=== PATIENT | female | born 1970 | race Caucasian/White ===

== ENCOUNTER 2017-08-15 14:34 | Emergency (ER) | payer MEDICAID, SELFPAY ==
[2017-08-15 14:35] VITALS: BP 138/101; PULSE 114; RESP 20; TEMP 36.9; O2SAT 95; BMI 45.8
--- NOTE | 2017-08-15 15:27 | ED.VISSUMM ---
- ER Visit Summary Date of Service: 08/15/17 Chief Complaint: Paresthesias of bilateral arms History of Present Illness: The patient is a 46 F currently on chemotherapy for breast cancer who presents for 2 hours of paresthesias in the bilateral fifth fingers in the ulnar side of the forearm up to the elbow. Patient states she has developed a rash on her arms and in her left eye that were determined to be due to her chemotherapy. She is currently on Bactrim and Cipro eyedrops for the same. Her eyes improved but the rash has become darker. Now she is having shooting paresthesias in the pinky is up to the elbow. She denies any neck pain, headache, back pain, weakness, or lower extremity symptoms. She also noted swelling in her bilateral hands and had to take off her wedding ring. She has shortness of breath secondary to pulmonary effusions that have already been worked up at the [facility]. She was checked for PE and CT scan was negative. Physical Examination: Vital signs: afebrile, hemodynamically stable, no hypoxia on room air General: well nourished, well developed, in no distress Skin: warm, dry, no pallor, erythematous patches on the bilateral arms below the elbows, no specific dermatomal distribution, blanching, left eye is mildly erythematous with exudate. No swelling. Mild rash along the base of the neck. HEENT: normocephalic and atraumatic; PERRL, EOMI, moist mucous membranes. Neck is supple, no midline tenderness deformities or step-offs, full range of motion Cardiovascular: Tachycardic rate and rhythm without murmurs, edema to bilateral hands, 2+ pulses all distal extremities Respiratory: No increased work of breathing, lungs are clear to auscultation bilaterally, no rales, rhonchi or wheezing Abdominal: Abdomen is soft, nontender with normoactive bowel sounds, no guarding or rebound, no masses MSK: Moves all extremities, no deformities, normal strength Neuro: Awake and alert, oriented ?4. No facial droop, sensation and motor function intact and symmetric Test Results: no tests performed or indicated Emergency Department Course and Treatment: Discussed patient with Dr. Oh, who stated this is very likely a side effect of the Taxotere and is nothing to worry about. Patient was reassured. She was given norco for pain in the ED and also a rx for pain especially at night and to help her sleep with the shooting paresthesias. She is to follow-up with Dr. Velez if she has any further complaints. She was discharged home. Treatment Plan: [] Disposition: [] Impression: Side effect of chemotherapy, bilateral fifth finger and forearm paresthesias This note was generated with [employer] dictation software. It may contain incorrect words, spelling, and punctuation that were not noted in review of the chart prior to signing ED Disposition - Plan for ED Patient: Chief Complaint: Numb/Ting Prescriptions: Hydrocodone Bitart/Apap 5-325 [[place] 5/325] 1 tab PO Q6H PRN PRN 5 Days #20 tab PRN Reason: Pain Referrals: Rogelio Velez DO [STAFF PHYSICIAN] - Lavonne Hensley PA [Primary Care Provider] - Additional Instructions: Please follow-up with Dr. Velez if you continue to have worsening of your numbness and tingling in your hands as well as your rash. If you have any further concerns, please come back to the emergency department immediately for another evaluation. You may use the [place] for pain and to help you sleep.
--- NOTE | 2017-08-15 15:33 | ED.DCSUM_ITS ---
- ER Visit Summary Date of Service: 08/15/17 Chief Complaint: Paresthesias of bilateral arms History of Present Illness: The patient is a 46 F currently on chemotherapy for breast cancer who presents for 2 hours of paresthesias in the bilateral fifth fingers in the ulnar side of the forearm up to the elbow. Patient states she has developed a rash on her arms and in her left eye that were determined to be due to her chemotherapy. She is currently on Bactrim and Cipro eyedrops for the same. Her eyes improved but the rash has become darker. Now she is having shooting paresthesias in the pinky is up to the elbow. She denies any neck pain , headache, back pain, weakness, or lower extremity symptoms. She also noted swelling in her bilateral hands and had to take off her wedding ring. She has shortness of breath secondary to pulmonary effusions that have already been worked up at the [facility]. She was checked for PE and CT scan was negative. Physical Examination: Vital signs: afebrile, hemodynamically stable, no hypoxia on room air General: well nourished, well developed, in no distress Skin: warm, dry, no pallor, erythematous patches on the bilateral arms below the elbows, no specific dermatomal distribution, blanching, left eye is mildly erythematous with exudate. No swelling. Mild rash along the base of the neck. HEENT: normocephalic and atraumatic; PERRL, EOMI, moist mucous membranes. Neck is supple, no midline tenderness deformities or step-offs, full range of motion Cardiovascular: Tachycardic rate and rhythm without murmurs, edema to bilateral hands, 2+ pulses all distal extremities Respiratory: No increased work of breathing, lungs are clear to auscultation bilaterally, no rales, rhonchi or wheezing Abdominal: Abdomen is soft, nontender with normoactive bowel sounds, no guarding or rebound, no masses MSK: Moves all extremities, no deformities, normal strength Neuro: Awake and alert, oriented ?4. No facial droop, sensation and motor function intact and symmetric Test Results: no tests performed or indicated Emergency Department Course and Treatment: Discussed patient with Dr. Oh, who stated this is very likely a side effect of the Taxotere and is nothing to worry about. Patient was reassured. She was given norco for pain in the ED and also a rx for pain especially at night and to help her sleep with the shooting paresthesias. She is to follow-up with Dr. Velez if she has any further complaints. She was discharged home. Treatment Plan: [] Disposition: [] Impression: Side effect of chemotherapy, bilateral fifth finger and forearm paresthesias This note was generated with [employer] dictation software. It may contain incorrect words, spelling, and punctuation that were not noted in review of the chart prior to signing ED Disposition - Plan for ED Patient: Chief Complaint: Numb/Ting Prescriptions: Hydrocodone Bitart/Apap 5-325 [[place] 5/325] 1 tab PO Q6H PRN PRN 5 Days #20 tab PRN Reason: Pain Referrals: Rogelio Velez DO [STAFF PHYSICIAN] - Lavonne Hensley PA [Primary Care Provider] - Additional Instructions: Please follow-up with Dr. Velez if you continue to have worsening of your numbness and tingling in your hands as well as your rash. If you have any further concerns, please come back to the emergency department immediately for another evaluation. You may use the [place] for pain and to help you sleep.
--- NOTE | 2017-08-15 15:53 | ED.DEP ---
ED Disposition - Plan for ED Patient: Chief Complaint: Numb/Ting Instructions: ED Neuropathy Peripheral Prescriptions: Hydrocodone Bitart/Apap 5-325 [[place] 5/325] 1 tab PO Q6H PRN PRN 5 Days #20 tab PRN Reason: Pain Referrals: Lavonne Hensley PA [Primary Care Provider] - Rogelio Velez DO [STAFF PHYSICIAN] - Additional Instructions: Please follow-up with Dr. Velez if you continue to have worsening of your numbness and tingling in your hands as well as your rash. If you have any further concerns, please come back to the emergency department immediately for another evaluation. You may use the [place] for pain and to help you sleep.
[2017-08-15] MEDS: HYDROcodone Bitartrate/Apap 5/325 Tablet PO (16:09)
[2017-08-15 16:11] VITALS: BP 155/105; PULSE 104; RESP 16
== END 2017-08-15 16:11 | disposition home or self-care (01) ==
LOC: ED 15:31
PROVIDERS: Emergency Provider Emergency Medicine; Family Provider Physician Assistant; PCP Physician Assistant
DX: R20.2 Paresthesia of skin (principal); C50.919 Malignant neoplasm of unspecified site of unspecified female breast; T45.1X5A Adverse effect of antineoplastic and immunosuppressive drugs, initial encounter; Y92.9 Unspecified place or not applicable; I10 Essential (primary) hypertension; E78.00 Pure hypercholesterolemia, unspecified
CPT/HCPCS: 99283

== ENCOUNTER → 2018-01-04 13:03 | Outpatient (CLI) | payer MEDICAID, SELFPAY ==
--- NOTE | 2018-01-04 13:19 | BI_ITS ---
MAMMOGRAPHY - UNILATERAL DIAGNOSTIC: LEFT BREAST REASON FOR EXAM: Female, 47 years old. Status post right mastectomy. Surgical planning for left mastectomy. PERTINENT HISTORY: Personal history of breast cancer. Grandmother with breast cancer. TECHNIQUE: Digital unilateral breast miguel ángel (3D mammographic acquisition) in the CC and MLO projections. 2-D mediolateral oblique (MLO) and craniocaudad (CC) views of both breasts were obtained. CAD: Full Field Digital Mammography with Computer Added Detection was performed. COMPARISON: Comparison is made with prior mammogram dated March 25, 2017. FINDINGS: Breast Composition: There are scattered areas of fibroglandular density. There are no dominant masses or suspicious calcifications. Stable small left axillary lymph nodes. A tissue clip marker is seen in the anterior superior region of the breasts. No other significant abnormalities are identified. BI/DIAG MAMM W/CAD, UNILAT IMPRESSION: Stable unilateral diagnostic mammogram. One year follow-up mammogram recommended. (A) ASSESSMENT CATEGORY: BIRADS Category 2: Benign. A letter regarding these results will be sent to the patient by the facility within 30 days. Approximately 10% of breast cancers are not detected by mammography. A normal mammogram should not delay biopsy of a clinically suspicious abnormality. Electronically Signed: Andrew Taylor MD at 11:01 EDT Tel [phone], Service support ,
== END ==
PROVIDERS: Family Provider Physician Assistant; PCP Physician Assistant; Visit Provider Surgery
DX: D24.2 Benign neoplasm of left breast (principal); C50.911 Malignant neoplasm of unspecified site of right female breast; N65.1 Disproportion of reconstructed breast; Z80.3 Family history of malignant neoplasm of breast
CPT/HCPCS: 77061; 77065; G0279

== ENCOUNTER 2018-01-14 06:54 | Day surgery (SDC) | payer MEDICAID, SELFPAY ==
[2018-01-14] VITALS (8 sets, daily range): BP systolic 108–120; BP diastolic 66–76; PULSE 84–100; RESP 16–18; TEMP 35.9–36.7; O2SAT 91–96; BMI 45.6
--- NOTE | 2018-01-14 06:59 | EKG12_ITS ---
Test Reason : PRE OP Blood Pressure : / mmHG Vent. Rate : 091 BPM Atrial Rate : 091 BPM P-R Int : 140 ms QRS Dur : 086 ms QT Int : 378 ms P-R-T Axes : 036 034 024 degrees QTc Int : 464 ms Normal sinus rhythm Low voltage QRS Borderline ECG When compared with ECG of 28-OCT-2016 21:42, No significant change was found Confirmed by NOE GUTIERREZ, MIRIAN ([id number]), deputy editor in chief MARY PERLA ([id number] on 01/15/2018 10:08:20 AM Referred By: Flory Huang Confirmed By:MIRIAN LIU MD
[2018-01-14 07:17] LABS: Internal QC Validated? YES +Cl - CLEAR BKGD; Pregnancy, Urine Negative Negative
[2018-01-14 07:35] LABS: Hematocrit 38.5 % (37-47); Hemoglobin 12.3 g/dl (12.0-15.0); Mean Corp Hgb Conc 31.9 g/gl (32-36); Mean Corpuscular Hgb 25.1 pg (27.0-32.0); Mean Corpuscular Volume 78.4 fL (81-99); Mean Platelet Vol. 9.4 fl (6.2-12.0); Platelet Count 259 K/mm3 (150-450); RBC Distribution Width CV 18.8 % (11.6-14.6); RBC Distribution Width SD 52.3 fl (35.1-43.9); Red Blood Count 4.91 M/mm3 (4.2-5.4); White Blood Count 5.5 K/mm3 (4.4-11.0)
[2018-01-14 07:45] LABS: Scan Indicated on CBC? Y/N NO
[2018-01-14 07:50] LABS: Anion Gap 8 (5-15); BUN 14 mg/dL (7-18); BUN/Creat Ratio 16.6 RATIO (10-20); Calcium,Total 8.7 mg/dL (8.5-10.1); Chloride 103 mmol/L (98-107); Creatinine, Serum 0.84 mg/dL (0.55-1.02); EST Glomerular Filtration Rate 77 mL/min (>60); Est Glom Filt Rate - Afr Amer 93 mL/min (>60); Estimated Creatinine Clearance 69.23 ml/min; Glucose 105 mg/dL (74-106); Potassium 3.9 mmol/L (3.5-5.1); Sodium Level 140 mmol/L (136-145); Thyroid Stim Hormone (TSH) 1.53 uIU/mL (0.358-3.74)
[2018-01-14] MEDS: Bupivacaine Mpf 0.5% 30 ML VIAL (08:52)
--- NOTE | 2018-01-14 09:23 | PCM.OP.BLANK ---
Operative Report Date of Procedure: 01/14/18 Surgeon: Dr. Flory Huang Vault Clerk: CUCA Allred Preoperative diagnosis: Prophylactic BSO, Estrogen receptor + breast cancer, BRCA negative Procedure performed: laparoscopic BSO Postoperative diagnosis: same complications: None Estimated blood loss: 5cc Drains: none Specimens collected: Bilateral tubes and ovaries Findings: Normal tubes and ovaries bilaterally uterus sounded to approximately 8cm. Anesthesia: general Implantable devices: None Operative note: After informed consent was obtained patient was taken to the operating room she was placed in supine position she was given anesthesia. She was then placed in the [facility] stirrups and she was prepped and draped in normal sterile fashion. Bladder was drained prior to the start of procedure approximately 50cc of clear yellow urine was expelled. At this time attention was turned to the vaginal portion where weighted speculum placed at posterior fornix vagina single-tooth tenaculum was used to gently grasp the internal the cervix. uterus was gently sounded to approximately 8cm. Uterine manipulator was placed without difficulty. Legs then placed in parallel with the abdomen the tenaculum and the weighted speculum were removed. 2 towel clamps were placed superior to umbilicus. After Marcaine was injected superior to umbilicus a small incision was made and a 5 mm trocar was placed under direct visualization. CO2 gas was used to insufflate the intra-abdominal cavity. Upon inspection no gross abnormalities uterus tubes and ovaries appeared to be normal. Filshie clips were noted on both tubes. At this time then the LLQ port was placed again Marcaine was injected small incision was made a knife and the 5 mm trocar was placed. this was repeated on right side. At this time then tubes were traced back to the fimbriated ends. Ligasure was used to coagulate and ligate along IP ligament, uterovarian and the mesosalpynx bilaterally until ovaries and tubes removed completely. Good hemostasis was appreciated. The umbilical incision was extended to 10mm port and endocatch bag placed- specimens collected and removed. The jose f wilder was then used to closed fascia of umbilical incision using 0-vicryl sutre. At this time procedure was deemed complete successful. The gas was desufflated on from the intra-abdominal cavity. The trochars were removed. Skin was closed using 4-0 Monocryl in a subcutaneous fashion. Dermabond glue was placed. Instrument lap and needle counts were correct ?2. The uterine manipulator was removed. Vaginal sweep was performed it was negative. There were no complications anticipated normal postoperative course for this patient.
--- NOTE | 2018-01-14 09:28 | OP.PCM_ITS ---
Operative Report Date of Procedure: 01/14/18 Surgeon: Dr. Flory Huang Negative Spotter: CUCA Allred Preoperative diagnosis: Prophylactic BSO, Estrogen receptor + breast cancer, BRCA negative Procedure performed: laparoscopic BSO Postoperative diagnosis: same complications: None Estimated blood loss: 5cc Drains: none Specimens collected: Bilateral tubes and ovaries Findings: Normal tubes and ovaries bilaterally uterus sounded to approximately 8cm. Anesthesia: general Implantable devices: None Operative note: After informed consent was obtained patient was taken to the operating room she was placed in supine position she was given anesthesia. She was then placed in the [facility] [employer] [facility] [employer] stirrups and she was prepped and draped in normal sterile fashion. Bladder was drained prior to the start of procedure approximately 50cc of clear yellow urine was expelled. At this time attention was turned to the vaginal portion where weighted speculum placed at posterior fornix vagina single-tooth tenaculum was used to gently grasp the internal the cervix. uterus was gently sounded to approximately 8cm. Uterine manipulator was placed without difficulty. Legs then placed in parallel with the abdomen the tenaculum and the weighted speculum were removed. 2 towel clamps were placed superior to umbilicus. After Marcaine was injected superior to umbilicus a small incision was made and a 5 mm trocar was placed under direct visualization. CO2 gas was used to insufflate the intra-abdominal cavity. Upon inspection no gross abnormalities uterus tubes and ovaries appeared to be normal. Filshie clips were noted on both tubes. At this time then the LLQ port was placed again Marcaine was injected small incision was made a knife and the 5 mm trocar was placed. this was repeated on right side. At this time then tubes were traced back to the fimbriated ends. Ligasure was used to coagulate and ligate along IP ligament, uterovarian and the mesosalpynx bilaterally until ovaries and tubes removed completely. Good hemostasis was appreciated. The umbilical incision was extended to 10mm port and endocatch bag placed- specimens collected and removed. The jose f wilder was then used to closed fascia of umbilical incision using 0-vicryl sutre. At this time procedure was deemed complete successful. The gas was desufflated on from the intra- abdominal cavity. The trochars were removed. Skin was closed using 4-0 Monocryl in a subcutaneous fashion. Dermabond glue was placed. Instrument lap and needle counts were correct ?2. The uterine manipulator was removed. Vaginal sweep was performed it was negative. There were no complications anticipated normal postoperative course for this patient.
--- NOTE | 2018-01-14 09:28 | PCM.DC.TUB ---
Discharge Diet: No Restrictions, - - Increase fluid intake for 48 hours. Discharge Activity: Return to Normal Activity, May Drive - when you are no longer taking narcotic pain medications., May Shower, May Take a Tub Bath - in 7 days., - - Ambulate often the next week after surgery. May resume sexual activity in: 2 weeks Lifting Restrictions: 20 Additional Activity Instructions:: Nothing in the vagina for the next 5 days. Call your doctor if your incision/area has: Continuous Slow Oozing, Sudden Increased Bleeding, Increased Pain/ Swelling, Increased Redness, Foul Smelling Discharge, Swelling at the incision site Call your doctor if you observe: Fever of 101 or Higher, Using more than one pad per hour Cleanse incision/area with: Soap & Water, - - do not pick of skin glue Allergies/Adverse Reactions: Allergies levofloxacin [From Levaquin] Allergy (Severe, Verified 01/08/18 14:16) hives, throat swelling amitriptyline Adverse Reaction (Verified 01/08/18 14:16) HYPER AND REALLY ANGRY anastrozole Adverse Reaction (Verified 01/08/18 14:18) Other headaches, mood changes Medications to take at Discharge Cholecalciferol (Vitamin D3) [Vitamin D3] 2,000 unit PO DAILY 11/10/13 Hydrochlorothiazide 25 mg PO DAILY 11/10/13 Acetaminophen [Tylenol] 500 - 1,000 mg PO Q6H PRN PRN 04/22/17 Bupropion HCl [Wellbutrin Xl] 150 mg PO DAILY 04/22/17 Potassium Citrate/Citric Acid [Pot Citrate-Citric Acid Packet] 1 ea PO DAILY 04/22/17 Zolpidem Tartrate [Ambien] 5 mg PO QHS PRN 04/22/17 lamotrigine 150 mg tablet 200 mg PO DAILY tab 06/20/17 levothyroxine 100 mcg tablet 200 mcg PO DAILY tab 06/20/17 lisinopril 10 mg tablet 10 mg PO DAILY tab 06/20/17 Hydrocodone Bitart/Apap 5-325 [[place] 5/325] 1 tab PO Q6H PRN PRN 5 Days #20 tab 08/15/17 Citracal +D 1 tab PO DAILY 01/08/18 Loratadine [Claritin] 10 mg PO DAILY 01/08/18 Tamoxifen [Nolvadex] 20 mg PO DAILY 01/08/18 Primary Care Physician: Lavonne Hensley PA [Primary Care Provider] - Please Follow Up With: Flory Huang MD When: 2 weeks for post op
--- NOTE | 2018-01-15 | FALS_PTH ---
PATIENT: ROMEO STAFFORD [place] [facility] [place][id number] AGE/SX: 47/F ROOM: RE01/14/[address]: Dr. Flory Huang, MDDOB: 1970 BED: DIS: 01/14/2018 SPEC #: [id number] RECD: 01/15/18 13:21 STATUS: TRISTEN CHRISS #: [id number] YAHAIRA: 01/15/18 00:[address]: Flory Huang DEPT: SURGICAL PATHOLOGY RECD BY: Joce Watt ENTERED: 01/15/18 13:21 SP TYPE: FALL TUBES OTHR DR: CARLOS Gudino Tissues: Ovary, NOS Procedures: Surgery Specimen Level IV HEADER OPERATION: Laparoscopic, salpingo-oophorectomy PRE-OP DIAGNOSIS: Estrogen receptor, positive, breast cancer TISSUE SUBMITTED: Bilateral fallopian tubes and ovaries MICROSCOPIC DIAGNOSIS Bilateral fallopian tubes and ovaries, bilateral salpingo-oophorectomy: Bilateral fallopian tubes and ovaries, no pathologic diagnosis. KASHIF:conor 01/18/18 MICROSCOPIC DESCRIPTION Slides are reviewed. GROSS DESCRIPTION Received in fixative is one container labeled with the patient's name and designated bilateral fallopian tubes and ovaries. The specimen consists of bilateral fallopian tubes and adjacent ovary. Fallopian tubes and ovaries are not identified at the right or left. One of the fallopian tubes measures 5.5 cm in length and up to 0.8 cm in diameter. Fimbrial end is identified. No tubo-ovarian adhesions are noted. A Filshie clip is noted at the proximal end of the fallopian tube and is intact. The adjacent ovary measures 2.4 x 2 x 1.5 cm. Sections reveal unremarkable cut surfaces. The second fallopian tube is similar appearance to first one and measures 7 cm in length and 0.6 cm in diameter. A Filshie clip is also noted at the proximal end of this fallopian tube which appears intact. Section of both fallopian tubes reveal unremarkable cut surfaces. Adjacent second ovary measures 2.5 x 2 x 1.5 cm. Sections reveal unremarkable cut surfaces. [employer] Consultant sections are submitted in 6 cassettes as follows: 1-3 one fallopian tube adjacent ovary (2? fallopian tube, 3 & 4 ovary, ), 4-6 second fallopian tube and adjacent ovary( 4 ?fallopian tube, 5&6 ovary). Angelika 01/15/18 TC:4 CPT: 67049 x2
== END 2018-01-14 11:10 | disposition home or self-care (01) ==
LOC: SDC 06:55 → AC 06:56
PROVIDERS: Family Provider Physician Assistant; PCP Physician Assistant; Visit Provider Obstetrics & Gynecology
PROC: (CPT 58661; principal; 2018-01-14 08:15)
DX: G89.18 Other acute postprocedural pain (principal); C50.919 Malignant neoplasm of unspecified site of unspecified female breast; Z17.0 Estrogen receptor positive status [ER+]; I10 Essential (primary) hypertension; Z87.891 Personal history of nicotine dependence; F41.9 Anxiety disorder, unspecified; F31.9 Bipolar disorder, unspecified
CPT/HCPCS: 58661; 36415; 80048; 81025; 84443; 85027; 88302; 88305; 93005; J7120; J2405

== ENCOUNTER 2018-03-03 16:13 | Observation (INO) | payer MEDICAID, SELFPAY ==
[2018-03-02] VITALS (13 sets, daily range): BP systolic 115–161; BP diastolic 69–102; PULSE 95–118; RESP 16–18; TEMP 36–38.1; O2SAT 92–98; BMI 47.0
[2018-03-02] MEDS: Cefazolin 2 GM in 0.9% Normal Saline 100 ML IV (08:00)
--- NOTE | 2018-03-02 08:00 | BREAST_PTH ---
PATIENT: ROMEO STAFFORD LOC: [facility] U#:[id number] AGE/SX: 47/F ROOM: [facility] RE03/03/[address]: Dr. Gautma Carrasco MD : 1970 BED: 1 DIS: 03/04/2018 SPEC #: [id number] RECD: 03/02/18 12:03 STATUS: TRISTEN REBriana #: [id number] YAHAIRA: 03/02/18 08:[address]: Gautam Carrasco DEPT: SURGICAL PATHOLOGY RECD BY: Chintan Waters ENTERED: 03/02/18 12:18 SP TYPE: BREAST OTHR DR: CARLOS Gudino Tissues: A - Left breast, NOS B - Right breast, NOS Procedures: Surgery Specimen Level V HEADER OPERATION: Prophylactic mastectomy left breast; revision reconstructed PRE-OP DIAGNOSIS: Right breast cancer; acquired absence of right breast and nipple; disproportion between andreafski breast and reconstructed breast; excess tissue in reconstructed breast; hypertrophy of breast; cancer phobia; acquired absence left breast and nipple; fibroadenoma of left breast; ER positive status; family history breast cancer TISSUE SUBMITTED: A ? Left mastectomy breast tissue, B ? Right breast contour deformity excess skin tissue MICROSCOPIC DIAGNOSIS A. Left breast, mastectomy: Skin of nipple and areola with minimal chronic inflammation. Fibrocystic change and involutional change. Focal vessel wall microcalcifications. No evidence of malignancy. B. Right breast, partial excision: Fibrosis, focal fibrinoid degeneration and mature granulation tissue. No evidence of malignancy. AM:shanae 03/05/18 MICROSCOPIC DESCRIPTION Slides are reviewed. GROSS DESCRIPTION A - Received in fixative is one container labeled with the patient's name and designated left breast mastectomy breast tissue. The specimen consists of a mastectomy specimen consisting of breast tissue with overlying skin ellipse. The breast tissue measures 27 x 24 x 9 cm and the overlying skin ellipse measures 20 x 7 cm. The nipple measures 1.1 cm in greatest dimension. No skin lesion is identified. Sections of the breast tissue reveal yellow adipose cut surfaces mixed with scant, velazquez-white fibrous area. Also received in the container are four variable sized pieces of skin with underlying tissue measuring in aggregate 30 x 9 x 1 cm and up to 3 cm in thickness. Sections of these pieces do not reveal any mass lesion. Sections will be submitted after overnight fixation. / SJ:shanae 03/02/18 Embedded Systems Software Engineer sections are submitted in 12 cassettes as follows: 1 ? nipple, entirely submitted, 210 ? breast tissue (2-4 ? outer portion breast tissue, 5-7 ? middle portion breast tissue, 8-10 ? inner portion breast tissue, 11 & 12 ? detached pieces of tissue. Sections will be submitted after additional fixation. / SJ:shanae 03/03/18 B - Received in fixative is one container labeled with the patient's name and designated right breast contour deformity excess skin tissue. The specimen consists of a piece of skin with underlying tissue measuring 15 x 10 x 10 cm and up to 5 cm in thickness. The skin surface shows focal area of healed scar. Also present in the container are multiple detached pieces of soft tissue measuring in aggregate 10 x 7 x 2 cm. Sections do not reveal any mass lesion. Sections will be submitted after overnight fixation. / SJ:shanae 03/02/18 Embedded Systems Software Engineer sections are submitted in four cassettes as follows: 1-4 ? largest piece of tissue, 5 & 6 ? smaller detached pieces of tissue. Cassette 1 also contains the piece of skin, the largest piece. Sections will be submitted after additional fixation. / KASHIF:shanae 03/03/18 TC:5 CPT: 71608 x2
--- NOTE | 2018-03-02 11:21 | PCM.IMDPSTOP ---
Immediate Post-Op Note Date of Procedure: 03/02/18 Primary Surgeon/Physician: Gautam Carrasco gang punch operator: Dodie Matos. Pre-Operative Diagnosis: 1. Right breast cancer. 2. Acquired absence right breast. 3. Disproportion reconstructed right breast. 4. Deformity reconstructed right breast with painful excess mastectomy skin scar contour deformity. 5. Left breast macromastia. 6. Cancer phobia left breast. 7. Planned acquired absence left breast. 8. Fibroadenoma left breast. 9. Estrogen receptor positive status. 10. Family history of breast cancer. 11. Former smoker. Post-Operative Diagnosis: 1. Right breast cancer. 2. Acquired absence right breast. 3. Disproportion reconstructed right breast. 4. Deformity reconstructed right breast with painful excess mastectomy skin scar contour deformity. 5. Left breast macromastia. 6. Cancer phobia left breast. 7. Planned acquired absence left breast. 8. Fibroadenoma left breast. 9. Estrogen receptor positive status. 10. Family history of breast cancer. 11. Former smoker. 12. Seroma right breast reconstruction. Surgery/Procedure Performed:: 1. Prophylactic mastectomy left breast. 2. Revision reconstructed right breast with excision painful excess mastectomy skin scar contour deformity laterally and incision and drainage seroma medially with capsulectomy. Description of Surgical Findings:: Patient comes in today to further discuss her breast reconstruction. She initially developed right breast cancer that necessitated a mastectomy in 05/05. 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 [place] lymph nodes were negative. Preop MRI also showed a nodule in the left breast that was biopsied and it showed a fibroadenoma. Estrogen receptors were positive. Progesterone receptors were weakly positive. HER2/diana was negative. She was placed on IV chemotherapy and has finished them. She also tried Anastrozole and had severe side effects and it was discontinued. She was also placed on Lupron in preparation for an oophorectomy that was done on 01/14/18. She has since healed from that surgery and wishes to proceed with her breast surgery at this time. Her bra size prior to the mastectomy was a 46 DDD and already had neck pain and back pain from the large size of her breasts. After the mastectomy, the asymmetry made the symptoms worse. She presents at this time to discuss her breast reconstruction options as well as surgery on the opposite breast to help with her symptomatology. With her recent diagnosis of right breast cancer, she developed concerns of the possibility of developing breast cancer in the opposite left breast with cancer phobia. And at this time she has decided to proceed with a prophylactic mastectomy on the left. After her mastectomy on the right, she has developed mastectomy excess skin scar contour deformity mostly laterally. She states the excess tissue deformity leads to increased pain when she is wearing her external breast prosthesis. She had a mammogram done on 01/04/18. It showed scattered areas of fibroglandular density. There are no dominant masses or suspicious calcifications. Stable small left axillary lymph nodes. A tissue clip marker is seen in the anterior superior region of the breasts. No other significant abnormalities are identified. She wanted to let me know that after her right breast mastectomy, she had trouble with seromas postoperatively that lasted around 3 months. Today the patient underwent prophylactic mastectomy left breast and revision reconstructed right breast with excision painful excess mastectomy skin scar contour deformity laterally and incision and drainage seroma medially with capsulectomy. IV Fluids - 2000 ml. Urine Output - 285 ml. I used Arlette absorbable hemostat, (I used 5 vials, 3 in the left breast and 2 in the right breast). Reference Number - [id number]. Lot Number - [id number]. Expiration - December 14, 2022, (I used 4 vials, 3 in the left breast and one in the right breast). Reference Number - [id number]. Lot Number - [id number]. Expiration - November, (I used one vial in the right breast). Estimated Blood Loss: 150 ml. Specimen's removed: 1. Left breast tissue to Pathology. 2. Right breast tissue and seroma capsule to Pathology and Microbiology. Drains: Nish x 4 (2 drains in each breast). Type of Anesthesia:: General - Admit VTE Documentation VTE Present on Admission: No VTE Mechan Device Prophylaxis: SCD's VTE Pharm Prophylaxis ordered?: Yes
[2018-03-02] MEDS: Lactated Ringers 1,000 ML 60 ML IV ×2 (12:30→21:03)
[2018-03-02] MEDS: HYDROmorphone 1 MG/ML Syringe IV (15:02)
[2018-03-02] MEDS: Cefazolin 1 GM/50 ML BAG IV ×2 (15:23→21:04)
[2018-03-02] MEDS: diazePAM 5 MG Tablet PO (19:19)
[2018-03-02] MEDS: oxyCODONE 5 MG Tablet 10 MG PO (19:19)
[2018-03-02] MEDS: Docusate Sodium 100 MG Capsule PO (21:01)
--- NOTE | 2018-03-02 23:24 | PCM.OPRPT ---
Report of Operation Date of Procedure: 03/02/18 Pre-Operative Diagnosis: 1. Right breast cancer. 2. Acquired absence right breast. 3. Disproportion reconstructed right breast. 4. Deformity reconstructed right breast with painful excess mastectomy skin scar contour deformity. 5. Left breast macromastia. 6. Cancer phobia left breast. 7. Planned acquired absence left breast. 8. Fibroadenoma left breast. 9. Estrogen receptor positive status. 10. Family history of breast cancer. 11. Former smoker. Post-Operative Diagnosis: 1. Right breast cancer. 2. Acquired absence right breast. 3. Disproportion reconstructed right breast. 4. Deformity reconstructed right breast with painful excess mastectomy skin scar contour deformity. 5. Left breast macromastia. 6. Cancer phobia left breast. 7. Planned acquired absence left breast. 8. Fibroadenoma left breast. 9. Estrogen receptor positive status. 10. Family history of breast cancer. 11. Former smoker. 12. Seroma right breast reconstruction. Surgery/Procedure Performed:: 1. Prophylactic mastectomy left breast. 2. Revision reconstructed right breast with excision painful excess mastectomy skin scar contour deformity laterally and incision and drainage seroma medially with capsulectomy. Description of Surgical Findings:: Patient comes in today to further discuss her breast reconstruction. She initially developed right breast cancer that necessitated a mastectomy in 05/05. 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 [place] lymph nodes were negative. Preop MRI also showed a nodule in the left breast that was biopsied and it showed a fibroadenoma. Estrogen receptors were positive. Progesterone receptors were weakly positive. HER2/diana was negative. She was placed on IV chemotherapy and has finished them. She also tried Anastrozole and had severe side effects and it was discontinued. She was also placed on Lupron in preparation for an oophorectomy that was done on 01/14/18. She has since healed from that surgery and wishes to proceed with her breast surgery at this time. Her bra size prior to the mastectomy was a 46 DDD and already had neck pain and back pain from the large size of her breasts. After the mastectomy, the asymmetry made the symptoms worse. She presents at this time to discuss her breast reconstruction options as well as surgery on the opposite breast to help with her symptomatology. With her recent diagnosis of right breast cancer, she developed concerns of the possibility of developing breast cancer in the opposite left breast with cancer phobia. And at this time she has decided to proceed with a prophylactic mastectomy on the left. After her mastectomy on the right, she has developed mastectomy excess skin scar contour deformity mostly laterally. She states the excess tissue deformity leads to increased pain when she is wearing her external breast prosthesis. She had a mammogram done on 01/04/18. It showed scattered areas of fibroglandular density. There are no dominant masses or suspicious calcifications. Stable small left axillary lymph nodes. A tissue clip marker is seen in the anterior superior region of the breasts. No other significant abnormalities are identified. She wanted to let me know that after her right breast mastectomy, she had trouble with seromas postoperatively that lasted around 3 months. Patient was informed of the risks and complications of the procedure including alternatives to surgery. These were discussed with the patient personally. Patient voices understanding and wishes to proceed. Some of the risks and complications were included in a form from the [employer]. IV Fluids - 2000 ml. Urine Output - 285 ml. I used Arlette absorbable hemostat, (I used 5 vials, 3 in the left breast and 2 in the right breast). Reference Number - [id number]. Lot Number - [id number]. Expiration - December 14, 2022, (I used 4 vials, 3 in the left breast and one in the right breast). Reference Number - [id number]. Lot Number - [id number]. Expiration - November, (I used one vial in the right breast). grappler: Dodie Matos. Type of Anesthesia:: General Specimen's removed: 1. Left breast tissue to Pathology. 2. Right breast tissue and seroma capsule to Pathology and Microbiology. Drains: Nish x 4 (2 drains in each breast). Estimated Blood Loss (mL): 150 ml. Fluids Replaced: 2285 ml (IV Fluids 200 ml, Urine Output 285 ml). Description of Procedure: Patient was taken to OR in supine position and in the sitting position preop markings were made. The sternal midline was marked down to the umbilicus. The inframammary folds were marked bilaterally. The midclavicular lines were marked down to the nipple and from the nipple to the inframammary fold. On the left breast, horizontal markings were made around the nipple extending from the anterior axillary line to the sternal midline. On the right breast, horizontal markings were made on the lateral aspect of the mastectomy incision to encompass the excess mastectomy skin scar contour deformity. The patient raised her right arm to check to make sure that I wasn't going to remove too much tissue laterally. The patient was placed supine and placed under general anesthesia. Both breasts were prepped and draped in the usual fashion. I worked on the left side first since it is the noncancer side. I can then use the same instruments to do the right side. I started on the left side with first injecting the markings with Xylocaine with epinephrine. After waiting 5 minutes for the anesthetic to take effect, I made a horizontal elliptical incision around the nipple extending from the anterior axillary line to the sternal midline. Dissection was carried down into the subcutaneous tissue. With the breast skin flaps on stretch, I dissected the breast tissue from the subcutaneous tissue of the skin flaps at the level of Carloz's fascia down to the muscular fascia. I dissected medially to the sternum, superiorly to the clavicle, laterally to the anterior axillary line, and inferiorly to the inframammary fold. The breast tissue was then dissected off the pectoralis muscle and sent to Pathology for analysis to rule out carcinoma. Hemostasis was obtained with electrocautery. The wound was irrigated with saline. I placed 2 size 15 Nish drains through separate stab incisions inferolaterally and secured to the skin with 3-0 Nylon suture. I sprayed Arlette absorbable hemostat into the left breast. I used 3 vials to help minimize seroma formation. The horizontal incision was then closed using 3-0 Vicryl interrupted sutures for the deep subcutaneous tissue. I then used 3-0 Monocryl interrupted sutures for the deep dermis and subcutaneous tissue. The skin was approximated with 3-0 V-lock unidirectional barbed running subcuticular suture. Histoacryl skin tissue adhesive was then applied. Kerlix gauze was then applied to the breast incision. I then went to the right side to revise the reconstructed breast with excision excess mastectomy skin scar contour deformity. The lateral markings were infiltrated with xylocaine with epinephrine. After waiting 5 minutes for the anesthetic to take effect, I made a horizontal elliptical incision down through the subcutaneous tissue until the chest wall muscles were seen. At the medial aspect of the wound was some darkened tissue which was clinically consistent with a history of seroma. So I extended the incision medially through the previous mastectomy incision down into the subcutaneous tissue. A capsule was seen and a capsulotomy was performed. Several ml's of serous fluid was express from a previous seroma. A capsulectomy was then performed off the chest wall muscles. Some of this capsular tissue was sent to Microbiology for culture. A positive culture will necessitate antibiotic therapy. The rest of the capsular tissue was sent with the other right breast tissue to Pathology for analysis to rule out carcinoma. The wound was irrigated with saline. Hemostasis was obtained with electrocautery. I placed 2 size 15 Nish drains through separate stab incisions inferolaterally and secured to the skin with 3-0 Nylon suture. I sprayed Arlette absorbable hemostat into the right breast. I used 2 vials to help minimize seroma formation. The horizontal incision was then closed in multiple layers with 3-0 Vicryl interrupted sutures for the deep subcutaneous tissue. I then used 3-0 Monocryl interrupted sutures for the deep dermis and subcutaneous tissue. The skin was approximated with 3-0 V-lock unidirectional barbed running subcuticular suture. Histoacryl skin tissue adhesive was then applied. Kerlix gauze was then applied to the breast incision. A binder was then placed for compression during the initial postop period. Before leaving the OR, a leos catheter was placed. Patient tolerated the procedure well and was sent to PACU in satisfactory condition. She will be sent upstairs for postop care. She will be discharged when she is tolerating po analgesia and when she is steady while ambulating. Grafts/Implants Used: None. - Complications None. - Admit VTE Documentation VTE Present on Admission: No VTE Mechan Device Prophylaxis: SCD's VTE Pharm Prophylaxis ordered?: Yes Code Visit Surgery Charges CPT - 10133 ICD-10 - C50.911, F40.298, N65.1, Z90.12, Z80.3, Z17.0, N62, D24.2, Z87.891 05716 C50.911, Z90.11, N65.0, N65.1, Z80.3, Z17.0, Z87.891
[2018-03-03 02:45] VITALS: BP 126/62; PULSE 107; RESP 16; TEMP 36.9; O2SAT 98
[2018-03-03] MEDS: oxyCODONE 5 MG Tablet 10 MG PO ×4 (03:15→21:08)
[2018-03-03] MEDS: diazePAM 5 MG Tablet PO ×2 (03:16→19:50)
[2018-03-03] MEDS: HYDROmorphone 1 MG/ML Syringe IV (05:43)
[2018-03-03] MEDS: Cefazolin 1 GM/50 ML BAG IV ×3 (05:44→21:08)
[2018-03-03 05:46] LABS: Hematocrit 34.6 % (37-47); Hemoglobin 10.8 g/dl (12.0-15.0); Mean Corp Hgb Conc 31.2 g/gl (32-36); Mean Corpuscular Hgb 26.3 pg (27.0-32.0); Mean Corpuscular Volume 84.2 fL (81-99); Mean Platelet Vol. 9.3 fl (6.2-12.0); Platelet Count 211 K/mm3 (150-450); RBC Distribution Width CV 18.3 % (11.6-14.6); RBC Distribution Width SD 55.9 fl (35.1-43.9); Red Blood Count 4.11 M/mm3 (4.2-5.4); White Blood Count 8.2 K/mm3 (4.4-11.0)
[2018-03-03] MEDS: Levothyroxine 100 MCG Tablet 200 MCG PO (05:46)
[2018-03-03] MEDS: Enoxaparin 40 MG/0.4 ML Syringe SC (05:46)
[2018-03-03 05:47] LABS: Scan Indicated on CBC? Y/N NO
[2018-03-03 07:06] LABS: Anion Gap 4 (5-15); BUN 11 mg/dL (7-18); BUN/Creat Ratio 14.6 RATIO (10-20); Calcium,Total 7.9 mg/dL (8.5-10.1); Chloride 104 mmol/L (98-107); Creatinine, Serum 0.75 mg/dL (0.55-1.02); EST Glomerular Filtration Rate 88 mL/min (>60); Est Glom Filt Rate - Afr Amer 106 mL/min (>60); Estimated Creatinine Clearance 77.53 ml/min; Glucose 132 mg/dL (74-106); Prealbumin 14.9 mg/dL (20.0-40.0); Sodium Level 139 mmol/L (136-145)
[2018-03-03 08:16] VITALS: BP 125/71; PULSE 103; RESP 18; TEMP 37.1; O2SAT 97
[2018-03-03] MEDS: Calcium Carb/Vitamin D 1 TABLET Tablet PO (08:21)
[2018-03-03] MEDS: hydroCHLOROthiazide 25 MG Tablet PO (08:22)
[2018-03-03] MEDS: Docusate Sodium 100 MG Capsule PO ×2 (08:22→21:08)
[2018-03-03] MEDS: lamoTRIgine 100 MG Tablet 200 MG PO (08:23)
[2018-03-03] MEDS: Lisinopril 10 MG Tablet PO (08:23)
[2018-03-03 12:29] VITALS: BP 119/64; PULSE 118; RESP 18; TEMP 37.6; O2SAT 92
[2018-03-03 16:25] VITALS: BP 131/66; PULSE 118; RESP 18; TEMP 37.4; O2SAT 97
--- NOTE | 2018-03-03 18:09 | PCM.PN.SRG ---
Subjective: Postop #1 Patient complains of incisional pain more so on the right. - Physical Exam General: Alert, Oriented x3, No apparent distress HEENT: PERRLA, EOMI Oral: Moist Mucosa Neck: Supple Abdomen: Soft, Non-Distended Skin: Incision - bilateral breast incisions are dry and intact. No clincial evidence of hematoma. No vascular compromise seen on the breast skin flaps. Neurological: Cranial nerves II-XII grossly intact Psych/Mental Status: Normal Affect Vital Signs Temp Pulse Resp BP Pulse Ox 99.4 F H 118 H 18 131/66 H 97 03/03/18 16:25 03/03/18 16:25 03/03/18 16:25 03/03/18 16:25 03/03/18 16:25 Oxygen Flow Rate (L/min) 1 Oxygen Delivery Method Room Air Weight: 265 lb 14.04 oz Body Mass Index (BMI) 47.0 Intake and Output for Last 24 Hours 03/01/18 03/02/18 03/03/18 23:59 23:59 23:59 Intake Total 5430 / 5430 2751 / 2751 Output Total 877 / 877 1835 / 1835 Balance 4553 / 4553 916 / 916 Drainage 92 ml yesterday, 310 ml today. Microbiology Past 72 Hours 03/02/18 Unknown Gram Stain - Final Biopsy - Tissue Wound Culture - Preliminary No growth-Final to follow Laboratory Tests Past 24 Hrs 03/03/18 03/03/18 05:20 05:20 WBC 8.2 RBC 4.11 L Hgb 10.8 L Hct 34.6 L MCV 84.2 MCH 26.3 L MCHC 31.2 L RDW 18.3 H RDW Differential 55.9 H Plt Count 211 MPV 9.3 Sodium 139 Potassium 4.0 Chloride 104 Carbon Dioxide 31.0 Anion Gap 4 L BUN 11 Creatinine 0.75 Estim Creat Clear Calc 77.53 Est GFR (MDRD) Af Amer 106 Est GFR (MDRD) Non-Af 88 BUN/Creatinine Ratio 14.6 Glucose 132 H Calcium 7.9 L Prealbumin 14.9 L Medical Necessity - Tobacco Use Smoking Status: Former smoker Assessment/Plan All Active Problems (Last Reviewed 02/17/18 @ 08:58 by Natasha Pizarro) Acquired absence of left breast and nipple (Acute) 1. Right breast cancer. 2. Acquired absence right breast. 3. Disproportion reconstructed right breast. 4. Deformity reconstructed right breast with painful excess mastectomy skin scar contour deformity. 5. Left breast macromastia. 6. Cancer phobia left breast. 7. Planned acquired absence left breast. 8. Fibroadenoma left breast. 9. Estrogen receptor positive status. 10. Family history of breast cancer. 11. Former smoker. 12. Late effect of post-mastectomy seroma right breast reconstruction. 13. s/p prophylactic mastectomy left breast and revision reconstructed right breast with excision painful excess mastectomy skin scar contour deformity laterally and incision and drainage seroma medially with capsulectomy. Incisions are dry and intact. No clinical evidence of hematoma. Prealbumin is 14.9. Encourage nutritional supplementation with protein to help the healing process. Keep head elevated. Continue chest wall compression LUIS wrap. Patient is a little unsteady on her feet. Encourage ambulation with assist to improve her steadiness before discharge. Weaning to po analgesia for discharge. Anticipate discharge tomorrow. Will remove the drains in the office.
[2018-03-03 19:54] VITALS: BP 117/75; PULSE 117; RESP 16; TEMP 37.7; O2SAT 97
[2018-03-04] MEDS: oxyCODONE 5 MG Tablet 10 MG PO ×3 (01:21→09:21)
[2018-03-04 01:42] VITALS: BP 112/70; PULSE 117; RESP 16; TEMP 37.1; O2SAT 94
[2018-03-04] MEDS: Enoxaparin 40 MG/0.4 ML Syringe SC (05:18)
[2018-03-04] MEDS: 0.9% NaCl Peripheral Flush Adult/Peds IV (05:19)
[2018-03-04] MEDS: Cefazolin 1 GM/50 ML BAG IV (05:19)
[2018-03-04] MEDS: Levothyroxine 100 MCG Tablet 200 MCG PO (05:52)
[2018-03-04 09:10] VITALS: BP 116/71; PULSE 109; RESP 18; TEMP 37; O2SAT 94
[2018-03-04] MEDS: Calcium Carb/Vitamin D 1 TABLET Tablet PO (09:15)
[2018-03-04] MEDS: lamoTRIgine 100 MG Tablet 200 MG PO (09:15)
[2018-03-04] MEDS: hydroCHLOROthiazide 25 MG Tablet PO (09:15)
[2018-03-04] MEDS: Docusate Sodium 100 MG Capsule PO (09:15)
[2018-03-04] MEDS: Lisinopril 10 MG Tablet PO (09:16)
--- NOTE | 2018-03-04 09:57 | PCM.PN.SRG ---
Subjective: Postop #2 Patient is resting comfortably. She is steady with ambulation. - Physical Exam General: Alert, Oriented x3 HEENT: PERRLA, EOMI Oral: Moist Mucosa Neck: Supple Abdomen: Soft, Non-Distended Skin: Incision - bilateral breast incisions are dry and intact. No evidence of hematoma. Neurological: Cranial nerves II-XII grossly intact Psych/Mental Status: Normal Affect, Appropriate Vital Signs Temp Pulse Resp BP Pulse Ox 98.6 F 109 H 18 116/71 94 03/04/18 09:10 03/04/18 09:10 03/04/18 09:10 03/04/18 09:10 03/04/18 09:10 Oxygen Flow Rate (L/min) 1 Oxygen Delivery Method Room Air Weight: 265 lb 14.04 oz Body Mass Index (BMI) 47.0 Intake and Output for Last 24 Hours 03/02/18 03/03/18 03/04/18 23:59 23:59 23:59 Intake Total 5430 / 5430 4259 / 4259 400 / 400 Output Total 877 / 877 6020 / 6020 435 / 435 Balance 4553 / 4553 -1761 / -1761 -35 / -35 Drainage 395 ml yesterday, 35 ml today Microbiology Past 72 Hours 03/02/18 Unknown Gram Stain - Final Biopsy - Tissue Wound Culture - Preliminary No growth-Final to follow Anaerobic Culture - Preliminary No growth in 48 hours. Medical Necessity - Tobacco Use Smoking Status: Former smoker Assessment/Plan All Active Problems (Last Reviewed 02/17/18 @ 08:58 by Natasha Pizarro) Acquired absence of left breast and nipple (Acute) 1. Right breast cancer. 2. Acquired absence right breast. 3. Disproportion reconstructed right breast. 4. Deformity reconstructed right breast with painful excess mastectomy skin scar contour deformity. 5. Left breast macromastia. 6. Cancer phobia left breast. 7. Planned acquired absence left breast. 8. Fibroadenoma left breast. 9. Estrogen receptor positive status. 10. Family history of breast cancer. 11. Former smoker. 12. Late effect of post-mastectomy seroma right breast reconstruction. 13. s/p prophylactic mastectomy left breast and revision reconstructed right breast with excision painful excess mastectomy skin scar contour deformity laterally and incision and drainage seroma medially with capsulectomy. Incisions are dry and intact. No clinical evidence of hematoma. Prealbumin is 14.9. Encourage nutritional supplementation with protein to help the healing process. Keep head elevated. Continue chest wall compression LUIS wrap. Patient is more steady on her feet with ambulation. She is tolerating po analgesia and is anxious to go home. Discharge home today. Will remove the drains in the office. Wrote script for Cefadroxil until the drains are removed (30 tabs). Wrote scripts for Percocet for pain (50 tabs) and for Valium for spasm (30 tabs). Wrote script for Phenergan for nausea (30 tabs) with a refill. Followup in the office in one week. Will remove two drains at that time, one from each breast.
--- NOTE | 2018-03-04 10:11 | CASEMGMT ---
SW met w/pt briefly to check in and see how pt is feeling, given her diagnosis and mental health history. Pt states she is doing okay, states she is in counseling and has a psychiatrist at [facility]. Pt reports being satisfied with the services from [facility], finds them supportive. Pt states she can talk w/her counselor about everything that is going on w/her medically. Pt denies being suicidal at this time. Pt denies any other needs. SW is available should any needs arise. FARRUKH Padilla, EX ASSISTANT/PROGRAM DIRECTOR
--- NOTE | 2018-03-04 10:20 | PCM.DC ---
You will use the following diet at home:: No restrictions Discharge Activity: May Not Drive, May Not Shower - until drains are removed., - - keep head elevated. no heavy lifting. May shower in (days): 14 - after drains are removed. May resume sexual activity in: 10-14 days Weight Bearing Status: Weight bearing as tolerated Lifting Restrictions: 20 lbs. Keep extremity elevated above heart level: - - elevate head. Call your doctor if your incision/area has: Continuous Slow Oozing, Sudden Increased Bleeding, Increased Pain/ Swelling, Increased Redness, Foul Smelling Discharge, Swelling at the incision site Call your doctor if you observe: Fever of 101 or Higher, Coldness, Increased Pain, Shortness of breath, Chest pain, Calf discomfort, Uncontrolled pain Suture Line Care: - - dry dressings daily or every other day. Change Dressing in (Days):: 1 - dry dressings daily or every other day. Cleanse incision/area with: - - may get incisions wet in the shower after the drains are removed. Drain: Suction - zoie drains x 4 to bulb suction. empty and record drainage output daily. Allergies/Adverse Reactions: Allergies levofloxacin [From Levaquin] Allergy (Severe, Verified 03/01/18 12:30) hives, throat swelling amitriptyline Adverse Reaction (Verified 03/01/18 12:30) HYPER AND REALLY ANGRY anastrozole Adverse Reaction (Verified 03/01/18 12:30) Other headaches, mood changes Medications to take at Discharge Cholecalciferol (Vitamin D3) [Vitamin D3] 2,000 unit PO DAILY 11/10/13 Hydrochlorothiazide 25 mg PO DAILY 11/10/13 Acetaminophen [Tylenol] 500 - 1,000 mg PO Q6H PRN PRN 04/22/17 Potassium Citrate/Citric Acid [Pot Citrate-Citric Acid Packet] 1 ea PO DAILY 04/22/17 Zolpidem Tartrate [Ambien] 5 mg PO QHS PRN 04/22/17 lamotrigine 150 mg tablet 200 mg PO DAILY tab 06/20/17 levothyroxine 100 mcg tablet 200 mcg PO DAILY tab 06/20/17 lisinopril 10 mg tablet 10 mg PO DAILY tab 06/20/17 Citracal +D 1 tab PO DAILY 01/08/18 Loratadine [Claritin] 10 mg PO PRN PRN 01/08/18 Venlafaxine HCl [Effexor] 37.5 mg PO DAILY 03/01/18 Cefadroxil [Duricef] 500 mg PO BID #30 cap 03/04/18 Diazepam [Valium] 5 mg PO 4X/DAY PRN PRN #30 tab 03/04/18 Oxycodone HCl/Acetaminophen [Percocet 5/325] 1 - 2 tab PO 4X/DAY PRN PRN 7 Days #50 tab 03/04/18 proMETHazine tablet [Phenergan tablet] 25 mg PO 4X/DAY PRN PRN #30 tab 03/04/18 The following prescriptions were given: Diazepam [Valium] 5 mg PO 4X/DAY PRN PRN #30 tab PRN Reason: Spasms Oxycodone HCl/Acetaminophen [Percocet 5/325] 1 - 2 tab PO 4X/DAY PRN PRN 7 Days #50 tab PRN Reason: Pain proMETHazine tablet [Phenergan tablet] 25 mg PO 4X/DAY PRN PRN #30 tab PRN Reason: NAUSEA/VOMITING Cefadroxil [Duricef] 500 mg PO BID #30 cap Primary Care Physician: Lavonne Hensley PA [Primary Care Provider] - Test Results: Test results from this visit will be discussed in further detail at your follow-up appointment, if applicable. Please Follow Up With: Gautam Carrasco MD When: one week. call [phone] for appt. Proposed Discharge Date: 03/04/18
== END 2018-03-04 10:55 | disposition home or self-care (01) ==
LOC: SDC 16:24
PROVIDERS: Admitting Provider Surgery; Family Provider Physician Assistant; PCP Physician Assistant; Visit Provider Surgery
PROC: (CPT 19303; principal; 2018-03-02 07:45)
DX: C50.911 Malignant neoplasm of unspecified site of right female breast (principal); N65.1 Disproportion of reconstructed breast; F45.29 Other hypochondriacal disorders; L90.5 Scar conditions and fibrosis of skin; N62 Hypertrophy of breast; D24.2 Benign neoplasm of left breast; F41.9 Anxiety disorder, unspecified; I10 Essential (primary) hypertension; G47.30 Sleep apnea, unspecified; E78.00 Pure hypercholesterolemia, unspecified; F32.9 Major depressive disorder, single episode, unspecified; Z79.899 Other long term (current) drug therapy; Z87.891 Personal history of nicotine dependence; Z17.0 Estrogen receptor positive status [ER+]; Z80.3 Family history of malignant neoplasm of breast; N65.0 Deformity of reconstructed breast; M54.2 Cervicalgia
CPT/HCPCS: 19303; 19380; 36415; 80048; 84134; 85027; 87070; 87075; 87102; 87205; 87206; 88307; 96365; 96366; 96372; 96375; 96376; 99218; J7120; A4216; G0378; G0379; J2405

== ENCOUNTER → 2018-04-12 12:30 | Outpatient (CLI) | payer MEDICAID, SELFPAY ==
--- NOTE | 2018-04-12 12:36 | US_ITS ---
STUDY: DRAINAGE OF THE BREAST SEROMA LEFT REASON FOR EXAM: Female, 47 years old. The patient is status post left mastectomy with seroma formation. TECHNIQUE: The overlying skin was prepped and draped in usual sterile fashion. Following local anesthetic application and under direct sonographic guidance, a 5 [place] catheter was placed into the deep 5.8 cm x 10 cm x 1.1 cm fluid collection seen in the deep tissues. 50 cc of blood-tinged fluid was removed. US/Cyst Puncture IMPRESSION: Successful drainage of the small seroma with removal of 50 cc of blood-tinged fluid. Electronically Signed: Andrew Taylor MD at 14:39 EDT Tel [phone], Service support ,
== END ==
PROVIDERS: Family Provider Physician Assistant; PCP Physician Assistant; Visit Provider Surgery
DX: C50.911 Malignant neoplasm of unspecified site of right female breast (principal); F40.298 Other specified phobia; Z90.13 Acquired absence of bilateral breasts and nipples; N65.1 Disproportion of reconstructed breast; N65.0 Deformity of reconstructed breast; T88.8XXS Other specified complications of surgical and medical care, not elsewhere classified, sequela
CPT/HCPCS: 19000; 76942; 87070; 87075; 87205

== ENCOUNTER → 2018-05-06 18:44 | Outpatient (CLI) | payer MEDICAID, SELFPAY | PROVIDERS: Family Provider Physician Assistant; PCP Physician Assistant; Referring Provider Surgery; Visit Provider Surgery | DX: L98.492 Non-pressure chronic ulcer of skin of other sites with fat layer exposed (principal); C50.911 Malignant neoplasm of unspecified site of right female breast; Z90.11 Acquired absence of right breast and nipple; N65.1 Disproportion of reconstructed breast; N65.0 Deformity of reconstructed breast | CPT/HCPCS: 87070; 87077; 87186; 87205 ==

== ENCOUNTER → 2018-05-13 10:09 | Outpatient (CLI) | payer MEDICAID, SELFPAY ==
--- NOTE | 2018-05-13 10:12 | US_ITS ---
STUDY: ULTRASOUND GUIDED DRAINAGE OF THE SEROMA LEFT REASON FOR EXAM: Female, 47 years old. Status post mastectomy. Recurrent seroma. TECHNIQUE: Ultrasound guided drainage of the seroma. COMPARISON: None. FINDINGS: A linear fluid collection is seen deep to the breast. The overlying skull was prepped and draped in usual sterile fashion. Following local anesthetic application and under direct sonographic guidance, a 5 U[place]bek catheter was placed into the collection. 18 cc of holly-colored fluid was aspirated. US/Cyst Puncture IMPRESSION: Successful drainage of the seroma underlying the left breast as described. Electronically Signed: Andrew Taylor MD at 14:27 EDT Tel [phone], Service support ,
== END ==
PROVIDERS: Family Provider Physician Assistant; PCP Physician Assistant; Referring Provider Surgery; Visit Provider Surgery
DX: C50.911 Malignant neoplasm of unspecified site of right female breast (principal); Z90.12 Acquired absence of left breast and nipple; N65.0 Deformity of reconstructed breast; N65.1 Disproportion of reconstructed breast; N64.89 Other specified disorders of breast; T88.8XXS Other specified complications of surgical and medical care, not elsewhere classified, sequela
CPT/HCPCS: 10160; 76942; 87070; 87075; 87205

== ENCOUNTER → 2018-07-07 13:44 | Outpatient (CLI) | payer MEDICAID, SELFPAY ==
--- NOTE | 2018-07-07 13:46 | US_ITS ---
STUDY: ULTRASOUND BREAST - LEFT REASON FOR EXAM: Female, 47 years old. Left breast seroma. TECHNIQUE: Axial and longitudinal images of the LEFT breast were performed with a high resolution ultrasound transducer. COMPARISON: Comparison is made with prior study dated April 12, 2018. FINDINGS: LEFT Breast: The palpable abnormality corresponds to fibroglandular tissue. There is a small amount of the free fluid lateral and deep to the palpable abnormality. This is too small for drainage. US/Breast Limited Unilateral IMPRESSION: The palpable abnormality corresponds to normal breast tissue. Small amount of fluid is seen deep and lateral to the palpable abnormality. ASSESSMENT CATEGORY: BIRADS Category 2: Benign. A letter regarding these results will be sent to the patient by the facility within 30 days. Electronically Signed: Andrew Taylor MD at 14:59 EST Tel [phone], Service support ,
--- OUTSIDE RECORDS SUMMARY | 2018-10-08 20:31 | XMS RPT_ITS ---
:1970 Author Organization OHIP Support Name Relationship Address Phone CHAD STAFFORDBREY Unavailable [address] [place] [address] UE Unavailable Unavailable Unavailable CHADDERTON, TARI Unavailable [address] + [place] [address] UE Unavailable Unavailable Unavailable CHADDERTON, TARI Unavailable [address] + [place] [address] UE Unavailable Unavailable Unavailable CHADDERTON, TARI Unavailable [address] + [place] [address] UE Unavailable Unavailable Unavailable CHADDERTON, TARI Unavailable [address] + [place] [address] UE Unavailable Unavailable Unavailable CHADDERTON, TARI Unavailable [address] + [place] [address] UE Unavailable Unavailable Unavailable CHADDERTON, TARI Unavailable [address] + [place] [address] UE Unavailable Unavailable Unavailable CHADDERTON, TARI Unavailable [address] + [place] [address] [place] Unavailable [address] + [place] [address] CHADDERTON, TARI Unavailable [address] + [place] [address] [place] Unavailable [address] + [place] [address] CHADDERTON, TARI Unavailable [address] + [place] [address] [place] Unavailable [address] + [place] [address] CHADDERTON, TARI Unavailable [address] + [place] [address] [place] Unavailable [address] + [place] [address] CHADDERTON, TARI Unavailable [address] + [place] [address] [place] Unavailable [address] + [place] [address] CHADDERTON, TARI Unavailable [address] + [place] [address] [place] Unavailable [address] + [place] [address] CHADDERTON, TARI Unavailable [address] + [place] [address] [place] Unavailable [address] + [place] [address] CHADDERTON, TARI Unavailable [address] + [place] [address] [place] Unavailable [address] + [place] [address] CHADDERTON, TARI Unavailable [address] + [place] [address] [place] Unavailable [address] + [place] [address] CHADDERTON, TARI Unavailable [address] + [place] [address] [place] Unavailable [address] + [place] [address] CHADDERTON, TARI Unavailable [address] + [place] [address] [place] Unavailable [address] + [place] [address] CHADDERTON, TARI Unavailable [address] + [place] [address] [place] Unavailable [address] + [place] [address] CHADDERTON, TARI Unavailable [address] + [place] [address] [place] Unavailable [address] + [place] [address] CHADDERTON, TARI Unavailable [address] + [place] [address] [place] Unavailable [address] + [place] [address] CHADDERTON, TARI Unavailable [address] + [place] [address] [place] Unavailable [address] + [place] [address] CHADDERTON, TARI Unavailable [address] + [place] [address] [place] Unavailable [address] + [place] [address] CHADDERTON, TARI Unavailable [address] + [place] [address] [place] Unavailable [address] + [place] [address] Care Team Providers Name Role Phone Lavonne HENSLEY (PA-C) Referring Unavailable DASH-IBAN, F Admitting Unavailable DASH-IBAN, F Attending Unavailable DASH-IBAN, F Attending Unavailable TOMER ALFONSO (PT) Attending Unavailable TESTRAMARLIN, BETITO Referring Unavailable ROGELIO VELEZ Referring Unavailable DASH-IBAN, F Attending Unavailable DASH-IBAN, F Attending Unavailable TESTRAKE, BETITO Attending Unavailable TESTRAKE, BETITO Referring Unavailable DASH-IBAN, F Attending Unavailable ROGELIO VELEZ Attending Unavailable ROGELIO VELEZ Referring Unavailable TESTRAKE, BETITO Attending Unavailable TESTRAKE, BETITO Referring Unavailable DASH-IBAN, F Attending Unavailable GOLIAS, TOMER (PT) Attending Unavailable TESTRAKE, BETITO Referring Unavailable DASH-IBAN, F Attending Unavailable GOLIAS, TOMER (PT) Attending Unavailable TESTRAKE, BETITO Referring Unavailable GOLIAS, TOMER (PT) Attending Unavailable TESTRAKE, BETITO Referring Unavailable MASCI, ROGELIO A Referring Unavailable GOLIAS, TOMER (PT) Attending Unavailable TESTRAKE, BETITO Referring Unavailable TESTRAKE, BETITO Referring Unavailable HENSLEY, Lavonne ALBA (LAURIEC) Attending Unavailable GOLIAS, TOMER (PT) Attending Unavailable TESTRAKE, BETITO Referring Unavailable MASCI, ROGELIO A Referring Unavailable MASCI, ROGELIO A Attending Unavailable MASCI, ROGELIO A Referring Unavailable GOLIAS, TOMER (PT) Attending Unavailable TESTRAKE, BETITO Referring Unavailable TESTRAKE, BETITO Attending Unavailable TESTRAKE, BETITO Referring Unavailable RICARDO, MELISSA (FILLING MIXER) Attending Unavailable RICARDO, MELISSA (FILLING MIXER) Referring Unavailable MASCI, ROGELIO A Referring Unavailable HENSLEYLavonne (LAURIEC) Attending Unavailable MASCI, ROGELIO A Attending Unavailable MASCI, ROGELIO A Referring Unavailable MASCI, ROGELIO A Referring Unavailable RAMIREZDOREEN (FILLING MIXER) Referring Unavailable RAMIREZDOREEN (FILLING MIXER) Attending Unavailable MASCI, ROGELIO A Referring Unavailable KENNY HILL Referring Unavailable HENSLEY, Lavonne ALBA (LAURIEC) Attending Unavailable DASH-IBAN, ANITA Bustillos Attending Unavailable DOREEN RAMIREZ (FILLING MIXER) Attending Unavailable MASCI, ROGELIO A Referring Unavailable NEYHART FLORY CRUZ Attending Unavailable TESTRAKE, BETITO Attending Unavailable TESTRAKE, BETITO Referring Unavailable DASH-IBAN, F Attending Unavailable HENSLEY, Lavonne ALBA (LAURIEC) Attending Unavailable DOREEN RAMIREZ (FILLING MIXER) Attending Unavailable MASCI, ROGELIO A Referring Unavailable NEYHART JORGE LUIS CRUZRE Attending Unavailable MASCI, ROGELIO A Referring Unavailable NEYHART NANCY, FLORY Attending Unavailable Gautam Carrasco Attending Unavailable Gautam Carrasco Referring Unavailable HensleyLavonne Primary Care Unavailable AngeliquePriscilla Attending Unavailable Lavonne Hensley Referring Unavailable Lavonne Hensley Primary Care Unavailable Marilyn Miramontes Attending Unavailable Dhara Dash Attending Unavailable Angelique, Priscilla E Attending Unavailable Hensley, M Gary Referring Unavailable Angelique, Priscilla E Attending Unavailable Hensley, Lavonne Alba Referring Unavailable Slaby, Gautam Attending Unavailable Hensley, M Gary Primary Care Unavailable Masci, Rogelio Referring Unavailable Neyhart-Cruz, Flory Attending Unavailable Neyhart-Curz, Flory Referring Unavailable Hensley, M Gary Primary Care Unavailable Slaby, Gautam Attending Unavailable Hensley, M Gary Primary Care Unavailable BijalGermanAnthony Attending Unavailable DeHortJoselito maciel Referring Unavailable Slaby, Gautam Attending Unavailable Hensley, Lavonne WooGary Referring Unavailable Hensley, M Gary Primary Care Unavailable Slaby, Gautam Attending Unavailable Slaby, Gautam Referring Unavailable Hensley, M Gary Primary Care Unavailable Slaby, Gautma Admitting Unavailable Slaby, Gautam Attending Unavailable Cebul, Maximilian Referring Unavailable Slaby, Gautam Attending Unavailable Hensley, Lavonne WooGary Referring Unavailable Hensley, M Gary Primary Care Unavailable Slaby, Gautam Attending Unavailable Hensley, Lavonne Alba Referring Unavailable Hensley, M Gary Primary Care Unavailable Slaby, Gautam Attending Unavailable Hensley, Lavonne Alba Referring Unavailable Hensley, M Gary Primary Care Unavailable Slaby, Gautam Attending Unavailable Slaby, Gautam Referring Unavailable Hensley, M Gary Primary Care Unavailable Slaby, Gautam Attending Unavailable Hensley, Lavonne Alba Referring Unavailable Slaby, Gautam Attending Unavailable Hensley, Lavonne Alba Referring Unavailable Slaby, Gautam Attending Unavailable Hensley, M Gary Primary Care Unavailable Slaby, Gautam Referring Unavailable Slaby, Gautam Attending Unavailable Slaby, Gautam Referring Unavailable Hensley, M Gary Primary Care Unavailable Angelique, Priscilla E Attending Unavailable Hensley, Lavonne Alba Referring Unavailable Slaby, Gautam Attending Unavailable Hensley, Lavonne Alba Referring Unavailable Slaby, Gautam Attending Unavailable Hensley, Lavonne Alba Referring Unavailable PROBLEMS PROBLEMS DATE TYPE CONDITION / CODE ATTENDING STATUS SOURCE 07/01/2018 Unknown C50.911 - Malignant Angelique, Active [facility] neoplasm of [facility] unspecified site of Hospital right female breast Repository / C50.911(ICD-10) 07/01/2018 Unknown Z90.12 - Acquired Angelique, Active [facility] absence of left [facility] breast and nipple / Hospital Z90.12(ICD-10) Repository 07/01/2018 Unknown N65.0 - Deformity of Angelique, Active [facility] reconstructed breast [facility] Community / N65.0(ICD-10) Hospital Repository 07/01/2018 Unknown N65.1 - Angelique, Active [facility] Disproportion of [facility] reconstructed breast Hospital / N65.1(ICD-10) Repository 07/01/2018 Unknown N64.89 - Other Angelique, Active [facility] specified disorders [facility] of breast / Hospital N64.89(ICD-10) Repository 07/01/2018 Unknown T88.8XXS - Other Angelique, Active [facility] specified [facility] complications of Hospital surgical and medical Repository care, not elsewhere classified, sequela / T88.8XXS(ICD-10) 05/07/2018 Unknown Z90.11 - Acquired SlabGautam craft Active [facility] absence of right Community breast and nipple / Hospital Z90.11(ICD-10) Repository 05/07/2018 Unknown L98.492 - Gautam Carrasco Active [facility] Non-pressure chronic Community ulcer of skin of Hospital other sites with fat Repository layer exposed / L98.492(ICD-10) 05/04/2018 Active Postprocedural NA Active [facility] hypothyroidism / Clinic Main E89.0(ICD-10) [place] Repository 05/04/2018 Active Hypokalemia / NA Active [facility] E87.6(ICD-10) Clinic Main [place] Repository 04/02/2018 Active Unknown / DASH-IBAN, Active [facility] UNK(Unknown) F [facility] Main [place] Repository 03/17/2018 Unknown F40.298 - Other Gautam Carrasco Active [facility] specified phobia / Community F40.298(ICD-10) Hospital Repository 03/04/2018 Unknown G89.18 - Other acute Gautam Carrasco Active [facility] postprocedural pain Community / G89.18(ICD-10) Hospital Repository 03/10/2018 Unknown D24.2 - Benign Gautam Carrasco Active [facility] neoplasm of left Community breast / Hospital D24.2(ICD-10) Repository 03/10/2018 Unknown N62 - Hypertrophy of Gautam Carrasco Active [facility] breast / N62(ICD-10) [facility] Hospital Repository 03/10/2018 Unknown Z80.3 - Family Gautam Carrasco Active [facility] history of malignant Community neoplasm of breast / Hospital Z80.3(ICD-10) Repository 03/10/2018 Unknown Z17.0 - Estrogen Gautam Carrasco Active [facility] receptor positive Community status [ER+] / Hospital Z17.0(ICD-10) Repository 01/28/2018 Unknown I10 - Essential Bijal, Anthony Active [facility] (primary) Community hypertension / Hospital I10(ICD-10) Repository 10/29/2017 Active Posterior DASH-IBAN, Active [facility] subcapsular polar F Clinic Other age-related [place] cataract, Repository unspecified eye / H25.049(ICD-10) 04/20/2017 Active Malignant neoplasm NA Active [facility] Main quadrant of right [place] female breast / Repository C50.311(ICD-10) 04/20/2017 Active Estrogen receptor NA Active [facility] positive status Clinic Main (ER+) / [place] Z17.0(ICD-10) Repository 09/25/2017 Active Obstructive sleep NA Active [facility] apnea (adult) Clinic Other (pediatric) / [place] G47.33(ICD-10) Repository 09/25/2017 Active Abnormal blood-gas NA Active [facility] level / Clinic Other R79.81(ICD-10) [place] Repository 09/21/2017 Active Pain in left ankle NA Active [facility] and joints of left Clinic Main foot / [place] M25.572(ICD-10) Repository 08/15/2017 Unknown C50.919 - Malignant Marilyn Miramontes Active [facility] neoplasm of Community unspecified site of Hospital unspecified female Repository breast / C50.919(ICD-10) PROCEDURES PROCEDURES No Procedure Records FoundRESULTS RESULTS OBSOLETE Observed: 08/12/2018 Status: COMPLETED Source: [place] 12:00 AM [facility] REPOSITORY Refill (FAMPWS) MAHI STAFFORD ([id number]) 1970 F Date Time Provider Department 08/12/18 Lavonne HENSLEY) FAMPWS During your visit today, we recorded the following information about you: Neelam Kincaid [place] 08/12/2018 8:23 AM Signed Patient has been identified by name and date of : Yes Pending Prescriptions Disp Refills LEVOTHYROXINE 200 MCG TABLET 60 tablet 3 LYNDA: No RX INSTRUCTIONS: Pharmacy initiated this request. No need to notify patient. Patient last office visit: 04/20/18 Patient next office visit: none scheduled Last Fill Date: 10/13/17; # 60, 3 refills Neelam Kincaid Ma Allergies As of Date: 08/12/2018 Noted Allergy Reaction AMITRIPTYLINE 11/18/2016 14 - Other: See Comments Comments: Intensely angry ANASTROZOLE 11/04/2017 5 - Intolerance Comments: Nausea, irritability, inability to sleep CATS 01/05/2006 DOGS 01/05/2006 GRASS POLLEN 01/05/2006 LEVAQUIN (LEVOFLOXACIN) 07/15/2017 4 - Hives 7 - Swelling MOLD 01/05/2006 Date Reviewed: 04/20/2018 Reviewed by: Kaci Riley Fan Mail Editor - Fully Assessed Reason for Visit: Refill Request [94] Visit Diagnosis: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] Order(s):levothyroxine (SYNTHROID) 200 mcg tabletTake 1 tablet by mouth five times a week.Disp: 60 tabletRfl: 3 Prescriptions as of 08/12/2018 Sig: LEVOTHYROXINE 200 MCG TABLET Take 1 tablet by mouth five t* HYDROCHLOROTHIAZIDE 25 MG TAB* TAKE 1 TABLET EVERY DAY LISINOPRIL 10 MG TABLET Take 1 tablet by mouth once d* FLUOXETINE 40 MG CAPSULE Take 40 mg by mouth once arielle* OXYCODONE-ACETAMINOPHEN 5 MG-* Take 1 tablet by mouth every * LETROZOLE 2.5 MG TABLET Take 1 tablet by mouth once d* Patient not taking: Reported on 04/02/2018 IBUPROFEN 600 MG TABLET Take 1 tablet by mouth every * CITRACAL + D ORAL Take 1 tablet by mouth twice * COMPOUNDED PRESCRIPTION #1 Auto titrating PAP device * LAMOTRIGINE 150 MG TABLET Take 200 mg by mouth once subha* ZOLPIDEM 5 MG TABLET Take 5 mg by mouth at bedtime* BUPROPION XL 300 MG 24 HR TAB Take 150 mg by mouth once subha* CHOLECALCIFEROL (VITAMIN D3) * Take 1 capsule by mouth once * CLARITIN ORAL Take 1 tablet by mouth once d* Problem List As Of Date 08/12/2018 Noted Resolved ADJUSTMENT DISORDER WITH DEPRESSED MOOD [F43.21]INVALID FOR* ANXIETY STATE NOS [F41.1] INVALID FOR* BENIGN HYPERTENSION [I10] INVALID FOR* Obesity, Class III, BMI 40-49.9 (morbid obesity*INVALID FOR* Nonspecific abnormal results of liver function *INVALID FOR* More... ALLERGIC RHINITIS NOS [J30.9] INVALID FOR* CHRONIC LIVER DIS NEC [K76.89] INVALID FOR* Hyperlipidemia [E78.5] INVALID FOR* Tobacco abuse [Z72.0] INVALID FOR* Low HDL (under 40) [E78.6] INVALID FOR* Hypertriglyceridemia [E78.1] INVALID FOR* Postsurgical hypothyroidism [E89.0] INVALID FOR* Incisional infection [T81.49XA] INVALID FOR* Vitamin D deficiency [E55.9] INVALID FOR* Elevated LFTs [R94.5] INVALID FOR* Muscle spasm [M62.838] INVALID FOR* Neck pain [M54.2] INVALID FOR* Thoracic back pain [M54.6] INVALID FOR* Malignant neoplasm of lower-inner quadrant of r*INVALID FOR* Left breast mass [N63.20] INVALID FOR* More... Numbness of arm [R20.0] INVALID FOR* More... 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 Prescriptions ordered this encounter Disp Refills Start End LEVOTHYROXINE 200 MCG TABLET 60 t* 3 08/12/2018 Sig: Take 1 tablet by mouth five times a week. Medications Discontinued During This Encounter levothyroxine (SYNTHROID) 200 mcg ta* 60 t* 3 10/13/2017 08/12/2018 Cmt: Med-sync patient. If too soon, we will put new RX on hold for next cycle. Sig: Take 1 tablet by mouth five times a week. Disc: Reason for discontinue is not on file. Encounter Status:Closed by Lavonne HENSLEY PA-C on 08/12/18 PLASTIC SURGERY Observed: 07/23/2018 Status: F Source: [place] VISIT REPORT 11:36 AM [facility] [place] [facility] [address] [place] [address] OFFICE VISIT Date of Service: 07/21/18 MR#: [id number] Acct: [id number] Name: MAHI STAFFORD Rep #: [id number] : 1970 Provider: AYLIN Merino Age/Sex: 47/F [place] [facility] [place]: Signed Intake Vital Signs07/21/18 Blood Pressure 140/86 H Intake Visit Reasons: postop surgery 03/02/18 Allergies levofloxacin [From Levaquin] Allergy (Severe, Verified 07/08/18 10:04) hives, throat swelling amitriptyline Adverse Reaction (Verified 07/08/18 10:04) HYPER AND REALLY ANGRY anastrozole Adverse Reaction (Verified 07/08/18 10:04) Other Medications Cholecalciferol (Vitamin D3) [Vitamin D3] 2,000 unit PO DAILY 11/10/13 [History Confirmed 03/02/18] Hydrochlorothiazide 25 mg PO DAILY 11/10/13 [History Confirmed 03/02/18] Acetaminophen [Tylenol] 500 - 1,000 mg PO Q6H PRN PRN 04/22/17 [History Confirmed 03/02/18] Potassium Citrate/Citric Acid [Pot Citrate-Citric Acid Packet] 1 ea PO DAILY 04/22/17 [History Confirmed 03/02/18] Zolpidem Tartrate [Ambien] 5 mg PO QHS PRN 04/22/17 [History Confirmed 03/02/18] levothyroxine 100 mcg tablet 200 mcg PO DAILY tab 06/20/17 [History Confirmed 03/02/18] lisinopril 10 mg tablet 10 mg PO DAILY tab 06/20/17 [History Confirmed 03/02/18] Citracal +D 1 tab PO DAILY 01/08/18 [History Confirmed 03/02/18] Loratadine [Claritin] 10 mg PO PRN PRN 01/08/18 [History Confirmed 03/02/18] Cefadroxil [Duricef] 500 mg PO BID #30 cap 03/04/18 [Rx] Diazepam [Valium] 5 mg PO 4X/DAY PRN PRN #30 tab 03/04/18 [Rx] Oxycodone HCl/Acetaminophen [Percocet 5/325] 1 - 2 tab PO 4X/DAY PRN PRN 7 Days #50 tab 03/04/18 [Rx] proMETHazine tablet [Phenergan tablet] 25 mg PO 4X/DAY PRN PRN #30 tab 03/04/18 [Rx] diazepam 5 mg tablet 5 mg PO 4X/DAY PRN #30 tab 03/17/18 [Rx Confirmed 03/17/18] bupropion HCl XL 150 mg 24 hr tablet, extended release 150 mg PO QAM 04/15/18 [History Confirmed 04/15/18] fluoxetine 40 mg capsule 40 mg PO DAILY 04/15/18 [History Confirmed 04/15/18] lamotrigine 150 mg tablet 300 mg PO DAILY tab 05/06/18 [History Confirmed 05/06/18] PFSH Medical History Anemia (Acute) Anxiety (Acute) Back pain (Acute) Back problem (Acute) Breast cancer (Acute) Breast lump in female (Acute) Cataracts, bilateral (Acute) Depression (Acute) Frequent headaches (Acute) Gallstones (Acute) High cholesterol (Acute) Liver disease (Acute) Neuropathy (Acute) Pneumonia (Acute) Seasonal allergies (Acute) Thyroid disease (Acute) Vision problems (Acute) Vitamin deficiency (Acute) Hypertension (Chronic) Surgical History S/P breast biopsy, right (Acute) S/P cholecystectomy (Acute) S/P mastectomy (Acute) S/P tonsillectomy and adenoidectomy (Acute) S/P total thyroidectomy (Acute) Status post surgical manipulation of ankle joint (Acute) Family History Father Asthma Heart disease Hypertension High cholesterol ulcers Diabetes Grandmother Breast cancer Grandfather CVA (cerebral vascular accident) Social History Smoking Status: Former smoker second hand exposure: No alcohol intake: never substance use type: does not use what type of physical activity do you participate in: none seatbelt use: always additional social history: DOES NOT USE ASPIRIN USES IBUPROFEN HPI postop surgery 03/02/18: Details: Postop visit from her surgery on 03/02/18 where she underwent prophylactic mastectomy left breast and revision reconstructed right breast with excision painful excess mastectomy skin scar contour deformity laterally and incision and drainage seroma medially with capsulectomy. She was discharged from the hospital on 03/04/18. She initially developed right breast cancer that necessitated a mastectomy in 05/05. 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 Kirby lymph nodes were negative. Preop MRI also showed a nodule in the left breast that was biopsied and it showed a fibroadenoma. Estrogen receptors were positive. Progesterone receptors were weakly positive. HER2/diana was negative. She was placed on IV chemotherapy and has finished them. She also tried Anastrozole and had severe side effects and it was discontinued. She was also placed on Lupron in preparation for an oophorectomy that was done on 01/14/18. At the time of her surgery in 03/06, the wound culture from surgery was negative. Pathology from the left breast tissue showed fibrocystic change and focal vessel wall microcalcifications and no evidence of malignancy. Right breast showed fibrosis and mature granulation tissue, and no evidence of malignancy. On 04/12/18 she had ultrasound guided drainage of her seroma on the left mastectomy incision. No fluid was noted in her right mastectomy incision. 50 ml of blood-tinged fluid was aspirated. The fluid was sent for culture, and it was negative. She developed more fluid buildup and on 05/13/18, had a repeat ultrasound guided drainage of her seroma on the left mastectomy incision. 18 ml of fluid was aspirated. The culture was negative. On 07/07/18 she had a repeat ultrasound on the left because of persistent pressure and discomfort. It showed the palpable abnormality corresponded to normal breast tissue and a small amount of fluid was seen deep and lateral to the palpable abnormality. This was too small for drainage at this time. Today she comes in for further evaluation of her discomfort and pressure feeling left breast. On exam, there is no palpable fluid noted. Her left mastectomy incision is healed with persistent discomfort. There is some scar thickening on the medial aspect of the incision where a small fluid collection may be located which is too small to drain according to Ultrasound. The thickened scar tissue probably represents capsular scar tissue. There is slight tenderness to palpation. No clinical evidence of seroma noted in the right mastectomy incision. The right mastectomy incision is nontender and healed. dry and intact. She states the discomfort is tolerable as she takes Tylenol for it. However she will occasionally take a Percocet at bedtime to help with the discomfort. If the patient has persistent symptomatology with no drainable fluid on ultrasound, then she may benefit from revision left breast reconstruction with excision painful excess mastectomy skin scar contour deformity. Tissue that is removed would be sent to Pathology for analysis to rule out carcinoma and to Microbiology for culture. A positive culture would necessitate antibiotic therapy. She is aware of that possibility for revision reconstructed breast and wants to wait a while longer to see if her symptomatology improves as she is hesitant to have more surgery at this time. She continues to wear her compression bra when active. Followup on an as needed basis. Assessment AND Plan Problems 1. Breast cancer, right C50.911 2. Disproportion between [place] breast and reconstructed breast N65.1 3. Excess tissue in reconstructed breast N65.0 4. Acquired absence of bilateral breasts and nipples Z90.13 5. Cancer phobia F40.298 6. Seroma of breast N64.89 7. Family history of breast cancer Z80.3 8. Other specified complications of surgical and medical care, not elsewhere classified, sequela T88.8XXS 9. Estrogen receptor positive status [ER+] Z17.0 10. Former smoker Z87.891 Coding Level of Care Code Global Post Op Diagnoses Breast cancer, right C50.911 Disproportion between [place] breast and reconstructed breast N65.1 Excess tissue in reconstructed breast N65.0 Acquired absence of bilateral breasts and nipples Z90.13 Cancer phobia F40.298 Seroma of breast N64.89 Family history of breast cancer Z80.3 Other specified complications of surgical and medical care, not elsewhere classified, sequela T88.8XXS Estrogen receptor positive status [ER+] Z17.0 Former smoker Z87.891 07/23/18 1136 <Electronically signed by Priscilla Merino SIENE MAKER-C> Date Priscilla Merino SIENE MAKER-C 07/21/18 0672<Electronically signed by Gautam Carrasco MD> [facility] Signature: Date (if applicable) Gautam Carrasco MD CC: PLASTIC SURGERY Observed: 07/13/2018 Status: F Source: [place] VISIT REPORT 7:56 PM [facility] [place] [facility] [address] [facility] [address] [place] [address] OFFICE VISIT Date of Service: 07/08/18 MR#: [id number] Acct: [id number] Name: MAHI STAFFORD Rep #: [id number] : 1970 Provider: AYLIN Merino Age/Sex: 47/F [place] [facility] [place] Status: Signed Intake Vital Signs07/08/18 Blood Pressure 148/89 H H 07/08/18 Blood Pressure Location Lt radial 07/08/18 Blood Pressure Position Sitting 07/08/18 Respiratory Rate 18 Intake Visit Reasons: post op surgery 03/02/18 Tong Hooker Required: No Accompanied by: Is patient in pain?: Yes (RIGHT BREAST PAIN PRESSURE ) Pain scale (1-10): 4 Allergies levofloxacin [From Levaquin] Allergy (Severe, Verified 07/08/18 10:04) hives, throat swelling amitriptyline Adverse Reaction (Verified 07/08/18 10:04) HYPER AND REALLY ANGRY anastrozole Adverse Reaction (Verified 07/08/18 10:04) Other Medications Cholecalciferol (Vitamin D3) [Vitamin D3] 2,000 unit PO DAILY 11/10/13 [History Confirmed 03/02/18] Hydrochlorothiazide 25 mg PO DAILY 11/10/13 [History Confirmed 03/02/18] Acetaminophen [Tylenol] 500 - 1,000 mg PO Q6H PRN PRN 04/22/17 [History Confirmed 03/02/18] Potassium Citrate/Citric Acid [Pot Citrate-Citric Acid Packet] 1 ea PO DAILY 04/22/17 [History Confirmed 03/02/18] Zolpidem Tartrate [Ambien] 5 mg PO QHS PRN 04/22/17 [History Confirmed 03/02/18] levothyroxine 100 mcg tablet 200 mcg PO DAILY tab 06/20/17 [History Confirmed 03/02/18] lisinopril 10 mg tablet 10 mg PO DAILY tab 06/20/17 [History Confirmed 03/02/18] Citracal +D 1 tab PO DAILY 01/08/18 [History Confirmed 03/02/18] Loratadine [Claritin] 10 mg PO PRN PRN 01/08/18 [History Confirmed 03/02/18] Cefadroxil [Duricef] 500 mg PO BID #30 cap 03/04/18 [Rx] Diazepam [Valium] 5 mg PO 4X/DAY PRN PRN #30 tab 03/04/18 [Rx] Oxycodone HCl/Acetaminophen [Percocet 5/325] 1 - 2 tab PO 4X/DAY PRN PRN 7 Days #50 tab 03/04/18 [Rx] proMETHazine tablet [Phenergan tablet] 25 mg PO 4X/DAY PRN PRN #30 tab 03/04/18 [Rx] diazepam 5 mg tablet 5 mg PO 4X/DAY PRN #30 tab 03/17/18 [Rx Confirmed 03/17/18] bupropion HCl XL 150 mg 24 hr tablet, extended release 150 mg PO QAM 04/15/18 [History Confirmed 04/15/18] fluoxetine 40 mg capsule 40 mg PO DAILY 04/15/18 [History Confirmed 04/15/18] lamotrigine 150 mg tablet 300 mg PO DAILY tab 05/06/18 [History Confirmed 05/06/18] Patient : No Nurse's Note: COMPLAINS OF RIGHT BREAST PRESSURE AND SWELLING. SHE SAID ITS BEEN INCREASING OVER THE PAST 3 WEEKS AND SHE IS CONCERNED PFS Medical History Anemia (Acute) Anxiety (Acute) Back pain (Acute) Back problem (Acute) Breast cancer (Acute) Breast lump in female (Acute) Cataracts, bilateral (Acute) Depression (Acute) Frequent headaches (Acute) Gallstones (Acute) High cholesterol (Acute) Liver disease (Acute) Neuropathy (Acute) Pneumonia (Acute) Seasonal allergies (Acute) Thyroid disease (Acute) Vision problems (Acute) Vitamin deficiency (Acute) Hypertension (Chronic) Surgical History S/P breast biopsy, right (Acute) S/P cholecystectomy (Acute) S/P mastectomy (Acute) S/P tonsillectomy and adenoidectomy (Acute) S/P total thyroidectomy (Acute) Status post surgical manipulation of ankle joint (Acute) Family History Father Asthma Heart disease Hypertension High cholesterol ulcers Diabetes Grandmother Breast cancer Grandfather CVA (cerebral vascular accident) Social History Smoking Status: Former smoker second hand exposure: No alcohol intake: never substance use type: does not use what type of physical activity do you participate in: none seatbelt use: always additional social history: DOES NOT USE ASPIRIN USES IBUPROFEN HPI post op surgery 03/02/18: Details: Postop visit from her surgery on 03/02/18 where she underwent prophylactic mastectomy left breast and revision reconstructed right breast with excision painful excess mastectomy skin scar contour deformity laterally and incision and drainage seroma medially with capsulectomy. She was discharged from the hospital on 03/04/18. She initially developed right breast cancer that necessitated a mastectomy in 05/05. 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 Kirby lymph nodes were negative. Preop MRI also showed a nodule in the left breast that was biopsied and it showed a fibroadenoma. Estrogen receptors were positive. Progesterone receptors were weakly positive. HER2/diana was negative. She was placed on IV chemotherapy and has finished them. She also tried Anastrozole and had severe side effects and it was discontinued. She was also placed on Lupron in preparation for an oophorectomy that was done on 01/14/18. At the time of her surgery in 03/06, the wound culture from surgery was negative. Pathology from the left breast tissue showed fibrocystic change and focal vessel wall microcalcifications and no evidence of malignancy. Right breast showed fibrosis and mature granulation tissue, and no evidence of malignancy. On 04/12/18 she had ultrasound guided drainage of her seroma on the left mastectomy incision. No fluid was noted in her right mastectomy incision. 50 ml of blood-tinged fluid was aspirated. The fluid was sent for culture, and it was negative. She developed more fluid buildup and on 05/13/18, had a repeat ultrasound guided drainage of her seroma on the left mastectomy incision. 18 ml of fluid was aspirated. The culture was negative. On 07/07/18 she had a repeat ultrasound on the left because of persistent pressure and discomfort. It showed the palpable abnormality corresponded to normal breast tissue and a small amount of fluid was seen deep and lateral to the palpable abnormality. This was too small for drainage at this time. Today she comes in for further evaluation of her discomfort and pressure feeling left breast. On exam, there is no palpable fluid noted. Her left mastectomy incision is healed with persistent discomfort. No clinical evidence of seroma noted in the right mastectomy incision. The right mastectomy incision is nontender and healed. dry and intact. She states the discomfort is tolerable as she takes Tylenol for it. However she will occasionally take a Percocet at bedtime to help with the discomfort. If the patient has persistent symptomatology with no drainable fluid on ultrasound, then she may benefit from revision left breast reconstruction with excision painful excess mastectomy skin scar contour deformity. Tissue that is removed would be sent to Pathology for analysis to rule out carcinoma and to Microbiology for culture. A positive culture would necessitate antibiotic therapy. She is aware of that possibility and wants to wait a while longer to see if her symptomatology improves as she is hesitant to have more surgery at this time. She continues to wear her compression bra when active. Followup in the next couple of months if she has persistent symptoms. Otherwise she will followup on an as needed basis. Assessment AND Plan Problems 1. Breast cancer, right C50.911 2. Disproportion between [place] breast and reconstructed breast N65.1 3. Excess tissue in reconstructed breast N65.0 4. Acquired absence of bilateral breasts and nipples Z90.13 5. Cancer phobia F40.298 6. Seroma of breast N64.89 7. Family history of breast cancer Z80.3 8. Other specified complications of surgical and medical care, not elsewhere classified, sequela T88.8XXS 9. Estrogen receptor positive status [ER+] Z17.0 10. Former smoker Z87.891 Coding Level of Care Code Global Post Op Diagnoses Breast cancer, right C50.911 Disproportion between [place] breast and reconstructed breast N65.1 Excess tissue in reconstructed breast N65.0 Acquired absence of bilateral breasts and nipples Z90.13 Cancer phobia F40.298 Seroma of breast N64.89 Family history of breast cancer Z80.3 Other specified complications of surgical and medical care, not elsewhere classified, sequela T88.8XXS Estrogen receptor positive status [ER+] Z17.0 Former smoker Z87.891 07/13/181955 <Electronically signed by Priscilla CASTELLONC> Date Priscilla Merino NP-C 07/13/18 1249<Electronically signed by Gautam Carrasco MD> Cosigner Signature: Date (if applicable) Gautam Carrasco MD CC: BREAST LIMITED Observed: 07/07/2018 Status: F Source: [place] 1:[place] [facility] [place] [facility] [address] [place] [address] Breast Limited Unilateral MR#: [id number] Acct: [id number] Name: MAHI STAFFORD Rep #: [id number] : 1970 F 47 From: Andrew Taylor MD PCP: Lavonne Hensley Status: REG CLI Study: Breast Limited Unilateral Date of Exam: 07/07/18 Exam# [id number] Ordering Dr: Priscilla Merino SIENE MAKER-C STUDY: ULTRASOUND BREAST - LEFT REASON FOR EXAM: Female, 47 years old. Left breast seroma. TECHNIQUE: Axial and longitudinal images of the LEFT breast were performed with a high resolution ultrasound transducer. COMPARISON: Comparison is made with prior study dated April 12, 2018. FINDINGS: LEFT Breast: The palpable abnormality corresponds to fibroglandular tissue. There is a small amount of the free fluid lateral and deep to the palpable abnormality. This is too small for drainage. US/Breast Limited Unilateral IMPRESSION: The palpable abnormality corresponds to normal breast tissue. Small amount of fluid is seen deep and lateral to the palpable abnormality. ASSESSMENT CATEGORY: BIRADS Category 2: Benign. A letter regarding these results will be sent to the patient by the facility within 30 days. Electronically Signed: Andrew Taylor MD at 14:59 EST Tel [phone], Service support , CC: Lavonne Hensley; AYLIN Merino Cvicu Nurse: Signed PLASTIC SURGERY Observed: 06/12/2018 Status: F Source: [place] VISIT REPORT 11:14 AM [facility] [place] [facility] [address] [facility] [address] [place] [address] OFFICE VISIT Date of Service: 06/03/18 MR#: [id number] Acct: [id number] Name: MAHI STAFFORD Rep #: [id number] : 1970 Provider: Gautam Carrasco MD Age/Sex: 47/F [place] [facility] [place] Status: Signed Intake Vital Signs06/03/18 Blood Pressure 124/70 H 06/03/18 Blood Pressure Location Lt brachial 06/03/18 Blood Pressure Position Sitting 06/03/18 Respiratory Rate 18 06/03/18 Pulse Rate 111 H Intake Visit Reasons: postop surgery 03/02/18 Tong Hooker Required: No Accompanied by: None Is patient in pain?: Yes (RIGHT BREAST PAIN ITCHING AND STINGING ) Pain scale (1-10): 5 Allergies levofloxacin [From Levaquin] Allergy (Severe, Verified 06/03/18 17:20) hives, throat swelling amitriptyline Adverse Reaction (Verified 06/03/18 17:20) HYPER AND REALLY ANGRY anastrozole Adverse Reaction (Verified 06/03/18 17:20) Other Medications Cholecalciferol (Vitamin D3) [Vitamin D3] 2,000 unit PO DAILY 11/10/13 [History Confirmed 03/02/18] Hydrochlorothiazide 25 mg PO DAILY 11/10/13 [History Confirmed 03/02/18] Acetaminophen [Tylenol] 500 - 1,000 mg PO Q6H PRN PRN 04/22/17 [History Confirmed 03/02/18] Potassium Citrate/Citric Acid [Pot Citrate-Citric Acid Packet] 1 ea PO DAILY 04/22/17 [History Confirmed 03/02/18] Zolpidem Tartrate [Ambien] 5 mg PO QHS PRN 04/22/17 [History Confirmed 03/02/18] levothyroxine 100 mcg tablet 200 mcg PO DAILY tab 06/20/17 [History Confirmed 03/02/18] lisinopril 10 mg tablet 10 mg PO DAILY tab 06/20/17 [History Confirmed 03/02/18] Citracal +D 1 tab PO DAILY 01/08/18 [History Confirmed 03/02/18] Loratadine [Claritin] 10 mg PO PRN PRN 01/08/18 [History Confirmed 03/02/18] Cefadroxil [Duricef] 500 mg PO BID #30 cap 03/04/18 [Rx] Diazepam [Valium] 5 mg PO 4X/DAY PRN PRN #30 tab 03/04/18 [Rx] Oxycodone HCl/Acetaminophen [Percocet 5/325] 1 - 2 tab PO 4X/DAY PRN PRN 7 Days #50 tab 03/04/18 [Rx] proMETHazine tablet [Phenergan tablet] 25 mg PO 4X/DAY PRN PRN #30 tab 03/04/18 [Rx] diazepam 5 mg tablet 5 mg PO 4X/DAY PRN #30 tab 03/17/18 [Rx Confirmed 03/17/18] bupropion HCl XL 150 mg 24 hr tablet, extended release 150 mg PO QAM 04/15/18 [History Confirmed 04/15/18] fluoxetine 40 mg capsule 40 mg PO DAILY 04/15/18 [History Confirmed 04/15/18] lamotrigine 150 mg tablet 300 mg PO DAILY tab 05/06/18 [History Confirmed 05/06/18] doxycycline monohydrate 100 mg capsule 100 mg PO BID 14 Days #28 cap 05/10/18 [Rx Confirmed 05/10/18] PFSH Medical History Anemia (Acute) Anxiety (Acute) Back pain (Acute) Back problem (Acute) Breast cancer (Acute) Breast lump in female (Acute) Cataracts, bilateral (Acute) Depression (Acute) Frequent headaches (Acute) Gallstones (Acute) High cholesterol (Acute) Liver disease (Acute) Neuropathy (Acute) Pneumonia (Acute) Seasonal allergies (Acute) Thyroid disease (Acute) Vision problems (Acute) Vitamin deficiency (Acute) Hypertension (Chronic) Surgical History S/P breast biopsy, right (Acute) S/P cholecystectomy (Acute) S/P mastectomy (Acute) S/P tonsillectomy and adenoidectomy (Acute) S/P total thyroidectomy (Acute) Status post surgical manipulation of ankle joint (Acute) Family History Father Asthma Heart disease Hypertension High cholesterol ulcers Diabetes Grandmother Breast cancer Grandfather CVA (cerebral vascular accident) Social History Smoking Status: Former smoker second hand exposure: No alcohol intake: never substance use type: does not use what type of physical activity do you participate in: none seatbelt use: always additional social history: DOES NOT USE ASPIRIN USES IBUPROFEN HPI postop surgery 03/02/18: Details: Postop visit from her surgery on 03/02/18 where she underwent prophylactic mastectomy left breast and revision reconstructed right breast with excision painful excess mastectomy skin scar contour deformity laterally and incision and drainage seroma medially with capsulectomy. She was discharged from the hospital on 03/04/18. She initially developed right breast cancer that necessitated a mastectomy in 05/05. 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 Kirby lymph nodes were negative. Preop MRI also showed a nodule in the left breast that was biopsied and it showed a fibroadenoma. Estrogen receptors were positive. Progesterone receptors were weakly positive. HER2/daina was negative. She was placed on IV chemotherapy and has finished them. She also tried Anastrozole and had severe side effects and it was discontinued. She was also placed on Lupron in preparation for an oophorectomy that was done on 01/14/18. At the time of her surgery in 03/06, the wound culture from surgery was negative. Pathology from the left breast tissue showed fibrocystic change and focal vessel wall microcalcifications and no evidence of malignancy. Right breast showed fibrosis and mature granulation tissue, and no evidence of malignancy. On 04/12/18 she had ultrasound guided drainage of her seroma on the left mastectomy incision. No fluid was noted in her right mastectomy incision. 50 ml of blood-tinged fluid was aspirated. The fluid was sent for culture, and it was negative. She developed more fluid buildup and on 05/13/18, had a repeat ultrasound guided drainage of her seroma on the left mastectomy incision. 18 ml of fluid was aspirated. The culture was negative. Today she comes in for further evaluation on her fluid seroma on her left after recent drainage procedure. No palpable fluid noted. Her left mastectomy incision is nontender. No clinical evidence of seroma noted in the right mastectomy incision. On the lateral aspect of the right mastectomy incision was an ulceration that has healed. Wound culture from 05/06/18 showed Staphylococcus aureus. She was started on Doxycycline. She states she has been having mood swings lately. I told her to stop her Doxycycline. Sometimes medications if taken to close to taking Doxycycline can affect absorption. Since the ulcer has healed, she can stop Doxycycline at this time. If the ulceration recurs, can restart the Silver dressing and restart the Doxycycline. Just take the Doxycycline 2 hours before or after other medication. If the mood swings continue, she will followup with her PCP for further evaluation. Continue her binder for chest wall compression. Follow up 4 weeks. Assessment AND Plan Problems 1. Breast cancer, right C50.911 2. Disproportion between [place] breast and reconstructed breast N65.1 3. Excess tissue in reconstructed breast N65.0 4. Acquired absence of bilateral breasts and nipples Z90.13 5. Cancer phobia F40.298 6. 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 Seroma of breast N64.89 8. Family history of breast cancer Z80.3 9. Other specified complications of surgical and medical care, not elsewhere classified, sequela T88.8XXS 10. Estrogen receptor positive status [ER+] Z17.0 11. 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 Seroma of breast N64.89 Family history of breast cancer Z80.3 Other specified complications of surgical and medical care, not elsewhere classified, sequela T88.8XXS Estrogen receptor positive status [ER+] Z17.0 Former smoker Z87.891 06/12/18 1114 <Electronically signed by Gautam Carrasco MD> Date Gautam Carrasco MD Cosigner Signature: Date (if applicable) CC: PLASTIC SURGERY Observed: 05/19/2018 Status: F Source: [place] VISIT REPORT 8:52 PM [facility] [place] [facility] [address] [facility] [address] [place] [address] OFFICE VISIT Date of Service: 05/18/18 MR#: [id number] Acct: [id number] Name: MAHI STAFFORD Rep #: [id number] : 1970 Provider: Gautam Carrasco MD Age/Sex: 47/F [place] [facility] [place] Status: Signed Intake Vital Signs05/18/18 Blood Pressure 146/88 H 05/18/18 Blood Pressure Location Lt radial 05/18/18 Blood Pressure Position Sitting 05/18/18 Respiratory Rate 18 Intake Visit Reasons: postop surgery 03/02/18 Tong Hooker Required: No Accompanied by: None Is patient in pain?: No Allergies levofloxacin [From Levaquin] Allergy (Severe, Verified 05/18/18 15:26) hives, throat swelling amitriptyline Adverse Reaction (Verified 05/18/18 15:26) HYPER AND REALLY ANGRY anastrozole Adverse Reaction (Verified 05/18/18 15:26) Other Medications Cholecalciferol (Vitamin D3) [Vitamin D3] 2,000 unit PO DAILY 11/10/13 [History Confirmed 03/02/18] Hydrochlorothiazide 25 mg PO DAILY 11/10/13 [History Confirmed 03/02/18] Acetaminophen [Tylenol] 500 - 1,000 mg PO Q6H PRN PRN 04/22/17 [History Confirmed 03/02/18] Potassium Citrate/Citric Acid [Pot Citrate-Citric Acid Packet] 1 ea PO DAILY 04/22/17 [History Confirmed 03/02/18] Zolpidem Tartrate [Ambien] 5 mg PO QHS PRN 04/22/17 [History Confirmed 03/02/18] levothyroxine 100 mcg tablet 200 mcg PO DAILY tab 06/20/17 [History Confirmed 03/02/18] lisinopril 10 mg tablet 10 mg PO DAILY tab 06/20/17 [History Confirmed 03/02/18] Citracal +D 1 tab PO DAILY 01/08/18 [History Confirmed 03/02/18] Loratadine [Claritin] 10 mg PO PRN PRN 01/08/18 [History Confirmed 03/02/18] Cefadroxil [Duricef] 500 mg PO BID #30 cap 03/04/18 [Rx] Diazepam [Valium] 5 mg PO 4X/DAY PRN PRN #30 tab 03/04/18 [Rx] Oxycodone HCl/Acetaminophen [Percocet 5/325] 1 - 2 tab PO 4X/DAY PRN PRN 7 Days #50 tab 03/04/18 [Rx] proMETHazine tablet [Phenergan tablet] 25 mg PO 4X/DAY PRN PRN #30 tab 03/04/18 [Rx] diazepam 5 mg tablet 5 mg PO 4X/DAY PRN #30 tab 03/17/18 [Rx Confirmed 03/17/18] bupropion HCl XL 150 mg 24 hr tablet, extended release 150 mg PO QAM 04/15/18 [History Confirmed 04/15/18] fluoxetine 40 mg capsule 40 mg PO DAILY 04/15/18 [History Confirmed 04/15/18] lamotrigine 150 mg tablet 300 mg PO DAILY tab 05/06/18 [History Confirmed 05/06/18] doxycycline monohydrate 100 mg capsule 100 mg PO BID 14 Days #28 cap 05/10/18 [Rx Confirmed 05/10/18] PFSH Medical History Anemia (Acute) Anxiety (Acute) Back pain (Acute) Back problem (Acute) Breast cancer (Acute) Breast lump in female (Acute) Cataracts, bilateral (Acute) Depression (Acute) Frequent headaches (Acute) Gallstones (Acute) High cholesterol (Acute) Liver disease (Acute) Neuropathy (Acute) Pneumonia (Acute) Seasonal allergies (Acute) Thyroid disease (Acute) Vision problems (Acute) Vitamin deficiency (Acute) Hypertension (Chronic) Surgical History S/P breast biopsy, right (Acute) S/P cholecystectomy (Acute) S/P mastectomy (Acute) S/P tonsillectomy and adenoidectomy (Acute) S/P total thyroidectomy (Acute) Status post surgical manipulation of ankle joint (Acute) Family History Father Asthma Heart disease Hypertension High cholesterol ulcers Diabetes Grandmother Breast cancer Grandfather CVA (cerebral vascular accident) Social History Smoking Status: Former smoker second hand exposure: No alcohol intake: never substance use type: does not use what type of physical activity do you participate in: none seatbelt use: always additional social history: DOES NOT USE ASPIRIN USES IBUPROFEN HPI postop surgery 03/02/18: Details: Postop visit from her surgery on 03/02/18 where she underwent prophylactic mastectomy left breast and revision reconstructed right breast with excision painful excess mastectomy skin scar contour deformity laterally and incision and drainage seroma medially with capsulectomy. She was discharged from the hospital on 03/04/18. She initially developed right breast cancer that necessitated a mastectomy in 05/05. 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 Kirby lymph nodes were negative. Preop MRI also showed a nodule in the left breast that was biopsied and it showed a fibroadenoma. Estrogen receptors were positive. Progesterone receptors were weakly positive. HER2/diana was negative. She was placed on IV chemotherapy and has finished them. She also tried Anastrozole and had severe side effects and it was discontinued. She was also placed on Lupron in preparation for an oophorectomy that was done on 01/14/18. At the time of her surgery in 03/06, The wound culture from surgery was negative. Pathology from the left breast tissue showed fibrocystic change and focal vessel wall microcalcifications and no evidence of malignancy. Right breast showed fibrosis and mature granulation tissue, and no evidence of malignancy. On 04/12/18 she had ultrasound guided drainage of her seroma on the left mastectomy incision. No fluid was noted in her right mastectomy incision. 50 ml of blood-tinged fluid was aspirated. The fluid was sent for culture, and it was negative. She developed more fluid buildup and on 05/13/18, had a repeat ultrasound guided drainage of her seroma on the left mastectomy incision. 18 ml of fluid was aspirated. The culture was negative. Today she comes in for further evaluation on her fluid seroma on her left after recent drainage procedure. No palpable fluid noted. Her left mastectomy incision is nontender. No clinical evidence of seroma noted in the right mastectomy incision. On the lateral aspect of the right mastectomy incision is an ulceration that measures smaller at 0.8 x 0.5 cm. After using cetacaine spray for anesthesia, I used a #3 curette and sharply debrided the ulcer down into the subcutaneous tissue as an excisional debridement. Good bleeding seen. Tolerated well. Hemostasis obtained with gentle pressure and dressed with Silver dressing. Wound culture from 05/06/18 showed Staphylococcus aureus. She was started on Doxycycline and is tolerating them. Patient will continue Silver dressing changes daily to this area. Continue her binder for chest wall compression. Follow up 2 weeks. Assessment AND Plan Problems 1. Breast cancer, right C50.911 2. Disproportion between [place] breast and reconstructed breast N65.1 3. Excess tissue in reconstructed breast N65.0 4. Acquired absence of bilateral breasts and nipples Z90.13 5. Cancer phobia F40.298 6. 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 Seroma of breast N64.89 8. Family history of breast cancer Z80.3 9. Other specified complications of surgical and medical care, not elsewhere classified, sequela T88.8XXS 10. Estrogen receptor positive status [ER+] Z17.0 11. 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 Seroma of breast N64.89 Family history of breast cancer Z80.3 Other specified complications of surgical and medical care, not elsewhere classified, sequela T88.8XXS Estrogen receptor positive status [ER+] Z17.0 Former smoker Z87.891 05/19/182051 <Electronically signed by Gautam Carrasco MD> Date Gautam Carrsaco MD Cosigner Signature: Date (if applicable) CC: PLASTIC SURGERY Observed: 05/18/2018 Status: F Source: [place] VISIT REPORT 3:21 PM [facility] [address] [place] [address] OFFICE VISIT Date of Service: 05/12/18 MR#: [id number] Acct: [id number] Name: MAHI STAFFORD Rep #: [id number] : 1970 Provider: AYLIN Merino Age/Sex: 47/F [place] [facility] [place] Status: Signed Intake Vital Signs05/12/18 Blood Pressure 147/89 H H 05/12/18 Blood Pressure Location Lt radial 05/12/18 Blood Pressure Position Sitting 05/12/18 Respiratory Rate 18 05/12/18 Pulse Rate 119 H Intake Visit Reasons: post op surgery 03/02/18 Tong Hooker Required: No Accompanied by: None Is patient in pain?: Yes (LEFT BREAST PAIN PRESSURE AND RIGHT BREAST PAIN RAW) Pain scale (1-10): 6 Allergies levofloxacin [From Levaquin] Allergy (Severe, Verified 05/12/18 14:59) hives, throat swelling amitriptyline Adverse Reaction (Verified 05/12/18 14:59) HYPER AND REALLY ANGRY anastrozole Adverse Reaction (Verified 05/12/18 14:59) Other Medications Cholecalciferol (Vitamin D3) [Vitamin D3] 2,000 unit PO DAILY 11/10/13 [History Confirmed 03/02/18] Hydrochlorothiazide 25 mg PO DAILY 11/10/13 [History Confirmed 03/02/18] Acetaminophen [Tylenol] 500 - 1,000 mg PO Q6H PRN PRN 04/22/17 [History Confirmed 03/02/18] Potassium Citrate/Citric Acid [Pot Citrate-Citric Acid Packet] 1 ea PO DAILY 04/22/17 [History Confirmed 03/02/18] Zolpidem Tartrate [Ambien] 5 mg PO QHS PRN 04/22/17 [History Confirmed 03/02/18] levothyroxine 100 mcg tablet 200 mcg PO DAILY tab 06/20/17 [History Confirmed 03/02/18] lisinopril 10 mg tablet 10 mg PO DAILY tab 06/20/17 [History Confirmed 03/02/18] Citracal +D 1 tab PO DAILY 01/08/18 [History Confirmed 03/02/18] Loratadine [Claritin] 10 mg PO PRN PRN 01/08/18 [History Confirmed 03/02/18] Cefadroxil [Duricef] 500 mg PO BID #30 cap 03/04/18 [Rx] Diazepam [Valium] 5 mg PO 4X/DAY PRN PRN #30 tab 03/04/18 [Rx] Oxycodone HCl/Acetaminophen [Percocet 5/325] 1 - 2 tab PO 4X/DAY PRN PRN 7 Days #50 tab 03/04/18 [Rx] proMETHazine tablet [Phenergan tablet] 25 mg PO 4X/DAY PRN PRN #30 tab 03/04/18 [Rx] diazepam 5 mg tablet 5 mg PO 4X/DAY PRN #30 tab 03/17/18 [Rx Confirmed 03/17/18] bupropion HCl XL 150 mg 24 hr tablet, extended release 150 mg PO QAM 04/15/18 [History Confirmed 04/15/18] fluoxetine 40 mg capsule 40 mg PO DAILY 04/15/18 [History Confirmed 04/15/18] lamotrigine 150 mg tablet 300 mg PO DAILY tab 05/06/18 [History Confirmed 05/06/18] doxycycline monohydrate 100 mg capsule 100 mg PO BID 14 Days #28 cap 05/10/18 [Rx Confirmed 05/10/18] PFSH Medical History Anemia (Acute) Anxiety (Acute) Back pain (Acute) Back problem (Acute) Breast cancer (Acute) Breast lump in female (Acute) Cataracts, bilateral (Acute) Depression (Acute) Frequent headaches (Acute) Gallstones (Acute) High cholesterol (Acute) Liver disease (Acute) Neuropathy (Acute) Pneumonia (Acute) Seasonal allergies (Acute) Thyroid disease (Acute) Vision problems (Acute) Vitamin deficiency (Acute) Hypertension (Chronic) Surgical History S/P breast biopsy, right (Acute) S/P cholecystectomy (Acute) S/P mastectomy (Acute) S/P tonsillectomy and adenoidectomy (Acute) S/P total thyroidectomy (Acute) Status post surgical manipulation of ankle joint (Acute) Family History Father Asthma Heart disease Hypertension High cholesterol ulcers Diabetes Grandmother Breast cancer Grandfather CVA (cerebral vascular accident) Social History Smoking Status: Former smoker second hand exposure: No alcohol intake: never substance use type: does not use what type of physical activity do you participate in: none seatbelt use: always additional social history: DOES NOT USE ASPIRIN USES IBUPROFEN HPI post op surgery 03/02/18: Details: Postop visit from her surgery on 03/02/18 where she underwent prophylactic mastectomy left breast and revision reconstructed right breast with excision painful excess mastectomy skin scar contour deformity laterally and incision and drainage seroma medially with capsulectomy. She was discharged from the hospital on 03/04/18. She initially developed right breast cancer that necessitated a mastectomy in 05/05. 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 Kirby lymph nodes were negative. Preop MRI also showed a nodule in the left breast that was biopsied and it showed a fibroadenoma. Estrogen receptors were positive. Progesterone receptors were weakly positive. HER2/diana was negative. She was placed on IV chemotherapy and has finished them. She also tried Anastrozole and had severe side effects and it was discontinued. She was also placed on Lupron in preparation for an oophorectomy that was done on 01/14/18. At the time of her surgery in 03/06, The wound culture from surgery was negative. Pathology from the left breast tissue showed fibrocystic change and focal vessel wall microcalcifications and no evidence of malignancy. Right breast showed fibrosis and mature granulation tissue, and no evidence of malignancy. On 04/12/18 she had ultrasound guided drainage of her seroma on the left mastectomy incision. No fluid was noted in her right mastectomy incision. 50 ml of blood-tinged fluid was aspirated. The fluid was sent for culture, and it was negative. Today she comes in for further evaluation on her fluid seroma on her left. There is a little more palpable fluid as compared to her last visit and mild tenderness. Ultrasound guided drainage is scheduled for tomorrow. No clinical evidence of seroma in the right mastectomy incision. On the right lateral breast incision is an ulceration that measures 0.9 x 1.4 cm. Wound culture from 05/06/18 showed Staphylococcus aureus. She was started on Doxycycline. Patient will continue Silver dressing changes daily to this area. Continue her binder for chest wall compression. She has enough Percocet for pain. She has been using Tylenol when she is in class or if she needs to drive, but states it is not always enough to relieve her pain. She is able to take ibuprofen. Suggested trying to take ibuprofen with food and alternating it with Tylenol when not taking pain medications. Follow up one week. Assessment AND Plan Problems 1. Breast cancer, right C50.911 2. Disproportion between [place] breast and reconstructed breast N65.1 3. Excess tissue in reconstructed breast N65.0 4. Cancer phobia F40.298 5. Acquired absence of bilateral breasts and nipples Z90.13 6. 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 Seroma of breast N64.89 8. Family history of breast cancer Z80.3 9. Other specified complications of surgical and medical care, not elsewhere classified, sequela T88.8XXS 10. Estrogen receptor positive status [ER+] Z17.0 11. 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 Seroma of breast N64.89 Family history of breast cancer Z80.3 Other specified complications of surgical and medical care, not elsewhere classified, sequela T88.8XXS Estrogen receptor positive status [ER+] Z17.0 Former smoker Z87.891 05/18/18 1521 <Electronically signed by Priscilla CASTELLONC> Date Priscilla Merino NP-C 05/16/18 1722<Electronically signed by Gautam Carrasco MD> Cosigner Signature: Date (if applicable) Gautam Carrasco MD CC: CYST PUNCTURE Observed: 05/13/2018 Status: F Source: [place] 10:12 AM [facility] [place] [facility] Imaging Services [facility] [place] [address] Cyst Puncture MR#: [id number] Acct: [id number] Name: MAHI STAFFORD Rep #: [id number] : 1970 F 47 From: Andrew Taylor MD PCP: Lavonne Hensley Status: REG CLI Study: Cyst Puncture Date of Exam: 05/13/18 Exam# [id number] Ordering Dr: Gautam Carrasco MD STUDY: ULTRASOUND GUIDED DRAINAGE OF THE SEROMA LEFT REASON FOR EXAM: Female, 47 years old. Status post mastectomy. Recurrent seroma. TECHNIQUE: Ultrasound guided drainage of the seroma. COMPARISON: None. FINDINGS: A linear fluid collection is seen deep to the breast. The overlying skull was prepped and draped in usual sterile fashion. Following local anesthetic application and under direct sonographic guidance, a 5 [place] catheter was placed into the collection. 18 cc of holly-colored fluid was aspirated. US/Cyst Puncture IMPRESSION: Successful drainage of the seroma underlying the left breast as described. Electronically Signed: Andrew Taylor MD at 14:27 EDT Tel [phone], Service support , CC: Lavonne Hensley; Gautam Carrasco MD Cvicu Nurse: Signed Observed: 05/13/2018 Status: F Source: [place] CULTURE, DEEP WOUND 12:00 AM [facility] [place] Comments: LEFT CHEST WALL SEROMA FLUID Gram Stain Gram Stain 3+ Red Blood Cells 1+ White Blood Cells No organisms seen Wound Culture No growth aerobically. Cult, Anaerobic No growth in 5 days. Performed By: #### M100.1500 #### [facility], [address] PLASTIC SURGERY Observed: 05/11/2018 Status: F Source: [place] VISIT REPORT 9:32 AM [facility] [place] [address] [address] [facility] [place] [address] OFFICE VISIT Date of Service: 05/06/18 MR#: [id number] Acct: [id number] Name: MAHI STAFFORD Rep #: [id number] : 1970 Provider: Gautam Carrasco MD Age/Sex: 47/F [place] [facility] [place] Status: Signed Intake Vital Signs05/06/18 Blood Pressure 151/105 H 05/06/18 Blood Pressure Location Lt radial 05/06/18 Blood Pressure Position Sitting 05/06/18 Respiratory Rate 18 05/06/18 Pulse Rate 102 H Intake Visit Reasons: post op surgery 03/02/18 Tong Hooker Required: No Accompanied by: None Is patient in pain?: Yes (RIGHT BREAST RAW PAIN AND LEFT BREAST PRESSURE) Pain scale (1-10): 4 Allergies levofloxacin [From Levaquin] Allergy (Severe, Verified 05/06/18 16:47) hives, throat swelling amitriptyline Adverse Reaction (Verified 05/06/18 16:47) HYPER AND REALLY ANGRY anastrozole Adverse Reaction (Verified 05/06/18 16:47) Other Medications Cholecalciferol (Vitamin D3) [Vitamin D3] 2,000 unit PO DAILY 11/10/13 [History Confirmed 03/02/18] Hydrochlorothiazide 25 mg PO DAILY 11/10/13 [History Confirmed 03/02/18] Acetaminophen [Tylenol] 500 - 1,000 mg PO Q6H PRN PRN 04/22/17 [History Confirmed 03/02/18] Potassium Citrate/Citric Acid [Pot Citrate-Citric Acid Packet] 1 ea PO DAILY 04/22/17 [History Confirmed 03/02/18] Zolpidem Tartrate [Ambien] 5 mg PO QHS PRN 04/22/17 [History Confirmed 03/02/18] levothyroxine 100 mcg tablet 200 mcg PO DAILY tab 06/20/17 [History Confirmed 03/02/18] lisinopril 10 mg tablet 10 mg PO DAILY tab 06/20/17 [History Confirmed 03/02/18] Citracal +D 1 tab PO DAILY 01/08/18 [History Confirmed 03/02/18] Loratadine [Claritin] 10 mg PO PRN PRN 01/08/18 [History Confirmed 03/02/18] Cefadroxil [Duricef] 500 mg PO BID #30 cap 03/04/18 [Rx] Diazepam [Valium] 5 mg PO 4X/DAY PRN PRN #30 tab 03/04/18 [Rx] Oxycodone HCl/Acetaminophen [Percocet 5/325] 1 - 2 tab PO 4X/DAY PRN PRN 7 Days #50 tab 03/04/18 [Rx] proMETHazine tablet [Phenergan tablet] 25 mg PO 4X/DAY PRN PRN #30 tab 03/04/18 [Rx] diazepam 5 mg tablet 5 mg PO 4X/DAY PRN #30 tab 03/17/18 [Rx Confirmed 03/17/18] bupropion HCl XL 150 mg 24 hr tablet, extended release 150 mg PO QAM 04/15/18 [History Confirmed 04/15/18] fluoxetine 40 mg capsule 40 mg PO DAILY 04/15/18 [History Confirmed 04/15/18] lamotrigine 150 mg tablet 300 mg PO DAILY tab 05/06/18 [History Confirmed 05/06/18] oxycodone-acetaminophen 5 mg-325 mg tablet 1 tab PO 4X/DAY PRN #30 tab 05/06/18 [Rx Confirmed 05/06/18] doxycycline monohydrate 100 mg capsule 100 mg PO BID 14 Days #28 cap 05/10/18 [Rx Confirmed 05/10/18] PFSH Medical History Anemia (Acute) Anxiety (Acute) Back pain (Acute) Back problem (Acute) Breast cancer (Acute) Breast lump in female (Acute) Cataracts, bilateral (Acute) Depression (Acute) Frequent headaches (Acute) Gallstones (Acute) High cholesterol (Acute) Liver disease (Acute) Neuropathy (Acute) Pneumonia (Acute) Seasonal allergies (Acute) Thyroid disease (Acute) Vision problems (Acute) Vitamin deficiency (Acute) Hypertension (Chronic) Surgical History S/P breast biopsy, right (Acute) S/P cholecystectomy (Acute) S/P mastectomy (Acute) S/P tonsillectomy and adenoidectomy (Acute) S/P total thyroidectomy (Acute) Status post surgical manipulation of ankle joint (Acute) Family History Father Asthma Heart disease Hypertension High cholesterol ulcers Diabetes Grandmother Breast cancer Grandfather CVA (cerebral vascular accident) Social History Smoking Status: Former smoker second hand exposure: No alcohol intake: never substance use type: does not use what type of physical activity do you participate in: none seatbelt use: always additional social history: DOES NOT USE ASPIRIN USES IBUPROFEN HPI post op surgery 03/02/18: Details: Postop visit from her surgery on 03/02/18 where she underwent prophylactic mastectomy left breast and revision reconstructed right breast with excision painful excess mastectomy skin scar contour deformity laterally and incision and drainage seroma medially with capsulectomy. She was discharged from the hospital on 03/04/18. She initially developed right breast cancer that necessitated a mastectomy in 05/05. 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 Kirby lymph nodes were negative. Preop MRI also showed a nodule in the left breast that was biopsied and it showed a fibroadenoma. Estrogen receptors were positive. Progesterone receptors were weakly positive. HER2/diana was negative. She was placed on IV chemotherapy and has finished them. She also tried Anastrozole and had severe side effects and it was discontinued. She was also placed on Lupron in preparation for an oophorectomy that was done on 01/14/18. At the time of her surgery in 03/06, The wound culture from surgery was negative. Pathology from the left breast tissue showed fibrocystic change and focal vessel wall microcalcifications and no evidence of malignancy. Right breast showed fibrosis and mature granulation tissue, and no evidence of malignancy. On 04/12/18 she had ultrasound guided drainage of her seroma on the left mastectomy incision. No fluid was noted in her right mastectomy incision. 50 ml of blood-tinged fluid was aspirated. The fluid was sent for culture, and it was negative. Today she comes in for further evaluation on her fluid seroma on her left. There is a little more palpable fluid as compared to her last visit and mild tenderness. Will schedule her for Ultrasound guided drainage. No clinical evidence of seroma in the right mastectomy incision. On the right lateral breast incision is a 1 cm ulcer. A wound culture was obtained today. Patient thinks her dressing was rubbing on her incision. The ulcer was dressed with a Silver dressing. A positive culture will necessitate antibiotic therapy. Patient will continue Silver dressing changes daily to this area. Continue her binder for chest wall compression. Renewed her Percocet (30 tabs) for pain. Follow up one week. Assessment AND Plan Problems 1. Breast cancer, right C50.911 2. Disproportion between [place] breast and reconstructed breast N65.1 3. Excess tissue in reconstructed breast N65.0 4. Cancer phobia F40.298 5. Estrogen receptor positive status [ER+] Z17.0 6. 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 Seroma of breast N64.89 8. Family history of breast cancer Z80.3 9. Former smoker Z87.891 10. Acquired absence of bilateral breasts and nipples Z90.13 11. Other specified complications of surgical and medical care, not elsewhere classified, sequela T88.8XXS Orders Orders: Breast Complete Unilateral 05/06/18 C50.911, N64.89, N65.0, N65.1, T88.8XXJajudson Carrasco MD S, Z90.12 Medications New: oxycodone-acetaminophen 1 tab PO 4X/DAY PRN 30 C50.911, F40.298, N64.89Gautam Carrasco MD 5-325 mg (Percocet) tabs 0RF pain , N65.0, N65.1, Z90.13 Coding Level of Care Code Global Post Op Diagnoses Breast cancer, right C50.911 Disproportion between [place] breast and reconstructed breast N65.1 Excess tissue in reconstructed breast N65.0 Cancer phobia F40.298 Estrogen receptor positive status [ER+] Z17.0 Non-pressure chronic ulcer of skin of other sites with fat layer exposed 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 Seroma of breast N64.89 Family history of breast cancer Z80.3 Former smoker Z87.891 Acquired absence of bilateral breasts and nipples Z90.13 Other specified complications of surgical and medical care, not elsewhere classified, sequela T88.8XXS 05/09/18 2233 <Electronically signed by Gautam Carrasco MD> Date Gautam Carrasco MD 05/11/18 0932<Electronically signed by Priscilla VIERA> Cosigner Signature: Date (if applicable) Priscilla Merino CC: Observed: 05/06/2018 Status: F Source: [place] CULTURE, WOUND 6:45 PM [facility] [place] Gram Stain Gram Stain 4+ White Blood Cells 3+ Gram positive cocci Wound Culture ORGANISM 1: Staphylococcus aureus Amount Growth 2+ Staphylococcus aureus: REACTION Benzylpenicillin NF >=0.5 R Cefoxitin *NF - Clindamycin $$ <=0.25 S Inducable Clindamycin Resistan - Erythromycin $ 0.5 S Gentamicin $ <=0.5 S Levofloxacin $ <=0.12 S Linezolid $$$$ 4 S Moxifloxicin *NF <=0.25 S Oxacillin NF <=0.25 S Tigecycline $$$$ <=0.12 S Rifampin $$ <=0.5 S Tetracycline NF <=1 S Trimethoprim/Sulfametho $ <=10 S Vancomycin $ <=0.5 S (NF) indicates non-formulary drug at [facility]. Approval by Infectious Disease Specialist required before non-formulary drugs may be ordered and/or dispensed. * CLSI guidelines does not recommend testing of cephalosporins. This interpretation is deduced from Beta-lactam/penicillin results. Performed By: #### M100.1400 #### [facility] [address] [place], [address] POTASSIUM Collected: 05/04/2018 Status: F Source: [place] 9:07 AM [facility] REPOSITORY TYPE CODE TESTS RESULT OUT OF REFERENCE UNITS RANGE LAB K 3.7-5.1 mmol/L Potassium 4.0 Performed By: #### K1, TSH, FT4 #### [facility] [address] [place], [place] [address] TSH Collected: 05/04/2018 Status: F Source: [place] 9:07 AM [facility] REPOSITORY TYPE CODE TESTS RESULT OUT OF RANGE REFERENCE UNITS LAB TSH 0.400-5.500 uU/mL TSH 2.300 Result Comment: If the patient is , TSH reference range varies by gestational period: First Trimester 0.100-2.500 uU/mL Second Trimester 0.200-3.000 uU/mL Third Trimester 0.300-3.000 uU/mL References: 1. Velasco L, Thomas M, Stevo EK, et al. Management of Thyroid Dysfunction during and : An Endocrine Society Clinical Practice Guideline. J Clin Endocrinol Metab, 2012:97:8899-2085. 2. David DS. Overview of thyroid disease in . UpToDate. 2016. Accessed on January 04, 2016. Performed By: #### K1, TSH, FT4 #### [facility] [address] [place], [place] [address] FREE T4 Collected: 05/04/2018 Status: F Source: [place] 9:07 AM [facility] REPOSITORY TYPE CODE TESTS RESULT OUT OF RANGE REFERENCE UNITS LAB FT4 0.9-1.7 ng/dL Free T4 1.5 Performed By: #### K1, TSH, FT4 #### [facility] [address] [place], [place] [address] PLASTIC SURGERY Observed: 04/21/2018 Status: F Source: [place] VISIT REPORT 9:11 AM [facility] [place] [place] [facility] [address] [place] [address] OFFICE VISIT Date of Service: 04/15/18 MR#: [id number] Acct: [id number] Name: MAHI STAFFORD Rep #: [id number] : 1970 Provider: Gautam Carrasco MD Age/Sex: 47/F Location: [facility] Status: Signed Intake Vital Signs04/15/18 Blood Pressure 135/92 H 04/15/18 Blood Pressure Location Lt brachial 04/15/18 Blood Pressure Position Sitting 04/15/18 Respiratory Rate 18 Intake Visit Reasons: post op surgery 03/02/18 Tong Hooker Required: No Accompanied by: None Is patient in pain?: No Allergies levofloxacin [From Levaquin] Allergy (Severe, Verified 04/15/18 16:31) hives, throat swelling amitriptyline Adverse Reaction (Verified 04/15/18 16:31) HYPER AND REALLY ANGRY anastrozole Adverse Reaction (Verified 04/15/18 16:31) Other Medications Cholecalciferol (Vitamin D3) [Vitamin D3] 2,000 unit PO DAILY 11/10/13 [History Confirmed 03/02/18] Hydrochlorothiazide 25 mg PO DAILY 11/10/13 [History Confirmed 03/02/18] Acetaminophen [Tylenol] 500 - 1,000 mg PO Q6H PRN PRN 04/22/17 [History Confirmed 03/02/18] Potassium Citrate/Citric Acid [Pot Citrate-Citric Acid Packet] 1 ea PO DAILY 04/22/17 [History Confirmed 03/02/18] Zolpidem Tartrate [Ambien] 5 mg PO QHS PRN 04/22/17 [History Confirmed 03/02/18] lamotrigine 150 mg tablet 200 mg PO DAILY tab 06/20/17 [History Confirmed 03/02/18] levothyroxine 100 mcg tablet 200 mcg PO DAILY tab 06/20/17 [History Confirmed 03/02/18] lisinopril 10 mg tablet 10 mg PO DAILY tab 06/20/17 [History Confirmed 03/02/18] Citracal +D 1 tab PO DAILY 01/08/18 [History Confirmed 03/02/18] Loratadine [Claritin] 10 mg PO PRN PRN 01/08/18 [History Confirmed 03/02/18] Cefadroxil [Duricef] 500 mg PO BID #30 cap 03/04/18 [Rx] Diazepam [Valium] 5 mg PO 4X/DAY PRN PRN #30 tab 03/04/18 [Rx] Oxycodone HCl/Acetaminophen [Percocet 5/325] 1 - 2 tab PO 4X/DAY PRN PRN 7 Days #50 tab 03/04/18 [Rx] proMETHazine tablet [Phenergan tablet] 25 mg PO 4X/DAY PRN PRN #30 tab 03/04/18 [Rx] diazepam 5 mg tablet 5 mg PO 4X/DAY PRN #30 tab 03/17/18 [Rx Confirmed 03/17/18] bupropion HCl XL 150 mg 24 hr tablet, extended release 150 mg PO QAM 04/15/18 [History Confirmed 04/15/18] fluoxetine 40 mg capsule 40 mg PO DAILY 04/15/18 [History Confirmed 04/15/18] PFSH Medical History Anemia (Acute) Anxiety (Acute) Back pain (Acute) Back problem (Acute) Breast cancer (Acute) Breast lump in female (Acute) Cataracts, bilateral (Acute) Depression (Acute) Frequent headaches (Acute) Gallstones (Acute) High cholesterol (Acute) Liver disease (Acute) Neuropathy (Acute) Pneumonia (Acute) Seasonal allergies (Acute) Thyroid disease (Acute) Vision problems (Acute) Vitamin deficiency (Acute) Hypertension (Chronic) Surgical History S/P breast biopsy, right (Acute) S/P cholecystectomy (Acute) S/P mastectomy (Acute) S/P tonsillectomy and adenoidectomy (Acute) S/P total thyroidectomy (Acute) Status post surgical manipulation of ankle joint (Acute) Family History Father Asthma Heart disease Hypertension High cholesterol ulcers Diabetes Grandmother Breast cancer Grandfather CVA (cerebral vascular accident) Social History Smoking Status: Former smoker second hand exposure: No alcohol intake: never substance use type: does not use what type of physical activity do you participate in: none seatbelt use: always additional social history: DOES NOT USE ASPIRIN USES IBUPROFEN HPI post op surgery 03/02/18: Details: Postop visit from her surgery on 03/02/18 where she underwent prophylactic mastectomy left breast and revision reconstructed right breast with excision painful excess mastectomy skin scar contour deformity laterally and incision and drainage seroma medially with capsulectomy. She was discharged from the hospital on 03/04/18. She initially developed right breast cancer that necessitated a mastectomy in 05/05. 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 Kirby lymph nodes were negative. Preop MRI also showed a nodule in the left breast that was biopsied and it showed a fibroadenoma. Estrogen receptors were positive. Progesterone receptors were weakly positive. HER2/diana was negative. She was placed on IV chemotherapy and has finished them. She also tried Anastrozole and had severe side effects and it was discontinued. She was also placed on Lupron in preparation for an oophorectomy that was done on 01/14/18. She comes in today for followup on her fluid seromas in her mastectomy incisions bilaterally. On 04/12/18 she had ultrasound guided drainage of her seroma on the left mastectomy incision. No fluid was noted in her right mastectomy incision. 50 ml of blood-tinged fluid was aspirated. The fluid was sent for culture, and it was negative. Incisions are healing. No redness seen. Minimal drainage palpable in left mastectomy incision. No clinical evidence of seroma in the right mastectomy incision. Continue her binder for chest wall compression. The wound culture from surgery was negative. Pathology from the left breast tissue showed fibrocystic change and focal vessel wall microcalcifications and no evidence of malignancy. Right breast showed fibrosis and mature granulation tissue, and no evidence of malignancy. Follow up three weeks. Assessment AND Plan Problems 1. Breast cancer, right C50.911 2. Disproportion between [place] breast and reconstructed breast N65.1 3. Excess tissue in reconstructed breast N65.0 4. Cancer phobia F40.298 5. Estrogen receptor positive status [ER+] Z17.0 6. Seroma of breast N64.89 7. Family history of breast cancer Z80.3 8. Former smoker Z87.891 9. Acquired absence of bilateral breasts and nipples Z90.13 10. Other specified complications of surgical and medical care, not elsewhere classified, sequela T88.8XXS Coding Level of Care Code Global Post Op Diagnoses Breast cancer, right C50.911 Disproportion between [place] breast and reconstructed breast N65.1 Excess tissue in reconstructed breast N65.0 Cancer phobia F40.298 Estrogen receptor positive status [ER+] Z17.0 Seroma of breast N64.89 Family history of breast cancer Z80.3 Former smoker Z87.891 Acquired absence of bilateral breasts and nipples Z90.13 Other specified complications of surgical and medical care, not elsewhere classified, sequela T88.8XXS 04/17/18 1327 <Electronically signed by Gautam Carrasco MD> Date Gautam Carrasco MD 04/21/18 0911<Electronically signed by Priscilla VIERA> Cosigner Signature: Date (if applicable) Priscilla Merino CC: PROGRESS Observed: 04/20/2018 Status: COMPLETED Source: [place] 8:55 AM [facility] REPOSITORY HNO ID: [id number] Author: Lavonne Alba (LaurieC) Ayden Service: (none) Author Type: Physician Hand Laminator Type: Progress Notes Filed: 04/20/2018 9:18 AM Note Text: 47 year old female with c/o here for review of BP, has been high in last two surgeon office checks. 165/95. Also stressed, son's friend in sleep at age 16. Needs refill on potassium. Feeling angry currently. Mood has been improving with resumption lamictal and bupropion. Current doses updated. Wearing corsette to prevent seroma from recurring from last surgery. Causing a lot of back pain from prior injury, HISTORIES FAMILY HISTORY Problem Relation Age of Onset - Heart Father - Hypertension Father - Thyroid Father - Diabetes Father - Psychiatry Father - Allergies Father - Arthritis Mother - Thyroid Mother pneumonia 73 - Allergies Mother - Breast Cancer Maternal Grandmother dx early 50's - Diabetes Maternal Grandmother - Coronary Artery Disease Maternal Grandmother - Stroke Maternal Grandmother - Allergies Maternal Grandmother - Cancer Maternal Grandmother Kidney cancer dx 70's - Diabetes Maternal Grandfather - Heart Maternal Grandfather 67 - Hypertension Maternal Grandfather - Coronary Artery Disease Maternal Grandfather - Allergies Maternal Grandfather - Diabetes Paternal Grandfather - Thyroid Paternal Grandfather - Allergies Paternal Grandfather - Diabetes Paternal Grandmother - Heart Paternal Grandmother - Allergies Paternal Grandmother - Stroke Paternal Grandmother - Ovarian cancer Other Mother of maternal grandmother - Cancer Maternal Aunt 71 Bladder or kidney cancer PAST MEDICAL HISTORY Diagnosis Date - Anxiety - Bipolar disorder (HCC) - Breast cancer, stage 1, right (HCC) estrogen receptor positive HER2 negative - Depression - Hyperlipemia Hypertriglyceridemia, Low HDL - Hypertension - Hyperthyroidism 11/17/13 - Hypothyroid - Migraine - Multinodular goiter 11/17/13 - Vitamin D deficiency 09/2013 PAST SURGICAL HISTORY Procedure Laterality Date - BREAST BIOPSY Right 03/14/2017 - BREAST BIOPSY Right 04/09/2017 - BREAST BIOPSY Left 04/09/2017 - BREAST RECONSTRUCT TRAM MICRO ANASTOM Right 814/18 revision reconstructed right breast with removal painful skin scar, drainage seroma, Dr. Gautam Carrasco, [facility] - CATARACT EXTRACTION W/ INTRAOCULAR LENS IMPLANT HX Left 2013 - HYSTERECTOMY HX - LAPAROSCOPIC CHOLEYCYSTECTOMY 07/21 Cholecystectomy, lap - LIGATE FALLOPIAN TUBE ESSURE - MASTECTOMY, RADICAL Right 04/30/2017 Dr Jevon Bundy right total mastectomy with axillary blue dye sentinel lymph node biopsy - MASTECTOMY,SIMPLE Left 03/02/2018 prophylactic right breast mastectomy Dr. Gautam Carrasco [facility] - PAST SURGICAL HISTORY OF 05/1998 PLATE IN LEFT ANKLE - REMOVAL OF OVARY/TUBE(S) Bilateral 01/14/2018 Prophylactic Laparoscopic BSO for Estrogen Receptor + Breast Cancer, BRCA negative-Dr. Cruz - REMOVAL OF TONSILS,<12 Y/O 1982 Tonsillectomy - THYROIDECTOMY 11/17/13 Dr. 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[employer]* Social History Main Topics Smoking status: Former Smoker Packs/day: 0.30 Years: 3.00 Types: Cigarettes Quit date: 10/07/2014 Smokeless tobacco: Never Used Comment: One pack would last 2 weeks when she smoked Alcohol use: No Drug use: No ACTIVE PROBLEM LIST Adjustment Disorder With Depressed Mood Anxiety State, Unspecified Essential Hypertension, Benign Obesity, Class Iii, Bmi 40-49.9 (Morbid Obesity) (Hcc) Nonspecific abnormal results of liver function study Allergic Rhinitis, Cause Unspecified Other Chronic Nonalcoholic Liver Disease Hyperlipidemia Tobacco Abuse Low Hdl (Under 40) Hypertriglyceridemia Postsurgical Hypothyroidism Incisional Infection Vitamin D Deficiency Elevated Lfts Muscle Spasm Neck Pain Thoracic Back Pain Malignant Neoplasm of Lower-Inner Quadrant of Right Breast of Female, Estrogen Receptor Positive (Hcc) Left Breast Mass Numbness of Arm Plantar Fascial Fibromatosis Posterior Tibial Tendinitis of Left Leg Posterior Subcapsular Polar Senile Cataract Current Outpatient Prescriptions: FLUoxetine HCl (PROZAC) 40 mg capsule Take 40 mg by mouth once daily. Disp: Rfl: oxyCODONE-acetaminophen (PERCOCET) 5-325 mg tablet Take 1 tablet by mouth every 4 hours as needed. Disp: Rfl: ibuprofen (MOTRIN) 600 mg tablet Take 1 tablet by mouth every 6 hours as needed. FOR PAIN. Disp: 30 tablet Rfl: 0 hydroCHLOROthiazide (HYDRODIURIL, ESIDRIX) 25 mg tablet Take 1 tablet by mouth once daily. Disp: 90 tablet Rfl: 1 lisinopril (ZESTRIL, PRINIVIL) 10 mg tablet Take 1 tablet by mouth once daily. Disp: 90 tablet Rfl: 1 calcium citrate/vitamin D3 (CITRACAL + D ORAL) Take 1 tablet by mouth twice daily. Disp: Rfl: levothyroxine (SYNTHROID) 200 mcg tablet Take 1 tablet by mouth five times a week. Disp: 60 tablet Rfl: 3 COMPOUNDED PRESCRIPTION #1 Auto titrating PAP device 6-20 cmH2O with humidification. #1 Formal mask fitting and education with tubing and supplies as necessary. Disp: 1 Each Rfl: 0 potassium chloride (K-MIGUELITO, KLOR-CON) 20 mEq packet TAKE ONE PACKET BY MOUTH EVERY DAY Disp: 90 Packet Rfl: 1 lamoTRIgine (LAMICTAL) 150 mg tablet Take 200 mg by mouth once daily. Disp: Rfl: zolpidem (AMBIEN) 5 mg tablet Take 5 mg by mouth at bedtime as needed. Disp: Rfl: buPROPion XL (WELLBUTRIN XL) 300 mg 24 hr tablet Take 150 mg by mouth once daily. Disp: Rfl: Cholecalciferol, Vitamin D3, (VITAMIN D-3) 2,000 unit cap Take 1 capsule by mouth once daily. Disp: Rfl: LORATADINE (CLARITIN ORAL) Take 1 tablet by mouth once daily as needed. Disp: Rfl: letrozole (FEMARA) 2.5 mg tablet Take 1 tablet by mouth once daily. (Patient not taking: Reported on 04/02/2018 ) Disp: 90 tablet Rfl: 3 No current facility-administered medications for this visit. BP CONTROLLED (<130/80) due on 12/05/1989 DTAP,TDAP,TD(2 - Tdap) due on 07/20/2011 MAMMOGRAM due on 07/16/2017 INFLUENZA(1) due on 03/20/2018 EXAM: BP 108/74 Pulse 80 Temp 37 ?C (98.6 ?F) (Tympanic) Resp 16 Wt 118.8 kg (262 lb) LMP 05/27/2017 BMI 46.13 kg/m? Pleasant obese adult woman in no acute distress. Alert and oriented all spheres. Normal affect and cognition. Speech normal. No deficits to learning or comprehension. Skin warm, dry, pink to lips and nailbeds. Normal turgor. Respirations regular and unlabored. HEENT WNL. TM's clear. Nose and oropharynx free from injection or lesion. No cervical lymph nodes. Thyroid non-tender, no masses Chest CTA. HRRR without murmur or gallop. Posterior chest wall with TTPS, rib subluxations. Tender in superficial quadraticus trigger points. Right flank. Extrem: no clubbing, cyanosis, edema. Extremities are warm and pink with prompt capillary refill. OMT: myofascial release to trigger points with HVLA to mid and lower rib segment with marked improvement in pain. ASSESSMENT/PLAN: 1. Hypokalemia - ICD9: 276.8, ICD10: E87.6 (primary diagnosis) Normal potassium last 5 years. Stop potassium, recheck in 2 weeks. - POTASSIUM BLD 2. Adjustment disorder with depressed mood - ICD9: 309.0, ICD10: F43.21 Stable, improving with resumption meds. 3. Essential hypertension, benign - ICD9: 401.1, ICD10: I10 - good control - Continue current medication(s) - Recommended regular aerobic exercise. - Recommend home blood pressure monitoring, to bring results in on next visit - Goal of BP <130/80 4. Somatic dysfunction of rib - ICD9: 739.8, ICD10: M99.08 F/u prn if recurs F/u 3-4 months. Lavonne Hensley PA-C CNOV Observed: 04/20/2018 Status: COMPLETED Source: [place] 8:20 AM [facility] REPOSITORY Office Visit (FAMPWS) MAHI STAFFORD ([id number]) 1970 F Date Time Provider Department 04/20/18 8:20 AM Lavonne HENSLEY) FAMPWS During your visit today, we recorded the following information about you: Temperature Pulse Respiration Blood pressure 98.6 degrees 80/minute 16/minute 108/74 Weight 118.8 kg Lavonne Hensley PA-C 04/20/2018 9:18 AM Signed 47 year old female with c/o here for review of BP, has been high in last two surgeon office checks. 165/95. Also stressed, son's friend in sleep at age 16. Needs refill on potassium. Feeling angry currently. Mood has been improving with resumption lamictal and bupropion. Current doses updated. Wearing corsette to prevent seroma from recurring from last surgery. Causing a lot of back pain from prior injury, HISTORIES FAMILY HISTORY Problem Relation Age of Onset - Heart Father - Hypertension Father - Thyroid Father - Diabetes Father - Psychiatry Father - Allergies Father - Arthritis Mother - Thyroid Mother pneumonia 73 - Allergies Mother - Breast Cancer Maternal Grandmother dx early 50's - Diabetes Maternal Grandmother - Coronary Artery Disease Maternal Grandmother - Stroke Maternal Grandmother - Allergies Maternal Grandmother - Cancer Maternal Grandmother Kidney cancer dx 70's - Diabetes Maternal Grandfather - Heart Maternal Grandfather 67 - Hypertension Maternal Grandfather - Coronary Artery Disease Maternal Grandfather - Allergies Maternal Grandfather - Diabetes Paternal Grandfather - Thyroid Paternal Grandfather - Allergies Paternal Grandfather - Diabetes Paternal Grandmother - Heart Paternal Grandmother - Allergies Paternal Grandmother - Stroke Paternal Grandmother - Ovarian cancer Other Mother of maternal grandmother - Cancer Maternal Aunt 71 Bladder or kidney cancer PAST MEDICAL HISTORY Diagnosis Date - Anxiety - Bipolar disorder (HCC) - Breast cancer, stage 1, right (HCC) estrogen receptor positive HER2 negative - Depression - Hyperlipemia Hypertriglyceridemia, Low HDL - Hypertension - Hyperthyroidism 11/17/13 - Hypothyroid - Migraine - Multinodular goiter 11/17/13 - Vitamin D deficiency 09/2013 PAST SURGICAL HISTORY Procedure Laterality Date - BREAST BIOPSY Right 03/14/2017 - BREAST BIOPSY Right 04/09/2017 - BREAST BIOPSY Left 04/09/2017 - BREAST RECONSTRUCT TRAM MICRO ANASTOM Right 814/18 revision reconstructed right breast with removal painful skin scar, drainage seroma, Dr. Gautam Carrasco, [facility] - CATARACT EXTRACTION W/ INTRAOCULAR LENS IMPLANT HX Left 2013 - HYSTERECTOMY HX - LAPAROSCOPIC CHOLEYCYSTECTOMY 07/21 Cholecystectomy, lap - LIGATE FALLOPIAN TUBE ESSURE - MASTECTOMY, RADICAL Right 04/30/2017 Dr Jevon Bundy right total mastectomy with axillary blue dye sentinel lymph node biopsy - MASTECTOMY,SIMPLE Left 03/02/2018 prophylactic right breast mastectomy Dr. Gautam Carrasco [facility] - PAST SURGICAL HISTORY OF 05/1998 PLATE IN LEFT ANKLE - REMOVAL OF OVARY/TUBE(S) Bilateral 01/14/2018 Prophylactic Laparoscopic BSO for Estrogen Receptor + Breast Cancer, BRCA negative-Dr. Cruz - REMOVAL OF TONSILS,<13 Y/O 1983 Tonsillectomy - THYROIDECTOMY 11/17/13 Dr. 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[employer]* Social History Main Topics Smoking status: Former Smoker Packs/day: 0.30 Years: 3.00 Types: Cigarettes Quit date: 10/07/2014 Smokeless tobacco: Never Used Comment: One pack would last 2 weeks when she smoked Alcohol use: No Drug use: No ACTIVE PROBLEM LIST Adjustment Disorder With Depressed Mood Anxiety State, Unspecified Essential Hypertension, Benign Obesity, Class Iii, Bmi 40-49.9 (Morbid Obesity) (Hcc) Nonspecific abnormal results of liver function study Allergic Rhinitis, Cause Unspecified Other Chronic Nonalcoholic Liver Disease Hyperlipidemia Tobacco Abuse Low Hdl (Under 40) Hypertriglyceridemia Postsurgical Hypothyroidism Incisional Infection Vitamin D Deficiency Elevated Lfts Muscle Spasm Neck Pain Thoracic Back Pain Malignant Neoplasm of Lower-Inner Quadrant of Right Breast of Female, Estrogen Receptor Positive (Hcc) Left Breast Mass Numbness of Arm Plantar Fascial Fibromatosis Posterior Tibial Tendinitis of Left Leg Posterior Subcapsular Polar Senile Cataract Current Outpatient Prescriptions: FLUoxetine HCl (PROZAC) 40 mg capsule Take 40 mg by mouth once daily. Disp: Rfl: oxyCODONE-acetaminophen (PERCOCET) 5-325 mg tablet Take 1 tablet by mouth every 4 hours as needed. Disp: Rfl: ibuprofen (MOTRIN) 600 mg tablet Take 1 tablet by mouth every 6 hours as needed. FOR PAIN. Disp: 30 tablet Rfl: 0 hydroCHLOROthiazide (HYDRODIURIL, ESIDRIX) 25 mg tablet Take 1 tablet by mouth once daily. Disp: 90 tablet Rfl: 1 lisinopril (ZESTRIL, PRINIVIL) 10 mg tablet Take 1 tablet by mouth once daily. Disp: 90 tablet Rfl: 1 calcium citrate/vitamin D3 (CITRACAL + D ORAL) Take 1 tablet by mouth twice daily. Disp: Rfl: levothyroxine (SYNTHROID) 200 mcg tablet Take 1 tablet by mouth five times a week. Disp: 60 tablet Rfl: 3 COMPOUNDED PRESCRIPTION #1 Auto titrating PAP device 6-20 cmH2O with humidification. #1 Formal mask fitting and education with tubing and supplies as necessary. Disp: 1 Each Rfl: 0 potassium chloride (K-MIGUELITO, KLOR-CON) 20 mEq packet TAKE ONE PACKET BY MOUTH EVERY DAY Disp: 90 Packet Rfl: 1 lamoTRIgine (LAMICTAL) 150 mg tablet Take 200 mg by mouth once daily. Disp: Rfl: zolpidem (AMBIEN) 5 mg tablet Take 5 mg by mouth at bedtime as needed. Disp: Rfl: buPROPion XL (WELLBUTRIN XL) 300 mg 24 hr tablet Take 150 mg by mouth once daily. Disp: Rfl: Cholecalciferol, Vitamin D3, (VITAMIN D-3) 2,000 unit cap Take 1 capsule by mouth once daily. Disp: Rfl: LORATADINE (CLARITIN ORAL) Take 1 tablet by mouth once daily as needed. Disp: Rfl: letrozole (FEMARA) 2.5 mg tablet Take 1 tablet by mouth once daily. (Patient not taking: Reported on 04/02/2018 ) Disp: 90 tablet Rfl: 3 No current facility-administered medications for this visit. BP CONTROLLED (<130/80) due on 12/05/1989 DTAP,TDAP,TD(2 - Tdap) due on 07/20/2011 MAMMOGRAM due on 07/16/2017 INFLUENZA(1) due on 03/20/2018 EXAM: BP 108/74 Pulse 80 Temp 37 ?C (98.6 ?F) (Tympanic) Resp 16 Wt 118.8 kg (262 lb) LMP 05/27/2017 BMI 46.13 kg/m? Pleasant obese adult woman in no acute distress. Alert and oriented all spheres. Normal affect and cognition. Speech normal. No deficits to learning or comprehension. Skin warm, dry, pink to lips and nailbeds. Normal turgor. Respirations regular and unlabored. HEENT WNL. TM's clear. Nose and oropharynx free from injection or lesion. No cervical lymph nodes. Thyroid non-tender, no masses Chest CTA. HRRR without murmur or gallop. Posterior chest wall with TTPS, rib subluxations. Tender in superficial quadraticus trigger points. Right flank. Extrem: no clubbing, cyanosis, edema. Extremities are warm and pink with prompt capillary refill. OMT: myofascial release to trigger points with HVLA to mid and lower rib segment with marked improvement in pain. ASSESSMENT/PLAN: 1. Hypokalemia - ICD9: 276.8, ICD10: E87.6 (primary diagnosis) Normal potassium last 5 years. Stop potassium, recheck in 2 weeks. - POTASSIUM BLD 2. Adjustment disorder with depressed mood - ICD9: 309.0, ICD10: F43.21 Stable, improving with resumption meds. 3. Essential hypertension, benign - ICD9: 401.1, ICD10: I10 - good control - Continue current medication(s) - Recommended regular aerobic exercise. - Recommend home blood pressure monitoring, to bring results in on next visit - Goal of BP <130/80 4. Somatic dysfunction of rib - ICD9: 739.8, ICD10: M99.08 F/u prn if recurs F/u 3-4 months. Lavonne Hensley PA-C Referring Provider: SELF [[id number]] Allergies As of Date: 04/20/2018 Noted Allergy Reaction AMITRIPTYLINE 11/18/2016 14 - Other: See Comments Comments: Intensely angry ANASTROZOLE 11/04/2017 5 - Intolerance Comments: Nausea, irritability, inability to sleep CATS 01/05/2006 DOGS 01/05/2006 GRASS POLLEN 01/05/2006 LEVAQUIN (LEVOFLOXACIN) 07/15/2017 4 - Hives 7 - Swelling MOLD 01/05/2006 Date Reviewed: 04/20/2018 Reviewed by: Kaci Riley Fan Mail Editor - Fully Assessed Reason for Visit: Blood Pressure [15] Cmt: B/P has been running higher than 170/98 x 6 weeks Primary Visit Diagnosis:Hypokalemia [E87.6] Other Visit Diagnoses:Adjustment disorder with depressed mood [F43.21] Essential hypertension, benign [I10] Somatic dysfunction of rib [M99.08] Order(s):POTASSIUM BLD [SQK1] Order #: [id number] FUTURE Prescriptions as of 04/20/2018 Sig: FLUOXETINE 40 MG CAPSULE Take 40 mg by mouth once arielle* OXYCODONE-ACETAMINOPHEN 5 MG-* Take 1 tablet by mouth every * IBUPROFEN 600 MG TABLET Take 1 tablet by mouth every * HYDROCHLOROTHIAZIDE 25 MG TAB* Take 1 tablet by mouth once d* LISINOPRIL 10 MG TABLET Take 1 tablet by mouth once d* CITRACAL + D ORAL Take 1 tablet by mouth twice * LEVOTHYROXINE 200 MCG TABLET Take 1 tablet by mouth five t* COMPOUNDED PRESCRIPTION #1 Auto titrating PAP device * LAMOTRIGINE 150 MG TABLET Take 200 mg by mouth once subha* ZOLPIDEM 5 MG TABLET Take 5 mg by mouth at bedtime* BUPROPION XL 300 MG 24 HR TAB Take 150 mg by mouth once subha* CHOLECALCIFEROL (VITAMIN D3) * Take 1 capsule by mouth once * CLARITIN ORAL Take 1 tablet by mouth once d* LETROZOLE 2.5 MG TABLET Take 1 tablet by mouth once d* Patient not taking: Reported on 04/02/2018 Problem List As Of Date 04/20/2018 Noted Resolved ADJUSTMENT DISORDER WITH DEPRESSED MOOD [F43.21]INVALID FOR* ANXIETY STATE NOS [F41.1] INVALID FOR* BENIGN HYPERTENSION [I10] INVALID FOR* Obesity, Class III, BMI 40-49.9 (morbid obesity*INVALID FOR* Nonspecific abnormal results of liver function *INVALID FOR* More... ALLERGIC RHINITIS NOS [J30.9] INVALID FOR* CHRONIC LIVER DIS NEC [K76.89] INVALID FOR* Hyperlipidemia [E78.5] INVALID FOR* Tobacco abuse [Z72.0] INVALID FOR* Low HDL (under 40) [E78.6] INVALID FOR* Hypertriglyceridemia [E78.1] INVALID FOR* Postsurgical hypothyroidism [E89.0] INVALID FOR* Incisional infection [T81.49XA] INVALID FOR* Vitamin D deficiency [E55.9] INVALID FOR* Elevated LFTs [R94.5] INVALID FOR* Muscle spasm [M62.838] INVALID FOR* Neck pain [M54.2] INVALID FOR* Thoracic back pain [M54.6] INVALID FOR* Malignant neoplasm of lower-inner quadrant of r*INVALID FOR* Left breast mass [N63.20] INVALID FOR* More... Numbness of arm [R20.0] INVALID FOR* More... 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 Medications Discontinued During This Encounter potassium chloride (K-MIGUELITO, KLOR-CON)* 90 P* 1 06/01/2017 04/20/2018 Cmt: Med-sync patient. If too soon, we will put new RX on hold for next cycle. Sig: TAKE ONE PACKET BY MOUTH EVERY DAY Disc: Reason for discontinue is not on file. Encounter Status:Closed by Lavonne HENSLEY PA-C on 04/20/18 Observed: 04/12/2018 Status: F Source: [place] CULTURE, BODY FLUID 4:36 PM [facility] [place] Antibiotics Last 48 Hours? UNK List Antibiotics to be Started? UNK Comments: fluid from mastectomy seroma Gram Stain Centrifuged Specimen? Culture performed on centrifuged specimen Gram Stain 2+ Red Cell Stroma 1+ Red Blood Cells 2+ White Blood Cells No organisms seen Body Fluid Cult No growth aerobically. Cult, Anaerobic No growth in 5 days. Performed By: #### M100.1300 #### [facility] [address] [place], [address] CYST PUNCTURE Observed: 04/12/2018 Status: F Source: [place] 12:37 PM [facility] Imaging Services [address] [place] [address] Cyst Puncture MR#: [id number] Acct: [id number] Name: MAHI STAFFORD Rep #: [id number] : 1970 F 47 From: Andrew Taylor MD PCP: Lavonne Hensley Status: REG CLI Study: Cyst Puncture Date of Exam: 04/12/18 Exam# [id number] Ordering Dr: Gautam Carrasco MD STUDY: DRAINAGE OF THE BREAST SEROMA LEFT REASON FOR EXAM: Female, 47 years old. The patient is status post left mastectomy with seroma formation. TECHNIQUE: The overlying skin was prepped and draped in usual sterile fashion. Following local anesthetic application and under direct sonographic guidance, a 5 [place] catheter was placed into the deep 5.8 cm x 10 cm x 1.1 cm fluid collection seen in the deep tissues. 50 cc of blood-tinged fluid was removed. US/Cyst Puncture IMPRESSION: Successful drainage of the small seroma with removal of 50 cc of blood-tinged fluid. Electronically Signed: Andrew Taylor MD at 14:39 EDT Tel [phone], Service support , CC: Lavonne Hensley; Gautam Carrasco MD Cvicu Nurse: Signed PLASTIC SURGERY Observed: 04/09/2018 Status: F Source: [place] VISIT REPORT 2:53 PM [facility] [address] [place] [address] OFFICE VISIT Date of Service: 04/01/18 MR#: [id number] Acct: [id number] Name: MAHI STAFFORD Rep #: [id number] : 1970 Provider: Gautam Carrasco MD Age/Sex: 47/F Location: [facility] Status: Signed Intake Vital Signs04/01/18 Blood Pressure 143/92 04/01/18 Blood Pressure Position Sitting 04/01/18 Respiratory Rate 20 04/01/18 Pulse Rate 102 Intake Visit Reasons: post op surgery 03/02/18 Allergies levofloxacin [From Levaquin] Allergy (Severe, Verified 03/17/18 14:13) hives, throat swelling amitriptyline Adverse Reaction (Verified 03/17/18 14:13) HYPER AND REALLY ANGRY anastrozole Adverse Reaction (Verified 03/17/18 14:13) Other Medications Cholecalciferol (Vitamin D3) [Vitamin D3] 2,000 unit PO DAILY 11/10/13 [History Confirmed 03/02/18] Hydrochlorothiazide 25 mg PO DAILY 11/10/13 [History Confirmed 03/02/18] Acetaminophen [Tylenol] 500 - 1,000 mg PO Q6H PRN PRN 04/22/17 [History Confirmed 03/02/18] Potassium Citrate/Citric Acid [Pot Citrate-Citric Acid Packet] 1 ea PO DAILY 04/22/17 [History Confirmed 03/02/18] Zolpidem Tartrate [Ambien] 5 mg PO QHS PRN 04/22/17 [History Confirmed 03/02/18] lamotrigine 150 mg tablet 200 mg PO DAILY tab 06/20/17 [History Confirmed 03/02/18] levothyroxine 100 mcg tablet 200 mcg PO DAILY tab 06/20/17 [History Confirmed 03/02/18] lisinopril 10 mg tablet 10 mg PO DAILY tab 06/20/17 [History Confirmed 03/02/18] Citracal +D 1 tab PO DAILY 01/08/18 [History Confirmed 03/02/18] Loratadine [Claritin] 10 mg PO PRN PRN 01/08/18 [History Confirmed 03/02/18] Venlafaxine HCl [Effexor] 37.5 mg PO DAILY 03/01/18 [History Confirmed 03/02/18] Cefadroxil [Duricef] 500 mg PO BID #30 cap 03/04/18 [Rx] Diazepam [Valium] 5 mg PO 4X/DAY PRN PRN #30 tab 03/04/18 [Rx] Oxycodone HCl/Acetaminophen [Percocet 5/325] 1 - 2 tab PO 4X/DAY PRN PRN 7 Days #50 tab 03/04/18 [Rx] proMETHazine tablet [Phenergan tablet] 25 mg PO 4X/DAY PRN PRN #30 tab 03/04/18 [Rx] diazepam 5 mg tablet 5 mg PO 4X/DAY PRN #30 tab 03/17/18 [Rx Confirmed 03/17/18] PFSH Medical History Anemia (Acute) Anxiety (Acute) Back pain (Acute) Back problem (Acute) Breast cancer (Acute) Breast lump in female (Acute) Cataracts, bilateral (Acute) Depression (Acute) Frequent headaches (Acute) Gallstones (Acute) High cholesterol (Acute) Liver disease (Acute) Neuropathy (Acute) Pneumonia (Acute) Seasonal allergies (Acute) Thyroid disease (Acute) Vision problems (Acute) Vitamin deficiency (Acute) Hypertension (Chronic) Surgical History S/P breast biopsy, right (Acute) S/P cholecystectomy (Acute) S/P mastectomy (Acute) S/P tonsillectomy and adenoidectomy (Acute) S/P total thyroidectomy (Acute) Status post surgical manipulation of ankle joint (Acute) Family History Father Asthma Heart disease Hypertension High cholesterol ulcers Diabetes Grandmother Breast cancer Grandfather CVA (cerebral vascular accident) Social History Smoking Status: Former smoker second hand exposure: No alcohol intake: never substance use type: does not use what type of physical activity do you participate in: none seatbelt use: always additional social history: DOES NOT USE ASPIRIN USES IBUPROFEN HPI post op surgery 03/02/18: Details: Postop visit from her surgery on 03/02/18 where she underwent prophylactic mastectomy left breast and revision reconstructed right breast with excision painful excess mastectomy skin scar contour deformity laterally and incision and drainage seroma medially with capsulectomy. She was discharged from the hospital on 03/04/18. She initially developed right breast cancer that necessitated a mastectomy in 05/05. 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 Kirby lymph nodes were negative. Preop MRI also showed a nodule in the left breast that was biopsied and it showed a fibroadenoma. Estrogen receptors were positive. Progesterone receptors were weakly positive. HER2/diana was negative. She was placed on IV chemotherapy and has finished them. She also tried Anastrozole and had severe side effects and it was discontinued. She was also placed on Lupron in preparation for an oophorectomy that was done on 01/14/18. She comes in today with concerns about having fluid seromas in her mastectomy incisions bilaterally. Incisions are intact. No redness seen. There is some palpable fluid bilaterally. Clinically I suspect 30-40 ml. She has continued to wear her compression LUIS wrap daily. The wound culture from surgery was negative. Pathology from the left breast tissue showed fibrocystic change and focal vessel wall microcalcifications and no evidence of malignancy. Right breast showed fibrosis and mature granulation tissue, and no evidence of malignancy. I will order an ultrasound guided drainage of any seroma present. Follow up two weeks. Assessment AND Plan Problems 1. Breast cancer, right C50.911 2. Disproportion between [place] breast and reconstructed breast N65.1 3. Excess tissue in reconstructed breast N65.0 4. Hypertrophy of breast N62 5. Cancer phobia F40.298 6. 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 Estrogen receptor positive status [ER+] Z17.0 8. Family history of breast cancer Z80.3 9. Former smoker Z87.891 10. Acquired absence of bilateral breasts and nipples Z90.13 11. Other specified complications of surgical and medical care, not elsewhere classified, sequela T88.8XXS 12. 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 Estrogen receptor positive status [ER+] Z17.0 Family history of breast cancer Z80.3 Former smoker Z87.891 Acquired absence of bilateral breasts and nipples Z90.13 Other specified complications of surgical and medical care, not elsewhere classified, sequela T88.8XXS Seroma of breast N64.89 04/09/18 0032 <Electronically signed by Gautam Carrasco MD> Date Gautam Carrasco MD 04/09/18 1453<Electronically signed by Priscilla VIERA> Cosigner Signature: Date (if applicable) Priscilla Merino CC: PROGRESS Observed: 04/02/2018 Status: COMPLETED Source: [place] 1:01 PM [facility] REPOSITORY HNO ID: [id number] Author: Anita Lujan Service: (none) Author Type: Physician Type: Progress Notes Filed: 04/05/2018 2:01 PM Note Text: (H20.9) Iritis of right eye (primary encounter diagnosis) (Z96.1) Pseudophakia (H52.7) Refractive error Iritis quiet F/u 1 year c I have confirmed and edited as necessary the relevant ophthalmic history, ROS, and the neuro exam findings as obtained by others. I have seen and examined Mahi Stafford. I have discussed the case and the management of this patient's care with the Resident/Fellow, if applicable. I also have reviewed and agree with the assessment and plan as stated above and agree with all of its relevant components. 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 Yes Patient with current Suicidal Ideation: No MENTAL HEALTH HISTORY: Yes Diagnosis: Bipolar Disorder Treatment: medication and counseling Substance Use and Treatment History: denied History of Abuse: denied History of combat/trauma: Na INTERVENTION/PLAN: Monitor patient response to treatment Communicate pertinent medical/psychosocial information to Cancer Center team Provide emotional support to patient/family Referral to community resource Relaxation Techniques Provided education on distress and screening process Continue follow up as needed Resources and Referrals: ? Internal: NA ? External: Other [facility], [facility], [facility] Follow up appointment with RYAN in: PRN Patient returned RYAN's phone call and discussed numerous stressors in her life at this time, mainly from financial reasons. RYAN provided supportive, active listening and offered some resources to help patient with stressors. Patient reports her food stamps have been cut from $400/month to $200/month and she is already utilizing food pantries and free breakfast/lunch program at school for her two children. Patient is currently not working since she has been diagnosed with cancer, but is linked with [facility] to look for suitable employment. Patient reports she is currently taking a class through them and will likely not be placed in employment until September 2018. Patient is agreeable to looking into resources suggested by RYAN and will call if she needs further assistance. Patient is seeing a counselor as well. 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 Yes Patient with current Suicidal Ideation: No MENTAL HEALTH HISTORY: Yes Diagnosis: Bipolar Disorder Treatment: medication and counseling Substance Use and Treatment History: denied History of Abuse: denied History of combat/trauma: Na INTERVENTION/PLAN: Monitor patient response to treatment Communicate pertinent medical/psychosocial information to Cancer Center team Provide emotional support to patient/family Referral to community resource Relaxation Techniques Provided education on distress and screening process Continue follow up as needed Resources and Referrals: ? Internal: NA ? External: Other [facility] [employer], [facility], [facility] Follow up appointment with RYAN in: PRN Patient returned RYAN's phone call and discussed numerous stressors in her life at this time, mainly from financial reasons. RYAN provided supportive, active listening and offered some resources to help patient with stressors. Patient reports her food stamps have been cut from $400/month to $200/month and she is already utilizing food pantries and free breakfast/lunch program at school for her two children. Patient is currently not working since she has been diagnosed with cancer, but is linked with [facility] to look for suitable employment. Patient reports she is currently taking a class through them and will likely not be placed in employment until September 2018. Patient is agreeable to looking into resources suggested by RYAN and will call if she needs further assistance. Patient is seeing a counselor as well. KENDY Neri Allergies As of Date: 04/01/2018 Noted Allergy Reaction AMITRIPTYLINE 11/18/2016 14 - Other: See Comments Comments: Intensely angry ANASTROZOLE 11/04/2017 5 - Intolerance Comments: Nausea, irritability, inability to sleep CATS 01/05/2006 DOGS 01/05/2006 GRASS POLLEN 01/05/2006 LEVAQUIN (LEVOFLOXACIN) 07/15/2017 4 - Hives 7 - Swelling MOLD 01/05/2006 Date Reviewed: 03/26/2018 Reviewed by: Doreen ([facility]) James - Fully Assessed Reason for Visit: Social Work Services [507] Prescriptions as of 04/01/2018 Sig: FLUOXETINE 40 MG CAPSULE Take 40 mg by mouth once arielle* OXYCODONE-ACETAMINOPHEN 5 MG-* Take 1 tablet by mouth every * LETROZOLE 2.5 MG TABLET Take 1 tablet by mouth once d* IBUPROFEN 600 MG TABLET Take 1 tablet by mouth every * HYDROCHLOROTHIAZIDE 25 MG TAB* Take 1 tablet by mouth once d* LISINOPRIL 10 MG TABLET Take 1 tablet by mouth once d* CITRACAL + D ORAL Take 1 tablet by mouth twice * LEVOTHYROXINE 200 MCG TABLET Take 1 tablet by mouth five t* COMPOUNDED PRESCRIPTION #1 Auto titrating PAP device * POTASSIUM CHLORIDE 20 MEQ ORA* TAKE ONE PACKET BY MOUTH EVER* LAMOTRIGINE 150 MG TABLET Take 200 mg by mouth once subha* ZOLPIDEM 5 MG TABLET Take 5 mg by mouth at bedtime* BUPROPION XL 300 MG 24 HR TAB Take 150 mg by mouth once subha* CHOLECALCIFEROL (VITAMIN D3) * Take 1 capsule by mouth once * CLARITIN ORAL Take 1 tablet by mouth once d* Problem List As Of Date 04/01/2018 Noted Resolved ADJUSTMENT DISORDER WITH DEPRESSED MOOD [F43.21]INVALID FOR* ANXIETY STATE NOS [F41.1] INVALID FOR* BENIGN HYPERTENSION [I10] INVALID FOR* Obesity, Class III, BMI 40-49.9 (morbid obesity*INVALID FOR* Nonspecific abnormal results of liver function *INVALID FOR* More... ALLERGIC RHINITIS NOS [J30.9] INVALID FOR* CHRONIC LIVER DIS NEC [K76.89] INVALID FOR* Hyperlipidemia [E78.5] INVALID FOR* Tobacco abuse [Z72.0] INVALID FOR* Low HDL (under 40) [E78.6] INVALID FOR* Hypertriglyceridemia [E78.1] INVALID FOR* Postsurgical hypothyroidism [E89.0] INVALID FOR* Incisional infection [T81.4XXA] INVALID FOR* Vitamin D deficiency [E55.9] INVALID FOR* Elevated LFTs [R94.5] INVALID FOR* Muscle spasm [M62.838] INVALID FOR* Neck pain [M54.2] INVALID FOR* Thoracic back pain [M54.6] INVALID FOR* Malignant neoplasm of lower-inner quadrant of r*INVALID FOR* Left breast mass [N63.20] INVALID FOR* More... Numbness of arm [R20.0] INVALID FOR* More... 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 Encounter Status:Closed by YAMILEX WANG on 04/01/18 PROGRESS Observed: 03/26/2018 Status: COMPLETED Source: [place] 8:34 AM [facility] REPOSITORY O ID: [id number] Author: Doreen Ramirez Service: (none) Author Type: Nurse Practitioner Type: Progress Notes Filed: 03/26/2018 1:26 PM Note Text: Chief Complaint Patient presents with: Established Patient HPI: Mahi Stafford is a 47 year old female who presents here today for follow up breast cancer. Per Dr. Velez's previous note: H/o hyperlipidemia?and hypertension?who underwent bilateral mammogram in June 2016. She had a diagnostic mammogram of the right breast with there was a questionable 5 mm area of irregular asymmetry with indistinct margin in the depth inferior region of the right breast only seen on mediolateral oblique views. An ultrasound confirmed this area. Follow-up study was recommended in 6 months. That study was done on along with an ultrasound that demonstrated an irregular lesion in the right breast 3:00 position anterior depth with mixed echogenicity. An ultrasound-guided biopsy was recommended. ? This biopsy was performed 03/14/2017. The core sample demonstrated invasive ductal carcinoma, nuclear grade 2. Estrogen receptors were greater than 95%, strong and progesterone receptors were 12%, weak. HER- 2 was quantified at 0. ? The patient subsequent underwent an MRI. There was an additional area of concern identified in the right inner breast close to the original biopsied area. An MRI guided biopsy was performed that showed DCIS with intermediate and high nuclear grade with solid and cribriform types associated with microcalcifications. A clip was placed. Biopsy was also performed of a left breast abnormality and this tissue demonstrated fibroadenoma. ? The patient still had regular menses. Her maternal grandmother evidently had breast cancer diagnosed in her 30s and underwent surgery. She later in her 60s from metastatic renal cell carcinoma. There is no other family history of breast cancer, ovarian cancer or uterine cancer. Her grandmother also had thyroid cancer. ? Underwent right-sided mastectomy and sentinel lymph node biopsy procedure on 04/30/2017. ? FROZEN SECTION DIAGNOSIS A. ?Kirby lymph node, biopsy: ?Fragments of fibrofatty tissue. ?No lymph node tissue is identified. ? SJ:rg ?04/30/17 ? B. ?Additional right axillary sentinel lymph nodes, biopsy: ?Two out of two lymph nodes negative for carcinoma. ? AM:rg ?04/30/17 ? MICROSCOPIC DIAGNOSIS A. ?Kirby lymph node, biopsy: ?Fragments of fibrofatty tissue. ?No lymph node tissue is identified. B. ?Additional right axillary sentinel lymph nodes, biopsy: ?Two out of two lymph nodes, negative for metastatic carcinoma. ?See comment. C. ?Right breast, modified radical mastectomy: ?Invasive ductal carcinoma. 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 ?Five out of five lymph nodes, negative for metastatic carcinoma. ?See cancer summary below. ? INVASIVE BREAST CANCER SUMMARY:?(Including specimen B AND?C) ??Specimen ? total breast (including nipple and skin). ??Procedure ? total mastectomy (including nipple and skin). ??Lymph node sampling ? sentinel lymph node and axillary dissection. ??Specimen integrity ? single intact specimen. ??Specimen laterality - right ??Tumor site ? lower central portion of the breast tissue. ??Tumor size ? 1.2 x 0.7 x 0.5 cm?(see comment) ??Tumor focality ? single focus of invasive carcinoma. ??Macroscopic and Microscopic extent of tumor: ?Skin ? invasive carcinoma does not invade into the dermis or epidermis. ?Nipple ? ductal carcinoma in situ does not involve the nipple epidermis. ?Skeletal muscle ? no skeletal muscle present ??Ductal carcinoma in situ (DCIS) ? ductal carcinoma in situ is present. ???Extensive intraductal component (EIC) ? positive ???Ductal carcinoma in situ show extensive cancerization of lobules. ?Estimated size (extent) of DCIS ? ductal carcinoma in situ comprise about 40% of the total tumor volume and it is present adjacent and away from the invasive tumor.. ?Number of blocks with DCIS - 5 ?Number of blocks examined ? 10 (consisting of breast tissue) ??Architectural patterns ? solid and cribriform ?Nuclear grade ? grade 2-3 (intermediate to high) ?Necrosis ? present, focal (small foci of single cell necrosis) ??Lobular carcinoma in situ (LCIS) ? not present ??Histologic type of invasive carcinoma ? invasive ductal carcinoma (no special type) ??Histologic Grade: Vita grade: ?Glandular/tubular differentiation - score 3 ?Nuclear pleomorphism - score 3 ?Mitotic count ? score 1 ?Overall grade - 2?(score of 7) ??Margins: ?Margins uninvolved by invasive carcinoma. ?The tumor is 4 cm away from the closest posterior margin. ??Treatment effect: ?Response to presurgical (neoadjuvant) therapy - no known presurgical therapy. ??Lymph-Vascular invasion ? not identified ??Dermal lymph-vascular invasion ? not identified ??Lymph nodes: ?Number of sentinel lymph nodes examined - 2 ?Total number of lymph nodes examined (sentinel and nonsentinel) - 7 ?Number of lymph nodes with macrometastases, micrometastases and isolated tumor cells - 0 ?Method of evaluation of sentinel lymph nodes - H AND?E, multiple levels and IHC. ?Distance metastasis ? not applicable ??Additional pathologic findings ? fibrocystic changes and intraductal hyperplasia without atypia. ?- Angiolipoma. ??Ancillary studies - previously performed on section of tumor ([id number] / [id number]). ?ER ? positive (>95%, strong) ?ME ? positive (12%, weak) ?Her2 diana ? negative (0) ?Her2 by dual THERESA ? not performed ??Microcalcifications ? present in DCIS. ??Clinical history - Please make reference to previous specimen ([id number]) right breast, core biopsy with diagnosis of invasive ductal carcinoma. ? Previous therapy: 1) TC x3 cycles. Stopped due to significant side effects. 2) Anastrozole. Discontinued secondary to exacerbation of bipolar symptoms. 3) Lupron. Began 09/21/2017. 4) Tamoxifen November 17, 2017-February 15, 2018. ? Ovaries removed on January 14, 2018. L mastectomy in February-Also had R flap repair-Dr. Carrasco. ? I've a lot of stress with these surgeries and then my sons best friend so we've had a lot of teenagers at our house. My counselor has me seeing her more often because of all of this going on. Appetite:good Energy level:it's not great after all of these surgeries. Denies fevers. Resp:+ cough my allergies are bad, denies sob +seasonal allergies Cardiac:denies chest pain/palpitations my chest is sore from the surgery. GI:denies abd pain, n/v, moving bowels regularly :denies dysuria/hematuria Extrem:surgical pain as above, denies pain elsewhere Endo:+hot flashes a few-in the early evening-much better than before. Neuro:denies symptoms of neuropathy Skin:denies rashes/lesions. Heme:denies bleeding The ROS is otherwise negative. Past medical history, appointments, medications, allergies reviewed. No changes. EXAM: BP 147/94 Pulse 102 Temp 36.2 ?C (97.2 ?F) (Oral) Wt 120.4 kg (265 lb 8 oz) LMP 05/27/2017 BMI 46.75 kg/m? APPEARANCE Well appearing, alert, in no acute distress, well-hydrated, well nourished. HEART RRR with normal S1 and S2, no murmurs LUNG clear to auscultation BREAST FEMALE b/l mastectomy scars, L well healed, R scant serous drainage, DSD in place LYMPH NODES No cervical lymphadenopathy, No supraclavicular lymphadenopathy and No axillary lymphadenopathy. ABDOMEN bowel sounds normoactive, no bruits, soft, non-tender, non-distended, without organomegaly or palpable masses EXTREMITIES No edema NEURO Awake, alert and oriented x 3, Normal gait and No involuntary motions. SKIN Skin color, texture, turgor normal, no suspicious rashes or lesions ASSESSMENT/PLAN: 1. Malignant neoplasm of lower-inner quadrant of right breast of female, estrogen receptor positive (HCC) - ICD9: 174.3, V86.0, ICD10: C50.311, Z17.0 pT1c (1.2 cm; grade 2; no ALI) pN0 MX ER/ME positive, HER2 negative invasive ductal carcinoma the right breast. Genetic testing negative. Oncotype recurrent score was 26 suggesting 17% average recurrence risk over the next 10 years with the use of tamoxifen alone. Significant side effects with each cycle of TC. She has opted to stop chemotherapy. Intolerant to anastrozole. - No concerning findings on exam. - She did not tolerate arimidex/tamoxifen. - Discussed trying another AI- pt. agreeable. Rx femara. - Pt. has a counseling appt. at 10 today-she does not have time today to talk with Yamilex. She is open to a phone call. - Follow up in 6 months. - Pt. aware to call office with any questions/concerns. The patient indicates understanding of these issues and agrees with the plan. Doreen Ramirez APRN.FILLING MIXER CNOVSP Observed: 03/26/2018 Status: COMPLETED Source: [place] 8:30 AM [facility] REPOSITORY Visit (SP) Office (RUBIO) MAHI STAFFORD ([id number]) 1970 F Date Time Provider Department 03/26/18 8:30 AM DOREEN RAMIREZ ([facility] During your visit today, we recorded the following information about you: Temperature Pulse Blood pressure Weight 97.2 degrees 102/minute 147/94 120.4 kg Doreen Ramirez APRN.CNP 03/26/2018 1:26 PM Signed Chief Complaint Patient presents with: Established Patient HPI: Mahi Stafford is a 47 year old female who presents here today for follow up breast cancer. Per Dr. Velez's previous note: H/o hyperlipidemia?and hypertension?who underwent bilateral mammogram in June 2016. She had a diagnostic mammogram of the right breast with there was a questionable 5 mm area of irregular asymmetry with indistinct margin in the depth inferior region of the right breast only seen on mediolateral oblique views. An ultrasound confirmed this area. Follow-up study was recommended in 6 months. That study was done on along with an ultrasound that demonstrated an irregular lesion in the right breast 3:00 position anterior depth with mixed echogenicity. An ultrasound-guided biopsy was recommended. ? This biopsy was performed 03/14/2017. The core sample demonstrated invasive ductal carcinoma, nuclear grade 2. Estrogen receptors were greater than 95%, strong and progesterone receptors were 12%, weak. HER-2 was quantified at 0. ? The patient subsequent underwent an MRI. There was an additional area of concern identified in the right inner breast close to the original biopsied area. An MRI guided biopsy was performed that showed DCIS with intermediate and high nuclear grade with solid and cribriform types associated with microcalcifications. A clip was placed. Biopsy was also performed of a left breast abnormality and this tissue demonstrated fibroadenoma. ? The patient still had regular menses. Her maternal grandmother evidently had breast cancer diagnosed in her 30s and underwent surgery. She later in her 60s from metastatic renal cell carcinoma. There is no other family history of breast cancer, ovarian cancer or uterine cancer. Her grandmother also had thyroid cancer. ? Underwent right-sided mastectomy and sentinel lymph node biopsy procedure on 04/30/2017. ? FROZEN SECTION DIAGNOSIS A. ?[place]irby lymph node, biopsy: ?Fragments of fibrofatty tissue. ?No lymph node tissue is identified. ? SJ:rg ?04/30/17 ? B. ?Additional right axillary sentinel lymph nodes, biopsy: ?Two out of two lymph nodes negative for carcinoma. ? AM:rg ?04/30/17 ? MICROSCOPIC DIAGNOSIS A. ?[place]by lymph node, biopsy: ?Fragments of fibrofatty tissue. ?No lymph node tissue is identified. B. ?Additional right axillary sentinel lymph nodes, biopsy: ?Two out of two lymph nodes, negative for metastatic carcinoma. ?See comment. C. ?Right breast, modified radical mastectomy: ?Invasive ductal carcinoma. 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 ?Five out of five lymph nodes, negative for metastatic carcinoma. ?See cancer summary below. ? INVASIVE BREAST CANCER SUMMARY:?(Including specimen B AND?C) ??Specimen ? total breast (including nipple and skin). ??Procedure ? total mastectomy (including nipple and skin). ??Lymph node sampling ? sentinel lymph node and axillary dissection. ??Specimen integrity ? single intact specimen. ??Specimen laterality - right ??Tumor site ? lower central portion of the breast tissue. ??Tumor size ? 1.2 x 0.7 x 0.5 cm?(see comment) ??Tumor focality ? single focus of invasive carcinoma. ??Macroscopic and Microscopic extent of tumor: ?Skin ? invasive carcinoma does not invade into the dermis or epidermis. ?Nipple ? ductal carcinoma in situ does not involve the nipple epidermis. ?Skeletal muscle ? no skeletal muscle present ??Ductal carcinoma in situ (DCIS) ? ductal carcinoma in situ is present. ???Extensive intraductal component (EIC) ? positive ???Ductal carcinoma in situ show extensive cancerization of lobules. ?Estimated size (extent) of DCIS ? ductal carcinoma in situ comprise about 40% of the total tumor volume and it is present adjacent and away from the invasive tumor.. ?Number of blocks with DCIS - 5 ?Number of blocks examined ? 10 (consisting of breast tissue) ??Architectural patterns ? solid and cribriform ?Nuclear grade ? grade 2-3 (intermediate to high) ?Necrosis ? present, focal (small foci of single cell necrosis) ??Lobular carcinoma in situ (LCIS) ? not present ??Histologic type of invasive carcinoma ? invasive ductal carcinoma (no special type) ??Histologic Grade: [place] grade: ?Glandular/tubular differentiation - score 3 ?Nuclear pleomorphism - score 3 ?Mitotic count ? score 1 ?Overall grade - 2?(score of 7) ??Margins: ?Margins uninvolved by invasive carcinoma. ?The tumor is 4 cm away from the closest posterior margin. ??Treatment effect: ?Response to presurgical (neoadjuvant) therapy - no known presurgical therapy. ??Lymph-Vascular invasion ? not identified ??Dermal lymph-vascular invasion ? not identified ??Lymph nodes: ?Number of sentinel lymph nodes examined - 2 ?Total number of lymph nodes examined (sentinel and nonsentinel) - 7 ?Number of lymph nodes with macrometastases, micrometastases and isolated tumor cells - 0 ?Method of evaluation of sentinel lymph nodes - H AND?E, multiple levels and IHC. ?Distance metastasis ? not applicable ??Additional pathologic findings ? fibrocystic changes and intraductal hyperplasia without atypia. ?- Angiolipoma. ??Ancillary studies - previously performed on section of tumor ([id number] / [id number]). ?ER ? positive (>95%, strong) ?ME ? positive (12%, weak) ?Her2 diana ? negative (0) ?Her2 by dual THERESA ? not performed ??Microcalcifications ? present in DCIS. ??Clinical history - Please make reference to previous specimen ([id number]) right breast, core biopsy with diagnosis of invasive ductal carcinoma. ? Previous therapy: 1) TC x3 cycles. Stopped due to significant side effects. 2) Anastrozole. Discontinued secondary to exacerbation of bipolar symptoms. 3) Lupron. Began 09/21/2017. 4) Tamoxifen November 17, 2017-February 15, 2018. ? Ovaries removed on January 14, 2018. L mastectomy in February-Also had R flap repair-Dr. Carrasco. ? I've a lot of stress with these surgeries and then my sons best friend so we've had a lot of teenagers at our house. My counselor has me seeing her more often because of all of this going on. Appetite:good Energy level:it's not great after all of these surgeries. Denies fevers. Resp:+ cough my allergies are bad, denies sob +seasonal allergies Cardiac:denies chest pain/palpitations my chest is sore from the surgery. GI:denies abd pain, n/v, moving bowels regularly :denies dysuria/hematuria Extrem:surgical pain as above, denies pain elsewhere Endo:+hot flashes a few-in the early evening-much better than before. Neuro:denies symptoms of neuropathy Skin:denies rashes/lesions. Heme:denies bleeding The ROS is otherwise negative. Past medical history, appointments, medications, allergies reviewed. No changes. EXAM: BP 147/94 Pulse 102 Temp 36.2 ?C (97.2 ?F) (Oral) Wt 120.4 kg (265 lb 8 oz) LMP 05/27/2017 BMI 46.75 kg/m? APPEARANCE Well appearing, alert, in no acute distress, well- hydrated, well nourished. HEART RRR with normal S1 and S2, no murmurs LUNG clear to auscultation BREAST FEMALE b/l mastectomy scars, L well healed, R scant serous drainage, DSD in place LYMPH NODES No cervical lymphadenopathy, No supraclavicular lymphadenopathy and No axillary lymphadenopathy. ABDOMEN bowel sounds normoactive, no bruits, soft, non-tender, non-distended, without organomegaly or palpable masses EXTREMITIES No edema NEURO Awake, alert and oriented x 3, Normal gait and No involuntary motions. SKIN Skin color, texture, turgor normal, no suspicious rashes or lesions ASSESSMENT/PLAN: 1. Malignant neoplasm of lower-inner quadrant of right breast of female, estrogen receptor positive (HCC) - ICD9: 174.3, V86.0, ICD10: C50.311, Z17.0 pT1c (1.2 cm; grade 2; no ALI) pN0 MX ER/ME positive, HER2 negative invasive ductal carcinoma the right breast. Genetic testing negative. Oncotype recurrent score was 26 suggesting 17% average recurrence risk over the next 10 years with the use of tamoxifen alone. Significant side effects with each cycle of TC. She has opted to stop chemotherapy. Intolerant to anastrozole. - No concerning findings on exam. - She did not tolerate arimidex/tamoxifen. - Discussed trying another AI- pt. agreeable. Rx femara. - Pt. has a counseling appt. at 10 today-she does not have time today to talk with Yamilex. She is open to a phone call. - Follow up in 6 months. - Pt. aware to call office with any questions/concerns. The patient indicates understanding of these issues and agrees with the plan. Doreen Ramirez, ALICIA.[facility] Referring Provider: ROGELIO VELEZ [[id number]] Allergies As of Date: 03/26/2018 Noted Allergy Reaction AMITRIPTYLINE 11/18/2016 14 - Other: See Comments Comments: Intensely angry ANASTROZOLE 11/04/2017 5 - Intolerance Comments: Nausea, irritability, inability to sleep CATS 01/05/2006 DOGS 01/05/2006 GRASS POLLEN 01/05/2006 LEVAQUIN (LEVOFLOXACIN) 07/15/2017 4 - Hives 7 - Swelling MOLD 01/05/2006 Date Reviewed: 03/26/2018 Reviewed by: Doreen (Digital Watch Assembler) James - Fully Assessed Reason for Visit: Established Patient [175] Primary Visit Diagnosis:Malignant neoplasm of lower-inner quadrant of right breast of female, estrogen receptor positive (HCC) [C50.311, Z17.0] Order(s):letrozole (FEMARA) 2.5 mg tabletTake 1 tablet by mouth once daily.Disp: 90 tabletRfl: 3 Follow-up and Disposition History Recorded Prescriptions as of 03/26/2018 Sig: FLUOXETINE 40 MG CAPSULE Take 40 mg by mouth once arielle* OXYCODONE-ACETAMINOPHEN 5 MG-* Take 1 tablet by mouth every * IBUPROFEN 600 MG TABLET Take 1 tablet by mouth every * HYDROCHLOROTHIAZIDE 25 MG TAB* Take 1 tablet by mouth once d* LISINOPRIL 10 MG TABLET Take 1 tablet by mouth once d* CITRACAL + D ORAL Take 1 tablet by mouth twice * LEVOTHYROXINE 200 MCG TABLET Take 1 tablet by mouth five t* COMPOUNDED PRESCRIPTION #1 Auto titrating PAP device * POTASSIUM CHLORIDE 20 MEQ ORA* TAKE ONE PACKET BY MOUTH EVER* LAMOTRIGINE 150 MG TABLET Take 200 mg by mouth once subha* BUPROPION XL 300 MG 24 HR TAB Take 150 mg by mouth once subha* CHOLECALCIFEROL (VITAMIN D3) * Take 1 capsule by mouth once * CLARITIN ORAL Take 1 tablet by mouth once d* LETROZOLE 2.5 MG TABLET Take 1 tablet by mouth once d* ZOLPIDEM 5 MG TABLET Take 5 mg by mouth at bedtime* Medication notes this encounter LAMOTRIGINE 150 MG TABLET >> Andra Mcgowan RN, RN 03/26/2018 8:39 AM >> ANDRA MCGOWAN ThuMar 26, 2018 8:39 AM Taking 250 mg BUPROPION XL 300 MG 24 HR TAB >> Andra Mcgowan RN, RN 03/26/2018 8:38 AM >> ANDRA MCGOWAN ThuMar 26, 2018 8:38 AM Taking 150mg daily Problem List As Of Date 03/26/2018 Noted Resolved ADJUSTMENT DISORDER WITH DEPRESSED MOOD [F43.21]INVALID FOR* ANXIETY STATE NOS [F41.1] INVALID FOR* BENIGN HYPERTENSION [I10] INVALID FOR* Obesity, Class III, BMI 40-49.9 (morbid obesity*INVALID FOR* Nonspecific abnormal results of liver function *INVALID FOR* More... ALLERGIC RHINITIS NOS [J30.9] INVALID FOR* CHRONIC LIVER DIS NEC [K76.89] INVALID FOR* Hyperlipidemia [E78.5] INVALID FOR* Tobacco abuse [Z72.0] INVALID FOR* Low HDL (under 40) [E78.6] INVALID FOR* Hypertriglyceridemia [E78.1] INVALID FOR* Postsurgical hypothyroidism [E89.0] INVALID FOR* Incisional infection [T81.4XXA] INVALID FOR* Vitamin D deficiency [E55.9] INVALID FOR* Elevated LFTs [R94.5] INVALID FOR* Muscle spasm [M62.838] INVALID FOR* Neck pain [M54.2] INVALID FOR* Thoracic back pain [M54.6] INVALID FOR* Malignant neoplasm of lower-inner quadrant of r*INVALID FOR* Left breast mass [N63.20] INVALID FOR* More... Numbness of arm [R20.0] INVALID FOR* More... 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 Encounter Status:Closed by DOREEN RAMIREZ CNP on 03/26/18 PLASTIC SURGERY Observed: 03/23/2018 Status: F Source: [place] VISIT REPORT 10:04 AM [facility] [place] [place] [address] [place] [address] OFFICE VISIT Date of Service: 03/17/18 MR#: [id number] Acct: [id number] Name: MAHI STAFFORD Rep #: [id number] : 1970 Provider: Gautam Carrasco MD Age/Sex: 47/F Location: [facility] Status: Signed Intake Vital Signs03/17/18 Blood Pressure 136/88 03/17/18 Blood Pressure Location Lt radial 03/17/18 Blood Pressure Position Sitting 03/17/18 Respiratory Rate 16 Intake Visit Reasons: post op surgery 03/02/2018 Tong Hooker Required: No Accompanied by: Is patient in pain?: Yes (BILATERAL BREAST DULL AND THROBBING PAIN ) Pain scale (1-10): 5 Allergies levofloxacin [From Levaquin] Allergy (Severe, Verified 03/17/18 14:13) hives, throat swelling amitriptyline Adverse Reaction (Verified 03/17/18 14:13) HYPER AND REALLY ANGRY anastrozole Adverse Reaction (Verified 03/17/18 14:13) Other Medications Cholecalciferol (Vitamin D3) [Vitamin D3] 2,000 unit PO DAILY 11/10/13 [History Confirmed 03/02/18] Hydrochlorothiazide 25 mg PO DAILY 11/10/13 [History Confirmed 03/02/18] Acetaminophen [Tylenol] 500 - 1,000 mg PO Q6H PRN PRN 04/22/17 [History Confirmed 03/02/18] Potassium Citrate/Citric Acid [Pot Citrate-Citric Acid Packet] 1 ea PO DAILY 04/22/17 [History Confirmed 03/02/18] Zolpidem Tartrate [Ambien] 5 mg PO QHS PRN 04/22/17 [History Confirmed 03/02/18] lamotrigine 150 mg tablet 200 mg PO DAILY tab 06/20/17 [History Confirmed 03/02/18] levothyroxine 100 mcg tablet 200 mcg PO DAILY tab 06/20/17 [History Confirmed 03/02/18] lisinopril 10 mg tablet 10 mg PO DAILY tab 06/20/17 [History Confirmed 03/02/18] Citracal +D 1 tab PO DAILY 01/08/18 [History Confirmed 03/02/18] Loratadine [Claritin] 10 mg PO PRN PRN 01/08/18 [History Confirmed 03/02/18] Venlafaxine HCl [Effexor] 37.5 mg PO DAILY 03/01/18 [History Confirmed 03/02/18] Cefadroxil [Duricef] 500 mg PO BID #30 cap 03/04/18 [Rx] Diazepam [Valium] 5 mg PO 4X/DAY PRN PRN #30 tab 03/04/18 [Rx] Oxycodone HCl/Acetaminophen [Percocet 5/325] 1 - 2 tab PO 4X/DAY PRN PRN 7 Days #50 tab 03/04/18 [Rx] proMETHazine tablet [Phenergan tablet] 25 mg PO 4X/DAY PRN PRN #30 tab 03/04/18 [Rx] diazepam 5 mg tablet 5 mg PO 4X/DAY PRN #30 tab 03/17/18 [Rx Confirmed 03/17/18] oxycodone-acetaminophen 5 mg-325 mg tablet See Label Instructions PO 4X/DAY PRN #40 tab 03/17/18 [Rx Confirmed 03/17/18] PFSH Medical History Anemia (Acute) Anxiety (Acute) Back pain (Acute) Back problem (Acute) Breast cancer (Acute) Breast lump in female (Acute) Cataracts, bilateral (Acute) Depression (Acute) Frequent headaches (Acute) Gallstones (Acute) High cholesterol (Acute) Liver disease (Acute) Neuropathy (Acute) Pneumonia (Acute) Seasonal allergies (Acute) Thyroid disease (Acute) Vision problems (Acute) Vitamin deficiency (Acute) Hypertension (Chronic) Surgical History S/P breast biopsy, right (Acute) S/P cholecystectomy (Acute) S/P mastectomy (Acute) S/P tonsillectomy and adenoidectomy (Acute) S/P total thyroidectomy (Acute) Status post surgical manipulation of ankle joint (Acute) Family History Father Asthma Heart disease Hypertension High cholesterol ulcers Diabetes Grandmother Breast cancer Grandfather CVA (cerebral vascular accident) Social History Smoking Status: Former smoker second hand exposure: No alcohol intake: never substance use type: does not use what type of physical activity do you participate in: none seatbelt use: always additional social history: DOES NOT USE ASPIRIN USES IBUPROFEN HPI post op surgery 03/02/2018: Details: Postop visit from her recent surgery on 03/02/18 where she underwent prophylactic mastectomy left breast and revision reconstructed right breast with excision painful excess mastectomy skin scar contour deformity laterally and incision and drainage seroma medially with capsulectomy. She was discharged from the hospital on 03/04/18. She initially developed right breast cancer that necessitated a mastectomy in 05/05. 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 [place] lymph nodes were negative. Preop MRI also showed a nodule in the left breast that was biopsied and it showed a fibroadenoma. Estrogen receptors were positive. Progesterone receptors were weakly positive. HER2/diana was negative. She was placed on IV chemotherapy and has finished them. She also tried Anastrozole and had severe side effects and it was discontinued. She was also placed on Lupron in preparation for an oophorectomy that was done on 01/14/18. She comes in today complaining of bilateral pain where the drainage tubes are located. Incisions are intact. No redness seen. No seroma seen clinically. Drainage has been less than 25 ml per side per day. Removed the last 2 drains in the office today without difficulty, one from each side. She will continue to wear her binder. The wound culture from surgery was negative. Pathology from the left breast tissue showed fibrocystic change and focal vessel wall microcalcifications and no evidence of malignancy. Right breast showed fibrosis and mature granulation tissue, and no evidence of malignancy. Renewed her Percocet for pain (40 tabs). Renewed her Valium for spasm (30 tabs). Follow up two weeks. Assessment AND Plan Problems 1. Breast cancer, right C50.911 2. Acquired absence of right breast and nipple Z90.11 3. Disproportion between [place] breast and reconstructed breast N65.1 4. Excess tissue in reconstructed breast N65.0 5. Hypertrophy of breast N62 6. Cancer phobia F40.298 7. Acquired absence of left breast and nipple Z90.12 8. 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 Estrogen receptor positive status [ER+] Z17.0 10. Family history of breast cancer Z80.3 11. Former smoker Z87.891 12. 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 Estrogen receptor positive status [ER+] Z17.0 Family history of breast cancer Z80.3 Former smoker Z87.891 Other specified complications of surgical and medical care, not elsewhere classified, sequela T88.8XXS 03/20/18 2345 <Electronically signed by Gautam Carrasco MD> Date Gautam Carrasco MD 03/23/18 1004<Electronically signed by Priscilla VIERA> Cosigner Signature: Date (if applicable) Priscilla Merino CC: PLASTIC SURGERY Observed: 03/17/2018 Status: F Source: [place] VISIT REPORT 11:23 AM [facility] [place] [place] [address] [place] [address] OFFICE VISIT Date of Service: 03/10/18 MR#: [id number] Acct: [id number] Name: MAHI STAFFORD Rep #: [id number] : 1970 Provider: Gautam Carrasco MD Age/Sex: 47/F Location: [facility] Status: Signed Intake Vital Signs03/10/18 Blood Pressure 142/89 03/10/18 Blood Pressure Location Lt radial 03/10/18 Blood Pressure Position Sitting 03/10/18 Respiratory Rate 16 Intake Visit Reasons: post op surgery 03/02/18 Tong Hooker Required: No Accompanied by: Is patient in pain?: Yes (SIDE OF THE RIGHT BREAST STINGING AND PRESSURE) Pain scale (1-10): 4 Allergies levofloxacin [From Levaquin] Allergy (Severe, Verified 03/10/18 13:17) hives, throat swelling amitriptyline Adverse Reaction (Verified 03/10/18 13:17) HYPER AND REALLY ANGRY anastrozole Adverse Reaction (Verified 03/10/18 13:17) Other Medications Cholecalciferol (Vitamin D3) [Vitamin D3] 2,000 unit PO DAILY 11/10/13 [History Confirmed 03/02/18] Hydrochlorothiazide 25 mg PO DAILY 11/10/13 [History Confirmed 03/02/18] Acetaminophen [Tylenol] 500 - 1,000 mg PO Q6H PRN PRN 04/22/17 [History Confirmed 03/02/18] Potassium Citrate/Citric Acid [Pot Citrate-Citric Acid Packet] 1 ea PO DAILY 04/22/17 [History Confirmed 03/02/18] Zolpidem Tartrate [Ambien] 5 mg PO QHS PRN 04/22/17 [History Confirmed 03/02/18] lamotrigine 150 mg tablet 200 mg PO DAILY tab 06/20/17 [History Confirmed 03/02/18] levothyroxine 100 mcg tablet 200 mcg PO DAILY tab 06/20/17 [History Confirmed 03/02/18] lisinopril 10 mg tablet 10 mg PO DAILY tab 06/20/17 [History Confirmed 03/02/18] Citracal +D 1 tab PO DAILY 01/08/18 [History Confirmed 03/02/18] Loratadine [Claritin] 10 mg PO PRN PRN 01/08/18 [History Confirmed 03/02/18] Venlafaxine HCl [Effexor] 37.5 mg PO DAILY 03/01/18 [History Confirmed 03/02/18] Cefadroxil [Duricef] 500 mg PO BID #30 cap 03/04/18 [Rx] Diazepam [Valium] 5 mg PO 4X/DAY PRN PRN #30 tab 03/04/18 [Rx] Oxycodone HCl/Acetaminophen [Percocet 5/325] 1 - 2 tab PO 4X/DAY PRN PRN 7 Days #50 tab 03/04/18 [Rx] proMETHazine tablet [Phenergan tablet] 25 mg PO 4X/DAY PRN PRN #30 tab 03/04/18 [Rx] PFSH Medical History Anemia (Acute) Anxiety (Acute) Back pain (Acute) Back problem (Acute) Breast cancer (Acute) Breast lump in female (Acute) Cataracts, bilateral (Acute) Depression (Acute) Frequent headaches (Acute) Gallstones (Acute) High cholesterol (Acute) Liver disease (Acute) Neuropathy (Acute) Pneumonia (Acute) Seasonal allergies (Acute) Thyroid disease (Acute) Vision problems (Acute) Vitamin deficiency (Acute) Hypertension (Chronic) Surgical History S/P breast biopsy, right (Acute) S/P cholecystectomy (Acute) S/P mastectomy (Acute) S/P tonsillectomy and adenoidectomy (Acute) S/P total thyroidectomy (Acute) Status post surgical manipulation of ankle joint (Acute) Family History Father Asthma Heart disease Hypertension High cholesterol ulcers Diabetes Grandmother Breast cancer Grandfather CVA (cerebral vascular accident) Social History Smoking Status: Former smoker second hand exposure: No alcohol intake: never substance use type: does not use what type of physical activity do you participate in: none seatbelt use: always additional social history: DOES NOT USE ASPIRIN USES IBUPROFEN HPI post op surgery 03/02/18: Details: Postop visit from her recent surgery on 03/02/18 where she underwent prophylactic mastectomy left breast and revision reconstructed right breast with excision painful excess mastectomy skin scar contour deformity laterally and incision and drainage seroma medially with capsulectomy. She initially developed right breast cancer that necessitated a mastectomy in 05/05. 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 [place] lymph nodes were negative. Preop MRI also showed a nodule in the left breast that was biopsied and it showed a fibroadenoma. Estrogen receptors were positive. Progesterone receptors were weakly positive. HER2/diana was negative. She was placed on IV chemotherapy and has finished them. She also tried Anastrozole and had severe side effects and it was discontinued. She was also placed on Lupron in preparation for an oophorectomy that was done on 01/14/18. Comes in today with no complaints. Patient denies fever. Incisions are intact. No redness seen. No seroma seen clinically. Drainage has been 50 ml per side per day. Removed 2 drains in the office today without difficulty, one from each side. She will continue to wear her binder. The wound culture from surgery was negative. Pathology from the left breast tissue showed fibrocystic change and focal vessel wall microcalcifications and no evidence of malignancy. Right breast showed fibrosis and mature granulation tissue, and no evidence of malignancy. Follow up one week. Will remove the remaining two drains in a couple of weeks. Assessment AND Plan Problems 1. Breast cancer, right C50.911 2. Acquired absence of right breast and nipple Z90.11 3. Disproportion between [place] breast and reconstructed breast N65.1 4. Excess tissue in reconstructed breast N65.0 5. Hypertrophy of breast N62 6. Cancer phobia F40.298 7. Acquired absence of left breast and nipple Z90.12 8. 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 Estrogen receptor positive status [ER+] Z17.0 10. Family history of breast cancer Z80.3 11. Former smoker Z87.891 12. 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 Estrogen receptor positive status [ER+] Z17.0 Family history of breast cancer Z80.3 Former smoker Z87.891 Other specified complications of surgical and medical care, not elsewhere classified, sequela T88.8XXS 03/17/18 1029 <Electronically signed by Gautam Carrasco MD> Date Gautam Carrasco MD 03/17/18 1123<Electronically signed by Priscilla VIERA> Cosigner Signature: Date (if applicable) Priscilla Merino CC: OPERATIVE REPORT Observed: 03/07/2018 Status: F Source: [place] 8:05 PM [facility] [place] [facility] Medical Records Department [address] [place] [id number] Operative Report 03/02/18 2324 MR#: [id number] Acct: [id number] Name: MAHI STAFFORD Rep #: [id number] : 1970 47 From: Gautam Carrasco MD PCP: Lavonne Hensley Status: DIS NIKITA Y Location: [address] Report of Operation Date of Procedure: 03/02/18 Pre-Operative Diagnosis: 1. Right breast cancer. 2. Acquired absence right breast. 3. Disproportion reconstructed right breast. 4. Deformity reconstructed right breast with painful excess mastectomy skin scar contour deformity. 5. Left breast macromastia. 6. Cancer phobia left breast. 7. Planned acquired absence left breast. 8. Fibroadenoma left breast. 9. Estrogen receptor positive status. 10. Family history of breast cancer. 11. Former smoker. Post-Operative Diagnosis: 1. Right breast cancer. 2. Acquired absence right breast. 3. Disproportion reconstructed right breast. 4. Deformity reconstructed right breast with painful excess mastectomy skin scar contour deformity. 5. Left breast macromastia. 6. Cancer phobia left breast. 7. Planned acquired absence left breast. 8. Fibroadenoma left breast. 9. Estrogen receptor positive status. 10. Family history of breast cancer. 11. Former smoker. 12. Seroma right breast reconstruction. Surgery/Procedure Performed:: 1. Prophylactic mastectomy left breast. 2. Revision reconstructed right breast with excision painful excess mastectomy skin scar contour deformity laterally and incision and drainage seroma medially with capsulectomy. Description of Surgical Findings:: Patient comes in today to further discuss her breast reconstruction. She initially developed right breast cancer that necessitated a mastectomy in 05/05. 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 Kirby lymph nodes were negative. Preop MRI also showed a nodule in the left breast that was biopsied and it showed a fibroadenoma. Estrogen receptors were positive. Progesterone receptors were weakly positive. HER2/diana was negative. She was placed on IV chemotherapy and has finished them. She also tried Anastrozole and had severe side effects and it was discontinued. She was also placed on Lupron in preparation for an oophorectomy that was done on 01/14/18. She has since healed from that surgery and wishes to proceed with her breast surgery at this time. Her bra size prior to the mastectomy was a 46 DDD and already had neck pain and back pain from the large size of her breasts. After the mastectomy, the asymmetry made the symptoms worse. She presents at this time to discuss her breast reconstruction options as well as surgery on the opposite breast to help with her symptomatology. With her recent diagnosis of right breast cancer, she developed concerns of the possibility of developing breast cancer in the opposite left breast with cancer phobia. And at this time she has decided to proceed with a prophylactic mastectomy on the left. After her mastectomy on the right, she has developed mastectomy excess skin scar contour deformity mostly laterally. She states the excess tissue deformity leads to increased pain when she is wearing her external breast prosthesis. She had a mammogram done on 01/04/18. It showed scattered areas of fibroglandular density. There are no dominant masses or suspicious calcifications. Stable small left axillary lymph nodes. A tissue clip marker is seen in the anterior superior region of the breasts. No other significant abnormalities are identified. She wanted to let me know that after her right breast mastectomy, she had trouble with seromas postoperatively that lasted around 3 months. Patient was informed of the risks and complications of the procedure including alternatives to surgery. These were discussed with the patient personally. Patient voices understanding and wishes to proceed. Some of the risks and complications were included in a form from the [employer]. IV Fluids - 2000 ml. Urine Output - 285 ml. I used Arlette absorbable hemostat, (I used 5 vials, 3 in the left breast and 2 in the right breast). Reference Number - [id number]. Lot Number - [id number]. Expiration - December 14, 2022, (I used 4 vials, 3 in the left breast and one in the right breast). Reference Number - [id number]. Lot Number - [id number]. Expiration - November, (I used one vial in the right breast). chaser tar: Dodie Matos. Type of Anesthesia:: General Specimen's removed: 1. Left breast tissue to Pathology. 2. Right breast tissue and seroma capsule to Pathology and Microbiology. Drains: Zoie x 4 (2 drains in each breast). Estimated Blood Loss (mL): 150 ml. Fluids Replaced: 2285 ml (IV Fluids 200 ml, Urine Output 285 ml). Description of Procedure: Patient was taken to OR in supine position and in the sitting position preop markings were made. The sternal midline was marked down to the umbilicus. The inframammary folds were marked bilaterally. The midclavicular lines were marked down to the nipple and from the nipple to the inframammary fold. On the left breast, horizontal markings were made around the nipple extending from the anterior axillary line to the sternal midline. On the right breast, horizontal markings were made on the lateral aspect of the mastectomy incision to encompass the excess mastectomy skin scar contour deformity. The patient raised her right arm to check to make sure that I wasn't going to remove too much tissue laterally. The patient was placed supine and placed under general anesthesia. Both breasts were prepped and draped in the usual fashion. I worked on the left side first since it is the noncancer side. I can then use the same instruments to do the right side. I started on the left side with first injecting the markings with Xylocaine with epinephrine. After waiting 5 minutes for the anesthetic to take effect, I made a horizontal elliptical incision around the nipple extending from the anterior axillary line to the sternal midline. Dissection was carried down into the subcutaneous tissue. With the breast skin flaps on stretch, I dissected the breast tissue from the subcutaneous tissue of the skin flaps at the level of Carloz's fascia down to the muscular fascia. I dissected medially to the sternum, superiorly to the clavicle, laterally to the anterior axillary line, and inferiorly to the inframammary fold. The breast tissue was then dissected off the pectoralis muscle and sent to Pathology for analysis to rule out carcinoma. Hemostasis was obtained with electrocautery. The wound was irrigated with saline. I placed 2 size 15 Zoie drains through separate stab incisions inferolaterally and secured to the skin with 3-0 Nylon suture. I sprayed Arlette absorbable hemostat into the left breast. I used 3 vials to help minimize seroma formation. The horizontal incision was then closed using 3-0 Vicryl interrupted sutures for the deep subcutaneous tissue. I then used 3-0 Monocryl interrupted sutures for the deep dermis and subcutaneous tissue. The skin was approximated with 3-0 V- lock unidirectional barbed running subcuticular suture. Histoacryl skin tissue adhesive was then applied. Kerlix gauze was then applied to the breast incision. I then went to the right side to revise the reconstructed breast with excision excess mastectomy skin scar contour deformity. The lateral markings were infiltrated with xylocaine with epinephrine. After waiting 5 minutes for the anesthetic to take effect, I made a horizontal elliptical incision down through the subcutaneous tissue until the chest wall muscles were seen. At the medial aspect of the wound was some darkened tissue which was clinically consistent with a history of seroma. So I extended the incision medially through the previous mastectomy incision down into the subcutaneous tissue. A capsule was seen and a capsulotomy was performed. Several ml's of serous fluid was express from a previous seroma. A capsulectomy was then performed off the chest wall muscles. Some of this capsular tissue was sent to Microbiology for culture. A positive culture will necessitate antibiotic therapy. The rest of the capsular tissue was sent with the other right breast tissue to Pathology for analysis to rule out carcinoma. The wound was irrigated with saline. Hemostasis was obtained with electrocautery. I placed 2 size 15 Zoie drains through separate stab incisions inferolaterally and secured to the skin with 3-0 Nylon suture. I sprayed Arlette absorbable hemostat into the right breast. I used 2 vials to help minimize seroma formation. The horizontal incision was then closed in multiple layers with 3-0 Vicryl interrupted sutures for the deep subcutaneous tissue. I then used 3-0 Monocryl interrupted sutures for the deep dermis and subcutaneous tissue. The skin was approximated with 3-0 V-lock unidirectional barbed running subcuticular suture. Histoacryl skin tissue adhesive was then applied. Kerlix gauze was then applied to the breast incision. A binder was then placed for compression during the initial postop period. Before leaving the OR, a leos catheter was placed. Patient tolerated the procedure well and was sent to PACU in satisfactory condition. She will be sent upstairs for postop care. She will be discharged when she is tolerating po analgesia and when she is steady while ambulating. Grafts/Implants Used: None. - Complications None. - Admit VTE Documentation VTE Present on Admission: No VTE Mechan Device Prophylaxis: SCD's VTE Pharm Prophylaxis ordered?: Yes Code Visit Surgery Charges CPT - 02875 ICD-10 - C50.911, F40.298, N65.1, Z90.12, Z80.3, Z17.0, N62, D24.2, Z87.891 50704 C50.911, Z90.11, N65.0, N65.1, Z80.3, Z17.0, Z87.891 03/07/182004 <Electronically signed by Gautam Carrasco MD> Date Gautam Carrasco MD CC: Lavonne Hensley; Gautam Carrasco MD; Lavonne Hensley; Maximilian Bundy MD Signed DISCHARGE INSTRUCTION Observed: 03/04/2018 Status: F Source: [place] 10[place] [facility] [place] [facility] Medical Records Department [address] [place] [id number] Instructions for Home/Discharge Instructions 03/04/18 1020 MR#: [id number] Acct: [id number] Name: MAHI STAFFORD Rep #: [id number] : 1970 47 From: Gautam Carrasco MD PCP: Lavonne Hensley Status: ADM NIKITA You will use the following diet at home:: No restrictions Discharge Activity: May Not Drive, May Not Shower - until drains are removed., - - keep head elevated. no heavy lifting. May shower in (days): 14 - after drains are removed. May resume sexual activity in: 10-14 days Weight Bearing Status: Weight bearing as tolerated Lifting Restrictions: 20 lbs. Keep extremity elevated above heart level: - - elevate head. Call your doctor if your incision/area has: Continuous Slow Oozing, Sudden Increased Bleeding, Increased Pain/ Swelling, Increased Redness, Foul Smelling Discharge, Swelling at the incision site Call your doctor if you observe: Fever of 101 or Higher, Coldness, Increased Pain, Shortness of breath, Chest pain, Calf discomfort, Uncontrolled pain Suture Line Care: - - dry dressings daily or every other day. Change Dressing in (Days):: 1 - dry dressings daily or every other day. Cleanse incision/area with: - - may get incisions wet in the shower after the drains are removed. Drain: Suction - zoie drains x 4 to bulb suction. empty and record drainage output daily. Allergies/Adverse Reactions: Allergies levofloxacin [From Levaquin] Allergy (Severe, Verified 03/01/18 12:30) hives, throat swelling amitriptyline Adverse Reaction (Verified 03/01/18 12:30) HYPER AND REALLY ANGRY anastrozole Adverse Reaction (Verified 03/01/18 12:30) Other headaches, mood changes Medications to take at Discharge Cholecalciferol (Vitamin D3) [Vitamin D3] 2,000 unit PO DAILY 11/10/13 Hydrochlorothiazide 25 mg PO DAILY 11/10/13 Acetaminophen [Tylenol] 500 - 1,000 mg PO Q6H PRN PRN 04/22/17 Potassium Citrate/Citric Acid [Pot Citrate-Citric Acid Packet] 1 ea PO DAILY 04/22/17 Zolpidem Tartrate [Ambien] 5 mg PO QHS PRN 04/22/17 lamotrigine 150 mg tablet 200 mg PO DAILY tab 06/20/17 levothyroxine 100 mcg tablet 200 mcg PO DAILY tab 06/20/17 lisinopril 10 mg tablet 10 mg PO DAILY tab 06/20/17 Citracal +D 1 tab PO DAILY 01/08/18 Loratadine [Claritin] 10 mg PO PRN PRN 01/08/18 Venlafaxine HCl [Effexor] 37.5 mg PO DAILY 03/01/18 Cefadroxil [Duricef] 500 mg PO BID #30 cap 03/04/18 Diazepam [Valium] 5 mg PO 4X/DAY PRN PRN #30 tab 03/04/18 Oxycodone HCl/Acetaminophen [Percocet 5/325] 1 - 2 tab PO 4X/DAY PRN PRN 7 Days #50 tab 03/04/18 proMETHazine tablet [Phenergan tablet] 25 mg PO 4X/DAY PRN PRN #30 tab 03/04/18 The following prescriptions were given: Diazepam [Valium] 5 mg PO 4X/DAY PRN PRN #30 tab PRN Reason: Spasms Oxycodone HCl/Acetaminophen [Percocet 5/325] 1 - 2 tab PO 4X/DAY PRN PRN 7 Days #50 tab PRN Reason: Pain proMETHazine tablet [Phenergan tablet] 25 mg PO 4X/DAY PRN PRN #30 tab PRN Reason: NAUSEA/VOMITING Cefadroxil [Duricef] 500 mg PO BID #30 cap Primary Care Physician: Lavonne Hensley PA [Primary Care Provider] - Test Results: Test results from this visit will be discussed in further detail at your follow-up appointment, if applicable. Please Follow Up With: Gautam Carrasoc MD When: one week. call [phone] for appt. Proposed Discharge Date: 03/04/18 03/04/18 1027 <Electronically signed by Gautam Carrasco MD> Date Gautam Carrasco MD CC: Lavonne Hensley; Lavonne Hensley; Maximilian Bundy MD CBC-COMPLETE BLOOD CNT Collected: 03/03/2018 Status: F Source: [place] NO DIFF 5:20 AM [facility] [place] TYPE CODE TESTS RESULT OUT OF RANGE REFERENCE UNITS LAB L100.1000 4.4-11.0 K/mm3 Normal WBC 8.2 LAB L100.1200 4.2-5.4 M/mm3 Low RBC 4.11 LAB L100.1300 12.0-15.0 g/dl Low HGB 10.8 LAB L100.1400 37-47 % Low HCT 34.6 LAB L100.1500 81-99 fL Normal MCV 84.2 LAB L100.1600 27.0-32.0 pg Low MCH 26.3 LAB L100.1700 32-36 g/gl Low MCHC 31.2 LAB L100.1810 11.6-14.6 % High RDW CV 18.3 LAB L100.1820 35.1-43.9 fl High RDW SD 55.9 LAB L100.1900 150-450 K/mm3 Normal PLT 211 LAB L100.2000 6.2-12.0 fl Normal MPV 9.3 Performed By: #### L100.0500 #### [facility] [address] [place], [address] BASIC METABOLIC Collected: 03/03/2018 Status: F Source: [place] PROFILE (BMP) 5:20 AM [facility] [place] TYPE CODE TESTS RESULT OUT OF RANGE REFERENCE UNITS LAB L501.0100 74-106 mg/dL High GLU 132 Result Comment: Fasting Glucose result greater than or equal to 126 mg/dL suggests DIABETES MELLITUS per A.D.A. criteria. Please note revised GLUCOSE reference range effective 2017. LAB L501.1000 7-18 mg/dL Normal BUN 11 LAB L501.1100 0.55-1.02 mg/dL Normal CREAT,SERUM 0.75 Result Comment: The validity of the calculated GFR AND GFRAA in patients over 70 years has not been determined. Clinical correlation is essential. LAB L501.1110 >60 mL/min Normal EST GFR 88 Result Comment: Non- GFR Calc LAB L501.1115 >60 mL/min Normal EST GFR - AA 106 Result Comment: GFR Calc LAB L501.1255 ml/min Normal Estimated CRCL 77.53 LAB L501.1300 10-20 RATIO Normal BUN/CRE 14.6 LAB L501.2200 8.5-10 mg/dL Low .1 CA 7.9 LAB L501.5300 136-14 mmol/L Normal 5 NA 139 LAB L501.5600 3.5-5. mmol/L Normal 1 K 4.0 LAB L501.5900 98-107 mmol/L Normal CL 104 LAB L501.6100 21.0-3 mmol/L Normal 2.0 CO2 31.0 LAB L501.6200 5-15 Low GAP 4 Performed By: #### L500.2500, L506.0500 #### [facility] [address] [place], [address] PREALBUMIN Collected: 03/03/2018 Status: F Source: [place] 5:20 AM [facility] [place] TYPE CODE TESTS RESULT OUT OF REFERENCE UNITS RANGE LAB L506.0500 20.0-40.0 mg/dL Low PREALBUMIN 14.9 Performed By: #### L500.2500, L506.0500 #### [facility] [address] [place], [address] PLASTIC SURGERY Observed: 03/02/2018 Status: F Source: [place] VISIT REPORT 9:38 AM [facility] [place] [facility] [address] [facility] [address] [place] [address] OFFICE VISIT Date of Service: 02/17/18 MR#: [id number] Acct: [id number] Name: MAHI STAFFORD Rep #: [id number] : 1970 Provider: Gautam Carrasco MD Age/Sex: 47/F Location: [facility] Status: Signed Intake Vital Signs02/17/18 Height 5 ft 3 in 02/17/18 Weight: 268 lb 02/17/18 Body Mass Index (BMI) 47.5 02/17/18 Blood Pressure 138/91 02/17/18 Blood Pressure Location Lt brachial 02/17/18 Blood Pressure Position Sitting Intake Visit Reasons: evaluation breast reconstruction Tong Hooker Required: No Accompanied by: Self Is patient in pain?: No Allergies levofloxacin [From Levaquin] Allergy (Severe, Verified 03/01/18 12:30) hives, throat swelling amitriptyline Adverse Reaction (Verified 03/01/18 12:30) HYPER AND REALLY ANGRY anastrozole Adverse Reaction (Verified 03/01/18 12:30) Other Medications Cholecalciferol (Vitamin D3) [Vitamin D3] 2,000 unit PO DAILY 11/10/13 [History Confirmed 03/02/18] Hydrochlorothiazide 25 mg PO DAILY 11/10/13 [History Confirmed 03/02/18] Acetaminophen [Tylenol] 500 - 1,000 mg PO Q6H PRN PRN 04/22/17 [History Confirmed 03/02/18] Potassium Citrate/Citric Acid [Pot Citrate-Citric Acid Packet] 1 ea PO DAILY 04/22/17 [History Confirmed 03/02/18] Zolpidem Tartrate [Ambien] 5 mg PO QHS PRN 04/22/17 [History Confirmed 03/02/18] lamotrigine 150 mg tablet 200 mg PO DAILY tab 06/20/17 [History Confirmed 03/02/18] levothyroxine 100 mcg tablet 200 mcg PO DAILY tab 06/20/17 [History Confirmed 03/02/18] lisinopril 10 mg tablet 10 mg PO DAILY tab 06/20/17 [History Confirmed 03/02/18] Citracal +D 1 tab PO DAILY 01/08/18 [History Confirmed 03/02/18] Loratadine [Claritin] 10 mg PO PRN PRN 01/08/18 [History Confirmed 03/02/18] Venlafaxine HCl [Effexor] 37.5 mg PO DAILY 03/01/18 [History Confirmed 03/02/18] [facility] Medical History Anemia (Acute) Anxiety (Acute) Back pain (Acute) Back problem (Acute) Breast cancer (Acute) Breast lump in female (Acute) Cataracts, bilateral (Acute) Depression (Acute) Frequent headaches (Acute) Gallstones (Acute) High cholesterol (Acute) Liver disease (Acute) Neuropathy (Acute) Pneumonia (Acute) Seasonal allergies (Acute) Thyroid disease (Acute) Vision problems (Acute) Vitamin deficiency (Acute) Hypertension (Chronic) Surgical History S/P breast biopsy, right (Acute) S/P cholecystectomy (Acute) S/P mastectomy (Acute) S/P tonsillectomy and adenoidectomy (Acute) S/P total thyroidectomy (Acute) Status post surgical manipulation of ankle joint (Acute) Family History Father Asthma Heart disease Hypertension High cholesterol ulcers Diabetes Grandmother Breast cancer Grandfather CVA (cerebral vascular accident) Social History Smoking Status: Former smoker second hand exposure: No alcohol intake: never substance use type: does not use what type of physical activity do you participate in: none seatbelt use: always additional social history: DOES NOT USE ASPIRIN USES IBUPROFEN HPI evaluation breast reconstruction: Details: HISTORY OF PRESENT ILLNESS Patient comes in today to further discuss her breast reconstruction. She initially developed right breast cancer that necessitated a mastectomy in 05/05. 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 Kirby lymph nodes were negative. Preop MRI also showed a nodule in the left breast that was biopsied and it showed a fibroadenoma. Estrogen receptors were positive. Progesterone receptors were weakly positive. HER2/diana was negative. She was placed on IV chemotherapy and has finished them. She also tried Anastrozole and had severe side effects and it was discontinued. She was also placed on Lupron in preparation for an oophorectomy that was done on 01/14/18. She has since healed from that surgery and wishes to proceed with her breast surgery at this time. Her bra size prior to the mastectomy was a 46 DDD and already had neck pain and back pain from the large size of her breasts. After the mastectomy, the asymmetry made the symptoms worse. She presents at this time to discuss her breast reconstruction options as well as surgery on the opposite breast to help with her symptomatology. With her recent diagnosis of right breast cancer, she developed concerns of the possibility of developing breast cancer in the opposite left breast with cancer phobia. And at this time she has decided to proceed with a prophylactic mastectomy on the left. After her mastectomy on the right, she has developed mastectomy excess skin scar contour deformity mostly laterally. She states the excess tissue deformity leads to increased pain when she is wearing her external breast prosthesis. She had a mammogram done on 01/04/18. it showed scattered areas of fibroglandular density. There are no dominant masses or suspicious calcifications. Stable small left axillary lymph nodes. A tissue clip marker is seen in the anterior superior region of the breasts. No other significant abnormalities are identified. She wanted to let me know that after her right breast mastectomy, she had trouble with seromas postoperatively that lasted around 3 months. REVIEW OF SYSTEMS General - Denies fever and weight loss. Has some fatigue. Eyes - Has cataracts. Denies glaucoma. ENT - Denies nasal congestion and sore throat. Endocrine - Denies excessive thirst and urination. Has right breast cancer. Has cancer phobia left breast. Skin - Denies suspicious lesions and skin cancer. Musculoskeletal - Denies joint pain, joint stiffness, weakness of muscles and joints, and arthritis. Has neck pain and thoracic back pain. Neuro - Denies headaches. Cardiovascular - Denies chest pain, fatigue, and shortness of breath with exertion. Psych - Has anxiety and depression. Respiratory - Denies chronic cough and shortness of breath. Has sleep apnea. Gastrointestinal - Denies nausea, vomiting, diarrhea, and constipation. Hematologic - Denies abnormal bruising and bleeding. Genitourinary - Denies hematuria and urinary frequency. PHYSICAL EXAM General - Alert and Oriented. Bra size is 46 DDD in the left breast. HEENT - PERRL. EOMI. Throat is clear. Neck - Supple and nontender. No cervical adenopathy. Lungs - Clear to auscultation. Heart - Regular rate and rhythm. Breast - Right breast mastectomy incision is healed. No evidence of seroma. In the left breast, there are no breast masses. She has left breast macromastia. There is asymmetry between the left breast and the right mastectomy. Distance from the midclavicular line on the left to the nipple is 36 cm and from the nipple to the inframammary fold is 8 cm. The nipple areolar complex is 7 cm. The breast width is 16 cm bilaterally. No axillary adenopathy noted. On the right breast mastectomy scar is an area of excess skin scar contour deformity mostly laterally. Measures 12 cm. Some tenderness to palpation. No evidence of infection. Abdomen - Soft and nondistended. Extremities - FROM. No axillary adenopathy. Radial pulses are palpable. Neuro - CN II-XII grossly intact. Psych - Normal mood and affect. ASSESSMENT 1. Right breast cancer. 2. Acquired absence right breast. 3. Disproportion reconstructed right breast. 4. Deformity reconstructed right breast with painful excess mastectomy skin scar contour deformity. 5. Left breast macromastia. 6. Cancer phobia left breast. 7. Planned acquired absence left breast. 8. Fibroadenoma left breast. 9. Estrogen receptor positive status. 10. Family history of breast cancer. 11. Former smoker. PLAN The patient has decided not to proceed with a breast reduction on the left and not to proceed with right breast reconstruction with the creation of a breast mound at this time. With her cancer phobia, she has decided to proceed with a prophylactic mastectomy on the left. She also has painful mastectomy excess skin scar contour deformity on the right. The pain is exacerbated when she is wearing her external prosthesis. So at this time she is concentrating on her cancer treatment and wants to hold off on breast reconstruction at this time. In the meantime, she can get external prostheses and mastectomy bra. Tissue that is removed will be sent to Pathology for analysis to rule out carcinoma. Before proceeding with a prophylactic mastectomy left breast, she had a mammogram done on 01/04/18 which showed scattered areas of fibroglandular densities and no dominant masses or suspicious calcifications seen. Since she has healed from her oophorectomy, will proceed with breast reconstruction surgery with prophylactic mastectomy left breast and revision reconstructed right breast with excision painful mastectomy excess skin scar contour deformity mostly laterally. It has been scheduled for 03/02/18. Surgery will be done under general anesthesia with a surgical observation overnight stay in the hospital She will have drains in for 14 days. She will be maintained on antibiotics until the drains are removed. She will also wear a compression LUIS wrap for several weeks to minimize seroma formation. Arlette absorbable hemostat will also be used intra-operatively to help minimize seroma as well. Patient was informed of the risks and complications of the procedure including alternatives to surgery. These were discussed with the patient personally. Patient voices understanding and wishes to proceed. Some of the risks and complications were included in a form from the [employer]. In the future, after healing has occurred, she may want to discuss breast reconstruction at that time with creation of a breast mound and possible nipple reconstruction after that. Assessment AND Plan Problems 1. Breast cancer, right C50.911 2. Acquired absence of right breast and nipple Z90.11 3. Disproportion between [place] breast and reconstructed breast N65.1 4. Excess tissue in reconstructed breast N65.0 5. Hypertrophy of breast N62 6. Cancer phobia F40.298 7. Acquired absence of left breast and nipple Z90.12 8. 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 Estrogen receptor positive status [ER+] Z17.0 10. Family history of breast cancer Z80.3 11. 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 Estrogen receptor positive status [ER+] Z17.0 Family history of breast cancer Z80.3 Former smoker Z87.891 03/02/18 0014 <Electronically signed by Gautam Carrasco MD> Date Gautam Carrasco MD 03/02/18 0938<Electronically signed by Priscilla CASTELLONC> Cosigner Signature: Date (if applicable) Priscilla Merino CC: Lavonne Hensley; Maximilian Bundy MD BREAST MASTECTOMY Observed: 03/02/2018 Status: F Source: [place]SE SIDE 8:00 [place] [facility] [place] Patient: MAHI STAFFORD : 1970 (47/F) Acct Num: [id number] Phys: Gautam Carrasco MD Unit Num: [id number] Loc: MS2 [id number] Specimen: [id number] Received: 03/02/18 - 1203 Spec Type: BREAST TISSUES TISSUES: A. Left breast, NOS - LEFT BREAST MASTECTOMY B. Right breast, NOS - RIGHT BREAST EXCESS SKIN TISSUE GROSS DESCRIPTION A - Received in fixative is one container labeled with the patient's name and designated left breast mastectomy breast tissue. The specimen consists of a mastectomy specimen consisting of breast tissue with overlying skin ellipse. The breast tissue measures 27 x 24 x 9 cm and the overlying skin ellipse measures 20 x 7 cm. The nipple measures 1.1 cm in greatest dimension. No skin lesion is identified. Sections of the breast tissue reveal yellow adipose cut surfaces mixed with scant, velazquez-white fibrous area. Also received in the container are four variable sized pieces of skin with underlying tissue measuring in aggregate 30 x 9 x 1 cm and up to 3 cm in thickness. Sections of these pieces do not reveal any mass lesion. Sections will be submitted after overnight fixation. / SJ: 03/02/18 Investment Associate sections are submitted in 12 cassettes as follows: 1 nipple, entirely submitted, 210 breast tissue (2-4 outer portion breast tissue, 5-7 middle portion breast tissue, 8-10 inner portion breast tissue, 11 AND 12 detached pieces of tissue. Sections will be submitted after additional fixation. / SJ: 03/03/18 B - Received in fixative is one container labeled with the patient's name and designated right breast contour deformity excess skin tissue. The specimen consists of a piece of skin with underlying tissue measuring 15 x 10 x 10 cm and up to 5 cm in thickness. The skin surface shows focal area of healed scar. Also present in the container are multiple detached pieces of soft tissue measuring in aggregate 10 x 7 x 2 cm. Sections do not reveal any mass lesion. Sections will be submitted after overnight fixation. / SJ: 03/02/18 Investment Associate sections are submitted in four cassettes as follows: 1-4 largest piece of tissue, 5 AND 6 smaller detached pieces of tissue. Cassette 1 also contains the piece of skin, the largest piece. Sections will be submitted after additional fixation. / SJ: 03/03/18 TC:5 CPT: 85814 x2 HEADER OPERATION: Prophylactic mastectomy left breast; revision reconstructed PRE-OP DIAGNOSIS: Right breast cancer; acquired absence of right breast and nipple; disproportion between [place] breast and reconstructed breast; excess tissue in reconstructed breast; hypertrophy of breast; cancer phobia; acquired absence left breast and nipple; fibroadenoma of left breast; ER positive status; family history breast cancer TISSUE SUBMITTED: A Left mastectomy breast tissue, B Right breast contour deformity excess skin tissue MICROSCOPIC DESCRIPTION Slides are reviewed. MICROSCOPIC DIAGNOSIS A. Left breast, mastectomy: Skin of nipple and areola with minimal chronic inflammation. Fibrocystic change and involutional change. Focal vessel wall microcalcifications. No evidence of malignancy. B. Right breast, partial excision: Fibrosis, focal fibrinoid degeneration and mature granulation tissue. No evidence of malignancy. AM:shanae 03/05/18 Signed Cam Suarez 03/05/18 <signature on file> Performed By: #### PBREAST #### [facility] [address] [place] [address]. [place], [place], [id number] Observed: 03/02/2018 Status: F Source: [place] CULTURE, DEEP WOUND 12:00 [facility] [place] REPOSITORY Order Date: 02/18/17 Comments: RIGHT BREAST CONTOUR DEFORMITY TISSUE Gram Stain Gram Stain No White Blood Cells No organisms seen Wound Culture No growth aerobically. Cult, Anaerobic No anaerobic bacteria isolated. Performed By: #### M100.1500 #### [facility] [address] [place] [address]. [place], [address] Observed: 03/02/2018 Status: F Source: [place] FITCH, FUNGUS W/ 12:00 [facility] [place] [id number] REPOSITORY Comments: RIGHT BREAST CONTOUR DEFORMITY TISSUE Is this test to exclude patient from TB Isolation? N Cu,[id number] TESTING PERFORMED AT [facility]. ORIGINAL REPORT ON FILE IN LAB CONTAINS ADDITIONAL TEST SITE INFORMATION. CUF No yeast or mold isolated after [address] TESTING PERFORMED AT [facility]. ORIGINAL REPORT ON FILE IN LAB CONTAINS ADDITIONAL TEST SITE INFORMATION. Fungus Stain No yeast or mold observed. Performed By: #### M600.1900 #### [facility] [address] [place], [address] PROGRESS Observed: 02/25/2018 Status: COMPLETED Source: [place] 9:12 AM [facility] [place] REPOSITORY [facility] ID: [id number] Author: Betito Medina Service: (none) Author Type: Physician Type: Progress Notes Filed: 02/25/2018 9:31 AM Note Text: ? Betito Medina DPM Department of Podiatry [address] [facility] [address] Dept: [phone] Dept 02/25/2018 Follow Up Podiatric Office Visit: HPI: Mahi Stafford is a 47 year old female. Patient presents 1 month follow up for Posterior Tibial Tendonitis, L. She reports constant achy pain that is rated a 2/10 with resting and staying off foot/ankle. Pain is increased to an 8/10 with walking >20 min, exercise, stairs. AFO and icing help to alleviate pain. Does feel that AFO is helping, but issue itself is the same as one month ago. Patient states she is looking employment. Wants to monitor for now and see if pain continues to improve. Has hx of ingrowing toenail of left hallux. She treated with slant back. Betito Medina DPM PCP: Lavonne Hensley PA-C PAST MEDICAL HISTORY Diagnosis Date - Anxiety - Bipolar disorder (HCC) - Breast cancer, stage 1, right (HCC) estrogen receptor positive HER2 negative - Depression - Hyperlipemia Hypertriglyceridemia, Low HDL - Hypertension - Hyperthyroidism 11/17/13 - Hypothyroid - Migraine - Multinodular goiter 11/17/13 - Vitamin D deficiency 09/2013 Current Outpatient Prescriptions: venlafaxine ER (EFFEXOR XR) 75 mg 24 hr capsule TAKE 1 CAPSULE ONCE DAILY with a meal tobramycin-dexamethasone (TOBRADEX) ophthalmic suspension Use 1 Drop in the right eye four times daily. simethicone, chewable (MYLICON) 80 mg chewable tablet Take 1 tablet by mouth every 6 hours as needed. (Patient not taking: Reported on 02/01/2018 ) ibuprofen (MOTRIN) 600 mg tablet Take 1 tablet by mouth every 6 hours as needed. FOR PAIN. hydroCHLOROthiazide (HYDRODIURIL, ESIDRIX) 25 mg tablet Take 1 tablet by mouth once daily. lisinopril (ZESTRIL, PRINIVIL) 10 mg tablet Take 1 tablet by mouth once daily. calcium citrate/vitamin D3 (CITRACAL + D ORAL) Take 1 tablet by mouth twice daily. tamoxifen (NOLVADEX) 20 mg tablet Take 1 tablet by mouth once daily. levothyroxine (SYNTHROID) 200 mcg tablet Take 1 tablet by mouth five times a week. COMPOUNDED PRESCRIPTION #1 Auto titrating PAP device 6-20 cmH2O with humidification. #1 Formal mask fitting and education with tubing and supplies as necessary. potassium chloride (K-MIGUELITO, KLOR-CON) 20 mEq packet TAKE ONE PACKET BY MOUTH EVERY DAY lamoTRIgine (LAMICTAL) 150 mg tablet Take 200 mg by mouth once daily. zolpidem (AMBIEN) 5 mg tablet Take 5 mg by mouth at bedtime as needed. buPROPion XL (WELLBUTRIN XL) 300 mg 24 hr tablet Take 150 mg by mouth once daily. Cholecalciferol, Vitamin D3, (VITAMIN D-3) 2,000 unit cap Take 1 capsule by mouth once daily. LORATADINE (CLARITIN ORAL) Take 1 tablet by mouth once daily as needed. No current facility-administered medications for this visit. ALLERGIES Allergen Reactions - Amitriptyline Other: See Comments Intensely angry - Anastrozole Intolerance Nausea, irritability, inability to sleep - Cats - Dogs - Grass Pollen - Levaquin [Levofloxa* Hives, Swelling - Mold PAST SURGICAL HISTORY Procedure Laterality Date - BREAST BIOPSY Right 03/14/2017 - BREAST BIOPSY Right 04/09/2017 - BREAST BIOPSY Left 04/09/2017 - CATARACT EXTRACTION W/ INTRAOCULAR LENS IMPLANT HX Left 2013 - HYSTERECTOMY HX - LAPAROSCOPIC CHOLEYCYSTECTOMY 07/21 Cholecystectomy, lap - LIGATE FALLOPIAN TUBE ESSURE - MASTECTOMY, RADICAL Right 04/30/2017 Dr Jevon Bundy right total mastectomy with axillary blue dye sentinel lymph node biopsy - PAST SURGICAL HISTORY OF 05/1998 PLATE IN LEFT ANKLE - REMOVAL OF OVARY/TUBE(S) Bilateral 01/14/2018 Prophylactic Laparoscopic BSO for Estrogen Receptor + Breast Cancer, BRCA negative-Dr. Cruz - REMOVAL OF TONSILS,<13 Y/O 1982 Tonsillectomy - THYROIDECTOMY 11/17/13 Dr. Hart FAMILY HISTORY Problem Relation Age of Onset - Heart Father - Hypertension Father - Thyroid Father - Diabetes Father - Psychiatry Father - Allergies Father - Arthritis Mother - Thyroid Mother pneumonia 73 - Allergies Mother - Breast Cancer Maternal Grandmother dx early 50's - Diabetes Maternal Grandmother - Coronary Artery Disease Maternal Grandmother - Stroke Maternal Grandmother - Allergies Maternal Grandmother - Cancer Maternal Grandmother Kidney cancer dx 70's - Diabetes Maternal Grandfather - Heart Maternal Grandfather 67 - Hypertension Maternal Grandfather - Coronary Artery Disease Maternal Grandfather - Allergies Maternal Grandfather - Diabetes Paternal Grandfather - Thyroid Paternal Grandfather - Allergies Paternal Grandfather - Diabetes Paternal Grandmother - Heart Paternal Grandmother - Allergies Paternal Grandmother - Stroke Paternal Grandmother - Ovarian cancer Other Mother of maternal grandmother - Cancer Maternal Aunt 71 Bladder or kidney cancer Social History Marital status: Spouse name: Harry Years of education: 18 Number of children: 4 Occupational History Occupation Employer [employer]* Social History Main Topics Smoking status: Former Smoker Packs/day: 0.30 Years: 3.00 Types: Cigarettes Quit date: 10/07/2014 Smokeless tobacco: Never Used Comment: One pack would last 2 weeks when she smoked Alcohol use: No Drug use: No REVIEW OF SYSTEMS: CONSTITUTIONAL: No fevers, chills, nightsweats, unintended weight loss HEENT: Denies frequent or severe heaches, nasal congestion/sinus symptoms, problematic allergy problems. EYES: No diplopia or blurry vision. CARDIOVASCULAR: No chest pain, dyspnea, palpitations, orthopnea, PND, ankle edema. PULM: No dyspnea, unexplained cough. GI: No dysphagia/odynophagia, problematic reflux, constipation, diarrhea, changes in stool habits, hematochezia, melena. : No new urinary complaints, including dysuria, gross hematuria or pyuria. NEURO: No new balance problems, peripheral weakness/paresthesias or numbness of concern. MUSC-SKEL: Left medial ankle pain PSY: No concerns regarding depression, anxiety or panic. INTEGUMENTARY: No new skin changes (rash, new or changing mole, new growth) Physical Exam: Constitutional: Pt is a well developed 47 year old female who is alert, oriented and cooperative Eyes: Following during examination. No redness or drainage. Respiratory: RR normal and nonlabored. Even breathing. No evidence of distress or shortness of breath. Psychology: Patient is engaged during conversation. Normal affect and mood. Does not appear depressed or anxious during encounter. Vascular: Dorsalis pedis and posterior tibial pulses palpable as b/l Capillary Fill time < 5 seconds to digits 1-5 b/l Skin temperature warm to warm proximal to distal b/l Hair growth present to digits Neurological: intact light touch/epicritic sensation Dermatological: Left hallux lateral border has slant back debridement of toenail. No pain or signs of infection. Webspaces clean and dry 1-4 b/l. Skin appears well hydrated and supple. good color, texture, turgor. Callosities absent. .Open lesions absent. Wound: Not present. Musculoskeletal/Orthopaedic: Patient has pain to palpation of left medial ankle along posterior tibial tendon Single heel rise causes pain Foot type is pronated structurally AJ ROM is full with knee extended and flexed 1st MPJ is full when loaded and no pain or crepitus are noted with ROM. MTJ, STJ are full and free of pain and crepitus. +5/5 muscle strength dorsiflexion, plantarflexion, inversion, eversion b/l Radiographs: 3 views of left foot reviewed. There is flat foot deformity of left lower extremity ASSESSMENT: (M76.822) Posterior tibial tendonitis, left (primary encounter diagnosis) (L60.0) Ingrowing toenail of left foot PLAN: Discussed pain of left posterior tibial tendon. Pain continues to remain despite bracing. Recommend mri for further evaluation. She has fibular hardware present which could obstruct viewing of posterior tibial tendon. I will discuss with mri department prior to scheduling. If patient unable to get mri, will either need to remove hardware to further evaluate via mri or tolerate pain. She does have hx of ingrowing toenail. No pain currently as she has performed slant back. If pain returns, consider matrixectomy ANA MARIA Tsai Observed: 02/25/2018 Status: COMPLETED Source: [place] 9:10 AM [facility] REPOSITORY Office Visit (PODIWS) MAIH STAFFORD ([id number]) 1970 F Date Time Provider Department 02/25/18 9:10 AM BETITO MEDINA During your visit today, we recorded the following information about you: Betito Medina DPM 02/25/2018 9:31 AM Signed ? Betito Medina DPM Department of Podiatry [address] [facility] [address] Dept: [phone] Dept 02/25/2018 Follow Up Podiatric Office Visit: HPI: Mahi Banerjee Chaismaeljohnathon is a 47 year old female. Patient presents 1 month follow up for Posterior Tibial Tendonitis, L. She reports constant achy pain that is rated a 2/10 with resting and staying off foot/ankle. Pain is increased to an 8/10 with walking >20 min, exercise, stairs. AFO and icing help to alleviate pain. Does feel that AFO is helping, but issue itself is the same as one month ago. Patient states she is looking employment. Wants to monitor for now and see if pain continues to improve. Has hx of ingrowing toenail of left hallux. She treated with slant back. Betito Medina DPM PCP: Lavonne Hensley PA-C PAST MEDICAL HISTORY Diagnosis Date - Anxiety - Bipolar disorder (HCC) - Breast cancer, stage 1, right (HCC) estrogen receptor positive HER2 negative - Depression - Hyperlipemia Hypertriglyceridemia, Low HDL - Hypertension - Hyperthyroidism 11/17/13 - Hypothyroid - Migraine - Multinodular goiter 11/17/13 - Vitamin D deficiency 09/2013 Current Outpatient Prescriptions: venlafaxine ER (EFFEXOR XR) 75 mg 24 hr capsule TAKE 1 CAPSULE ONCE DAILY with a meal tobramycin-dexamethasone (TOBRADEX) ophthalmic suspension Use 1 Drop in the right eye four times daily. simethicone, chewable (MYLICON) 80 mg chewable tablet Take 1 tablet by mouth every 6 hours as needed. (Patient not taking: Reported on 02/01/2018 ) ibuprofen (MOTRIN) 600 mg tablet Take 1 tablet by mouth every 6 hours as needed. FOR PAIN. hydroCHLOROthiazide (HYDRODIURIL, ESIDRIX) 25 mg tablet Take 1 tablet by mouth once daily. lisinopril (ZESTRIL, PRINIVIL) 10 mg tablet Take 1 tablet by mouth once daily. calcium citrate/vitamin D3 (CITRACAL + D ORAL) Take 1 tablet by mouth twice daily. tamoxifen (NOLVADEX) 20 mg tablet Take 1 tablet by mouth once daily. levothyroxine (SYNTHROID) 200 mcg tablet Take 1 tablet by mouth five times a week. COMPOUNDED PRESCRIPTION #1 Auto titrating PAP device 6-20 cmH2O with humidification. #1 Formal mask fitting and education with tubing and supplies as necessary. potassium chloride (K-MIGUELITO, KLOR-CON) 20 mEq packet TAKE ONE PACKET BY MOUTH EVERY DAY lamoTRIgine (LAMICTAL) 150 mg tablet Take 200 mg by mouth once daily. zolpidem (AMBIEN) 5 mg tablet Take 5 mg by mouth at bedtime as needed. buPROPion XL (WELLBUTRIN XL) 300 mg 24 hr tablet Take 150 mg by mouth once daily. Cholecalciferol, Vitamin D3, (VITAMIN D-3) 2,000 unit cap Take 1 capsule by mouth once daily. LORATADINE (CLARITIN ORAL) Take 1 tablet by mouth once daily as needed. No current facility-administered medications for this visit. ALLERGIES Allergen Reactions - Amitriptyline Other: See Comments Intensely angry - Anastrozole Intolerance Nausea, irritability, inability to sleep - Cats - Dogs - Grass Pollen - Levaquin [Levofloxa* Hives, Swelling - Mold PAST SURGICAL HISTORY Procedure Laterality Date - BREAST BIOPSY Right 03/14/2017 - BREAST BIOPSY Right 04/09/2017 - BREAST BIOPSY Left 04/09/2017 - CATARACT EXTRACTION W/ INTRAOCULAR LENS IMPLANT HX Left 2013 - HYSTERECTOMY HX - LAPAROSCOPIC CHOLEYCYSTECTOMY 07/21 Cholecystectomy, lap - LIGATE FALLOPIAN TUBE ESSURE - MASTECTOMY, RADICAL Right 04/30/2017 Dr R Cebul right total mastectomy with axillary blue dye sentinel lymph node biopsy - PAST SURGICAL HISTORY OF 05/1998 PLATE IN LEFT ANKLE - REMOVAL OF OVARY/TUBE(S) Bilateral 01/14/2018 Prophylactic Laparoscopic BSO for Estrogen Receptor + Breast Cancer, BRCA negative-Dr. Cruz - REMOVAL OF TONSILS,<13 Y/O 1982 Tonsillectomy - THYROIDECTOMY 11/17/13 Dr. Hart FAMILY HISTORY Problem Relation Age of Onset - Heart Father - Hypertension Father - Thyroid Father - Diabetes Father - Psychiatry Father - Allergies Father - Arthritis Mother - Thyroid Mother pneumonia 73 - Allergies Mother - Breast Cancer Maternal Grandmother dx early 50's - Diabetes Maternal Grandmother - Coronary Artery Disease Maternal Grandmother - Stroke Maternal Grandmother - Allergies Maternal Grandmother - Cancer Maternal Grandmother Kidney cancer dx 70's - Diabetes Maternal Grandfather - Heart Maternal Grandfather 67 - Hypertension Maternal Grandfather - Coronary Artery Disease Maternal Grandfather - Allergies Maternal Grandfather - Diabetes Paternal Grandfather - Thyroid Paternal Grandfather - Allergies Paternal Grandfather - Diabetes Paternal Grandmother - Heart Paternal Grandmother - Allergies Paternal Grandmother - Stroke Paternal Grandmother - Ovarian cancer Other Mother of maternal grandmother - Cancer Maternal Aunt 71 Bladder or kidney cancer Social History Marital status: Spouse name: Harry Years of education: 18 Number of children: 4 Occupational History Occupation Employer [employer]* [employer]* Social History Main Topics Smoking status: Former Smoker Packs/day: 0.30 Years: 3.00 Types: Cigarettes Quit date: 10/07/2014 Smokeless tobacco: Never Used Comment: One pack would last 2 weeks when she smoked Alcohol use: No Drug use: No REVIEW OF SYSTEMS: CONSTITUTIONAL: No fevers, chills, nightsweats, unintended weight loss HEENT: Denies frequent or severe heaches, nasal congestion/sinus symptoms, problematic allergy problems. EYES: No diplopia or blurry vision. CARDIOVASCULAR: No chest pain, dyspnea, palpitations, orthopnea, PND, ankle edema. PULM: No dyspnea, unexplained cough. GI: No dysphagia/odynophagia, problematic reflux, constipation, diarrhea, changes in stool habits, hematochezia, melena. : No new urinary complaints, including dysuria, gross hematuria or pyuria. NEURO: No new balance problems, peripheral weakness/paresthesias or numbness of concern. MUSC-SKEL: Left medial ankle pain PSY: No concerns regarding depression, anxiety or panic. INTEGUMENTARY: No new skin changes (rash, new or changing mole, new growth) Physical Exam: Constitutional: Pt is a well developed 47 year old female who is alert, oriented and cooperative Eyes: Following during examination. No redness or drainage. Respiratory: RR normal and nonlabored. Even breathing. No evidence of distress or shortness of breath. Psychology: Patient is engaged during conversation. Normal affect and mood. Does not appear depressed or anxious during encounter. Vascular: Dorsalis pedis and posterior tibial pulses palpable as b/l Capillary Fill time < 5 seconds to digits 1-5 b/l Skin temperature warm to warm proximal to distal b/l Hair growth present to digits Neurological: intact light touch/epicritic sensation Dermatological: Left hallux lateral border has slant back debridement of toenail. No pain or signs of infection. Webspaces clean and dry 1-4 b/l. Skin appears well hydrated and supple. good color, texture, turgor. Callosities absent. .Open lesions absent. Wound: Not present. Musculoskeletal/Orthopaedic: Patient has pain to palpation of left medial ankle along posterior tibial tendon Single heel rise causes pain Foot type is pronated structurally AJ ROM is full with knee extended and flexed 1st MPJ is full when loaded and no pain or crepitus are noted with ROM. MTJ, STJ are full and free of pain and crepitus. +5/5 muscle strength dorsiflexion, plantarflexion, inversion, eversion b/l Radiographs: 3 views of left foot reviewed. There is flat foot deformity of left lower extremity ASSESSMENT: (M76.822) Posterior tibial tendonitis, left (primary encounter diagnosis) (L60.0) Ingrowing toenail of left foot PLAN: Discussed pain of left posterior tibial tendon. Pain continues to remain despite bracing. Recommend mri for further evaluation. She has fibular hardware present which could obstruct viewing of posterior tibial tendon. I will discuss with mri department prior to scheduling. If patient unable to get mri, will either need to remove hardware to further evaluate via mri or tolerate pain. She does have hx of ingrowing toenail. No pain currently as she has performed slant back. If pain returns, consider matrixectomy Betito Medina DPM Referring Provider: BETITO MEDINA [[id number]] Allergies As of Date: 02/25/2018 Noted Allergy Reaction AMITRIPTYLINE 11/18/2016 14 - Other: See Comments Comments: Intensely angry ANASTROZOLE 11/04/2017 5 - Intolerance Comments: Nausea, irritability, inability to sleep CATS 01/05/2006 DOGS 01/05/2006 GRASS POLLEN 01/05/2006 LEVAQUIN (LEVOFLOXACIN) 07/15/2017 4 - Hives 7 - Swelling MOLD 01/05/2006 Date Reviewed: 02/25/2018 Reviewed by: Neelam Kincaid Ma - Fully Assessed Reason for Visit: Follow Up [171] Primary Visit Diagnosis:Posterior tibial tendonitis, left [M76.822] Other Visit Diagnosis:Ingrowing toenail of left foot [L60.0] Prescriptions as of 02/25/2018 Sig: VENLAFAXINE ER 75 MG CAPSULE,* TAKE 1 CAPSULE ONCE DAILY wit* TOBRAMYCIN 0.3 %-DEXAMETHASON* Use 1 Drop in the right eye f* SIMETHICONE 80 MG CHEWABLE TA* Take 1 tablet by mouth every * Patient not taking: Reported on 02/01/2018 IBUPROFEN 600 MG TABLET Take 1 tablet by mouth every * HYDROCHLOROTHIAZIDE 25 MG TAB* Take 1 tablet by mouth once d* LISINOPRIL 10 MG TABLET Take 1 tablet by mouth once d* CITRACAL + D ORAL Take 1 tablet by mouth twice * TAMOXIFEN 20 MG TABLET Take 1 tablet by mouth once d* LEVOTHYROXINE 200 MCG TABLET Take 1 tablet by mouth five t* COMPOUNDED PRESCRIPTION #1 Auto titrating PAP device * POTASSIUM CHLORIDE 20 MEQ ORA* TAKE ONE PACKET BY MOUTH EVER* LAMOTRIGINE 150 MG TABLET Take 200 mg by mouth once subha* ZOLPIDEM 5 MG TABLET Take 5 mg by mouth at bedtime* BUPROPION XL 300 MG 24 HR TAB Take 150 mg by mouth once subha* CHOLECALCIFEROL (VITAMIN D3) * Take 1 capsule by mouth once * CLARITIN ORAL Take 1 tablet by mouth once d* Problem List As Of Date 02/25/2018 Noted Resolved ADJUSTMENT DISORDER WITH DEPRESSED MOOD [F43.21]INVALID FOR* ANXIETY STATE NOS [F41.1] INVALID FOR* BENIGN HYPERTENSION [I10] INVALID FOR* Obesity, Class III, BMI 40-49.9 (morbid obesity*INVALID FOR* Nonspecific abnormal results of liver function *INVALID FOR* More... ALLERGIC RHINITIS NOS [J30.9] INVALID FOR* CHRONIC LIVER DIS NEC [K76.89] INVALID FOR* Hyperlipidemia [E78.5] INVALID FOR* Tobacco abuse [Z72.0] INVALID FOR* Low HDL (under 40) [E78.6] INVALID FOR* Hypertriglyceridemia [E78.1] INVALID FOR* Postsurgical hypothyroidism [E89.0] INVALID FOR* Incisional infection [T81.4XXA] INVALID FOR* Vitamin D deficiency [E55.9] INVALID FOR* Elevated LFTs [R94.5] INVALID FOR* Muscle spasm [M62.838] INVALID FOR* Neck pain [M54.2] INVALID FOR* Thoracic back pain [M54.6] INVALID FOR* Malignant neoplasm of lower-inner quadrant of r*INVALID FOR* Left breast mass [N63.20] INVALID FOR* More... Numbness of arm [R20.0] INVALID FOR* More... 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 Encounter Status:Closed by BETITO MEDINA DPM on 02/25/18 CNPN Observed: 02/15/2018 Status: COMPLETED Source: [place] 12:00 AM [facility] REPOSITORY Telephone (RUBIO) MAHI STAFFORD ([id number]) 1970 F Date Time Provider Department 02/15/18 HOLLY CASTRO (MUNA) RUBIO During your visit today, we recorded the following information about you: Holly Castro RN, RN 02/15/2018 12:06 PM Signed Patient left VM stating I can't do the Tamoxifen anymore. Mood walker, I'm tired all the time, my memory is poor. I can't work doing this. Spoke to FILLING MIXER and she stated patient can stop Tamoxifen. Patient is scheduled to see Doreen on 03/24/2018 and will discuss treatment plan at OV. Called patient, patient informed she can stop Tamoxifen and follow-up at 03/24 OV with Doreen. Patient stated understanding. Rogelio Veelz DO 02/15/2018 12:33 PM Signed Noted. Thank you. Rogelio Velez DO Allergies As of Date: 02/15/2018 Noted Allergy Reaction AMITRIPTYLINE 11/18/2016 14 - Other: See Comments Comments: Intensely angry ANASTROZOLE 11/04/2017 5 - Intolerance Comments: Nausea, irritability, inability to sleep CATS 01/05/2006 DOGS 01/05/2006 GRASS POLLEN 01/05/2006 LEVAQUIN (LEVOFLOXACIN) 07/15/2017 4 - Hives 7 - Swelling MOLD 01/05/2006 Date Reviewed: 02/01/2018 Reviewed by: Anita Lujan - Fully Assessed Reason for Visit: Care Coordination [8481] Cmt: Medication Question Prescriptions as of 02/15/2018 Sig: VENLAFAXINE ER 75 MG CAPSULE,* TAKE 1 CAPSULE ONCE DAILY wit* TOBRAMYCIN 0.3 %-DEXAMETHASON* Use 1 Drop in the right eye f* SIMETHICONE 80 MG CHEWABLE TA* Take 1 tablet by mouth every * Patient not taking: Reported on 02/01/2018 IBUPROFEN 600 MG TABLET Take 1 tablet by mouth every * HYDROCHLOROTHIAZIDE 25 MG TAB* Take 1 tablet by mouth once d* LISINOPRIL 10 MG TABLET Take 1 tablet by mouth once d* CITRACAL + D ORAL Take 1 tablet by mouth twice * TAMOXIFEN 20 MG TABLET Take 1 tablet by mouth once d* LEVOTHYROXINE 200 MCG TABLET Take 1 tablet by mouth five t* COMPOUNDED PRESCRIPTION #1 Auto titrating PAP device * POTASSIUM CHLORIDE 20 MEQ ORA* TAKE ONE PACKET BY MOUTH EVER* LAMOTRIGINE 150 MG TABLET Take 200 mg by mouth once subha* ZOLPIDEM 5 MG TABLET Take 5 mg by mouth at bedtime* BUPROPION XL 300 MG 24 HR TAB Take 150 mg by mouth once subha* CHOLECALCIFEROL (VITAMIN D3) * Take 1 capsule by mouth once * CLARITIN ORAL Take 1 tablet by mouth once d* Problem List As Of Date 02/15/2018 Noted Resolved ADJUSTMENT DISORDER WITH DEPRESSED MOOD [F43.21]INVALID FOR* ANXIETY STATE NOS [F41.1] INVALID FOR* BENIGN HYPERTENSION [I10] INVALID FOR* Obesity, Class III, BMI 40-49.9 (morbid obesity*INVALID FOR* Nonspecific abnormal results of liver function *INVALID FOR* More... ALLERGIC RHINITIS NOS [J30.9] INVALID FOR* CHRONIC LIVER DIS NEC [K76.89] INVALID FOR* Hyperlipidemia [E78.5] INVALID FOR* Tobacco abuse [Z72.0] INVALID FOR* Low HDL (under 40) [E78.6] INVALID FOR* Hypertriglyceridemia [E78.1] INVALID FOR* Postsurgical hypothyroidism [E89.0] INVALID FOR* Incisional infection [T81.4XXA] INVALID FOR* Vitamin D deficiency [E55.9] INVALID FOR* Elevated LFTs [R94.5] INVALID FOR* Muscle spasm [M62.838] INVALID FOR* Neck pain [M54.2] INVALID FOR* Thoracic back pain [M54.6] INVALID FOR* Malignant neoplasm of lower-inner quadrant of r*INVALID FOR* Left breast mass [N63.20] INVALID FOR* More... Numbness of arm [R20.0] INVALID FOR* More... 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 Encounter Status:Closed by HOLLY CASTRO on 02/15/18 PROGRESS Observed: 02/01/2018 Status: COMPLETED Source: [place] 9:09 AM [facility] REPOSITORY O ID: [id number] Author: Anita Lujan Service: (none) Author Type: Physician Type: Progress Notes Filed: 02/01/2018 9:11 AM Note Text: (H20.9) Iritis of right eye (primary encounter diagnosis) (Z96.1) Pseudophakia (H52.7) Refractive error tobradex One drop Right eye qod for 2 weeks and then d/c f/u 2 months lc dilate Both eyes Recurrent po inflammation Right eye quiet I have confirmed and edited as necessary the relevant ophthalmic history, ROS, and the neuro exam findings as obtained by others. I have seen and examined Mahi Lavonne Stafford. I have discussed the case and the management of this patient's care with the Resident/Fellow, if applicable. I also have reviewed and agree with the assessment and plan as stated above and agree with all of its relevant components. Anita Olguin MD CNOV Observed: 01/29/2018 Status: COMPLETED Source: [place] 10:10 AM [facility] REPOSITORY Office Visit (WOOB) MINOOMAHI Olmedo ([id number]) 1970 F Date Time Provider Department 01/29/18 10:10 AM FLORY MUELLER During your visit today, we recorded the following information about you: Blood pressure Weight 128/82 116.1 kg Flory Huang MD 01/29/2018 10:15 AM Signed SUBJECTIVE: 47 year old female presents for 2 week post-op exam. OBJECTIVE: Incision: Dry and intact, without redness Abdomen: Soft, Non-tender and No palpable masses PLAN: RTO for annual exams and PRN Benign pathology reviewed I have reviewed and updated past medical and surgical history, medications and allergies. Flory Huang MD Referring Provider: SELF [[id number]] Allergies As of Date: 01/29/2018 Noted Allergy Reaction AMITRIPTYLINE 11/18/2016 14 - Other: See Comments Comments: Intensely angry ANASTROZOLE 11/04/2017 5 - Intolerance Comments: Nausea, irritability, inability to sleep CATS 01/05/2006 DOGS 01/05/2006 GRASS POLLEN 01/05/2006 LEVAQUIN (LEVOFLOXACIN) 07/15/2017 4 - Hives 7 - Swelling MOLD 01/05/2006 Date Reviewed: 01/29/2018 Reviewed by: Abraham Drummond Ma - Fully Assessed Reason for Visit: Post-Op Visit [1236] Primary Visit Diagnosis:Post-operative state [Z98.890] Prescriptions as of 01/29/2018 Sig: VENLAFAXINE ER 75 MG CAPSULE,* TAKE 1 CAPSULE ONCE DAILY wit* TOBRAMYCIN 0.3 %-DEXAMETHASON* Use 1 Drop in the right eye f* SIMETHICONE 80 MG CHEWABLE TA* Take 1 tablet by mouth every * Patient not taking: Reported on 01/11/2018 IBUPROFEN 600 MG TABLET Take 1 tablet by mouth every * Patient not taking: Reported on 01/11/2018 HYDROCHLOROTHIAZIDE 25 MG TAB* Take 1 tablet by mouth once d* LISINOPRIL 10 MG TABLET Take 1 tablet by mouth once d* CITRACAL + D ORAL Take 1 tablet by mouth twice * TAMOXIFEN 20 MG TABLET Take 1 tablet by mouth once d* LEVOTHYROXINE 200 MCG TABLET Take 1 tablet by mouth five t* COMPOUNDED PRESCRIPTION #1 Auto titrating PAP device * POTASSIUM CHLORIDE 20 MEQ ORA* TAKE ONE PACKET BY MOUTH EVER* LAMOTRIGINE 150 MG TABLET Take 200 mg by mouth once subha* ZOLPIDEM 5 MG TABLET Take 5 mg by mouth at bedtime* BUPROPION XL 300 MG 24 HR TAB Take 150 mg by mouth once subha* CHOLECALCIFEROL (VITAMIN D3) * Take 1 capsule by mouth once * CLARITIN ORAL Take 1 tablet by mouth once d* Medication notes this encounter VENLAFAXINE ER 75 MG CAPSULE,EXTENDED RELEASE 24 HR >> Abraham Drummond Ma 01/29/2018 10:02 AM >> ABRAHAM DRUMMOND MA Fri Jan 29, 2018 10:02 AM Taking 150 mg Problem List As Of Date 01/29/2018 Noted Resolved ADJUSTMENT DISORDER WITH DEPRESSED MOOD [F43.21]INVALID FOR* ANXIETY STATE NOS [F41.1] INVALID FOR* BENIGN HYPERTENSION [I10] INVALID FOR* Obesity, Class III, BMI 40-49.9 (morbid obesity*INVALID FOR* Nonspecific abnormal results of liver function *INVALID FOR* More... ALLERGIC RHINITIS NOS [J30.9] INVALID FOR* CHRONIC LIVER DIS NEC [K76.89] INVALID FOR* Hyperlipidemia [E78.5] INVALID FOR* Tobacco abuse [Z72.0] INVALID FOR* Low HDL (under 40) [E78.6] INVALID FOR* Hypertriglyceridemia [E78.1] INVALID FOR* Postsurgical hypothyroidism [E89.0] INVALID FOR* Incisional infection [T81.4XXA] INVALID FOR* Vitamin D deficiency [E55.9] INVALID FOR* Elevated LFTs [R94.5] INVALID FOR* Muscle spasm [M62.838] INVALID FOR* Neck pain [M54.2] INVALID FOR* Thoracic back pain [M54.6] INVALID FOR* Malignant neoplasm of lower-inner quadrant of r*INVALID FOR* Left breast mass [N63.20] INVALID FOR* More... Numbness of arm [R20.0] INVALID FOR* More... 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 Encounter Status:Closed by FLORY CRUZ MD on 01/29/18 PROGRESS Observed: 01/29/2018 Status: COMPLETED Source: [place] 9:58 AM [facility] REPOSITORY HNO ID: [id number] Author: Flory Cruz Service: (none) Author Type: Physician Type: Progress Notes Filed: 01/29/2018 10:15 AM Note Text: SUBJECTIVE: 47 year old female presents for 2 week post-op exam. OBJECTIVE: Incision: Dry and intact, without redness Abdomen: Soft, Non-tender and No palpable masses PLAN: RTO for annual exams and PRN Benign pathology reviewed I have reviewed and updated past medical and surgical history, medications and allergies. Flory Huang MD PROGRESS Observed: 01/25/2018 Status: COMPLETED Source: [place] 1:37 PM [facility] REPOSIT[facility] HNO ID: [id number] Author: Betito Medina Service: (none) Author Type: Physician Type: Progress Notes Filed: 01/26/2018 12:32 PM Note Text: ? Betito Medina DPM Department of Podiatry [address] [facility] [address] Dept: [phone] Dept 01/25/2018 Follow Up Podiatric Office Visit: HPI: Mahi Stafford is a 47 year old female. Patient presents for follow up for posterior tibial tendonitis, L. Patient complains of pain. Pain is rated at 3-5/10, and described as aching. Interventions include: ice, rest, and elevation. Worse with increased activity. She recently received her AFO and has been wearing it for less than a week. No issues so far but she has not been able to tell how much it is helping since she has only been wearing it for a short period of time. She is also currently looking for a new job that is less physically demanding. PAST MEDICAL HISTORY Diagnosis Date - Anxiety - Bipolar disorder (HCC) - Breast cancer, stage 1, right (HCC) estrogen receptor positive HER2 negative - Depression - Hyperlipemia Hypertriglyceridemia, Low HDL - Hypertension - Hyperthyroidism 11/17/13 - Hypothyroid - Migraine - Multinodular goiter 11/17/13 - Vitamin D deficiency 09/2013 Family History Problem Relation Age of Onset - Heart Father - Hypertension Father - Thyroid Father - Diabetes Father - Psychiatry Father - Allergies Father - Arthritis Mother - Thyroid Mother pneumonia 73 - Allergies Mother - Breast Cancer Maternal Grandmother dx early 50's - Diabetes Maternal Grandmother - Coronary Artery Disease Maternal Grandmother - Stroke Maternal Grandmother - Allergies Maternal Grandmother - Cancer Maternal Grandmother Kidney cancer dx 70's - Diabetes Maternal Grandfather - Heart Maternal Grandfather 67 - Hypertension Maternal Grandfather - Coronary Artery Disease Maternal Grandfather - Allergies Maternal Grandfather - Diabetes Paternal Grandfather - Thyroid Paternal Grandfather - Allergies Paternal Grandfather - Diabetes Paternal Grandmother - Heart Paternal Grandmother - Allergies Paternal Grandmother - Stroke Paternal Grandmother - Ovarian cancer Other Mother of maternal grandmother - Cancer Maternal Aunt 71 Bladder or kidney cancer REVIEW OF SYSTEMS: CONSTITUTIONAL: No fevers, chills, nightsweats, unintended weight loss HEENT: Denies frequent or severe heaches, nasal congestion/sinus symptoms, problematic allergy problems. EYES: No diplopia or blurry vision. CARDIOVASCULAR: No chest pain, dyspnea, palpitations, orthopnea, PND, ankle edema. PULM: No dyspnea, unexplained cough. GI: No dysphagia/odynophagia, problematic reflux, constipation, diarrhea, changes in stool habits, hematochezia, melena. : No new urinary complaints, including dysuria, gross hematuria or pyuria. NEURO: No new balance problems, peripheral weakness/paresthesias or numbness of concern. MUSC-SKEL: Left medial ankle pain PSY: No concerns regarding depression, anxiety or panic. INTEGUMENTARY: No new skin changes (rash, new or changing mole, new growth) Physical Exam: Constitutional: Pt is a well developed 47 year old female who is alert, oriented and cooperative Eyes: Following during examination. No redness or drainage. Respiratory: RR normal and nonlabored. Even breathing. No evidence of distress or shortness of breath. Psychology: Patient is engaged during conversation. Normal affect and mood. Does not appear depressed or anxious during encounter. Vascular: Dorsalis pedis and posterior tibial pulses palpable as b/l Capillary Fill time < 5 seconds to digits 1-5 b/l Skin temperature warm to warm proximal to distal b/l Hair growth present to digits Neurological: intact light touch/epicritic sensation Dermatological: Skin appears well hydrated and supple. good color, texture, turgor. Callosities absent.Open lesions absent. Wound: Not present. Musculoskeletal/Orthopaedic: Patient has pain to palpation of left posterior tibial tendon. Pain to left heel is improved. Foot type is pronated structurally AJ ROM is full with knee extended and flexed 1st MPJ is full when loaded and no pain or crepitus are noted with ROM. MTJ, STJ are full and free of pain and crepitus. +5/5 muscle strength dorsiflexion, plantarflexion, inversion, eversion b/l. There is pain to resisted inversion of left lower extremity ASSESSMENT: (M76.822) Posterior tibial tendonitis, left (primary encounter diagnosis) (M72.2) Plantar fasciitis of left foot PLAN: Patient was examined and informed of current findings Her left heel pain has improved. Continue with stretching as needed Discussed left posterior tibial tendon pain. She just received afo and pain is tolerable. Discussed obtaining mri if pain present but patient states she would like to continue with afo and see what one month does. If pain fails to improve, consider mri. f/u in 1 month ANA MARIA Tsai Observed: 01/25/2018 Status: COMPLETED Source: [place] 1:10 PM [facility] REPOSITORY Office Visit (PODIWS) MAHI STAFFORD ([id number]) 1970 F Date Time Provider Department 01/25/18 1:10 PM BETITO MEDINA During your visit today, we recorded the following information about you: Betito Medina DPM 01/26/2018 12:32 PM Signed ? Betito Medina DPM Department of Podiatry [address] [facility] [address] Dept: [phone] Dept 01/25/2018 Follow Up Podiatric Office Visit: HPI: Mahi Stafford is a 47 year old female. Patient presents for follow up for posterior tibial tendonitis, L. Patient complains of pain. Pain is rated at 3-5/10, and described as aching. Interventions include: ice, rest, and elevation. Worse with increased activity. She recently received her AFO and has been wearing it for less than a week. No issues so far but she has not been able to tell how much it is helping since she has only been wearing it for a short period of time. She is also currently looking for a new job that is less physically demanding. PAST MEDICAL HISTORY Diagnosis Date - Anxiety - Bipolar disorder (HCC) - Breast cancer, stage 1, right (HCC) estrogen receptor positive HER2 negative - Depression - Hyperlipemia Hypertriglyceridemia, Low HDL - Hypertension - Hyperthyroidism 11/17/13 - Hypothyroid - Migraine - Multinodular goiter 11/17/13 - Vitamin D deficiency 09/2013 Family History Problem Relation Age of Onset - Heart Father - Hypertension Father - Thyroid Father - Diabetes Father - Psychiatry Father - Allergies Father - Arthritis Mother - Thyroid Mother pneumonia 73 - Allergies Mother - Breast Cancer Maternal Grandmother dx early 50's - Diabetes Maternal Grandmother - Coronary Artery Disease Maternal Grandmother - Stroke Maternal Grandmother - Allergies Maternal Grandmother - Cancer Maternal Grandmother Kidney cancer dx 70's - Diabetes Maternal Grandfather - Heart Maternal Grandfather 67 - Hypertension Maternal Grandfather - Coronary Artery Disease Maternal Grandfather - Allergies Maternal Grandfather - Diabetes Paternal Grandfather - Thyroid Paternal Grandfather - Allergies Paternal Grandfather - Diabetes Paternal Grandmother - Heart Paternal Grandmother - Allergies Paternal Grandmother - Stroke Paternal Grandmother - Ovarian cancer Other Mother of maternal grandmother - Cancer Maternal Aunt 71 Bladder or kidney cancer REVIEW OF SYSTEMS: CONSTITUTIONAL: No fevers, chills, nightsweats, unintended weight loss HEENT: Denies frequent or severe heaches, nasal congestion/sinus symptoms, problematic allergy problems. EYES: No diplopia or blurry vision. CARDIOVASCULAR: No chest pain, dyspnea, palpitations, orthopnea, PND, ankle edema. PULM: No dyspnea, unexplained cough. GI: No dysphagia/odynophagia, problematic reflux, constipation, diarrhea, changes in stool habits, hematochezia, melena. : No new urinary complaints, including dysuria, gross hematuria or pyuria. NEURO: No new balance problems, peripheral weakness/paresthesias or numbness of concern. MUSC-SKEL: Left medial ankle pain PSY: No concerns regarding depression, anxiety or panic. INTEGUMENTARY: No new skin changes (rash, new or changing mole, new growth) Physical Exam: Constitutional: Pt is a well developed 47 year old female who is alert, oriented and cooperative Eyes: Following during examination. No redness or drainage. Respiratory: RR normal and nonlabored. Even breathing. No evidence of distress or shortness of breath. Psychology: Patient is engaged during conversation. Normal affect and mood. Does not appear depressed or anxious during encounter. Vascular: Dorsalis pedis and posterior tibial pulses palpable as b/l Capillary Fill time < 5 seconds to digits 1-5 b/l Skin temperature warm to warm proximal to distal b/l Hair growth present to digits Neurological: intact light touch/epicritic sensation Dermatological: Skin appears well hydrated and supple. good color, texture, turgor. Callosities absent.Open lesions absent. Wound: Not present. Musculoskeletal/Orthopaedic: Patient has pain to palpation of left posterior tibial tendon. Pain to left heel is improved. Foot type is pronated structurally AJ ROM is full with knee extended and flexed 1st MPJ is full when loaded and no pain or crepitus are noted with ROM. MTJ, STJ are full and free of pain and crepitus. +5/5 muscle strength dorsiflexion, plantarflexion, inversion, eversion b/l. There is pain to resisted inversion of left lower extremity ASSESSMENT: (M76.822) Posterior tibial tendonitis, left (primary encounter diagnosis) (M72.2) Plantar fasciitis of left foot PLAN: Patient was examined and informed of current findings Her left heel pain has improved. Continue with stretching as needed Discussed left posterior tibial tendon pain. She just received afo and pain is tolerable. Discussed obtaining mri if pain present but patient states she would like to continue with afo and see what one month does. If pain fails to improve, consider mri. f/u in 1 month ANA MARIA Tsai RN 01/25/2018 1:48 PM Signed Continue brace, follow up in 1 month Referring Provider: BETITO MEDINA [[id number]] Allergies As of Date: 01/25/2018 Noted Allergy Reaction AMITRIPTYLINE 11/18/2016 14 - Other: See Comments Comments: Intensely angry ANASTROZOLE 11/04/2017 5 - Intolerance Comments: Nausea, irritability, inability to sleep CATS 01/05/2006 DOGS 01/05/2006 GRASS POLLEN 01/05/2006 LEVAQUIN (LEVOFLOXACIN) 07/15/2017 4 - Hives 7 - Swelling MOLD 01/05/2006 Date Reviewed: 01/25/2018 Reviewed by: Berkley Flores RN - Fully Assessed Reason for Visit: Recheck [92] Primary Visit Diagnosis:Posterior tibial tendonitis, left [M76.822] Other Visit Diagnosis:Plantar fasciitis of left foot [M72.2] Prescriptions as of 01/25/2018 Sig: TOBRAMYCIN 0.3 %-DEXAMETHASON* Use 1 Drop in the right eye f* HYDROCHLOROTHIAZIDE 25 MG TAB* Take 1 tablet by mouth once d* LISINOPRIL 10 MG TABLET Take 1 tablet by mouth once d* CITRACAL + D ORAL Take 1 tablet by mouth twice * TAMOXIFEN 20 MG TABLET Take 1 tablet by mouth once d* LEVOTHYROXINE 200 MCG TABLET Take 1 tablet by mouth five t* COMPOUNDED PRESCRIPTION #1 Auto titrating PAP device * POTASSIUM CHLORIDE 20 MEQ ORA* TAKE ONE PACKET BY MOUTH EVER* LAMOTRIGINE 150 MG TABLET Take 200 mg by mouth once subha* ZOLPIDEM 5 MG TABLET Take 5 mg by mouth at bedtime* BUPROPION XL 300 MG 24 HR TAB Take 150 mg by mouth once subha* CHOLECALCIFEROL (VITAMIN D3) * Take 1 capsule by mouth once * CLARITIN ORAL Take 1 tablet by mouth once d* SIMETHICONE 80 MG CHEWABLE TA* Take 1 tablet by mouth every * Patient not taking: Reported on 01/11/2018 IBUPROFEN 600 MG TABLET Take 1 tablet by mouth every * Patient not taking: Reported on 01/11/2018 Problem List As Of Date 01/25/2018 Noted Resolved ADJUSTMENT DISORDER WITH DEPRESSED MOOD [F43.21]INVALID FOR* ANXIETY STATE NOS [F41.1] INVALID FOR* BENIGN HYPERTENSION [I10] INVALID FOR* Obesity, Class III, BMI 40-49.9 (morbid obesity*INVALID FOR* Nonspecific abnormal results of liver function *INVALID FOR* More... ALLERGIC RHINITIS NOS [J30.9] INVALID FOR* CHRONIC LIVER DIS NEC [K76.89] INVALID FOR* Hyperlipidemia [E78.5] INVALID FOR* Tobacco abuse [Z72.0] INVALID FOR* Low HDL (under 40) [E78.6] INVALID FOR* Hypertriglyceridemia [E78.1] INVALID FOR* Postsurgical hypothyroidism [E89.0] INVALID FOR* Incisional infection [T81.4XXA] INVALID FOR* Vitamin D deficiency [E55.9] INVALID FOR* Elevated LFTs [R94.5] INVALID FOR* Muscle spasm [M62.838] INVALID FOR* Neck pain [M54.2] INVALID FOR* Thoracic back pain [M54.6] INVALID FOR* Malignant neoplasm of lower-inner quadrant of r*INVALID FOR* Left breast mass [N63.20] INVALID FOR* More... Numbness of arm [R20.0] INVALID FOR* More... 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 Other instructions from your clinician: Continue brace, follow up in 1 month Disposition: Return in about 1 month (around 02/25/2018) for Kanu MCCARTHY Follow-up and Disposition History Recorded Encounter Status:Closed by BETITO MEDINA DPM on 01/26/18 12 LEAD ELECTROCARDIOGRAM Observed: 01/15/2018 Status: F Source: [place] 10:08 AM [facility] [place] [facility] Cardiovascular Services [address] [place] [address] 12 Lead EKG 01/14/18 0724 MR#: [id number] Acct: [id number] Name: MAHI STAFFORD Rep #: [id number] : 1970 47 From: Anthony Appiah MD Attending Dr: Flory Huang MD Status: DEP [facility] Ordering Dr: Flory Huang MD Date: 01/14/18 Location: [facility] Sex: F C Admitted: Test Reason : PRE OP Blood Pressure : / mmHG Vent. Rate : 091 BPM Atrial Rate : 091 BPM P-R Int : 140 ms QRS Dur : 086 ms QT Int : 378 ms P-R-T Axes : 036 034 024 degrees QTc Int : 464 ms Normal sinus rhythm Low voltage QRS Borderline ECG When compared with ECG of 28-OCT-2016 21:42, No significant change was found Confirmed by ANTHONY APPIAH MD ([id number]), news editor MARY PERLA ([id number]) on 01/15/2018 10:08:20 AM Referred By: Flory Huang Confirmed By:ANTHONY APPIAH MD 01/15/18 1008 Date Anthony Appiah MD CC: Lavonne Hensley; Flory Huang MD Signed FALLOPIAN TUBES/STERILIZATION Observed: 01/15/2018 Status: F Source: [place] 12:00 AM [facility] [place] Patient: MAHI STAFFORD : 1970 (47/F) Acct Num: [id number] Phys: Flory Huang MD Unit Num: [id number] Loc: [facility] Specimen: [id number] Received: 01/15/18 - 1321 Spec Type: FALL TUBES TISSUES TISSUES: Ovary, NOS GROSS DESCRIPTION Received in fixative is one container labeled with the patient's name and designated bilateral fallopian tubes and ovaries. The specimen consists of bilateral fallopian tubes and adjacent ovary. Fallopian tubes and ovaries are not identified at the right or left. One of the fallopian tubes measures 5.5 cm in length and up to 0.8 cm in diameter. Fimbrial end is identified. No tubo- ovarian adhesions are noted. A Filshie clip is noted at the proximal end of the fallopian tube and is intact. The adjacent ovary measures 2.4 x 2 x 1.5 cm. Sections reveal unremarkable cut surfaces. The second fallopian tube is similar appearance to first one and measures 7 cm in length and 0.6 cm in diameter. A Filshie clip is also noted at the proximal end of this fallopian tube which appears intact. Section of both fallopian tubes reveal unremarkable cut surfaces. Adjacent second ovary measures 2.5 x 2 x 1.5 cm. Sections reveal unremarkable cut surfaces. Investment Associate sections are submitted in 6 cassettes as follows: 1-3 one fallopian tube adjacent ovary (2 fallopian tube, 3 AND 4 ovary, ), 4-6 second fallopian tube and adjacent ovary( 4 fallopian tube, 5 AND 6 ovary). KASHIF:conor 01/15/18 TC:4 CPT: 11735 x2 HEADER OPERATION: Laparoscopic, salpingo-oophorectomy PRE-OP DIAGNOSIS: Estrogen receptor, positive, breast cancer TISSUE SUBMITTED: Bilateral fallopian tubes and ovaries MICROSCOPIC DESCRIPTION Slides are reviewed. MICROSCOPIC DIAGNOSIS Bilateral fallopian tubes and ovaries, bilateral salpingo-oophorectomy: Bilateral fallopian tubes and ovaries, no pathologic diagnosis. SJ:conor 01/18/18 Signed Cornel Wolfe 01/18/18 <signature on file> Performed By: #### PFALS #### [facility] [address] [place] [address]. [place], [address] DISCHARGE INSTRUCTION Observed: 01/14/2018 Status: F Source: [place] 9:29 AM [facility] [place] [facility] Medical Records Department [address] [place] [address] [place] [address] Instructions for Home/Discharge Instructions 01/14/18 0928 MR#: [id number] Acct: [id number] Name: MAHI STAFFORD Rep #: [id number] : 1970 47 From: Flory Cruz MD PCP: Lavonne Hensley Status: REG [facility] Discharge Diet: No Restrictions, - - Increase fluid intake for 48 hours. Discharge Activity: Return to Normal Activity, May Drive - when you are no longer taking narcotic pain medications., May Shower, May Take a Tub Bath - in 7 days., - - Ambulate often the next week after surgery. May resume sexual activity in: 2 weeks Lifting Restrictions: 20 Additional Activity Instructions:: Nothing in the vagina for the next 5 days. Call your doctor if your incision/area has: Continuous Slow Oozing, Sudden Increased Bleeding, Increased Pain/ Swelling, Increased Redness, Foul Smelling Discharge, Swelling at the incision site Call your doctor if you observe: Fever of 101 or Higher, Using more than one pad per hour Cleanse incision/area with: Soap AND Water, - - do not pick of skin glue Allergies/Adverse Reactions: Allergies levofloxacin [From Levaquin] Allergy (Severe, Verified 01/08/18 14:16) hives, throat swelling amitriptyline Adverse Reaction (Verified 01/08/18 14:16) HYPER AND REALLY ANGRY anastrozole Adverse Reaction (Verified 01/08/18 14:18) Other headaches, mood changes Medications to take at Discharge Cholecalciferol (Vitamin D3) [Vitamin D3] 2,000 unit PO DAILY 11/10/13 Hydrochlorothiazide 25 mg PO DAILY 11/10/13 Acetaminophen [Tylenol] 500 - 1,000 mg PO Q6H PRN PRN 04/22/17 Bupropion HCl [Wellbutrin Xl] 150 mg PO DAILY 04/22/17 Potassium Citrate/Citric Acid [Pot Citrate-Citric Acid Packet] 1 ea PO DAILY 04/22/17 Zolpidem Tartrate [Ambien] 5 mg PO QHS PRN 04/22/17 lamotrigine 150 mg tablet 200 mg PO DAILY tab 06/20/17 levothyroxine 100 mcg tablet 200 mcg PO DAILY tab 06/20/17 lisinopril 10 mg tablet 10 mg PO DAILY tab 06/20/17 Hydrocodone Bitart/Apap 5-325 [Wooton 5/325] 1 tab PO Q6H PRN PRN 5 Days #20 tab 08/15/17 Citracal +D 1 tab PO DAILY 01/08/18 Loratadine [Claritin] 10 mg PO DAILY 01/08/18 Tamoxifen [Nolvadex] 20 mg PO DAILY 01/08/18 Primary Care Physician: Lavonne Hensley PA [Primary Care Provider] - Please Follow Up With: Flory Huang MD When: 2 weeks for post op 01/14/18 0929 <Electronically signed by Floyr Cruz MD> Date Flory Huang MD CC: Lavonne Hensley OPERATIVE REPORT Observed: 01/14/2018 Status: F Source: [place] 9:28 AM [facility] Medical Records Department [address] [place] [address] Operative Report 01/14/18 0923 MR#: [id number] Acct: [id number] Name: MAHI STAFFORD Lavonne Rep #: [id number] : 1970 47 From: Flory Cruz MD PCP: Lavonne Hensley Status: [facility] Location: [place] [address] Operative Report Date of Procedure: 01/14/18 Surgeon: Dr. Flory Huang Hand Laminator: CUCA Allred Preoperative diagnosis: Prophylactic BSO, Estrogen receptor + breast cancer, BRCA negative Procedure performed: laparoscopic BSO Postoperative diagnosis: same complications: None Estimated blood loss: 5cc Drains: none Specimens collected: Bilateral tubes and ovaries Findings: Normal tubes and ovaries bilaterally uterus sounded to approximately 8cm. Anesthesia: general Implantable devices: None Operative note: After informed consent was obtained patient was taken to the operating room she was placed in supine position she was given anesthesia. She was then placed in the [facility] stirru and she was prepped and draped in normal sterile fashion. Bladder was drained prior to the start of procedure approximately 50cc of clear yellow urine was expelled. At this time attention was turned to the vaginal portion where weighted speculum placed at posterior fornix vagina single-tooth tenaculum was used to gently grasp the internal the cervix. uterus was gently sounded to approximately 8cm. Uterine manipulator was placed without difficulty. Legs then placed in parallel with the abdomen the tenaculum and the weighted speculum were removed. 2 towel clamps were placed superior to umbilicus. After Marcaine was injected superior to umbilicus a small incision was made and a 5 mm trocar was placed under direct visualization. CO2 gas was used to insufflate the intra-abdominal cavity. Upon inspection no gross abnormalities uterus tubes and ovaries appeared to be normal. Filshie clips were noted on both tubes. At this time then the LLQ port was placed again Marcaine was injected small incision was made a knife and the 5 mm trocar was placed. this was repeated on right side. At this time then tubes were traced back to the fimbriated ends. Ligasure was used to coagulate and ligate along IP ligament, uterovarian and the mesosalpynx bilaterally until ovaries and tubes removed completely. Good hemostasis was appreciated. The umbilical incision was extended to 10mm port and endocatch bag placed- specimens collected and removed. The jose f wilder was then used to closed fascia of umbilical incision using 0-vicryl sutre. At this time procedure was deemed complete successful. The gas was desufflated on from the intra-abdominal cavity. The trochars were removed. Skin was closed using 4-0 Monocryl in a subcutaneous fashion. Dermabond glue was placed. Instrument lap and needle counts were correct 2. The uterine manipulator was removed. Vaginal sweep was performed it was negative. There were no complications anticipated normal postoperative course for this patient. 01/14/18 0928 <Electronically signed by Flory Cruz MD> Date Flory Huang MD CC: Lavonne Hensley; Flory Huang MD Signed CBC-COMPLETE BLOOD CNT Collected: 01/14/2018 Status: F Source: [place] NO DIFF 7:22 AM [facility] [place] TYPE CODE TESTS RESULT OUT OF RANGE REFERENCE UNITS LAB L100.1000 4.4-11.0 K/mm3 Normal WBC 5.5 LAB L100.1200 4.2-5.4 M/mm3 Normal RBC 4.91 LAB L100.1300 12.0-15.0 g/dl Normal HGB 12.3 LAB L100.1400 37-47 % Normal HCT 38.5 LAB L100.1500 81-99 fL Low MCV 78.4 LAB L100.1600 27.0-32.0 pg Low MCH 25.1 LAB L100.1700 32-36 g/gl Low MCHC 31.9 LAB L100.1810 11.6-14.6 % High RDW CV 18.8 LAB L100.1820 35.1-43.9 fl High RDW SD 52.3 LAB L100.1900 150-450 K/mm3 Normal PLT 259 LAB L100.2000 6.2-12.0 fl Normal MPV 9.4 Performed By: #### L100.0500 #### [facility] [address] [place], [address] BASIC METABOLIC Collected: 01/14/2018 Status: F Source: [place] PROFILE (BMP) 7:22 AM [facility] [place] TYPE CODE TESTS RESULT OUT OF RANGE REFERENCE UNITS LAB L501.0100 74-106 mg/dL Normal GLU 105 Result Comment: Fasting Glucose result from 100 to 125 mg/dL suggests IMPAIRED HOMEOSTASIS per A.D.A. criteria. Please note revised GLUCOSE reference range effective 2017. LAB L501.1000 7-18 mg/dL Normal BUN 14 LAB L501.1100 0.55-1.02 mg/dL Normal CREAT,SERUM 0.84 Result Comment: The validity of the calculated GFR AND GFRAA in patients over 70 years has not been determined. Clinical correlation is essential. LAB L501.1110 >60 mL/min Normal EST GFR 77 Result Comment: Non- GFR Calc LAB L501.1115 >60 mL/min Normal EST GFR - AA 93 Result Comment: GFR Calc LAB L501.1255 ml/min Normal Estimated CRCL 69.23 LAB L501.1300 10-20 RATIO Normal BUN/CRE 16.6 LAB L501.2200 8.5-10 mg/dL Normal .1 CA 8.7 LAB L501.5300 136-14 mmol/L Normal 5 NA 140 LAB L501.5600 3.5-5. mmol/L Normal 1 K 3.9 LAB L501.5900 98-107 mmol/L Normal CL 103 LAB L501.6100 21.0-3 mmol/L Normal 2.0 CO2 29.0 LAB L501.6200 5-15 Normal GAP 8 Performed By: #### L500.2500, L501.9520 #### [facility] [address] [facility] [place], [address] THYROID STIM HORMONE Collected: 01/14/2018 Status: F Source: [place] (TSH) 7:22 AM [facility] [place] TYPE CODE TESTS RESULT OUT OF RANGE REFERENCE UNITS LAB L501.9520 0.358-3.74 uIU/mL Normal TSH 1.53 Performed By: #### L500.2500, L501.9520 #### [facility] [address] [place], [address] ,URINE Collected: 01/14/2018 Status: F Source: [place] 7:10 AM [facility] [place] TYPE CODE TESTS RESULT OUT OF REFERENCE UNITS RANGE LAB L400.8000 Negative Normal HCGUQUAL Negative Result Comment: Very dilute urine specimens, as indicated by a low specific gravity, may not contain unit support representative levels of hCG. If is still suspected, a first morning urine specimen should be collected 48 hours later and tested. Performed By: #### L400.7600 #### [facility] [address] [place], [address] PROGRESS Observed: 01/11/2018 Status: COMPLETED Source: [place] 9:18 AM [facility] REPOSITORY O ID: [id number] Author: Anita Chawla-Iban Service: (none) Author Type: Physician Type: Progress Notes Filed: 01/11/2018 9:19 AM Note Text: (H20.9) Iritis of right eye (primary encounter diagnosis) (Z96.1) Pseudophakia (H52.7) Refractive error tobradex One drop Right eye three times a day for one week then twice a day for one week then once a day f/u three weeks Recurrent po inflammation Right eye I have confirmed and edited as necessary the relevant ophthalmic history, ROS, and the neuro exam findings as obtained by others. I have seen and examined Mahi Banerjee Chaismaeljohnathon. I have discussed the case and the management of this patient's care with the Resident/Fellow, if applicable. I also have reviewed and agree with the assessment and plan as stated above and agree with all of its relevant components. Anita Olguin MD PROGRESS Observed: 01/07/2018 Status: COMPLETED Source: [place] 2:00 PM [facility] REPOSITORY HNO ID: [id number] Author: Anita Lujan Service: (none) Author Type: Physician Type: Progress Notes Filed: 01/07/2018 2:01 PM Note Text: (H20.9) Iritis of right eye (primary encounter diagnosis) (Z96.1) Pseudophakia tobradex One drop Right eye four times a day f/u one week Recurrent po inflammation Right eye I have confirmed and edited as necessary the relevant ophthalmic history, ROS, and the neuro exam findings as obtained by others. I have seen and examined Mahi Stafford. I have discussed the case and the management of this patient's care with the Resident/Fellow, if applicable. I also have reviewed and agree with the assessment and plan as stated above and agree with all of its relevant components. Anita Olguin MD PROGRESS Observed: 01/05/2018 Status: COMPLETED Source: [place] 2:06 PM [facility] REPOSITORY HNO ID: [id number] Author: Lavonne Hensley Service: (none) Author Type: Physician Hand Laminator Type: Progress Notes Filed: 01/05/2018 8:51 PM Note Text: Patient presents for consultation from Dr. Frots for medical preop clearance. My findings and recommendations will be communicated through this medical record. Upcoming surgery for: laparoscopic hysterectomy for invasive ductal carcinoma breat cancer, nuclear grade 2. ER > 95%, strong and ME 12%, weak. HER-2 was quantified at 0. Anesthesia review: Hx of previous anesthesia problems: No history of adverse event Family hx of anesthesia problems: Yes. Airway Assessment: MP 1; Neck ROM: Full ROM without neurologic symptoms; Airway Evaluation: No significant abnormalities Symptoms of Sleep Apnea: BMI > 35, Neck circumference > 15.75 inches and patient diagnosed with LAURA and on bipap Intubation History: No previous history of difficult intubation Dentition: Teeth intact Pertinent history and review: Current signs of infection: No. Chest pain: No. Cardiac history or testing: none Shortness of breath: No. Chronic seasonal bronchitis in fall. Pulmonary testing to date: none Known sleep apnea: Yes. Hx of clotting issues: No. Current bleeding or bruising: No. 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 FAMILY HISTORY Problem Relation Age of Onset - Heart Father - Hypertension Father - Thyroid Father - Diabetes Father - Psychiatry Father - Allergies Father - Arthritis Mother - Thyroid Mother pneumonia 73 - Allergies Mother - Breast Cancer Maternal Grandmother dx early 50's - Diabetes Maternal Grandmother - Coronary Artery Disease Maternal Grandmother - Stroke Maternal Grandmother - Allergies Maternal Grandmother - Cancer Maternal Grandmother Kidney cancer dx 70's - Diabetes Maternal Grandfather - Heart Maternal Grandfather 67 - Hypertension Maternal Grandfather - Coronary Artery Disease Maternal Grandfather - Allergies Maternal Grandfather - Diabetes Paternal Grandfather - Thyroid Paternal Grandfather - Allergies Paternal Grandfather - Diabetes Paternal Grandmother - Heart Paternal Grandmother - Allergies Paternal Grandmother - Stroke Paternal Grandmother - Ovarian cancer Other Mother of maternal grandmother - Cancer Maternal Aunt 71 Bladder or kidney cancer PAST MEDICAL HISTORY Diagnosis Date - Anxiety - Bipolar disorder (HCC) - Breast cancer, stage 1, right (HCC) estrogen receptor positive HER2 negative - Depression - Hyperlipemia Hypertriglyceridemia, Low HDL - Hypertension - Hyperthyroidism 11/17/13 - Hypothyroid - Migraine - Multinodular goiter 11/17/13 - Vitamin D deficiency 09/2013 PAST SURGICAL HISTORY Procedure Laterality Date - BREAST BIOPSY Right 03/14/2017 - BREAST BIOPSY Right 04/09/2017 - BREAST BIOPSY Left 04/09/2017 - CATARACT EXTRACTION W/ INTRAOCULAR LENS IMPLANT HX Left 2013 - LAPAROSCOPIC CHOLEYCYSTECTOMY 07/21 Cholecystectomy, lap - LIGATE FALLOPIAN TUBE ESSURE - MASTECTOMY, RADICAL Right 04/30/2017 Dr Jevon Bundy right total mastectomy with axillary blue dye sentinel lymph node biopsy - PAST SURGICAL HISTORY OF 05/1998 PLATE IN LEFT ANKLE - REMOVAL OF TONSILS,<13 Y/O 1982 Tonsillectomy - THYROIDECTOMY 11/17/13 Dr. 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 Disp: 10 tablet Rfl: 0 ibuprofen (MOTRIN) 600 mg tablet Take 1 tablet by mouth every 6 hours as needed. FOR PAIN. Disp: 30 tablet Rfl: 0 hydroCHLOROthiazide (HYDRODIURIL, ESIDRIX) 25 mg tablet Take 1 tablet by mouth once daily. Disp: 90 tablet Rfl: 1 lisinopril (ZESTRIL, PRINIVIL) 10 mg tablet Take 1 tablet by mouth once daily. Disp: 90 tablet Rfl: 1 calcium citrate/vitamin D3 (CITRACAL + D ORAL) Take 1 tablet by mouth twice daily. Disp: Rfl: tamoxifen (NOLVADEX) 20 mg tablet Take 1 tablet by mouth once daily. Disp: 30 tablet Rfl: 5 levothyroxine (SYNTHROID) 200 mcg tablet Take 1 tablet by mouth five times a week. Disp: 60 tablet Rfl: 3 COMPOUNDED PRESCRIPTION #1 Auto titrating PAP device 6-20 cmH2O with humidification. #1 Formal mask fitting and education with tubing and supplies as necessary. Disp: 1 Each Rfl: 0 potassium chloride (K-MIGUELITO, KLOR-CON) 20 mEq packet TAKE ONE PACKET BY MOUTH EVERY DAY Disp: 90 Packet Rfl: 1 zolpidem (AMBIEN) 5 mg tablet Take 5 mg by mouth at bedtime as needed. Disp: Rfl: buPROPion XL (WELLBUTRIN XL) 300 mg 24 hr tablet Take 300 mg by mouth once daily. Disp: Rfl: Cholecalciferol, Vitamin D3, (VITAMIN D-3) 2,000 unit cap Take 1 capsule by mouth once daily. Disp: Rfl: LORATADINE (CLARITIN ORAL) Take 1 tablet by mouth once daily as needed. Disp: Rfl: simethicone, chewable (MYLICON) 80 mg chewable tablet Take 1 tablet by mouth every 6 hours as needed. Disp: 30 tablet Rfl: 0 lamoTRIgine (LAMICTAL) 150 mg tablet Take 150 mg by mouth once daily. Disp: Rfl: No current facility-administered medications for this visit. ACTIVE PROBLEM LIST Adjustment Disorder With Depressed Mood Anxiety State, Unspecified Hypothyroidism Essential Hypertension, Benign Obesity, Class Iii, Bmi 40-49.9 (Morbid Obesity) (Hcc) Nonspecific abnormal results of liver function study Allergic Rhinitis, Cause Unspecified Other Chronic Nonalcoholic Liver Disease Hyperlipidemia Tobacco Abuse Low Hdl (Under 40) Hypertriglyceridemia Postsurgical Hypothyroidism Incisional Infection Vitamin D Deficiency Elevated Lfts Muscle Spasm Neck Pain Thoracic Back Pain Malignant Neoplasm of Lower-Inner Quadrant of Right Breast of Female, Estrogen Receptor Positive (Hcc) Left Breast Mass Numbness of Arm Plantar Fascial Fibromatosis Posterior Tibial Tendinitis of Left Leg Posterior Subcapsular Polar Senile Cataract DTAP,TDAP,TD(2 - Tdap) due on 07/20/2011 MAMMOGRAM due on 07/16/2017 REVIEW OF SYMPTOMS: General: denies fatigue, unusual weight loss or gain, fevers, chills. Eyes: denies change in vision, glaucoma, cataracts. Wears glasses/contacts. EENT: denies recurrent sinus infection, unusual nasal drainage, hoarsemess, sore throat, or recurrent sore in mouth or tongue. Cardiovascular: denies chest pain , SOB, palpitation, irregular or racing heart beats, orthopnea, leg swelling, history of rheumatic fever or prior heart conditions Respiratory: denies unusual cough, SOB, wheezing, history of recurrent bronchitis, pneumonia or tuberculosis. Denies day time drowsiness. LAURA with CPAP. GI: denies difficulty swallowing, nausea, vomiting, change in appetite. No change in bowel habits. Denies constipation, diarrhea, rectal bleeding or hemorrhoids, incontinence. No history of GERD, PUD, jaundice/hepatitis, GB disease, diverticulosis, colorectal cancer, hernias. Kidney/Bladder: Denies frequency, burning. Nocturia once, incontinence if waits too long. No history of kidney stones, recurrent UTI or kidney infection. Skin: denies unusual rashes. No history of skin cancer, bleeding/changing moles, or unusual skin lesions. 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 Denies recurrent KIRKPATRICK, change in vision, hearing or smell, tremors, unusual weakness, or difficulty with balance or gait. No history of epilepsy/convulsions, migraine, head/spinal injuries, or stroke/TIA. Psychiatric: Chronic depression/ BPD worse since stopped Zoloft due to tamoxifen contraindication. Increase Lamictal not balancing well but has f/u with psych. No thoughts of self injury. Tired of constant to do list with illness and home stresses. Endocrine: denies unusual thirst, hunger, excessive urination, change in skin or hair texture, emotional lability. No history of thryoid, pituitary or hormonal problems. Hematologic: denies unusual bleeding, bruising, or history of anemia or blood transfusion. 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 denies risk factors for HIV, other hepatitis or history of unusual infection. Immunizations are up to date. Musculoskeletal: Multiple aches in joints all over r/t chemo therapy. No joint deformity or swelling. Denies recurrent sprain or disruption of joints, debilitating arthritis, gout, or other musculoskeletal disease. EXAM: BP 116/84 (BP Site: Left Arm, BP Position: Sitting, BP Cuff Size: Large Adult) Pulse 92 Temp 37 ?C (98.6 ?F) (Tympanic) Resp 16 Wt 117.9 kg (260 lb) BMI 45.78 kg/m? Pleasant over weight adult female in no acute distress. Alert and oriented all spheres. Normal affect and cognition. Speech normal. No deficits to learning or comprehension. Respirations: regular, unlabored Color: pink to lips and nailbeds, normal turgor Skin: warm, dry, no unusual rashes or lesions Head: Normocephalic Eyes: sclerae and conjunctivae without injection or exudate, PERRLA, EOMI, corneal light reflex symmetric bilaterally Ears: TM's are clear/ jerez bilaterally with normal landmarks, no swelling or deformity ear canal or external ear Nose/Sinuses: Nose patent. No turbinate swelling. Active exudate: none. Maxillary and frontal sinuses nontender to percussion. Oropharynx: oral membranes are moist. Lips, mucosa, and tongue free from lesions. Gums without inflammation. Posterior pharynx no injection, no exudate, no tonsillar hypertrophy. Mallampati 3/4. Neck: Neck supple, no lymphadenopathy; thyroid without mass or tenderness. Chest: normally shaped, equal expansion with breaths. Lungs: Lungs clear to auscultation and percussion. No crackles or wheezes. Heart: RRR without murmur, gallop, or rubs. S1 and S2 normal. Abdomen: active bowel sounds throughout, soft, nontender, no masses or organomegaly. No CVAT. No bruits. Extrem: no clubbing, cyanosis, edema. Extremities are warm and pink with prompt capillary refill. ASSESSMENT/PLAN: 1. Preoperative clearance - ICD9: V72.84, ICD10: Z01.818 (primary diagnosis) Preoperative clearance is granted with estimated low overall risk with caution noted regarding morbid obesity, active major depression and BPD recently worsened medication changes due to restrictions with chemotherapy, hx LAURA on bipap and chronic stable liver enzyme elevation without liver dysfunction with HBV+ serology. - she will need preop labwork, please let me know if you want me to order. - Cardiac and pulmonary risks are low. Thank you for this consult Dr. Frost. Lavonne Benson PA-C CNOV Observed: 01/05/2018 Status: COMPLETED Source: [place] 12:40 PM [facility] REPOSITORY Office Visit (FAMPWS) MAHI STAFFORD ([id number]) 1970 F Date Time Provider Department 01/05/18 12:40 PM Lavonne HENSLEY) FAMPWS During your visit today, we recorded the following information about you: Temperature Pulse Respiration Blood pressure 98.6 degrees 92/minute 16/minute 116/84 Weight 117.9 kg Keely Plaza Ma 01/05/2018 2:00 PM Signed Pt here today for Pre-Op Clearance for Laparoscopic BSO for Estrogen Receptor + Breast Cancer, BRCA negative. Scheduled with Dr. Cruz for 01/12/18 at [facility]. HTN - While at visit with Surgeon yesterday, noticed her BP was elevated. Denies any chest pain, sob or dizziness. Denies checking BP at home but should be. Taking medications as prescribed. Currently taking Lisinopril 10 mg 1 tab po once daily and HCTZ 25 mg once daily. Pain - Increased joint and head pain with Tamoxifen. Lavonne Hensley PA-C 01/05/2018 8:51 PM Signed Patient presents for consultation from Dr. Frost for medical preop clearance. My findings and recommendations will be communicated through this medical record. Upcoming surgery for: laparoscopic hysterectomy for invasive ductal carcinoma breat cancer, nuclear grade 2. ER > 95%, strong and ME 12%, weak. HER-2 was quantified at 0. Anesthesia review: Hx of previous anesthesia problems: No history of adverse event Family hx of anesthesia problems: Yes. Airway Assessment: MP 1; Neck ROM: Full ROM without neurologic symptoms; Airway Evaluation: No significant abnormalities Symptoms of Sleep Apnea: BMI > 35, Neck circumference > 15.75 inches and patient diagnosed with LAURA and on bipap Intubation History: No previous history of difficult intubation Dentition: Teeth intact Pertinent history and review: Current signs of infection: No. Chest pain: No. Cardiac history or testing: none Shortness of breath: No. Chronic seasonal bronchitis in fall. Pulmonary testing to date: none Known sleep apnea: Yes. Hx of clotting issues: No. Current bleeding or bruising: No. 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 FAMILY HISTORY Problem Relation Age of Onset - Heart Father - Hypertension Father - Thyroid Father - Diabetes Father - Psychiatry Father - Allergies Father - Arthritis Mother - Thyroid Mother pneumonia 73 - Allergies Mother - Breast Cancer Maternal Grandmother dx early 50's - Diabetes Maternal Grandmother - Coronary Artery Disease Maternal Grandmother - Stroke Maternal Grandmother - Allergies Maternal Grandmother - Cancer Maternal Grandmother Kidney cancer dx 70's - Diabetes Maternal Grandfather - Heart Maternal Grandfather 67 - Hypertension Maternal Grandfather - Coronary Artery Disease Maternal Grandfather - Allergies Maternal Grandfather - Diabetes Paternal Grandfather - Thyroid Paternal Grandfather - Allergies Paternal Grandfather - Diabetes Paternal Grandmother - Heart Paternal Grandmother - Allergies Paternal Grandmother - Stroke Paternal Grandmother - Ovarian cancer Other Mother of maternal grandmother - Cancer Maternal Aunt 71 Bladder or kidney cancer PAST MEDICAL HISTORY Diagnosis Date - Anxiety - Bipolar disorder (HCC) - Breast cancer, stage 1, right (HCC) estrogen receptor positive HER2 negative - Depression - Hyperlipemia Hypertriglyceridemia, Low HDL - Hypertension - Hyperthyroidism 11/17/13 - Hypothyroid - Migraine - Multinodular goiter 11/17/13 - Vitamin D deficiency 09/2013 PAST SURGICAL HISTORY Procedure Laterality Date - BREAST BIOPSY Right 03/14/2017 - BREAST BIOPSY Right 04/09/2017 - BREAST BIOPSY Left 04/09/2017 - CATARACT EXTRACTION W/ INTRAOCULAR LENS IMPLANT HX Left 2013 - LAPAROSCOPIC CHOLEYCYSTECTOMY 07/21 Cholecystectomy, lap - LIGATE FALLOPIAN TUBE ESSURE - MASTECTOMY, RADICAL Right 04/30/2017 Dr Jevon Bundy right total mastectomy with axillary blue dye sentinel lymph node biopsy - PAST SURGICAL HISTORY OF 05/1998 PLATE IN LEFT ANKLE - REMOVAL OF TONSILS,<13 Y/O 1982 Tonsillectomy - THYROIDECTOMY 11/17/13 Dr. 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 Disp: 10 tablet Rfl: 0 ibuprofen (MOTRIN) 600 mg tablet Take 1 tablet by mouth every 6 hours as needed. FOR PAIN. Disp: 30 tablet Rfl: 0 hydroCHLOROthiazide (HYDRODIURIL, ESIDRIX) 25 mg tablet Take 1 tablet by mouth once daily. Disp: 90 tablet Rfl: 1 lisinopril (ZESTRIL, PRINIVIL) 10 mg tablet Take 1 tablet by mouth once daily. Disp: 90 tablet Rfl: 1 calcium citrate/vitamin D3 (CITRACAL + D ORAL) Take 1 tablet by mouth twice daily. Disp: Rfl: tamoxifen (NOLVADEX) 20 mg tablet Take 1 tablet by mouth once daily. Disp: 30 tablet Rfl: 5 levothyroxine (SYNTHROID) 200 mcg tablet Take 1 tablet by mouth five times a week. Disp: 60 tablet Rfl: 3 COMPOUNDED PRESCRIPTION #1 Auto titrating PAP device 6-20 cmH2O with humidification. #1 Formal mask fitting and education with tubing and supplies as necessary. Disp: 1 Each Rfl: 0 potassium chloride (K-MIGUELITO, KLOR-CON) 20 mEq packet TAKE ONE PACKET BY MOUTH EVERY DAY Disp: 90 Packet Rfl: 1 zolpidem (AMBIEN) 5 mg tablet Take 5 mg by mouth at bedtime as needed. Disp: Rfl: buPROPion XL (WELLBUTRIN XL) 300 mg 24 hr tablet Take 300 mg by mouth once daily. Disp: Rfl: Cholecalciferol, Vitamin D3, (VITAMIN D-3) 2,000 unit cap Take 1 capsule by mouth once daily. Disp: Rfl: LORATADINE (CLARITIN ORAL) Take 1 tablet by mouth once daily as needed. Disp: Rfl: simethicone, chewable (MYLICON) 80 mg chewable tablet Take 1 tablet by mouth every 6 hours as needed. Disp: 30 tablet Rfl: 0 lamoTRIgine (LAMICTAL) 150 mg tablet Take 150 mg by mouth once daily. Disp: Rfl: No current facility-administered medications for this visit. ACTIVE PROBLEM LIST Adjustment Disorder With Depressed Mood Anxiety State, Unspecified Hypothyroidism Essential Hypertension, Benign Obesity, Class Iii, Bmi 40-49.9 (Morbid Obesity) (Hcc) Nonspecific abnormal results of liver function study Allergic Rhinitis, Cause Unspecified Other Chronic Nonalcoholic Liver Disease Hyperlipidemia Tobacco Abuse Low Hdl (Under 40) Hypertriglyceridemia Postsurgical Hypothyroidism Incisional Infection Vitamin D Deficiency Elevated Lfts Muscle Spasm Neck Pain Thoracic Back Pain Malignant Neoplasm of Lower-Inner Quadrant of Right Breast of Female, Estrogen Receptor Positive (Hcc) Left Breast Mass Numbness of Arm Plantar Fascial Fibromatosis Posterior Tibial Tendinitis of Left Leg Posterior Subcapsular Polar Senile Cataract DTAP,TDAP,TD(2 - Tdap) due on 07/20/2011 MAMMOGRAM due on 07/16/2017 REVIEW OF SYMPTOMS: General: denies fatigue, unusual weight loss or gain, fevers, chills. Eyes: denies change in vision, glaucoma, cataracts. Wears glasses/contacts. EENT: denies recurrent sinus infection, unusual nasal drainage, hoarsemess, sore throat, or recurrent sore in mouth or tongue. Cardiovascular: denies chest pain , SOB, palpitation, irregular or racing heart beats, orthopnea, leg swelling, history of rheumatic fever or prior heart conditions Respiratory: denies unusual cough, SOB, wheezing, history of recurrent bronchitis, pneumonia or tuberculosis. Denies day time drowsiness. LAURA with CPAP. GI: denies difficulty swallowing, nausea, vomiting, change in appetite. No change in bowel habits. Denies constipation, diarrhea, rectal bleeding or hemorrhoids, incontinence. No history of GERD, PUD, jaundice/hepatitis, GB disease, diverticulosis, colorectal cancer, hernias. Kidney/Bladder: Denies frequency, burning. Nocturia once, incontinence if waits too long. No history of kidney stones, recurrent UTI or kidney infection. Skin: denies unusual rashes. No history of skin cancer, bleeding/changing moles, or unusual skin lesions. 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 Denies recurrent KIRKPATRICK, change in vision, hearing or smell, tremors, unusual weakness, or difficulty with balance or gait. No history of epilepsy/convulsions, migraine, head/spinal injuries, or stroke/TIA. Psychiatric: Chronic depression/ BPD worse since stopped Zoloft due to tamoxifen contraindication. Increase Lamictal not balancing well but has f/u with psych. No thoughts of self injury. Tired of constant to do list with illness and home stresses. Endocrine: denies unusual thirst, hunger, excessive urination, change in skin or hair texture, emotional lability. No history of thryoid, pituitary or hormonal problems. Hematologic: denies unusual bleeding, bruising, or history of anemia or blood transfusion. 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 denies risk factors for HIV, other hepatitis or history of unusual infection. Immunizations are up to date. Musculoskeletal: Multiple aches in joints all over r/t chemo therapy. No joint deformity or swelling. Denies recurrent sprain or disruption of joints, debilitating arthritis, gout, or other musculoskeletal disease. EXAM: BP 116/84 (BP Site: Left Arm, BP Position: Sitting, BP Cuff Size: Large Adult) Pulse 92 Temp 37 ?C (98.6 ?F) (Tympanic) Resp 16 Wt 117.9 kg (260 lb) BMI 45.78 kg/m? Pleasant over weight adult female in no acute distress. Alert and oriented all spheres. Normal affect and cognition. Speech normal. No deficits to learning or comprehension. Respirations: regular, unlabored Color: pink to lips and nailbeds, normal turgor Skin: warm, dry, no unusual rashes or lesions Head: Normocephalic Eyes: sclerae and conjunctivae without injection or exudate, PERRLA, EOMI, corneal light reflex symmetric bilaterally Ears: TM's are clear/ jerez bilaterally with normal landmarks, no swelling or deformity ear canal or external ear Nose/Sinuses: Nose patent. No turbinate swelling. Active exudate: none. Maxillary and frontal sinuses nontender to percussion. Oropharynx: oral membranes are moist. Lips, mucosa, and tongue free from lesions. Gums without inflammation. Posterior pharynx no injection, no exudate, no tonsillar hypertrophy. Mallampati 3/4. Neck: Neck supple, no lymphadenopathy; thyroid without mass or tenderness. Chest: normally shaped, equal expansion with breaths. Lungs: Lungs clear to auscultation and percussion. No crackles or wheezes. Heart: RRR without murmur, gallop, or rubs. S1 and S2 normal. Abdomen: active bowel sounds throughout, soft, nontender, no masses or organomegaly. No CVAT. No bruits. Extrem: no clubbing, cyanosis, edema. Extremities are warm and pink with prompt capillary refill. ASSESSMENT/PLAN: 1. Preoperative clearance - ICD9: V72.84, ICD10: Z01.818 (primary diagnosis) Preoperative clearance is granted with estimated low overall risk with caution noted regarding morbid obesity, active major depression and BPD recently worsened medication changes due to restrictions with chemotherapy, hx LAURA on bipap and chronic stable liver enzyme elevation without liver dysfunction with HBV+ serology. - she will need preop labwork, please let me know if you want me to order. - Cardiac and pulmonary risks are low. Thank you for this consult Dr. Frost. Best regards, M Gary Hensley PA-C Referring Provider: SELF [[id number]] Allergies As of Date: 01/05/2018 Noted Allergy Reaction AMITRIPTYLINE 11/18/2016 14 - Other: See Comments Comments: Intensely angry ANASTROZOLE 11/04/2017 5 - Intolerance Comments: Nausea, irritability, inability to sleep CATS 01/05/2006 DOGS 01/05/2006 GRASS POLLEN 01/05/2006 LEVAQUIN (LEVOFLOXACIN) 07/15/2017 4 - Hives 7 - Swelling MOLD 01/05/2006 Date Reviewed: 01/05/2018 Reviewed by: Keely Plaza Ma - Fully Assessed Reason for Visit: Pre-Op Exam [87] Hypertension [168] Cmt: BP check Reason For Visit History Recorded Primary Visit Diagnosis:Preoperative clearance [Z01.818] Other Visit Diagnosis:Nonspecific abnormal results of liver function study [R94.5] Prescriptions as of 01/05/2018 Sig: HYDROCODONE 5 MG-ACETAMINOPHE* Take 1-2 tablets by mouth gavino* IBUPROFEN 600 MG TABLET Take 1 tablet by mouth every * HYDROCHLOROTHIAZIDE 25 MG TAB* Take 1 tablet by mouth once d* LISINOPRIL 10 MG TABLET Take 1 tablet by mouth once d* CITRACAL + D ORAL Take 1 tablet by mouth twice * TAMOXIFEN 20 MG TABLET Take 1 tablet by mouth once d* LEVOTHYROXINE 200 MCG TABLET Take 1 tablet by mouth five t* COMPOUNDED PRESCRIPTION #1 Auto titrating PAP device * POTASSIUM CHLORIDE 20 MEQ ORA* TAKE ONE PACKET BY MOUTH EVER* ZOLPIDEM 5 MG TABLET Take 5 mg by mouth at bedtime* BUPROPION XL 300 MG 24 HR TAB Take 300 mg by mouth once subha* CHOLECALCIFEROL (VITAMIN D3) * Take 1 capsule by mouth once * CLARITIN ORAL Take 1 tablet by mouth once d* SIMETHICONE 80 MG CHEWABLE TA* Take 1 tablet by mouth every * LAMOTRIGINE 150 MG TABLET Take 150 mg by mouth once subha* Problem List As Of Date 01/05/2018 Noted Resolved ADJUSTMENT DISORDER WITH DEPRESSED MOOD [F43.21]INVALID FOR* ANXIETY STATE NOS [F41.1] INVALID FOR* BENIGN HYPERTENSION [I10] INVALID FOR* Obesity, Class III, BMI 40-49.9 (morbid obesity*INVALID FOR* Nonspecific abnormal results of liver function *INVALID FOR* More... ALLERGIC RHINITIS NOS [J30.9] INVALID FOR* CHRONIC LIVER DIS NEC [K76.89] INVALID FOR* Hyperlipidemia [E78.5] INVALID FOR* Tobacco abuse [Z72.0] INVALID FOR* Low HDL (under 40) [E78.6] INVALID FOR* Hypertriglyceridemia [E78.1] INVALID FOR* Postsurgical hypothyroidism [E89.0] INVALID FOR* Incisional infection [T81.4XXA] INVALID FOR* Vitamin D deficiency [E55.9] INVALID FOR* Elevated LFTs [R79.89] INVALID FOR* Muscle spasm [M62.838] INVALID FOR* Neck pain [M54.2] INVALID FOR* Thoracic back pain [M54.6] INVALID FOR* Malignant neoplasm of lower-inner quadrant of r*INVALID FOR* Left breast mass [N63.20] INVALID FOR* More... Numbness of arm [R20.0] INVALID FOR* More... 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 Visit Notes: >> Keely Almaguer Jan 05, 2018 1:54 PM Status: Signed Pt here today for Pre-Op Clearance for Laparoscopic BSO for Estrogen Receptor + Breast Cancer, BRCA negative. Scheduled with Dr. Cruz for 01/12/18 at [facility]. HTN - While at visit with Surgeon yesterday, noticed her BP was elevated. Denies any chest pain, sob or dizziness. Denies checking BP at home but should be. Taking medications as prescribed. Currently taking Lisinopril 10 mg 1 tab po once daily and HCTZ 25 mg once daily. Pain - Increased joint and head pain with Tamoxifen. Follow-up and Disposition History Recorded Encounter Status:Closed by Lavonne HENSLEY PA-C on 01/05/18 DIAG MAMM W/CAD, Observed: 01/04/2018 Status: F Source: [facility] 1:20 PM [facility] [place] [facility] Imaging Services [address] [place] [id number] DIAG MAMM W/CAD, UNILAT MR#: [id number] Acct: [id number] Name: MAHI STAFFORD Lavonne Rep #: [id number] : 1970 F 47 From: Andrew Taylor MD PCP: Lavonne Hensley Status: REG CLI Study: DIAG MAMM W/CAD, UNILAT Date of Exam: 01/04/18 Exam# [id number] Ordering Dr: Gautam Carrasco MD MAMMOGRAPHY - UNILATERAL DIAGNOSTIC: LEFT BREAST REASON FOR EXAM: Female, 47 years old. Status post right mastectomy. Surgical planning for left mastectomy. PERTINENT HISTORY: Personal history of breast cancer. Grandmother with breast cancer. TECHNIQUE: Digital unilateral breast miguel ángel (3D mammographic acquisition) in the CC and MLO projections. 2-D mediolateral oblique (MLO) and craniocaudad (CC) views of both breasts were obtained. CAD: Full Field Digital Mammography with Computer Added Detection was performed. COMPARISON: Comparison is made with prior mammogram dated March 25, 2017. FINDINGS: Breast Composition: There are scattered areas of fibroglandular density. There are no dominant masses or suspicious calcifications. Stable small left axillary lymph nodes. A tissue clip marker is seen in the anterior superior region of the breasts. No other significant abnormalities are identified. BI/DIAG MAMM W/CAD, UNILAT IMPRESSION: Stable unilateral diagnostic mammogram. One year follow-up mammogram recommended. (A) ASSESSMENT CATEGORY: BIRADS Category 2: Benign. A letter regarding these results will be sent to the patient by the facility within 30 days. Approximately 10% of breast cancers are not detected by mammography. A normal mammogram should not delay biopsy of a clinically suspicious abnormality. Electronically Signed: Andrew Taylor MD at 11:01 EDT Tel [phone], Service support , CC: Lavonne Hensley; Gautam Carrasco MD Cvicu Nurse: Signed HISTORY PHYSICAL Observed: 01/04/2018 Status: COMPLETED Source: [place] 11:50 AM [facility] REPOSITORY HNO ID: [id number] Author: Flory Cruz Service: (none) Author Type: Physician Type: HANDP Filed: 01/04/2018 11:53 AM Note Text: Mahi Stafford is a 47 year old female who presents for pre op visit for scheduled laparoscopic BSO for Estrogen receptor + Breast Cancer, BRCA negative. Pt offers no concerns today. Pt denies CP, SOB, dizziness. PAST MEDICAL HISTORY Diagnosis Date - Anxiety - Bipolar disorder (HCC) - Breast cancer, stage 1, right (HCC) estrogen receptor positive HER2 negative - Depression - Hyperlipemia Hypertriglyceridemia, Low HDL - Hypertension - Hyperthyroidism 11/17/13 - Hypothyroid - Migraine - Multinodular goiter 11/17/13 - Vitamin D deficiency 09/2013 PAST SURGICAL HISTORY Procedure Laterality Date - BREAST BIOPSY Right 03/14/2017 - BREAST BIOPSY Right 04/09/2017 - BREAST BIOPSY Left 04/09/2017 - CATARACT EXTRACTION W/ INTRAOCULAR LENS IMPLANT HX Left 2013 - LAPAROSCOPIC CHOLEYCYSTECTOMY 07/21 Cholecystectomy, lap - LIGATE FALLOPIAN TUBE ESSURE - MASTECTOMY, RADICAL Right 04/30/2017 Dr Jevon Bundy right total mastectomy with axillary blue dye sentinel lymph node biopsy - PAST SURGICAL HISTORY OF 05/1998 PLATE IN LEFT ANKLE - REMOVAL OF TONSILS,<13 Y/O 1982 Tonsillectomy - THYROIDECTOMY 11/17/13 Dr. Hart FAMILY HISTORY Problem Relation Age of Onset - Heart Father - Hypertension Father - Thyroid Father - Diabetes Father - Psychiatry Father - Allergies Father - Arthritis Mother - Thyroid Mother pneumonia 73 - Allergies Mother - Breast Cancer Maternal Grandmother dx early 50's - Diabetes Maternal Grandmother - Coronary Artery Disease Maternal Grandmother - Stroke Maternal Grandmother - Allergies Maternal Grandmother - Cancer Maternal Grandmother Kidney cancer dx 70's - Diabetes Maternal Grandfather - Heart Maternal Grandfather 67 - Hypertension Maternal Grandfather - Coronary Artery Disease Maternal Grandfather - Allergies Maternal Grandfather - Diabetes Paternal Grandfather - Thyroid Paternal Grandfather - Allergies Paternal Grandfather - Diabetes Paternal Grandmother - Heart Paternal Grandmother - Allergies Paternal Grandmother - Stroke Paternal Grandmother - Ovarian cancer Other Mother of maternal grandmother - Cancer Maternal Aunt 71 Bladder or kidney cancer Social History Marital status: Spouse name: Harry Years of education: 18 Number of children: 4 Occupational History 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 lisinopril (ZESTRIL, PRINIVIL) 10 mg tablet Take 1 tablet by mouth once daily. calcium citrate/vitamin D3 (CITRACAL + D ORAL) Take 1 tablet by mouth twice daily. tamoxifen (NOLVADEX) 20 mg tablet Take 1 tablet by mouth once daily. levothyroxine (SYNTHROID) 200 mcg tablet Take 1 tablet by mouth five times a week. COMPOUNDED PRESCRIPTION #1 Auto titrating PAP device 6-20 cmH2O with humidification. #1 Formal mask fitting and education with tubing and supplies as necessary. potassium chloride (K-MIGUELITO, KLOR-CON) 20 mEq packet TAKE ONE PACKET BY MOUTH EVERY DAY lamoTRIgine (LAMICTAL) 150 mg tablet Take 150 mg by mouth once daily. zolpidem (AMBIEN) 5 mg tablet Take 5 mg by mouth at bedtime as needed. buPROPion XL (WELLBUTRIN XL) 300 mg 24 hr tablet Take 300 mg by mouth once daily. Cholecalciferol, Vitamin D3, (VITAMIN D-3) 2,000 unit cap Take 1 capsule by mouth once daily. LORATADINE (CLARITIN ORAL) Take 1 tablet by mouth once daily as needed. HYDROcodone-acetaminophen (NORCO) 5-325 mg per tablet Take 1-2 tablets by mouth every 8 hours as needed for Pain for up to 5 days. simethicone, chewable (MYLICON) 80 mg chewable tablet Take 1 tablet by mouth every 6 hours as needed. ibuprofen (MOTRIN) 600 mg tablet Take 1 tablet by mouth every 6 hours as needed. FOR PAIN. No current facility-administered medications for this visit. Allergies As of Date: 01/04/2018 Allergen Noted Reaction AMITRIPTYLINE 11/18/2016 Other: See Comments ANASTROZOLE 11/04/2017 Intolerance CATS 01/05/2006 DOGS 01/05/2006 GRASS POLLEN 01/05/2006 LEVAQUIN [LEVOFLOXACIN] 07/15/2017 Hives and Swelling MOLD 01/05/2006 Fully Assessed 01/04/2018 REVIEW OF SYSTEMS Abdomen: No abdominal pain, nausea, vomiting, diarrhea, or constipation. Bladder: no dysuria .. Expanded ROS: N/A Allergies and current medication updated:Yes EXAM: BP 153/100 Pulse 100 Resp 18 Ht 5' 3.189 (1.61m) Wt 261 lb (118.4kg) BMI 45.96 kg/(m2). GENERAL: pleasant, female in no apparent distress HEENT: Normocephalic and mucus membranes moist NECK: Supple, full range of motion, no adenopathy and thyroid normal DERMATOLOGY: Normal, without lesions, non-icteric and non-hirsute CARDIAC: regular rate and rhythm CHEST: Normal inspiratory effort NEURO: alert and oriented x3,exam grossly non-focal EXTREMITIES: normal ASSESSMENT AND PLAN: Encounter Diagnosis ICD-10-CM 1. Post-op pain G89.18 HYDROcodone-acetaminophen (NORCO) 5- 325 mg per tablet 2. Pt has been counseled on risks/benefits and alternatives of surgery including but not limited to anesthesia, bleeding, infection, injury to pelvic structures including bowel, bladder, ureters and vessels. Pt wishes to proceed with surgery at this time. 3. Ovarian remnant syndrome risk reviewed 4. Post op meds given 5. BP elevated today- has another appt will recheck at ONCOLOGY Flory Huang MD PROGRESS Observed: 01/04/2018 Status: COMPLETED Source: [place] 11:48 AM [facility] REPOSITORY HNO ID: [id number] Author: Doreen Ramirez Service: (none) Author Type: Nurse Practitioner Type: Progress Notes Filed: 01/05/2018 1:05 PM Note Text: Chief Complaint Patient presents with: Established Patient HPI: Mahi Stafford is a 47 year old female who presents here today for follow up breast cancer/SCP. Per Dr. Velez's previous note: H/o hyperlipidemia and hypertension who underwent bilateral mammogram in June 2016. She had a diagnostic mammogram of the right breast with there was a questionable 5 mm area of irregular asymmetry with indistinct margin in the depth inferior region of the right breast only seen on mediolateral oblique views. An ultrasound confirmed this area. Follow-up study was recommended in 6 months. That study was done on along with an ultrasound that demonstrated an irregular lesion in the right breast 3:00 position anterior depth with mixed echogenicity. An ultrasound-guided biopsy was recommended. ? This biopsy was performed 03/14/2017. The core sample demonstrated invasive ductal carcinoma, nuclear grade 2. Estrogen receptors were greater than 95%, strong and progesterone receptors were 12%, weak. HER- 2 was quantified at 0. ? The patient subsequent underwent an MRI. There was an additional area of concern identified in the right inner breast close to the original biopsied area. An MRI guided biopsy was performed that showed DCIS with intermediate and high nuclear grade with solid and cribriform types associated with microcalcifications. A clip was placed. Biopsy was also performed of a left breast abnormality and this tissue demonstrated fibroadenoma. ? The patient still had regular menses. Her maternal grandmother evidently had breast cancer diagnosed in her 30s and underwent surgery. She later in her 60s from metastatic renal cell carcinoma. There is no other family history of breast cancer, ovarian cancer or uterine cancer. Her grandmother also had thyroid cancer. ? Interim history: Underwent right-sided mastectomy and sentinel lymph node biopsy procedure on 04/30/2017. ? FROZEN SECTION DIAGNOSIS A. Kirby lymph node, biopsy: Fragments of fibrofatty tissue. No lymph node tissue is identified. ? SJ: 04/30/17 ? B. Additional right axillary sentinel lymph nodes, biopsy: Two out of two lymph nodes negative for carcinoma. ? AM: 04/30/17 ? MICROSCOPIC DIAGNOSIS A. Kirby lymph node, biopsy: Fragments of fibrofatty tissue. No lymph node tissue is identified. B. Additional right axillary sentinel lymph nodes, biopsy: Two out of two lymph nodes, negative for metastatic carcinoma. See comment. C. Right breast, modified radical mastectomy: Invasive ductal carcinoma. Ductal carcinoma in situ. Angiolipoma. Five out of five lymph nodes, negative for metastatic carcinoma. See cancer summary below. ? INVASIVE BREAST CANCER SUMMARY: (Including specimen B AND C) Specimen ? total breast (including nipple and skin). Procedure ? total mastectomy (including nipple and skin). Lymph node sampling ? sentinel lymph node and axillary dissection. Specimen integrity ? single intact specimen. Specimen laterality - right Tumor site ? lower central portion of the breast tissue. Tumor size ? 1.2 x 0.7 x 0.5 cm (see comment) Tumor focality ? single focus of invasive carcinoma. Macroscopic and Microscopic extent of tumor: Skin ? invasive carcinoma does not invade into the dermis or epidermis. Nipple ? ductal carcinoma in situ does not involve the nipple epidermis. Skeletal muscle ? no skeletal muscle present Ductal carcinoma in situ (DCIS) ? ductal carcinoma in situ is present. Extensive intraductal component (EIC) ? positive Ductal carcinoma in situ show extensive cancerization of lobules. Estimated size (extent) of DCIS ? ductal carcinoma in situ comprise about 40% of the total tumor volume and it is present adjacent and away from the invasive tumor.. Number of blocks with DCIS - 5 Number of blocks examined ? 10 (consisting of breast tissue) Architectural patterns ? solid and cribriform Nuclear grade ? grade 2-3 (intermediate to high) Necrosis ? present, focal (small foci of single cell necrosis) Lobular carcinoma in situ (LCIS) ? not present Histologic type of invasive carcinoma ? invasive ductal carcinoma (no special type) Histologic Grade: Vita grade: Glandular/tubular differentiation - score 3 Nuclear pleomorphism - score 3 Mitotic count ? score 1 Overall grade - 2 (score of 7) Margins: Margins uninvolved by invasive carcinoma. The tumor is 4 cm away from the closest posterior margin. Treatment effect: Response to presurgical (neoadjuvant) therapy - no known presurgical therapy. Lymph-Vascular invasion ? not identified Dermal lymph-vascular invasion ? not identified Lymph nodes: Number of sentinel lymph nodes examined - 2 Total number of lymph nodes examined (sentinel and nonsentinel) - 7 Number of lymph nodes with macrometastases, micrometastases and isolated tumor cells - 0 Method of evaluation of sentinel lymph nodes - H AND E, multiple levels and IHC. Distance metastasis ? not applicable Additional pathologic findings ? fibrocystic changes and intraductal hyperplasia without atypia. - Angiolipoma. Ancillary studies - previously performed on section of tumor ([id number] / [id number]). ER ? positive (>95%, strong) ME ? positive (12%, weak) Her2 diana ? negative (0) Her2 by dual THERESA ? not performed Microcalcifications ? present in DCIS. Clinical history - Please make reference to previous specimen ([id number]) right breast, core biopsy with diagnosis of invasive ductal carcinoma. ? Previous therapy: 1) TC x3 cycles. Stopped due to significant side effects. 2) Anastrozole. Discontinued secondary to exacerbation of bipolar symptoms. ? Current therapy: 1) Lupron. Began 09/21/2017. 2) Tamoxifen November 17, 2017. Scheduled to have her ovaries removed on January 14. Plans to have L mastectomy in January-Dr. Carrasco. Appetite:good Energy level:good Denies fevers or recent illness. Resp:denies cough or sob Cardiac:denies chest pain, 1 episode of palpitations-short lived-no other symptoms-none since. GI:denies abd pain, n/v, moving bowels regularly :denies dysuria/hematuria Extrem:I do get achy I noticed since starting tamoxifen-the aches get worse since the days go on. Endo:+hot flashes 5-6/day-worse with tamoxifen, occur mostly at night Neuro:denies symptoms of neuropathy Skin:denies rashes/lesions. Heme:denies bleeding The ROS is otherwise negative. Past medical history, appointments, medications, allergies reviewed. No changes. EXAM: BP 116/79 Pulse 96 Temp 37 ?C (98.6 ?F) (Oral) Wt 118.8 kg (262 lb) BMI 46.13 kg/m? APPEARANCE Well appearing, alert, in no acute distress, well-hydrated, well nourished. HEART RRR with normal S1 and S2, no murmurs LUNG clear to auscultation BREAST FEMALE R mastectomy scar, no nodule L no mass/nodule LYMPH NODES No cervical lymphadenopathy, No supraclavicular lymphadenopathy and No axillary lymphadenopathy. ABDOMEN bowel sounds normoactive, no bruits, soft, non-tender, non-distended, without organomegaly or palpable masses EXTREMITIES No edema NEURO Awake, alert and oriented x 3, Normal gait and No involuntary motions. SKIN Skin color, texture, turgor normal, no suspicious rashes or lesions ASSESSMENT/PLAN: 1. Malignant neoplasm of lower-inner quadrant of right breast of female, estrogen receptor positive (HCC) - ICD9: 174.3, V86.0, ICD10: C50.311, Z17.0 pT1c (1.2 cm; grade 2; no ALI) pN0 MX ER/ME positive, HER2 negative invasive ductal carcinoma the right breast. Genetic testing negative. Oncotype recurrent score was 26 suggesting 17% average recurrence risk over the next 10 years with the use of tamoxifen alone. Significant side effects with each cycle of TC. She has opted to stop chemotherapy. Intolerant to anastrozole. - No concerning findings on exam. - Continue tamoxifen-tolerating well overall. - Cancel future Lupron/Zometa appts. - Reviewed SCP with pt. Copies given. - Follow up early March. - Pt. aware to call office with any questions/concerns. The patient indicates understanding of these issues and agrees with the plan. Doreen Ramirez APRN.CNP CNOVSP Observed: 01/04/2018 Status: COMPLETED Source: [place] 11:30 AM [facility] REPOSITORY Visit (SP) Office ([place]) MAHI STAFFORD ([id number]) 1970 F Date Time Provider Department 01/04/18 11:30 AM DOREEN RAMIREZ (DAVID) RUBIO During your visit today, we recorded the following information about you: Temperature Pulse Blood pressure Weight 98.6 degrees 96/minute 116/79 118.8 kg Doreen Ramirez APRN.CNP 01/05/2018 1:05 PM Signed Chief Complaint Patient presents with: Established Patient HPI: Mahi Stafford is a 47 year old female who presents here today for follow up breast cancer/SCP. Per Dr. Velez's previous note: H/o hyperlipidemia and hypertension who underwent bilateral mammogram in June 2016. She had a diagnostic mammogram of the right breast with there was a questionable 5 mm area of irregular asymmetry with indistinct margin in the depth inferior region of the right breast only seen on mediolateral oblique views. An ultrasound confirmed this area. Follow-up study was recommended in 6 months. That study was done on along with an ultrasound that demonstrated an irregular lesion in the right breast 3:00 position anterior depth with mixed echogenicity. An ultrasound-guided biopsy was recommended. ? This biopsy was performed 03/14/2017. The core sample demonstrated invasive ductal carcinoma, nuclear grade 2. Estrogen receptors were greater than 95%, strong and progesterone receptors were 12%, weak. HER-2 was quantified at 0. ? The patient subsequent underwent an MRI. There was an additional area of concern identified in the right inner breast close to the original biopsied area. An MRI guided biopsy was performed that showed DCIS with intermediate and high nuclear grade with solid and cribriform types associated with microcalcifications. A clip was placed. Biopsy was also performed of a left breast abnormality and this tissue demonstrated fibroadenoma. ? The patient still had regular menses. Her maternal grandmother evidently had breast cancer diagnosed in her 30s and underwent surgery. She later in her 60s from metastatic renal cell carcinoma. There is no other family history of breast cancer, ovarian cancer or uterine cancer. Her grandmother also had thyroid cancer. ? Interim history: Underwent right-sided mastectomy and sentinel lymph node biopsy procedure on 04/30/2017. ? FROZEN SECTION DIAGNOSIS A. Kirby lymph node, biopsy: Fragments of fibrofatty tissue. No lymph node tissue is identified. ? SJ: 04/30/17 ? B. Additional right axillary sentinel lymph nodes, biopsy: Two out of two lymph nodes negative for carcinoma. ? AM: 04/30/17 ? MICROSCOPIC DIAGNOSIS A. Kirby lymph node, biopsy: Fragments of fibrofatty tissue. No lymph node tissue is identified. B. Additional right axillary sentinel lymph nodes, biopsy: Two out of two lymph nodes, negative for metastatic carcinoma. See comment. C. Right breast, modified radical mastectomy: Invasive ductal carcinoma. Ductal carcinoma in situ. Angiolipoma. Five out of five lymph nodes, negative for metastatic carcinoma. See cancer summary below. ? INVASIVE BREAST CANCER SUMMARY: (Including specimen B AND C) Specimen ? total breast (including nipple and skin). Procedure ? total mastectomy (including nipple and skin). Lymph node sampling ? sentinel lymph node and axillary dissection. Specimen integrity ? single intact specimen. Specimen laterality - right Tumor site ? lower central portion of the breast tissue. Tumor size ? 1.2 x 0.7 x 0.5 cm (see comment) Tumor focality ? single focus of invasive carcinoma. Macroscopic and Microscopic extent of tumor: Skin ? invasive carcinoma does not invade into the dermis or epidermis. Nipple ? ductal carcinoma in situ does not involve the nipple epidermis. Skeletal muscle ? no skeletal muscle present Ductal carcinoma in situ (DCIS) ? ductal carcinoma in situ is present. Extensive intraductal component (EIC) ? positive Ductal carcinoma in situ show extensive cancerization of lobules. Estimated size (extent) of DCIS ? ductal carcinoma in situ comprise about 40% of the total tumor volume and it is present adjacent and away from the invasive tumor.. Number of blocks with DCIS - 5 Number of blocks examined ? 10 (consisting of breast tissue) Architectural patterns ? solid and cribriform Nuclear grade ? grade 2-3 (intermediate to high) Necrosis ? present, focal (small foci of single cell necrosis) Lobular carcinoma in situ (LCIS) ? not present Histologic type of invasive carcinoma ? invasive ductal carcinoma (no special type) Histologic Grade: Vita grade: Glandular/tubular differentiation - score 3 Nuclear pleomorphism - score 3 Mitotic count ? score 1 Overall grade - 2 (score of 7) Margins: Margins uninvolved by invasive carcinoma. The tumor is 4 cm away from the closest posterior margin. Treatment effect: Response to presurgical (neoadjuvant) therapy - no known presurgical therapy. Lymph-Vascular invasion ? not identified Dermal lymph-vascular invasion ? not identified Lymph nodes: Number of sentinel lymph nodes examined - 2 Total number of lymph nodes examined (sentinel and nonsentinel) - 7 Number of lymph nodes with macrometastases, micrometastases and isolated tumor cells - 0 Method of evaluation of sentinel lymph nodes - H AND E, multiple levels and IHC. Distance metastasis ? not applicable Additional pathologic findings ? fibrocystic changes and intraductal hyperplasia without atypia. - Angiolipoma. Ancillary studies - previously performed on section of tumor ([id number] / [id number]). ER ? positive (>95%, strong) ME ? positive (12%, weak) Her2 diana ? negative (0) Her2 by dual THERESA ? not performed Microcalcifications ? present in DCIS. Clinical history - Please make reference to previous specimen ([id number]) right breast, core biopsy with diagnosis of invasive ductal carcinoma. ? Previous therapy: 1) TC x3 cycles. Stopped due to significant side effects. 2) Anastrozole. Discontinued secondary to exacerbation of bipolar symptoms. ? Current therapy: 1) Lupron. Began 09/21/2017. 2) Tamoxifen November 17, 2017. Scheduled to have her ovaries removed on January 14. Plans to have L mastectomy in January-Dr. Carrasco. Appetite:good Energy level:good Denies fevers or recent illness. Resp:denies cough or sob Cardiac:denies chest pain, 1 episode of palpitations-short lived-no other symptoms-none since. GI:denies abd pain, n/v, moving bowels regularly :denies dysuria/hematuria Extrem:I do get achy I noticed since starting tamoxifen-the aches get worse since the days go on. Endo:+hot flashes 5-6/day-worse with tamoxifen, occur mostly at night Neuro:denies symptoms of neuropathy Skin:denies rashes/lesions. Heme:denies bleeding The ROS is otherwise negative. Past medical history, appointments, medications, allergies reviewed. No changes. EXAM: BP 116/79 Pulse 96 Temp 37 ?C (98.6 ?F) (Oral) Wt 118.8 kg (262 lb) BMI 46.13 kg/m? APPEARANCE Well appearing, alert, in no acute distress, well- hydrated, well nourished. HEART RRR with normal S1 and S2, no murmurs LUNG clear to auscultation BREAST FEMALE R mastectomy scar, no nodule L no mass/nodule LYMPH NODES No cervical lymphadenopathy, No supraclavicular lymphadenopathy and No axillary lymphadenopathy. ABDOMEN bowel sounds normoactive, no bruits, soft, non-tender, non-distended, without organomegaly or palpable masses EXTREMITIES No edema NEURO Awake, alert and oriented x 3, Normal gait and No involuntary motions. SKIN Skin color, texture, turgor normal, no suspicious rashes or lesions ASSESSMENT/PLAN: 1. Malignant neoplasm of lower-inner quadrant of right breast of female, estrogen receptor positive (HCC) - ICD9: 174.3, V86.0, ICD10: C50.311, Z17.0 pT1c (1.2 cm; grade 2; no ALI) pN0 MX ER/ME positive, HER2 negative invasive ductal carcinoma the right breast. Genetic testing negative. Oncotype recurrent score was 26 suggesting 17% average recurrence risk over the next 10 years with the use of tamoxifen alone. Significant side effects with each cycle of TC. She has opted to stop chemotherapy. Intolerant to anastrozole. - No concerning findings on exam. - Continue tamoxifen-tolerating well overall. - Cancel future Lupron/Zometa appts. - Reviewed SCP with pt. Copies given. - Follow up early March. - Pt. aware to call office with any questions/concerns. The patient indicates understanding of these issues and agrees with the plan. Doreen Ramirez APRN.FILLING MIXER Referring Provider: ROGELIO VELEZ [[id number]] Allergies As of Date: 01/04/2018 Noted Allergy Reaction AMITRIPTYLINE 11/18/2016 14 - Other: See Comments Comments: Intensely angry ANASTROZOLE 11/04/2017 5 - Intolerance Comments: Nausea, irritability, inability to sleep CATS 01/05/2006 DOGS 01/05/2006 GRASS POLLEN 01/05/2006 LEVAQUIN (LEVOFLOXACIN) 07/15/2017 4 - Hives 7 - Swelling MOLD 01/05/2006 Date Reviewed: 01/04/2018 Reviewed by: Doreen (Digital Watch Assembler) James - Fully Assessed Reason for Visit: Established Patient [175] Primary Visit Diagnosis:Malignant neoplasm of lower-inner quadrant of right breast of female, estrogen receptor positive (HCC) [C50.311, Z17.0] Follow-up and Disposition History Recorded Prescriptions as of 01/04/2018 Sig: HYDROCODONE 5 MG-ACETAMINOPHE* Take 1-2 tablets by mouth gavino* SIMETHICONE 80 MG CHEWABLE TA* Take 1 tablet by mouth every * IBUPROFEN 600 MG TABLET Take 1 tablet by mouth every * HYDROCHLOROTHIAZIDE 25 MG TAB* Take 1 tablet by mouth once d* LISINOPRIL 10 MG TABLET Take 1 tablet by mouth once d* CITRACAL + D ORAL Take 1 tablet by mouth twice * TAMOXIFEN 20 MG TABLET Take 1 tablet by mouth once d* LEVOTHYROXINE 200 MCG TABLET Take 1 tablet by mouth five t* COMPOUNDED PRESCRIPTION #1 Auto titrating PAP device * POTASSIUM CHLORIDE 20 MEQ ORA* TAKE ONE PACKET BY MOUTH EVER* LAMOTRIGINE 150 MG TABLET Take 150 mg by mouth once subha* ZOLPIDEM 5 MG TABLET Take 5 mg by mouth at bedtime* BUPROPION XL 300 MG 24 HR TAB Take 300 mg by mouth once subha* CHOLECALCIFEROL (VITAMIN D3) * Take 1 capsule by mouth once * CLARITIN ORAL Take 1 tablet by mouth once d* Problem List As Of Date 01/04/2018 Noted Resolved ADJUSTMENT DISORDER WITH DEPRESSED MOOD [F43.21]INVALID FOR* ANXIETY STATE NOS [F41.1] INVALID FOR* Hypothyroidism [E03.9] INVALID FOR* BENIGN HYPERTENSION [I10] INVALID FOR* Obesity, Class III, BMI 40-49.9 (morbid obesity*INVALID FOR* Nonspecific abnormal results of liver function *INVALID FOR* More... ALLERGIC RHINITIS NOS [J30.9] INVALID FOR* CHRONIC LIVER DIS NEC [K76.89] INVALID FOR* Hyperlipidemia [E78.5] INVALID FOR* Tobacco abuse [Z72.0] INVALID FOR* Low HDL (under 40) [E78.6] INVALID FOR* Hypertriglyceridemia [E78.1] INVALID FOR* Postsurgical hypothyroidism [E89.0] INVALID FOR* Incisional infection [T81.4XXA] INVALID FOR* Vitamin D deficiency [E55.9] INVALID FOR* Elevated LFTs [R79.89] INVALID FOR* Muscle spasm [M62.838] INVALID FOR* Neck pain [M54.2] INVALID FOR* Thoracic back pain [M54.6] INVALID FOR* Malignant neoplasm of lower-inner quadrant of r*INVALID FOR* Left breast mass [N63.20] INVALID FOR* More... Numbness of arm [R20.0] INVALID FOR* More... 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 Encounter Status:Closed by DOREEN RAMIREZ FILLING MIXER on 01/05/18 CNOV Observed: 01/04/2018 Status: COMPLETED Source: [place] 10:50 AM [facility] REPOSITORY Office Visit (WOOB) MAHI STAFFORD ([id number]) 1970 F Date Time Provider Department 01/04/18 10:50 AM FLORY MUELLER WOALEJANDRA During your visit today, we recorded the following information about you: Pulse Respiration Blood pressure Weight 100/minute 18/minute 153/100 118.4 kg Height 1.605 m Flory Huang MD 01/04/2018 11:53 AM Signed Mahi Stafford is a 47 year old female who presents for pre op visit for scheduled laparoscopic BSO for Estrogen receptor + Breast Cancer, BRCA negative. Pt offers no concerns today. Pt denies CP, SOB, dizziness. PAST MEDICAL HISTORY Diagnosis Date - Anxiety - Bipolar disorder (HCC) - Breast cancer, stage 1, right (HCC) estrogen receptor positive HER2 negative - Depression - Hyperlipemia Hypertriglyceridemia, Low HDL - Hypertension - Hyperthyroidism 11/17/13 - Hypothyroid - Migraine - Multinodular goiter 11/17/13 - Vitamin D deficiency 09/2013 PAST SURGICAL HISTORY Procedure Laterality Date - BREAST BIOPSY Right 03/14/2017 - BREAST BIOPSY Right 04/09/2017 - BREAST BIOPSY Left 04/09/2017 - CATARACT EXTRACTION W/ INTRAOCULAR LENS IMPLANT HX Left 2013 - LAPAROSCOPIC CHOLEYCYSTECTOMY 07/21 Cholecystectomy, lap - LIGATE FALLOPIAN TUBE ESSURE - MASTECTOMY, RADICAL Right 04/30/2017 Dr Jevon Bundy right total mastectomy with axillary blue dye sentinel lymph node biopsy - PAST SURGICAL HISTORY OF 05/1998 PLATE IN LEFT ANKLE - REMOVAL OF TONSILS,<13 Y/O 1982 Tonsillectomy - THYROIDECTOMY 11/17/13 Dr. Hart FAMILY HISTORY Problem Relation Age of Onset - Heart Father - Hypertension Father - Thyroid Father - Diabetes Father - Psychiatry Father - Allergies Father - Arthritis Mother - Thyroid Mother pneumonia 73 - Allergies Mother - Breast Cancer Maternal Grandmother dx early 50's - Diabetes Maternal Grandmother - Coronary Artery Disease Maternal Grandmother - Stroke Maternal Grandmother - Allergies Maternal Grandmother - Cancer Maternal Grandmother Kidney cancer dx 70's - Diabetes Maternal Grandfather - Heart Maternal Grandfather 67 - Hypertension Maternal Grandfather - Coronary Artery Disease Maternal Grandfather - Allergies Maternal Grandfather - Diabetes Paternal Grandfather - Thyroid Paternal Grandfather - Allergies Paternal Grandfather - Diabetes Paternal Grandmother - Heart Paternal Grandmother - Allergies Paternal Grandmother - Stroke Paternal Grandmother - Ovarian cancer Other Mother of maternal grandmother - Cancer Maternal Aunt 71 Bladder or kidney cancer Social History Marital status: Spouse name: Harry Years of education: 18 Number of children: 4 Occupational History 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 lisinopril (ZESTRIL, PRINIVIL) 10 mg tablet Take 1 tablet by mouth once daily. calcium citrate/vitamin D3 (CITRACAL + D ORAL) Take 1 tablet by mouth twice daily. tamoxifen (NOLVADEX) 20 mg tablet Take 1 tablet by mouth once daily. levothyroxine (SYNTHROID) 200 mcg tablet Take 1 tablet by mouth five times a week. COMPOUNDED PRESCRIPTION #1 Auto titrating PAP device 6-20 cmH2O with humidification. #1 Formal mask fitting and education with tubing and supplies as necessary. potassium chloride (K-MIGUELITO, KLOR-CON) 20 mEq packet TAKE ONE PACKET BY MOUTH EVERY DAY lamoTRIgine (LAMICTAL) 150 mg tablet Take 150 mg by mouth once daily. zolpidem (AMBIEN) 5 mg tablet Take 5 mg by mouth at bedtime as needed. buPROPion XL (WELLBUTRIN XL) 300 mg 24 hr tablet Take 300 mg by mouth once daily. Cholecalciferol, Vitamin D3, (VITAMIN D-3) 2,000 unit cap Take 1 capsule by mouth once daily. LORATADINE (CLARITIN ORAL) Take 1 tablet by mouth once daily as needed. HYDROcodone-acetaminophen (NORCO) 5-325 mg per tablet Take 1-2 tablets by mouth every 8 hours as needed for Pain for up to 5 days. simethicone, chewable (MYLICON) 80 mg chewable tablet Take 1 tablet by mouth every 6 hours as needed. ibuprofen (MOTRIN) 600 mg tablet Take 1 tablet by mouth every 6 hours as needed. FOR PAIN. No current facility-administered medications for this visit. Allergies As of Date: 01/04/2018 Allergen Noted Reaction AMITRIPTYLINE 11/18/2016 Other: See Comments ANASTROZOLE 11/04/2017 Intolerance CATS 01/05/2006 DOGS 01/05/2006 GRASS POLLEN 01/05/2006 LEVAQUIN [LEVOFLOXACIN] 07/15/2017 Hives and Swelling MOLD 01/05/2006 Fully Assessed 01/04/2018 REVIEW OF SYSTEMS Abdomen: No abdominal pain, nausea, vomiting, diarrhea, or constipation. Bladder: no dysuria .. Expanded ROS: N/A Allergies and current medication updated:Yes EXAM: BP 153/100 Pulse 100 Resp 18 Ht 5' 3.189 (1.61m) Wt 261 lb (118.4kg) BMI 45.96 kg/(m2). GENERAL: pleasant, female in no apparent distress HEENT: Normocephalic and mucus membranes moist NECK: Supple, full range of motion, no adenopathy and thyroid normal DERMATOLOGY: Normal, without lesions, non-icteric and non-hirsute CARDIAC: regular rate and rhythm CHEST: Normal inspiratory effort NEURO: alert and oriented x3,exam grossly non-focal EXTREMITIES: normal ASSESSMENT AND PLAN: Encounter Diagnosis ICD-10-CM 1. Post-op pain G89.18 HYDROcodone-acetaminophen (NORCO) 5- 325 mg per tablet 2. Pt has been counseled on risks/benefits and alternatives of surgery including but not limited to anesthesia, bleeding, infection, injury to pelvic structures including bowel, bladder, ureters and vessels. Pt wishes to proceed with surgery at this time. 3. Ovarian remnant syndrome risk reviewed 4. Post op meds given 5. BP elevated today- has another appt will recheck at ONCOLOGY Flory Huang MD Referring Provider: SELF [[id number]] Allergies As of Date: 01/04/2018 Noted Allergy Reaction AMITRIPTYLINE 11/18/2016 14 - Other: See Comments Comments: Intensely angry ANASTROZOLE 11/04/2017 5 - Intolerance Comments: Nausea, irritability, inability to sleep CATS 01/05/2006 DOGS 01/05/2006 GRASS POLLEN 01/05/2006 LEVAQUIN (LEVOFLOXACIN) 07/15/2017 4 - Hives 7 - Swelling MOLD 01/05/2006 Date Reviewed: 01/04/2018 Reviewed by: [facility]ore[facility]Card[facility]ugen[facility] - Fully Assessed Reason for Visit: Pre-Op Visit [1235] Primary Visit Diagnosis:Pre-op exam [Z01.818] Other Visit Diagnosis:Post-op pain [G89.18] Order(s):HYDROcodone-acetaminophen (NORCO) 5-325 mg per tabletTake 1-2 tablets by mouth every 8 hours as needed for Pain for up to 5 days.Disp: 10 tabletRfl: 0 simethicone, chewable (MYLICON) 80 mg chewable tabletTake 1 tablet by mouth every 6 hours as needed.Disp: 30 tabletRfl: 0 ibuprofen (MOTRIN) 600 mg tabletTake 1 tablet by mouth every 6 hours as needed. FOR PAIN.Disp: 30 tabletRfl: 0 Prescriptions as of 01/04/2018 Sig: HYDROCHLOROTHIAZIDE 25 MG TAB* Take 1 tablet by mouth once d* LISINOPRIL 10 MG TABLET Take 1 tablet by mouth once d* CITRACAL + D ORAL Take 1 tablet by mouth twice * TAMOXIFEN 20 MG TABLET Take 1 tablet by mouth once d* LEVOTHYROXINE 200 MCG TABLET Take 1 tablet by mouth five t* COMPOUNDED PRESCRIPTION #1 Auto titrating PAP device * POTASSIUM CHLORIDE 20 MEQ ORA* TAKE ONE PACKET BY MOUTH EVER* LAMOTRIGINE 150 MG TABLET Take 150 mg by mouth once subha* ZOLPIDEM 5 MG TABLET Take 5 mg by mouth at bedtime* BUPROPION XL 300 MG 24 HR TAB Take 300 mg by mouth once subha* CHOLECALCIFEROL (VITAMIN D3) * Take 1 capsule by mouth once * CLARITIN ORAL Take 1 tablet by mouth once d* HYDROCODONE 5 MG-ACETAMINOPHE* Take 1-2 tablets by mouth gavino* SIMETHICONE 80 MG CHEWABLE TA* Take 1 tablet by mouth every * IBUPROFEN 600 MG TABLET Take 1 tablet by mouth every * X [id number] 3* Use 1 Drop in the right eye f* Patient not taking: Reported on 12/16/2017 X KETOROLAC 0.4 % EYE DROPS Use 1 Drop in the right eye f* Patient not taking: Reported on 01/04/2018 Problem List As Of Date 01/04/2018 Noted Resolved ADJUSTMENT DISORDER WITH DEPRESSED MOOD [F43.21]INVALID FOR* ANXIETY STATE NOS [F41.1] INVALID FOR* Hypothyroidism [E03.9] INVALID FOR* BENIGN HYPERTENSION [I10] INVALID FOR* Obesity, Class III, BMI 40-49.9 (morbid obesity*INVALID FOR* Nonspecific abnormal results of liver function *INVALID FOR* More... ALLERGIC RHINITIS NOS [J30.9] INVALID FOR* CHRONIC LIVER DIS NEC [K76.89] INVALID FOR* Hyperlipidemia [E78.5] INVALID FOR* Tobacco abuse [Z72.0] INVALID FOR* Low HDL (under 40) [E78.6] INVALID FOR* Hypertriglyceridemia [E78.1] INVALID FOR* Postsurgical hypothyroidism [E89.0] INVALID FOR* Incisional infection [T81.4XXA] INVALID FOR* Vitamin D deficiency [E55.9] INVALID FOR* Elevated LFTs [R79.89] INVALID FOR* Muscle spasm [M62.838] INVALID FOR* Neck pain [M54.2] INVALID FOR* Thoracic back pain [M54.6] INVALID FOR* Malignant neoplasm of lower-inner quadrant of r*INVALID FOR* Left breast mass [N63.20] INVALID FOR* More... Numbness of arm [R20.0] INVALID FOR* More... 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 Prescriptions ordered this encounter Disp Refills Start End HYDROCODONE 5 MG-ACETAMINOPHEN 325 M* 10 t* 0 01/04/2018 01/09/2018 Class: Print RX Route: ORAL Sig: Take 1-2 tablets by mouth every 8 hours as needed for Pain for up to 5 days. SIMETHICONE 80 MG CHEWABLE TABLET 30 t* 0 01/04/2018 Route: ORAL Sig: Take 1 tablet by mouth every 6 hours as needed. IBUPROFEN 600 MG TABLET 30 t* 0 01/04/2018 Route: ORAL Sig: Take 1 tablet by mouth every 6 hours as needed. FOR PAIN. Medications Discontinued During This Encounter anastrozole (ARIMIDEX) 1 mg tablet 90 t* 3 10/08/2017 01/04/2018 Route: ORAL Sig: Take 1 tablet by mouth once daily. Disc: Reason for discontinue is not on file. HYDROcodone-acetaminophen (NORCO) 5-* 08/15/2017 01/04/2018 Class: Historical Med Route: ORAL Sig: Take 1 tablet by mouth every 6 hours as needed. Disc: Reason for discontinue is not on file. diphenoxylate-atropine (LOMOTIL) 2.5* 90 t* 0 07/23/2017 01/04/2018 Class: Call Rx Route: ORAL Sig: Take 2 tablets by mouth four times daily for 7 days. Disc: Reason for discontinue is not on file. FLUoxetine HCl (PROZAC) 40 mg capsule 0 08/11/2016 01/04/2018 Class: Med Update Route: ORAL Sig: Take 1 capsule by mouth once daily. Patient not taking: Reported on 12/16/2017 Disc: Reason for discontinue is not on file. acetaminophen (TYLENOL EXTRA STRENGT* 01/04/2018 Class: Historical Med Route: ORAL Sig: Take 500 mg by mouth every 6 hours as needed. Disc: Reason for discontinue is not on file. Encounter Status:Closed by FLORY CRUZ MD on 01/04/18 PLASTIC SURGERY Observed: 01/03/2018 Status: F Source: [place] VISIT REPORT 11:42 PM [facility] [place] [facility] [address] [place] [address] OFFICE VISIT Date of Service: 12/17/17 MR#: [id number] Acct: [id number] Name: MAHI STAFFORD Rep #: [id number] : 1970 Provider: Gautam Carrasco MD Age/Sex: 47/F [place] [facility] [place] [facility] [place]: Signed Intake Vital Signs12/17/17 Height 5 ft 3 in 12/17/17 Weight: 253 lb 8 oz Intake Visit Reasons: evaluation breast reconstruction Tong [place] Required: No Accompanied by: None Is patient in pain?: No Allergies levofloxacin [From Levaquin] Allergy (Severe, Verified 12/17/17 09:04) hives, throat swelling amitriptyline Adverse Reaction (Verified 12/17/17 09:04) HYPER AND REALLY ANGRY Medications Cholecalciferol (Vitamin D3) [Vitamin D3] 2,000 unit PO DAILY 11/10/13 [History Confirmed 12/17/17] Fluoxetine HCl [Sarafem] 20 mg PO DAILY 11/10/13 [History Confirmed 12/17/17] Hydrochlorothiazide 12.5 mg PO DAILY 11/10/13 [History Confirmed 12/17/17] Acetaminophen [Tylenol] 500 - 1,000 mg PO Q6H PRN PRN 04/22/17 [History Confirmed 12/17/17] Bupropion HCl [Wellbutrin Xl] 300 mg PO DAILY 04/22/17 [History Confirmed 12/17/17] Potassium Citrate/Citric Acid [Pot Citrate-Citric Acid Packet] 1 ea PO DAILY 04/22/17 [History Confirmed 12/17/17] Zolpidem Tartrate [Ambien] 5 mg PO QHS 04/22/17 [History Confirmed 12/17/17] lamotrigine 150 mg tablet 100 mg PO DAILY tab 06/20/17 [History Confirmed 12/17/17] levothyroxine 100 mcg tablet 200 mcg PO DAILY tab 06/20/17 [History Confirmed 12/17/17] lisinopril 10 mg tablet 20 mg PO DAILY tab 06/20/17 [History Confirmed 12/17/17] Omeprazole 20 mg PO DAILY 07/18/17 [History Confirmed 12/17/17] Ondansetron [Zofran Odt] 4 mg PO Q12H PRN PRN 07/18/17 [History Confirmed 12/17/17] proMETHazine tablet [Phenergan] 25 mg PO Q6H PRN PRN #10 tab 07/21/17 [Rx Confirmed 12/17/17] Hydrocodone Bitart/Apap 5-325 [[place] 5/325] 1 tab PO Q6H PRN PRN 5 Days #20 tab 08/15/17 [Rx Confirmed 12/17/17] Sulfamethoxazole/Trimethoprim [Sulfamethoxazole-Tmp Ds Tablet] 1 ea PO BID 08/15/17 [History Confirmed 12/17/17] PFSH Medical History Anemia (Acute) Anxiety (Acute) Back pain (Acute) Back problem (Acute) Breast cancer (Acute) Breast lump in female (Acute) Cataracts, bilateral (Acute) Depression (Acute) Frequent headaches (Acute) Gallstones (Acute) High cholesterol (Acute) Liver disease (Acute) Neuropathy (Acute) Pneumonia (Acute) Seasonal allergies (Acute) Thyroid disease (Acute) Vision problems (Acute) Vitamin deficiency (Acute) Hypertension (Chronic) Surgical History S/P breast biopsy, right (Acute) S/P cholecystectomy (Acute) S/P mastectomy (Acute) S/P tonsillectomy and adenoidectomy (Acute) S/P total thyroidectomy (Acute) Status post surgical manipulation of ankle joint (Acute) Family History Father Asthma Heart disease Hypertension High cholesterol ulcers Diabetes Grandmother Breast cancer Grandfather CVA (cerebral vascular accident) Social History Smoking Status: Former smoker second hand exposure: No alcohol intake: never substance use type: does not use what type of physical activity do you participate in: none seatbelt use: always additional social history: DOES NOT USE ASPIRIN USES IBUPROFEN HPI evaluation breast reconstruction: Details: 47 year old woman presents for breast reconstruction. She initially developed right breast cancer that necessitated a mastectomy in 05/05. 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 Kirby lymph nodes were negative. Preop MRI also showed a nodule in the left breast that was biopsied and it showed a fibroadenoma. Estrogen receptors were positive. Progesterone receptors were weakly positive. HER2/diana was negative. She was placed on IV chemotherapy and has finished them. She also tried Anastrozole and had severe side effects and it was discontinued. She was also placed on Lupron in preparation for an oophorectomy that is scheduled for the end of December. Her bra size prior to the mastectomy was a 46 DDD and already had neck pain and back pain from the large size of her breasts. After the mastectomy, the asymmetry made the symptoms worse. She presents at this time to discuss her breast reconstruction options as well as surgery on the opposite breast to help with her symptomatology. With her recent diagnosis of right breast cancer, she is starting to develop concerns of the possibility of developing breast cancer in the opposite left breast with cancer phobia. REVIEW OF SYSTEMS General - Denies fever and weight loss. Has some fatigue. Eyes - Has cataracts. Denies glaucoma. ENT - Denies nasal congestion and sore throat. Endocrine - Denies excessive thirst and urination. Has right breast cancer. Skin - Denies suspicious lesions and skin cancer. Musculoskeletal - Denies joint pain, joint stiffness, weakness of muscles and joints, and arthritis. Has neck pain and thoracic back pain. Neuro - Denies headaches. Cardiovascular - Denies chest pain, fatigue, and shortness of breath with exertion. Psych - Has anxiety and depression. Respiratory - Denies chronic cough and shortness of breath. Has sleep apnea. Gastrointestinal - Denies nausea, vomiting, diarrhea, and constipation. Hematologic - Denies abnormal bruising and bleeding. Genitourinary - Denies hematuria and urinary frequency. PHYSICAL EXAM General - Alert and Oriented. Bra size is 46 DDD in the left breast. HEENT - PERRL. EOMI. Throat is clear. Neck - Supple and nontender. No cervical adenopathy. Lungs - Clear to auscultation. Heart - Regular rate and rhythm. Breast - Right breast mastectomy incision is healed. No evidence of seroma. In the left breast, there are no breast masses. She has left breast macromastia. There is asymmetry between the left breast and the right mastectomy. Distance from the midclavicular line on the left to the nipple is 36 cm and from the nipple to the inframammary fold is 8 cm. The nipple areolar complex is 7 cm. The breast width is 16 cm bilaterally. No axillary adenopathy noted. Abdomen - Soft and nondistended. Extremities - FROM. No axillary adenopathy. Radial pulses are palpable. Neuro - CN II-XII grossly intact. Psych - Normal mood and affect. ASSESSMENT 1. Right breast cancer. 2. Acquired absence right breast. 3. Disproportion reconstructed right breast. 4. Deformity reconstructed right breast with painful excess mastectomy skin scar contour deformity. 5. Left breast macromastia. 6. Cancer phobia left breast. 7. Planned acquired absence left breast. 8. Fibroadenoma left breast. 9. Estrogen receptor positive status. 10. Family history of breast cancer. 11. Former smoker. PLAN Discussed the various breast reconstruction procedures that range from expanders and implants to using autogenous tissue to a combination of the two. Surgery on the opposite breast for symmetry involves a breast reduction, a breast lift, and/or a breast implant. With her family history as well as having breast cancer herself in the right breast, she recently starting developing some concerns about breast cancer showing up in the left breast at some point in her lifetime. It is not a high risk, but she doesn't want to wait for it to happen. At the very least, a breast reduction on the left would help her painful symptomatology. It would not solve the asymmetry problem until she decides to proceed with beginning breast reconstruction on the right side. She initially thought about expanders and implants on the right. However, at this time she is concentrating on her cancer treatment and wants to hold off on breast reconstruction at this time. In the meantime, she can get external prostheses and mastectomy bras. She does have complaints of pain from some excess mastectomy skin scar contour deformity, and that can be excised as well. So instead of a breast reduction on the left, she is leaning toward a prophylactic mastectomy. Tissue that is removed will be sent to Pathology for analysis to rule out carcinoma. Before proceeding with a prophylactic mastectomy left breast, she will need a mammogram. An MRI may also be necessary depending on the mammogram results since she needed an MRI back in 04/05. Will schedule the surgery after her oophorectomy. Patient was informed of the risks and complications of the procedure including alternatives to surgery. These were discussed with the patient personally. Patient voices understanding and wishes to proceed. Some of the risks and complications were included in a form from the [employer]. In the future, after healing has occurred, she may want to discuss breast reconstruction at that time with creation of a breast mound and possible nipple reconstruction after that. Assessment AND Plan Problems 1. Breast cancer, right C50.911 2. Acquired absence of right breast and nipple Z90.11 3. Disproportion between [place] breast and reconstructed breast N65.1 4. Excess tissue in reconstructed breast N65.0 5. Hypertrophy of breast N62 6. Cancer phobia F40.298 7. Acquired absence of left breast and nipple Z90.12 8. 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 Estrogen receptor positive status [ER+] Z17.0 10. Family history of breast cancer Z80.3 11. Former smoker Z87.891 Orders Orders: Coding Level of Care Code Off vis,new,level 5 Diagnoses Breast cancer, right C50.911 Acquired absence of right breast and nipple Z90.11 Disproportion between [place] breast and reconstructed breast N65.1 Excess tissue in reconstructed breast N65.0 Hypertrophy of breast N62 Cancer phobia F40.298 Acquired absence of left breast and nipple Z90.12 Fibroadenoma of left breast D24.2 Estrogen receptor positive status [ER+] Z17.0 Family history of breast cancer Z80.3 Former smoker Z87.891 01/03/18 2342 <Electronically signed by Gautam Carrasco MD> Date Gautam Carrasco MD Cosigner Signature: Date (if applicable) CC: Lavonne Hensley; Rogelio Velez DO PROGRESS Observed: 11/23/2017 Status: COMPLETED Source: [place] 2:26 PM [facility] [place] RE[facility] O ID: [id number] Author: Neyhart Cruz, Flory Service: (none) Author Type: Physician Type: Progress Notes Filed: 11/23/2017 2:40 PM Note Text: Mahi Stafford is a 46 year old female who presents for consultation for prophylactic BSO, personal h/o breast cancer E/R +. Pt currently on tamoxifen and lupron. Pt reports no other concerns today- had Ablation years ago- doing well, no pain. No pelvic pain or h/o uterine concerns. Pt questioning Total Hysterectomy vs BSO. PAST MEDICAL HISTORY Diagnosis Date - Anxiety - Bipolar disorder (HCC) - Breast cancer, stage 1, right (HCC) estrogen receptor positive HER2 negative - Depression - Hyperlipemia Hypertriglyceridemia, Low HDL - Hypertension - Hyperthyroidism 11/17/13 - Hypothyroid - Migraine - Multinodular goiter 11/17/13 - Vitamin D deficiency 09/2013 PAST SURGICAL HISTORY Procedure Laterality Date - BREAST BIOPSY Right 03/14/2017 - BREAST BIOPSY Right 04/09/2017 - BREAST BIOPSY Left 04/09/2017 - CATARACT EXTRACTION W/ INTRAOCULAR LENS IMPLANT HX Left 2013 - LAPAROSCOPIC CHOLEYCYSTECTOMY 07/21 Cholecystectomy, lap - LIGATE FALLOPIAN TUBE ESSURE - MASTECTOMY, RADICAL Right 04/30/2017 Dr Jevon Bundy right total mastectomy with axillary blue dye sentinel lymph node biopsy - PAST SURGICAL HISTORY OF 05/1998 PLATE IN LEFT ANKLE - REMOVAL OF TONSILS,<13 Y/O 1982 Tonsillectomy - THYROIDECTOMY 11/17/13 Dr. Hart FAMILY HISTORY Problem Relation Age of Onset - Heart Father - Hypertension Father - Thyroid Father - Diabetes Father - Psychiatry Father - Allergies Father - Arthritis Mother - Thyroid Mother pneumonia 73 - Allergies Mother - Breast Cancer Maternal Grandmother dx early 50's - Diabetes Maternal Grandmother - Coronary Artery Disease Maternal Grandmother - Stroke Maternal Grandmother - Allergies Maternal Grandmother - Cancer Maternal Grandmother Kidney cancer dx 70's - Diabetes Maternal Grandfather - Heart Maternal Grandfather 67 - Hypertension Maternal Grandfather - Coronary Artery Disease Maternal Grandfather - Allergies Maternal Grandfather - Diabetes Paternal Grandfather - Thyroid Paternal Grandfather - Allergies Paternal Grandfather - Diabetes Paternal Grandmother - Heart Paternal Grandmother - Allergies Paternal Grandmother - Stroke Paternal Grandmother - Ovarian cancer Other Mother of maternal grandmother - Cancer Maternal Aunt 71 Bladder or kidney cancer Social History Marital status: Spouse name: Harry Years of education: 18 Number of children: 4 Occupational History Occupation Employer [employer]* Social History Main Topics Smoking status: Former Smoker Packs/day: 0.30 Years: 3.00 Types: Cigarettes Quit date: 10/07/2014 Smokeless tobacco: Never Used Comment: One pack would last 2 weeks when she smoked Alcohol use: No Drug use: No Sexual activity: Yes control/protection: Surgical Comment: ESSURE Current Outpatient Prescriptions: calcium citrate/vitamin D3 (CITRACAL + D ORAL) Take 1 tablet by mouth twice daily. tamoxifen (NOLVADEX) 20 mg tablet Take 1 tablet by mouth once daily. PIUIADJJ-OIVPLXUXT-EAXKNHML 3.5 MG/ML-10,000 UNIT/ML-0.1% EYE DROPS Use 1 Drop in the right eye four times daily. Ketorolac Tromethamine (ACLUAR LS) 0.4 % drop Use 1 Drop in the right eye four times daily. levothyroxine (SYNTHROID) 200 mcg tablet Take 1 tablet by mouth five times a week. COMPOUNDED PRESCRIPTION #1 Auto titrating PAP device 6-20 cmH2O with humidification. #1 Formal mask fitting and education with tubing and supplies as necessary. potassium chloride (K-MIGUELITO, KLOR-CON) 20 mEq packet TAKE ONE PACKET BY MOUTH EVERY DAY hydroCHLOROthiazide (HYDRODIURIL, ESIDRIX) 25 mg tablet Take 1 tablet by mouth once daily. lisinopril (ZESTRIL, PRINIVIL) 10 mg tablet Take 1 tablet by mouth once daily. lamoTRIgine (LAMICTAL) 150 mg tablet Take 150 mg by mouth once daily. zolpidem (AMBIEN) 5 mg tablet Take 5 mg by mouth at bedtime as needed. acetaminophen (TYLENOL EXTRA STRENGTH) 500 mg tablet Take 500 mg by mouth every 6 hours as needed. buPROPion XL (WELLBUTRIN XL) 300 mg 24 hr tablet Take 300 mg by mouth once daily. Cholecalciferol, Vitamin D3, (VITAMIN D-3) 2,000 unit cap Take 1 capsule by mouth once daily. FLUoxetine HCl (PROZAC) 40 mg capsule Take 1 capsule by mouth once daily. (Patient taking differently: Take 20 mg by mouth once daily. ) LORATADINE (CLARITIN ORAL) Take 1 tablet by mouth once daily as needed. anastrozole (ARIMIDEX) 1 mg tablet Take 1 tablet by mouth once daily. HYDROcodone-acetaminophen (NORCO) 5-325 mg per tablet Take 1 tablet by mouth every 6 hours as needed. diphenoxylate-atropine (LOMOTIL) 2.5-0.025 mg per tablet Take 2 tablets by mouth four times daily for 7 days. No current facility-administered medications for this visit. Allergies As of Date: 11/23/2017 Allergen Noted Reaction AMITRIPTYLINE 11/18/2016 Other: See Comments ANASTROZOLE 11/04/2017 Intolerance CATS 01/05/2006 DOGS 01/05/2006 GRASS POLLEN 01/05/2006 LEVAQUIN [LEVOFLOXACIN] 07/15/2017 Hives and Swelling MOLD 01/05/2006 Fully Assessed 11/23/2017 REVIEW OF SYSTEMS Abdomen: No abdominal pain, nausea, vomiting, diarrhea, or constipation. .. Expanded ROS: GENERAL: No weight loss, malaise or fevers Allergies and current medication updated:Yes EXAM: BP 126/86 Ht 5' 3 (1.60m) Wt 253 lb (114.8kg) BMI 44.83 kg/(m2). GENERAL: pleasant, female in no apparent distress HEENT: Normocephalic and atraumatic NECK: full range of motion DERMATOLOGY: Normal, without lesions, non-icteric and non-hirsute NEURO: alert and oriented x3,exam grossly non-focal EXTREMITIES: normal ASSESSMENT AND PLAN: 46yo with E/R + Breast cancer - recommended by oncologist for prophylactic BSO 1) risks/benefits reviewed with patient for hysterectomy BSO vs BSO- Pt agrees to proceed with only BSO. 2) Previous ESSURE Done but signed title 19 for Adnexal removal today 3) Book for BSO and pelvic washing. 4) Pt has been counseled on risks/benefits and alternatives of surgery including but not limited to anesthesia, bleeding, infection, injury to pelvic structures including bowel, bladder, ureters and vessels as well as ovarian remnant syndrome. Pt wishes to proceed with surgery at this time. My consultation for prophylactic BSO will be shared with Dr. Velez by JOCELYNE. Flory Mueller Observed: 11/23/2017 Status: COMPLETED Source: [place] 1:30 PM [facility] Office Visit (WOOB) MAHI STAFFORD ([id number]) 1970 F Date Time Provider Department 11/23/17 1:30 PM FLORY MUELLER During your visit today, we recorded the following information about you: Blood pressure Weight Height 126/86 114.8 kg 1.6 m Flory Mueller 11/23/2017 2:40 PM Signed Mahi Stafford is a 46 year old female who presents for consultation for prophylactic BSO, personal h/o breast cancer E/R +. Pt currently on tamoxifen and lupron. Pt reports no other concerns today- had Ablation years ago- doing well, no pain. No pelvic pain or h/o uterine concerns. Pt questioning Total Hysterectomy vs BSO. PAST MEDICAL HISTORY Diagnosis Date - Anxiety - Bipolar disorder (HCC) - Breast cancer, stage 1, right (HCC) estrogen receptor positive HER2 negative - Depression - Hyperlipemia Hypertriglyceridemia, Low HDL - Hypertension - Hyperthyroidism 11/17/13 - Hypothyroid - Migraine - Multinodular goiter 11/17/13 - Vitamin D deficiency 09/2013 PAST SURGICAL HISTORY Procedure Laterality Date - BREAST BIOPSY Right 03/14/2017 - BREAST BIOPSY Right 04/09/2017 - BREAST BIOPSY Left 04/09/2017 - CATARACT EXTRACTION W/ INTRAOCULAR LENS IMPLANT HX Left 2013 - LAPAROSCOPIC CHOLEYCYSTECTOMY 07/21 Cholecystectomy, lap - LIGATE FALLOPIAN TUBE ESSURE - MASTECTOMY, RADICAL Right 04/30/2017 Dr Jevon Bundy right total mastectomy with axillary blue dye sentinel lymph node biopsy - PAST SURGICAL HISTORY OF 05/1998 PLATE IN LEFT ANKLE - REMOVAL OF TONSILS,<13 Y/O 1982 Tonsillectomy - THYROIDECTOMY 11/17/13 Dr. Hart FAMILY HISTORY Problem Relation Age of Onset - Heart Father - Hypertension Father - Thyroid Father - Diabetes Father - Psychiatry Father - Allergies Father - Arthritis Mother - Thyroid Mother pneumonia 73 - Allergies Mother - Breast Cancer Maternal Grandmother dx early 50's - Diabetes Maternal Grandmother - Coronary Artery Disease Maternal Grandmother - Stroke Maternal Grandmother - Allergies Maternal Grandmother - Cancer Maternal Grandmother Kidney cancer dx 70's - Diabetes Maternal Grandfather - Heart Maternal Grandfather 67 - Hypertension Maternal Grandfather - Coronary Artery Disease Maternal Grandfather - Allergies Maternal Grandfather - Diabetes Paternal Grandfather - Thyroid Paternal Grandfather - Allergies Paternal Grandfather - Diabetes Paternal Grandmother - Heart Paternal Grandmother - Allergies Paternal Grandmother - Stroke Paternal Grandmother - Ovarian cancer Other Mother of maternal grandmother - Cancer Maternal Aunt 71 Bladder or kidney cancer Social History Marital status: Spouse name: Harry Years of education: 18 Number of children: 4 Occupational History Occupation Employer Comment [employer]* [employer]* Social History Main Topics Smoking status: Former Smoker Packs/day: 0.30 Years: 3.00 Types: Cigarettes Quit date: 10/07/2014 Smokeless tobacco: Never Used Comment: One pack would last 2 weeks when she smoked Alcohol use: No Drug use: No Sexual activity: Yes control/protection: Surgical Comment: ESSOLU Current Outpatient Prescriptions: calcium citrate/vitamin D3 (CITRACAL + D ORAL) Take 1 tablet by mouth twice daily. tamoxifen (NOLVADEX) 20 mg tablet Take 1 tablet by mouth once daily. WDCFGEJZ-SVJVQSEJL-OLEAJKLA 3.5 MG/ML-10,000 UNIT/ML-0.1% EYE DROPS Use 1 Drop in the right eye four times daily. Ketorolac Tromethamine (ACLUAR LS) 0.4 % drop Use 1 Drop in the right eye four times daily. levothyroxine (SYNTHROID) 200 mcg tablet Take 1 tablet by mouth five times a week. COMPOUNDED PRESCRIPTION #1 Auto titrating PAP device 6-20 cmH2O with humidification. #1 Formal mask fitting and education with tubing and supplies as necessary. potassium chloride (K-MIGUELITO, KLOR-CON) 20 mEq packet TAKE ONE PACKET BY MOUTH EVERY DAY hydroCHLOROthiazide (HYDRODIURIL, ESIDRIX) 25 mg tablet Take 1 tablet by mouth once daily. lisinopril (ZESTRIL, PRINIVIL) 10 mg tablet Take 1 tablet by mouth once daily. lamoTRIgine (LAMICTAL) 150 mg tablet Take 150 mg by mouth once daily. zolpidem (AMBIEN) 5 mg tablet Take 5 mg by mouth at bedtime as needed. acetaminophen (TYLENOL EXTRA STRENGTH) 500 mg tablet Take 500 mg by mouth every 6 hours as needed. buPROPion XL (WELLBUTRIN XL) 300 mg 24 hr tablet Take 300 mg by mouth once daily. Cholecalciferol, Vitamin D3, (VITAMIN D-3) 2,000 unit cap Take 1 capsule by mouth once daily. FLUoxetine HCl (PROZAC) 40 mg capsule Take 1 capsule by mouth once daily. (Patient taking differently: Take 20 mg by mouth once daily. ) LORATADINE (CLARITIN ORAL) Take 1 tablet by mouth once daily as needed. anastrozole (ARIMIDEX) 1 mg tablet Take 1 tablet by mouth once daily. HYDROcodone-acetaminophen (NORCO) 5-325 mg per tablet Take 1 tablet by mouth every 6 hours as needed. diphenoxylate-atropine (LOMOTIL) 2.5-0.025 mg per tablet Take 2 tablets by mouth four times daily for 7 days. No current facility-administered medications for this visit. Allergies As of Date: 11/23/2017 Allergen Noted Reaction AMITRIPTYLINE 11/18/2016 Other: See Comments ANASTROZOLE 11/04/2017 Intolerance CATS 01/05/2006 DOGS 01/05/2006 GRASS POLLEN 01/05/2006 LEVAQUIN [LEVOFLOXACIN] 07/15/2017 Hives and Swelling MOLD 01/05/2006 Fully Assessed 11/23/2017 REVIEW OF SYSTEMS Abdomen: No abdominal pain, nausea, vomiting, diarrhea, or constipation. .. Expanded ROS: GENERAL: No weight loss, malaise or fevers Allergies and current medication updated:Yes EXAM: BP 126/86 Ht 5' 3 (1.60m) Wt 253 lb (114.8kg) BMI 44.83 kg/(m2). GENERAL: pleasant, female in no apparent distress HEENT: Normocephalic and atraumatic NECK: full range of motion DERMATOLOGY: Normal, without lesions, non-icteric and non-hirsute NEURO: alert and oriented x3,exam grossly non-focal EXTREMITIES: normal ASSESSMENT AND PLAN: 46yo with E/R + Breast cancer - recommended by oncologist for prophylactic BSO 1) risks/benefits reviewed with patient for hysterectomy BSO vs BSO- Pt agrees to proceed with only BSO. 2) Previous ESSURE Done but signed title 19 for Adnexal removal today 3) Book for BSO and pelvic washing. 4) Pt has been counseled on risks/benefits and alternatives of surgery including but not limited to anesthesia, bleeding, infection, injury to pelvic structures including bowel, bladder, ureters and vessels as well as ovarian remnant syndrome. Pt wishes to proceed with surgery at this time. My consultation for prophylactic BSO will be shared with Dr. Velez by EMR. Flory Mueller Referring Provider: SELF [[id number]] Allergies As of Date: 11/23/2017 Noted Allergy Reaction AMITRIPTYLINE 11/18/2016 14 - Other: See Comments Comments: Intensely angry ANASTROZOLE 11/04/2017 5 - Intolerance Comments: Nausea, irritability, inability to sleep CATS 01/05/2006 DOGS 01/05/2006 GRASS POLLEN 01/05/2006 LEVAQUIN (LEVOFLOXACIN) 07/15/2017 4 - Hives 7 - Swelling MOLD 01/05/2006 Date Reviewed: 11/23/2017 Reviewed by: Abraham Drummond Ma - Fully Assessed Reason for Visit: Consult [[id number]] Primary Visit Diagnosis:Malignant neoplasm of lower-inner quadrant of right breast of female, estrogen receptor positive (HCC) [C50.311, Z17.0] Prescriptions as of 11/23/2017 Sig: CITRACAL + D ORAL Take 1 tablet by mouth twice * TAMOXIFEN 20 MG TABLET Take 1 tablet by mouth once d* CADPBHBN-[id number]-WNFCOKVE 3* Use 1 Drop in the right eye f* KETOROLAC 0.4 % EYE DROPS Use 1 Drop in the right eye f* LEVOTHYROXINE 200 MCG TABLET Take 1 tablet by mouth five t* COMPOUNDED PRESCRIPTION #1 Auto titrating PAP device * POTASSIUM CHLORIDE 20 MEQ ORA* TAKE ONE PACKET BY MOUTH EVER* HYDROCHLOROTHIAZIDE 25 MG TAB* Take 1 tablet by mouth once d* LISINOPRIL 10 MG TABLET Take 1 tablet by mouth once d* LAMOTRIGINE 150 MG TABLET Take 150 mg by mouth once subha* ZOLPIDEM 5 MG TABLET Take 5 mg by mouth at bedtime* ACETAMINOPHEN 500 MG TABLET Take 500 mg by mouth every 6 * BUPROPION XL 300 MG 24 HR TAB Take 300 mg by mouth once subha* CHOLECALCIFEROL (VITAMIN D3) * Take 1 capsule by mouth once * FLUOXETINE 40 MG CAPSULE Take 1 capsule by mouth once * Patient taking differently: Take 20 mg by mouth once arielle* CLARITIN ORAL Take 1 tablet by mouth once d* ANASTROZOLE 1 MG TABLET Take 1 tablet by mouth once d* HYDROCODONE 5 MG-ACETAMINOPHE* Take 1 tablet by mouth every * DIPHENOXYLATE-ATROPINE 2.5 MG* Take 2 tablets by mouth four * Problem List As Of Date 11/23/2017 Noted Resolved ADJUSTMENT DISORDER WITH DEPRESSED MOOD [F43.21]INVALID FOR* ANXIETY STATE NOS [F41.1] INVALID FOR* Hypothyroidism [E03.9] INVALID FOR* BENIGN HYPERTENSION [I10] INVALID FOR* Obesity, Class III, BMI 40-49.9 (morbid obesity*INVALID FOR* Nonspecific abnormal results of liver function *INVALID FOR* More... ALLERGIC RHINITIS NOS [J30.9] INVALID FOR* CHRONIC LIVER DIS NEC [K76.89] INVALID FOR* Hyperlipidemia [E78.5] INVALID FOR* Tobacco abuse [Z72.0] INVALID FOR* Low HDL (under 40) [E78.6] INVALID FOR* Hypertriglyceridemia [E78.1] INVALID FOR* Postsurgical hypothyroidism [E89.0] INVALID FOR* Incisional infection [T81.4XXA] INVALID FOR* Vitamin D deficiency [E55.9] INVALID FOR* Elevated LFTs [R79.89] INVALID FOR* Muscle spasm [M62.838] INVALID FOR* Neck pain [M54.2] INVALID FOR* Thoracic back pain [M54.6] INVALID FOR* Malignant neoplasm of lower-inner quadrant of r*INVALID FOR* Left breast mass [N63.20] INVALID FOR* More... Numbness of arm [R20.0] INVALID FOR* More... 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 Encounter Status:Closed by FLORY CRUZ MD on 11/23/17 PROGRESS Observed: 11/20/2017 Status: COMPLETED Source: [place] 3:14 PM [facility] [place] REPOSITORY HNO ID: [id number] Author: Anita Lujan Service: (none) Author Type: Physician Type: Progress Notes Filed: 11/20/2017 3:17 PM Note Text: (Z96.1) Pseudophakia (primary encounter diagnosis) (H52.7) Refractive error 3 weeks po Right eye doing well Use drops twice a day for 2 weeks and d/c Left eye plate haptic Posterior chamber intraocular lens by another surgeon and stable f/u 4 mos for lc dilate Manifest refraction given I have confirmed and edited as necessary the relevant ophthalmic history, ROS, and the neuro exam findings as obtained by others. I have seen and examined Mahi Stafford. I have discussed the case and the management of this patient's care with the Resident/Fellow, if applicable. I also have reviewed and agree with the assessment and plan as stated above and agree with all of its relevant components. Anita Olguin MD PROGRESS Observed: 11/16/2017 Status: COMPLETED Source: [place] 11:00 AM [facility] REPOSITORY HNO ID: [id number] Author: Rogelio Velez Service: (none) Author Type: Physician Type: Progress Notes Filed: 11/16/2017 11:20 AM Note Text: Diagnosis: 1) Breast cancer. HPI: Patient is a 46-year-old female who has past medical history significant for hyperlipidemia and hypertension who underwent bilateral mammogram in June 2016. She had a diagnostic mammogram of the right breast with there was a questionable 5 mm area of irregular asymmetry with indistinct margin in the depth inferior region of the right breast only seen on mediolateral oblique views. An ultrasound confirmed this area. Follow-up study was recommended in 6 months. That study was done on along with an ultrasound that demonstrated an irregular lesion in the right breast 3:00 position anterior depth with mixed echogenicity. An ultrasound-guided biopsy was recommended. This biopsy was performed 03/14/2017. The core sample demonstrated invasive ductal carcinoma, nuclear grade 2. Estrogen receptors were greater than 95%, strong and progesterone receptors were 12%, weak. HER- 2 was quantified at 0. The patient subsequent underwent an MRI. There was an additional area of concern identified in the right inner breast close to the original biopsied area. An MRI guided biopsy was performed that showed DCIS with intermediate and high nuclear grade with solid and cribriform types associated with microcalcifications. A clip was placed. Biopsy was also performed of a left breast abnormality and this tissue demonstrated fibroadenoma. The patient still had regular menses. Her maternal grandmother evidently had breast cancer diagnosed in her 30s and underwent surgery. She later in her 60s from metastatic renal cell carcinoma. There is no other family history of breast cancer, ovarian cancer or uterine cancer. Her grandmother also had thyroid cancer. Interim history: Underwent right-sided mastectomy and sentinel lymph node biopsy procedure on 04/30/2017. FROZEN SECTION DIAGNOSIS A. Kirby lymph node, biopsy: Fragments of fibrofatty tissue. No lymph node tissue is identified. SJ: 04/30/17 B. Additional right axillary sentinel lymph nodes, biopsy: Two out of two lymph nodes negative for carcinoma. AM: 04/30/17 MICROSCOPIC DIAGNOSIS A. Kirby lymph node, biopsy: Fragments of fibrofatty tissue. No lymph node tissue is identified. B. Additional right axillary sentinel lymph nodes, biopsy: Two out of two lymph nodes, negative for metastatic carcinoma. See comment. C. Right breast, modified radical mastectomy: Invasive ductal carcinoma. Ductal carcinoma in situ. Angiolipoma. Five out of five lymph nodes, negative for metastatic carcinoma. See cancer summary below. INVASIVE BREAST CANCER SUMMARY: (Including specimen B AND C) Specimen ? total breast (including nipple and skin). Procedure ? total mastectomy (including nipple and skin). Lymph node sampling ? sentinel lymph node and axillary dissection. Specimen integrity ? single intact specimen. Specimen laterality - right Tumor site ? lower central portion of the breast tissue. Tumor size ? 1.2 x 0.7 x 0.5 cm (see comment) Tumor focality ? single focus of invasive carcinoma. Macroscopic and Microscopic extent of tumor: Skin ? invasive carcinoma does not invade into the dermis or epidermis. Nipple ? ductal carcinoma in situ does not involve the nipple epidermis. Skeletal muscle ? no skeletal muscle present Ductal carcinoma in situ (DCIS) ? ductal carcinoma in situ is present. Extensive intraductal component (EIC) ? positive Ductal carcinoma in situ show extensive cancerization of lobules. Estimated size (extent) of DCIS ? ductal carcinoma in situ comprise about 40% of the total tumor volume and it is present adjacent and away from the invasive tumor.. Number of blocks with DCIS - 5 Number of blocks examined ? 10 (consisting of breast tissue) Architectural patterns ? solid and cribriform Nuclear grade ? grade 2-3 (intermediate to high) Necrosis ? present, focal (small foci of single cell necrosis) Lobular carcinoma in situ (LCIS) ? not present Histologic type of invasive carcinoma ? invasive ductal carcinoma (no special type) Histologic Grade: [place] grade: Glandular/tubular differentiation - score 3 Nuclear pleomorphism - score 3 Mitotic count ? score 1 Overall grade - 2 (score of 7) Margins: Margins uninvolved by invasive carcinoma. The tumor is 4 cm away from the closest posterior margin. Treatment effect: Response to presurgical (neoadjuvant) therapy - no known presurgical therapy. Lymph-Vascular invasion ? not identified Dermal lymph-vascular invasion ? not identified Lymph nodes: Number of sentinel lymph nodes examined - 2 Total number of lymph nodes examined (sentinel and nonsentinel) - 7 Number of lymph nodes with macrometastases, micrometastases and isolated tumor cells - 0 Method of evaluation of sentinel lymph nodes - H AND E, multiple levels and IHC. Distance metastasis ? not applicable Additional pathologic findings ? fibrocystic changes and intraductal hyperplasia without atypia. - Angiolipoma. Ancillary studies - previously performed on section of tumor ([id number] / [id number]). ER ? positive (>95%, strong) ME ? positive (12%, weak) Her2 diana ? negative (0) Her2 by dual THERESA ? not performed Microcalcifications ? present in DCIS. Clinical history - Please make reference to previous specimen ([id number]) right breast, core biopsy with diagnosis of invasive ductal carcinoma. Previous therapy: 1) TC x3 cycles. Stopped due to significant side effects. 2) Anastrozole. Discontinued secondary to exacerbation of bipolar symptoms. Current therapy: 1) Lupron. Began 09/21/2017. Presents for ongoing oncologic management. Interim history: She is doing well with Lupron injections. When she started anastrozole within a week or 2 she noticed wide mood swings and felt very hostile. Anastrozole stopped in all symptoms resolved. She is not having any hot flashes or mood swings with Lupron injection. Otherwise she has no musculoskeletal pain and no complaints otherwise. PMH, medications and allergies personally reviewed by me today. Any changes documented in appropriate section. ROS: Constitutional: Denies episodes of fever or night sweats. Normal energy and appetite. Neuro: Denies KIRKPATRICK, vertigo, dizziness and imbalance. HEENT: No recent change in voice or hearing. Resp: Denies cough, wheeze and hemoptysis. Denies shortness of breath at rest. CVS: Denies exertional chest pain, PND, orthopnea and LE edema. GI: See above. No longer having diarrhea. : Denies dysuria or gross hematuria. No symptoms of bladder outlet obstruction. Endo: Denies polyuria and polydipsia. Denies heat and cold intolerance. Musculoskeletal: See above. Derm: Denies rash. Denies jaundice and diffuse pruritis. Heme: Denies unusual bleeding and unexplained bruising. Psych: Normal mood. PHYSICAL EXAM: Vitals: Blood pressure 115/71, pulse 93, temperature 36.6 ?C (97.9 ?F), temperature source Temporal Artery, weight 116.6 kg (257 lb). Well-appearing and in no acute distress. EYES: Sclerae are anicteric bilaterally. NECK: Supple. No enlargement of thyroid. LYMPHATIC: There is no palpable cervical, supraclavicular, axillary or inguinal adenopathy. RESPIRATORY: Inspiratory breath sounds are of normal intensity in all wallace. No rales, wheezes or rhonchi. CARDIOVASCULAR: Rhythm is regular. Normal intensity S1/S2. There is no gallop or murmur. ABDOMEN: The abdomen is nondistended. No organomegaly. No tenderness. Extremities: No swelling or edema. SKIN: Healing desquamation rash of the hands. NEUROLOGIC: tuckpointer II-XII are grossly intact. No focal motor weakness. MUSCULOSKELETAL: No muscle wasting. ASSESSMENT/PLAN: (C50.311, Z17.0) Malignant neoplasm of lower-inner quadrant of right breast of female, estrogen receptor positive (HCC) (primary encounter diagnosis) Assessment: -pT1c (1.2 cm; grade 2; no ALI) pN0 MX ER/ME positive, HER2 negative invasive ductal carcinoma the right breast. -Genetic testing negative. -Oncotype recurrent score was 26 suggesting 17% average recurrence risk over the next 10 years with the use of tamoxifen alone. -Significant side effects with each cycle of TC. She has opted to stop chemotherapy. -Intolerant to anastrozole. -Reviewed with her the rationale to start tamoxifen. Based on the soft trial. She will continue ovarian suppression with Lupron. She asked today about the possibility of oophorectomy. I think this is very reasonable given that she is not having any significant postmenopausal symptoms with Lupron alone. She will continue working with her psychiatrist and plans to continue decreasing dose of Prozac. I discussed the potential that SSRIs could ameliorate the effects of tamoxifen. -Again discussed the use of adjuvant bisphosphonate therapy and recommended Zometa infusion every 6 months for up to 3 years beginning about 6 months after starting ovarian suppression. -She scheduled to see a plastic surgeon in November regarding prophylactic left-sided mastectomy. Plan: -Continue Lupron monthly. -Rx for tamoxifen sent. -She will continue under the care of her psychiatrist for bipolar symptoms. -Referral to gynecology for consideration of oophoreectomy. -Due for left-sided screening mammogram March 2018 if does not undergo mastectomy. Rogelio Velez DO CNOVSP Observed: 11/16/2017 Status: COMPLETED Source: [place] 10:30 AM [facility] REPOSITORY Visit (SP) Office ([place]) MAHI STAFFORD ([id number]) 1970 F Date Time Provider Department 11/16/17 10:30 AM ROGELIO VELEZ During your visit today, we recorded the following information about you: Temperature Pulse Blood pressure Weight 97.9 degrees 93/minute 115/71 116.6 kg Rogelio Velez DO 11/16/2017 11:20 AM Signed Diagnosis: 1) Breast cancer. HPI: Patient is a 46-year-old female who has past medical history significant for hyperlipidemia and hypertension who underwent bilateral mammogram in June 2016. She had a diagnostic mammogram of the right breast with there was a questionable 5 mm area of irregular asymmetry with indistinct margin in the depth inferior region of the right breast only seen on mediolateral oblique views. An ultrasound confirmed this area. Follow-up study was recommended in 6 months. That study was done on along with an ultrasound that demonstrated an irregular lesion in the right breast 3:00 position anterior depth with mixed echogenicity. An ultrasound-guided biopsy was recommended. This biopsy was performed 03/14/2017. The core sample demonstrated invasive ductal carcinoma, nuclear grade 2. Estrogen receptors were greater than 95%, strong and progesterone receptors were 12%, weak. HER-2 was quantified at 0. The patient subsequent underwent an MRI. There was an additional area of concern identified in the right inner breast close to the original biopsied area. An MRI guided biopsy was performed that showed DCIS with intermediate and high nuclear grade with solid and cribriform types associated with microcalcifications. A clip was placed. Biopsy was also performed of a left breast abnormality and this tissue demonstrated fibroadenoma. The patient still had regular menses. Her maternal grandmother evidently had breast cancer diagnosed in her 30s and underwent surgery. She later in her 60s from metastatic renal cell carcinoma. There is no other family history of breast cancer, ovarian cancer or uterine cancer. Her grandmother also had thyroid cancer. Interim history: Underwent right-sided mastectomy and sentinel lymph node biopsy procedure on 04/30/2017. FROZEN SECTION DIAGNOSIS A. Kirby lymph node, biopsy: Fragments of fibrofatty tissue. No lymph node tissue is identified. SJ: 04/30/17 B. Additional right axillary sentinel lymph nodes, biopsy: Two out of two lymph nodes negative for carcinoma. AM: 04/30/17 MICROSCOPIC DIAGNOSIS A. Kirby lymph node, biopsy: Fragments of fibrofatty tissue. No lymph node tissue is identified. B. Additional right axillary sentinel lymph nodes, biopsy: Two out of two lymph nodes, negative for metastatic carcinoma. See comment. C. Right breast, modified radical mastectomy: Invasive ductal carcinoma. Ductal carcinoma in situ. Angiolipoma. Five out of five lymph nodes, negative for metastatic carcinoma. See cancer summary below. INVASIVE BREAST CANCER SUMMARY: (Including specimen B AND C) Specimen ? total breast (including nipple and skin). Procedure ? total mastectomy (including nipple and skin). Lymph node sampling ? sentinel lymph node and axillary dissection. Specimen integrity ? single intact specimen. Specimen laterality - right Tumor site ? lower central portion of the breast tissue. Tumor size ? 1.2 x 0.7 x 0.5 cm (see comment) Tumor focality ? single focus of invasive carcinoma. Macroscopic and Microscopic extent of tumor: Skin ? invasive carcinoma does not invade into the dermis or epidermis. Nipple ? ductal carcinoma in situ does not involve the nipple epidermis. Skeletal muscle ? no skeletal muscle present Ductal carcinoma in situ (DCIS) ? ductal carcinoma in situ is present. Extensive intraductal component (EIC) ? positive Ductal carcinoma in situ show extensive cancerization of lobules. Estimated size (extent) of DCIS ? ductal carcinoma in situ comprise about 40% of the total tumor volume and it is present adjacent and away from the invasive tumor.. Number of blocks with DCIS - 5 Number of blocks examined ? 10 (consisting of breast tissue) Architectural patterns ? solid and cribriform Nuclear grade ? grade 2-3 (intermediate to high) Necrosis ? present, focal (small foci of single cell necrosis) Lobular carcinoma in situ (LCIS) ? not present Histologic type of invasive carcinoma ? invasive ductal carcinoma (no special type) Histologic Grade: [place] grade: Glandular/tubular differentiation - score 3 Nuclear pleomorphism - score 3 Mitotic count ? score 1 Overall grade - 2 (score of 7) Margins: Margins uninvolved by invasive carcinoma. The tumor is 4 cm away from the closest posterior margin. Treatment effect: Response to presurgical (neoadjuvant) therapy - no known presurgical therapy. Lymph-Vascular invasion ? not identified Dermal lymph-vascular invasion ? not identified Lymph nodes: Number of sentinel lymph nodes examined - 2 Total number of lymph nodes examined (sentinel and nonsentinel) - 7 Number of lymph nodes with macrometastases, micrometastases and isolated tumor cells - 0 Method of evaluation of sentinel lymph nodes - H AND E, multiple levels and IHC. Distance metastasis ? not applicable Additional pathologic findings ? fibrocystic changes and intraductal hyperplasia without atypia. - Angiolipoma. Ancillary studies - previously performed on section of tumor ([id number] / [id number]). ER ? positive (>95%, strong) ME ? positive (12%, weak) Her2 diana ? negative (0) Her2 by dual THERESA ? not performed Microcalcifications ? present in DCIS. Clinical history - Please make reference to previous specimen ([id number]) right breast, core biopsy with diagnosis of invasive ductal carcinoma. Previous therapy: 1) TC x3 cycles. Stopped due to significant side effects. 2) Anastrozole. Discontinued secondary to exacerbation of bipolar symptoms. Current therapy: 1) Lupron. Began 09/21/2017. Presents for ongoing oncologic management. Interim history: She is doing well with Lupron injections. When she started anastrozole within a week or 2 she noticed wide mood swings and felt very hostile. Anastrozole stopped in all symptoms resolved. She is not having any hot flashes or mood swings with Lupron injection. Otherwise she has no musculoskeletal pain and no complaints otherwise. PMH, medications and allergies personally reviewed by me today. Any changes documented in appropriate section. ROS: Constitutional: Denies episodes of fever or night sweats. Normal energy and appetite. Neuro: Denies KIRKPATRICK, vertigo, dizziness and imbalance. HEENT: No recent change in voice or hearing. Resp: Denies cough, wheeze and hemoptysis. Denies shortness of breath at rest. CVS: Denies exertional chest pain, PND, orthopnea and LE edema. GI: See above. No longer having diarrhea. : Denies dysuria or gross hematuria. No symptoms of bladder outlet obstruction. Endo: Denies polyuria and polydipsia. Denies heat and cold intolerance. Musculoskeletal: See above. Derm: Denies rash. Denies jaundice and diffuse pruritis. Heme: Denies unusual bleeding and unexplained bruising. Psych: Normal mood. PHYSICAL EXAM: Vitals: Blood pressure 115/71, pulse 93, temperature 36.6 ?C (97.9 ?F), temperature source Temporal Artery, weight 116.6 kg (257 lb). Well-appearing and in no acute distress. EYES: Sclerae are anicteric bilaterally. NECK: Supple. No enlargement of thyroid. LYMPHATIC: There is no palpable cervical, supraclavicular, axillary or inguinal adenopathy. RESPIRATORY: Inspiratory breath sounds are of normal intensity in all wallace. No rales, wheezes or rhonchi. CARDIOVASCULAR: Rhythm is regular. Normal intensity S1/S2. There is no gallop or murmur. ABDOMEN: The abdomen is nondistended. No organomegaly. No tenderness. Extremities: No swelling or edema. SKIN: Healing desquamation rash of the hands. NEUROLOGIC: tuckpointer II-XII are grossly intact. No focal motor weakness. MUSCULOSKELETAL: No muscle wasting. ASSESSMENT/PLAN: (C50.311, Z17.0) Malignant neoplasm of lower-inner quadrant of right breast of female, estrogen receptor positive (HCC) (primary encounter diagnosis) Assessment: -pT1c (1.2 cm; grade 2; no ALI) pN0 MX ER/ME positive, HER2 negative invasive ductal carcinoma the right breast. -Genetic testing negative. -Oncotype recurrent score was 26 suggesting 17% average recurrence risk over the next 10 years with the use of tamoxifen alone. -Significant side effects with each cycle of TC. She has opted to stop chemotherapy. -Intolerant to anastrozole. -Reviewed with her the rationale to start tamoxifen. Based on the soft trial. She will continue ovarian suppression with Lupron. She asked today about the possibility of oophorectomy. I think this is very reasonable given that she is not having any significant postmenopausal symptoms with Lupron alone. She will continue working with her psychiatrist and plans to continue decreasing dose of Prozac. I discussed the potential that SSRIs could ameliorate the effects of tamoxifen. -Again discussed the use of adjuvant bisphosphonate therapy and recommended Zometa infusion every 6 months for up to 3 years beginning about 6 months after starting ovarian suppression. -She scheduled to see a plastic surgeon in November regarding prophylactic left-sided mastectomy. Plan: -Continue Lupron monthly. -Rx for tamoxifen sent. -She will continue under the care of her psychiatrist for bipolar symptoms. -Referral to gynecology for consideration of oophoreectomy. -Due for left-sided screening mammogram March 2018 if does not undergo mastectomy. Rogelio Velez DO Referring Provider: ROGELIO VELEZ [[id number]] Allergies As of Date: 11/16/2017 Noted Allergy Reaction AMITRIPTYLINE 11/18/2016 14 - Other: See Comments Comments: Intensely angry ANASTROZOLE 11/04/2017 5 - Intolerance Comments: Nausea, irritability, inability to sleep CATS 01/05/2006 DOGS 01/05/2006 GRASS POLLEN 01/05/2006 LEVAQUIN (LEVOFLOXACIN) 07/15/2017 4 - Hives 7 - Swelling MOLD 01/05/2006 Date Reviewed: 11/16/2017 Reviewed by: Sydney Dove - Fully Assessed Reason for Visit: Established Patient [175] Primary Visit Diagnosis:Malignant neoplasm of lower-inner quadrant of right breast of female, estrogen receptor positive (HCC) [C50.311, Z17.0] Order(s):tamoxifen (NOLVADEX) 20 mg tabletTake 1 tablet by mouth once daily.Disp: 30 tabletRfl: 5 Follow-up and Disposition History Recorded Prescriptions as of 11/16/2017 Sig: CITRACAL + D ORAL Take 1 tablet by mouth twice * [id number] 3* Use 1 Drop in the right eye f* KETOROLAC 0.4 % EYE DROPS Use 1 Drop in the right eye f* LEVOTHYROXINE 200 MCG TABLET Take 1 tablet by mouth five t* COMPOUNDED PRESCRIPTION #1 Auto titrating PAP device * POTASSIUM CHLORIDE 20 MEQ ORA* TAKE ONE PACKET BY MOUTH EVER* HYDROCHLOROTHIAZIDE 25 MG TAB* Take 1 tablet by mouth once d* LISINOPRIL 10 MG TABLET Take 1 tablet by mouth once d* LAMOTRIGINE 150 MG TABLET Take 150 mg by mouth once subha* ZOLPIDEM 5 MG TABLET Take 5 mg by mouth at bedtime* ACETAMINOPHEN 500 MG TABLET Take 500 mg by mouth every 6 * BUPROPION XL 300 MG 24 HR TAB Take 300 mg by mouth once subha* CHOLECALCIFEROL (VITAMIN D3) * Take 1 capsule by mouth once * FLUOXETINE 40 MG CAPSULE Take 1 capsule by mouth once * CLARITIN ORAL Take 1 tablet by mouth once d* TAMOXIFEN 20 MG TABLET Take 1 tablet by mouth once d* ANASTROZOLE 1 MG TABLET Take 1 tablet by mouth once d* HYDROCODONE 5 MG-ACETAMINOPHE* Take 1 tablet by mouth every * DIPHENOXYLATE-ATROPINE 2.5 MG* Take 2 tablets by mouth four * Problem List As Of Date 11/16/2017 Noted Resolved ADJUSTMENT DISORDER WITH DEPRESSED MOOD [F43.21]INVALID FOR* ANXIETY STATE NOS [F41.1] INVALID FOR* Hypothyroidism [E03.9] INVALID FOR* BENIGN HYPERTENSION [I10] INVALID FOR* Obesity, Class III, BMI 40-49.9 (morbid obesity*INVALID FOR* Nonspecific abnormal results of liver function *INVALID FOR* More... ALLERGIC RHINITIS NOS [J30.9] INVALID FOR* CHRONIC LIVER DIS NEC [K76.89] INVALID FOR* Hyperlipidemia [E78.5] INVALID FOR* Tobacco abuse [Z72.0] INVALID FOR* Low HDL (under 40) [E78.6] INVALID FOR* Hypertriglyceridemia [E78.1] INVALID FOR* Postsurgical hypothyroidism [E89.0] INVALID FOR* Incisional infection [T81.4XXA] INVALID FOR* Vitamin D deficiency [E55.9] INVALID FOR* Elevated LFTs [R79.89] INVALID FOR* Muscle spasm [M62.838] INVALID FOR* Neck pain [M54.2] INVALID FOR* Thoracic back pain [M54.6] INVALID FOR* Malignant neoplasm of lower-inner quadrant of r*INVALID FOR* Left breast mass [N63.20] INVALID FOR* More... Numbness of arm [R20.0] INVALID FOR* More... 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 Encounter Status:Closed by ROGELIO VELEZ DO on 11/16/17 CNOV Observed: 11/04/2017 Status: COMPLETED Source: [place] 7:40 AM [facility] REPOSITORY Office Visit (PODIWS) MAHI STAFFORD ([id number]) 1970 F Date Time Provider Department 11/04/17 7:40 AM BETITO MEDINA During your visit today, we recorded the following information about you: Neelam Kincaid Ma 11/04/2017 10:30 AM Signed ? Betito Medina DPM Department of Podiatry [address] [place] [id number] Dept: [phone] Dept 11/04/2017 Follow Up Podiatric Office Visit: HPI: Mahi Stafford is a 46 year old female. Patient presents for follow up for Posterior Tibial Tendonitis, L and Plantar Fascitis, L. Patient was prescribed custom orthotics at [facility], insurance did not cover. Patient purchased out of pocket custom orthotics and ASYM III 10 running shoes and Algreia shoes from [employer] roughly 6 weeks ago and reports that she has noticed a huge difference and reports that it was well worth it. Patient is doing physical therapy and reports is helpful. Patient continuing to work on strength training for L calf and ankle twice daily. Patient has some complaints of pain with walking long distances. Pain is rated at 2/10, and described as aching and dull. Interventions include: relaxation, elevation, and ice. Patient still on medical leave from work for breast cancer. Currently working with [employer] to find position that is less standing/walking/etc. Patient also notes that she underwent cataract surgery last week for right eye. Physical Exam: Constitutional: Pt is a well developed 46 year old female who is alert, oriented and cooperative Eyes: Following during examination. No redness or drainage. Respiratory: RR normal and nonlabored. Even breathing. No evidence of distress or shortness of breath. Psychology: Patient is engaged during conversation. Normal affect and mood. Does not appear depressed or anxious during encounter. Vascular: Dorsalis pedis and posterior tibial pulses palpable as b/l Capillary Fill time ANDlt; 5 seconds to digits 1-5 b/l Skin temperature warm to warm proximal to distal b/l Hair growth present to digits Neurological: intact light touch/epicritic sensation intact protective sensation, Dermatological: Skin appears well hydrated and supple. good color, texture, turgor. Callosities present absent.Open lesions absent. Wound: Not present. Musculoskeletal/Orthopaedic: Patient has pain to palpation of left posterior tibial tendon. No pain to medial heel Foot type is pronated structurally AJ ROM is full with knee extended and flexed 1st MPJ is full when loaded and no pain or crepitus are noted with ROM. MTJ, STJ are full and free of pain and crepitus. +5/5 muscle strength dorsiflexion, plantarflexion, inversion, eversion b/l ASSESSMENT: (M76.822) Posterior tibial tendonitis, left (primary encounter diagnosis) Comment: suspect mild thickening of posterior tibial tendon with mild degenerative changes. Options include MRI and AFO Plan: 1. MRI - hold d/t retained hardware. If pain fails to improve, may need removal of hardware to obtain mri or send to main campus 2. AFO - from [facility] 3. When patient returns to work, agree with light duty at this time. (M72.2) Plantar fasciitis of left foot Comment: resolved at this time Plan: patient informed that pain may return at some point, continue stretching and inserts F/u in 2 months The documentation for this note was completed by Neelam Kincaid Ma acting as scribe for Betito Medina DPM. November 04, 2017 8:09 AM. ANA MARIA Tsai Ma 11/04/2017 8:04 AM Addendum [facility] [address] [facility] [address] PH: [phone] Continue current shoes/stretching Referring Provider: BETITO MEDINA [[id number]] Allergies As of Date: 11/04/2017 Noted Allergy Reaction AMITRIPTYLINE 11/18/2016 14 - Other: See Comments Comments: Intensely angry ANASTROZOLE 11/04/2017 5 - Intolerance Comments: Nausea, irritability, inability to sleep CATS 01/05/2006 DOGS 01/05/2006 GRASS POLLEN 01/05/2006 LEVAQUIN (LEVOFLOXACIN) 07/15/2017 4 - Hives 7 - Swelling MOLD 01/05/2006 Date Reviewed: 11/04/2017 Reviewed by: Neelam Kincaid Ma - Fully Assessed Reason for Visit: Follow Up [171] Primary Visit Diagnosis:Posterior tibial tendonitis, left [M76.822] Other Visit Diagnosis:Plantar fasciitis of left foot [M72.2] Order(s):CONSULT TO ORTHOTIC/PROSTHETIC [[id number]] Order #: [id number]: 1 Prescriptions as of 11/04/2017 Sig: KETOROLAC 0.4 % EYE DROPS Use 1 Drop in the right eye f* [id number] 3* Use 1 Drop in the right eye f* COMPOUNDED PRESCRIPTION #1 Auto titrating PAP device * POTASSIUM CHLORIDE 20 MEQ ORA* TAKE ONE PACKET BY MOUTH EVER* HYDROCHLOROTHIAZIDE 25 MG TAB* Take 1 tablet by mouth once d* LISINOPRIL 10 MG TABLET Take 1 tablet by mouth once d* LAMOTRIGINE 150 MG TABLET Take 150 mg by mouth once subha* ZOLPIDEM 5 MG TABLET Take 5 mg by mouth at bedtime* ACETAMINOPHEN 500 MG TABLET Take 500 mg by mouth every 6 * BUPROPION XL 300 MG 24 HR TAB Take 300 mg by mouth once subha* CHOLECALCIFEROL (VITAMIN D3) * Take 1 capsule by mouth once * CLARITIN ORAL Take 1 tablet by mouth once d* LEVOTHYROXINE 200 MCG TABLET Take 1 tablet by mouth five t* ANASTROZOLE 1 MG TABLET Take 1 tablet by mouth once d* HYDROCODONE 5 MG-ACETAMINOPHE* Take 1 tablet by mouth every * DIPHENOXYLATE-ATROPINE 2.5 MG* Take 2 tablets by mouth four * FLUOXETINE 40 MG CAPSULE Take 1 capsule by mouth once * Medication notes this encounter ANASTROZOLE 1 MG TABLET >> Neelam Kincaid Ma 11/04/2017 7:37 AM >> NEELAM KINCAID MA ThuNov 04, 2017 7:37 AM Not taking d/t reaction - please d/c Neelam Kincaid Ma HYDROCODONE 5 MG-ACETAMINOPHEN 325 MG TABLET >> Neelam Kincaid Ma 11/04/2017 7:38 AM >> NEELAM KINCAID MA ThuNov 04, 2017 7:38 AM Not taking. Please d/c DIPHENOXYLATE-ATROPINE 2.5 MG-0.025 MG TABLET >> Neelam Kincaid Ma 11/04/2017 7:38 AM >> NEELAM KINCAID MA ThuNov 04, 2017 7:38 AM Not taking, please d/c FLUOXETINE 40 MG CAPSULE >> Neelam Kincaid Ma 11/04/2017 7:39 AM >> NEELAM KINCAID MA ThuNov 04, 2017 7:39 AM Taking as directed Problem List As Of Date 11/04/2017 Noted Resolved ADJUSTMENT DISORDER WITH DEPRESSED MOOD [F43.21]INVALID FOR* ANXIETY STATE NOS [F41.1] INVALID FOR* Hypothyroidism [E03.9] INVALID FOR* BENIGN HYPERTENSION [I10] INVALID FOR* Obesity, Class III, BMI 40-49.9 (morbid obesity*INVALID FOR* Nonspecific abnormal results of liver function *INVALID FOR* More... ALLERGIC RHINITIS NOS [J30.9] INVALID FOR* CHRONIC LIVER DIS NEC [K76.89] INVALID FOR* Hyperlipidemia [E78.5] INVALID FOR* Tobacco abuse [Z72.0] INVALID FOR* Low HDL (under 40) [E78.6] INVALID FOR* Hypertriglyceridemia [E78.1] INVALID FOR* Postsurgical hypothyroidism [E89.0] INVALID FOR* Incisional infection [T81.4XXA] INVALID FOR* Vitamin D deficiency [E55.9] INVALID FOR* Elevated LFTs [R79.89] INVALID FOR* Muscle spasm [M62.838] INVALID FOR* Neck pain [M54.2] INVALID FOR* Thoracic back pain [M54.6] INVALID FOR* Malignant neoplasm of lower-inner quadrant of r*INVALID FOR* Left breast mass [N63.20] INVALID FOR* More... Numbness of arm [R20.0] INVALID FOR* More... 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 Other instructions from your clinician: Ruth Drummond [address] [facility] [address] PH: [phone] Continue current shoes/stretching Disposition: Return in about 2 days (around 11/06/2017) for L ankle follow up. Follow-up and Disposition History Recorded Encounter Status:Closed by BETITO MEDINA DPM on 11/04/17 PROGRESS Observed: 11/04/2017 Status: COMPLETED Source: [place] 7:39 AM [facility] REPOSITORY HNO ID: [id number] Author: Neelam Kincaid Ma Service: (none) Author Type: (none) Type: Progress Notes Filed: 11/04/2017 10:30 AM Note Text: ? Betito Medina DPM Department of Podiatry [address] [facility] [address] Dept: [phone] Dept 11/04/2017 Follow Up Podiatric Office Visit: HPI: Mahi Stafford is a 46 year old female. Patient presents for follow up for Posterior Tibial Tendonitis, L and Plantar Fascitis, L. Patient was prescribed custom orthotics at [facility], insurance did not cover. Patient purchased out of pocket custom orthotics and Mortensen Ghost 10 running shoes and Algreia shoes from [employer] roughly 6 weeks ago and reports that she has noticed a huge difference and reports that it was well worth it. Patient is doing physical therapy and reports is helpful. Patient continuing to work on strength training for L calf and ankle twice daily. Patient has some complaints of pain with walking long distances. Pain is rated at 2/10, and described as aching and dull. Interventions include: relaxation, elevation, and ice. Patient still on medical leave from work for breast cancer. Currently working with [employer] to find position that is less standing/walking/etc. Patient also notes that she underwent cataract surgery last week for right eye. Physical Exam: Constitutional: Pt is a well developed 46 year old female who is alert, oriented and cooperative Eyes: Following during examination. No redness or drainage. Respiratory: RR normal and nonlabored. Even breathing. No evidence of distress or shortness of breath. Psychology: Patient is engaged during conversation. Normal affect and mood. Does not appear depressed or anxious during encounter. Vascular: Dorsalis pedis and posterior tibial pulses palpable as b/l Capillary Fill time < 5 seconds to digits 1-5 b/l Skin temperature warm to warm proximal to distal b/l Hair growth present to digits Neurological: intact light touch/epicritic sensation intact protective sensation, Dermatological: Skin appears well hydrated and supple. good color, texture, turgor. Callosities present absent.Open lesions absent. Wound: Not present. Musculoskeletal/Orthopaedic: Patient has pain to palpation of left posterior tibial tendon. No pain to medial heel Foot type is pronated structurally AJ ROM is full with knee extended and flexed 1st MPJ is full when loaded and no pain or crepitus are noted with ROM. MTJ, STJ are full and free of pain and crepitus. +5/5 muscle strength dorsiflexion, plantarflexion, inversion, eversion b/l ASSESSMENT: (M76.822) Posterior tibial tendonitis, left (primary encounter diagnosis) Comment: suspect mild thickening of posterior tibial tendon with mild degenerative changes. Options include MRI and AFO Plan: 1. MRI - hold d/t retained hardware. If pain fails to improve, may need removal of hardware to obtain mri or send to [facility] 2. AFO - from [facility] 3. When patient returns to work, agree with light duty at this time. (M72.2) Plantar fasciitis of left foot Comment: resolved at this time Plan: patient informed that pain may return at some point, continue stretching and inserts F/u in 2 months The documentation for this note was completed by Neelam Kincaid Ma acting as scribe for Betito Medina DPM. November 04, 2017 8:09 AM. Betito Medina DPM PROGRESS Observed: 10/30/2017 Status: COMPLETED Source: [place] 3:42 PM [facility] REPOSITORY HNO ID: [id number] Author: Anita Chawla-Iban Service: (none) Author Type: Physician Type: Progress Notes Filed: 11/01/2017 7:13 PM Note Text: (Z96.1) Pseudophakia of right eye (primary encounter diagnosis) Pod 1 doing well Use drops as per instruction sheet and follow up as scheduled Call for decreased vision or increased eye pain S/p femto assisted Phacoemulsification with lri Right eye doing well F/u one month to adm for c I have confirmed and edited as necessary the relevant ophthalmic history, ROS, and the neuro exam findings as obtained by others. I have seen and examined Maih Stafford. I have discussed the case and the management of this patient's care with the Resident/Fellow, if applicable. I also have reviewed and agree with the assessment and plan as stated above and agree with all of its relevant components. Anita Olguin MD ANES POST Observed: 10/29/2017 Status: COMPLETED Source: [place] 12:24 PM [facility] REPOSITORY O ID: [id number] Author: Xuan Swann Service: Anesthesiology Author Type: Anesthesiologist Type: Anesthesia PostOp Filed: 10/29/2017 1:34 PM Note Text: POST ANESTHESIA EVALUATION NOTE SERVICE DATE: 10/29/2017 SERVICE TIME: 1:34 PM : 1970 Vitals: 10/29/17 0839 10/29/17 1209 Temp: 36.9 ?C (98.4 ?F) 37 ?C (98.6 ?F) 10/29/17 0839 10/29/17 1209 10/29/17 1216 BP: 107/59 (!) 106/48 105/67 10/29/17 0839 10/29/17 1209 10/29/17 1216 Pulse: 73 86 92 10/29/17 0839 10/29/17 1209 10/29/17 1216 Resp: 19 20 20 10/29/17 0839 10/29/17 1209 10/29/17 1216 SpO2: 97% 95% 95% Validated Vital Signs: Yes POST ANES STATUS: No apparent anesthetic complications. The patient is appropriately hydrated with stable respiratory and cardiovascular status. Patient has safe and adequate airway control. The patient has appropriate pain relief and no significant post operative nausea or vomiting. The patient has achieved baseline mental status. Further assessment by Anesthesia Service: None Other Remarks: SIGNATURE: Xuan Swann MD PATIENT NAME: Mahi Stafford DATE: October 29, 2017 TIME: 1:34 PM PAGER/CONTACT #: [phone] OPERATIVE NO Observed: 10/29/2017 Status: COMPLETED Source: [place] 12:24 PM [facility] REPOSITORY O ID: [id number] Author: Anita Lujan Service: Ophthalmology Author Type: Physician Type: Operative Report Filed: 10/29/2017 3:33 PM Note Text: OPERATIVE/PROCEDURE REPORT OPHTHAMOLOGY LOG ID: [id number] Surgery/Procedure Date: 10/29/2017 Incision/Procedure Start Time: 10:54 AM Incision Close/Procedure End Time: 11:57 AM Surgeon(s)/Proceduralist(s) and Hand Laminator(s): Surgeon(s) and Role: * Anita Lujan - Primary Procedure(s): Procedure(s) (LRB): PHACOEMULSIFICATION CATARACT IMPLANT INTRAOCULAR LENS (Right) Preoperative Diagnosis: Posterior subcapsular polar senile cataract [H25.049] astigmatism Postoperative Diagnosis: Posterior subcapsular polar senile cataract [H25.049] astigmatism Operative Indications: This is a 46 year old female who complains of inability to see distance and read out of the right eye. On examination, the patient was noted to have a dense nuclear sclerotic cataract and astigmatism in the right eye. The decision to proceed withfemtosecond cataract extraction and LRI creationand implant placement as below was made. Anesthesia: Monitored Anesthesia Care Procedure Details:After the risks and benefits of the procedure were fully explained to the patient and informed consent was obtained the patient was brought into the femtosecond laser room in a supine position and positioned under the femtosecond laser. A drop of tetracaine was given and a speculum was used to separate the eyelids. The eye was positioned under the laser and and the suction ring was applanated and centered on the eye. Suction was applied. Each of the positioning parameters were carefully checked. The capsulorhexxis position, the lens centering for fragmentation, the primary and secondary incision Sites, and the LRI at 26 degree 45 degree arc were programmed into the computer. After the eye was properly centered, the treatment was applied. Then suction was released and the patient was moved into the room for phacoemulsification. Monitored anesthesia care had been achieved.The femto laser created corneal paracentesis was opened with the Einnamdi spatula. Then 0.1 cc of 1% MPF-free lidocaine was injected into the anterior chamber through the paracentesis site. The eippert spatula was used to open the femto laser created clear corneal temporal tunnel after Healon had been used to fill the anterior chamber. Then a bent needle cystitome and Utrata forceps were used to check the femtosecond created continuous curvilinear capsulorrhexis and it was found to not be fully created temporally. Thus the cystitome and utrata were used to finish the capsulorhexxus and remove the capsule remnant. A sewxbj-uzf-gyqwduu technique was used to remove the lens nucleus by phacoemulsification. Cortex was removed with Irrigation/ Aspiration. Healon was used to fill the capsular bag and the [id number] with 23.5diopters was injected through a shooter. I/A was used to remove healon. Each of the wounds was checked for leaks and found to be leak free. Then the LRI was not opened and the patient was taken to recovery in good condition after a pressure patch and shield had been applied. Estimated Blood Loss: Minimal unless noted here. Specimens: * No specimens in log * Implantable Devices: Implant Name Type Inv. Item Serial No. Branch Manager Trainee Lot No. LRB Model Num No. Used LENS IOL 0D +23.5 YA UV ABS - [id number] Intraocular Lens LENS IOL 0D +23.5 YA UV ABS [id number] [employer] Right [id number] 23.5 1 Drains: None unless noted here. Complications: None I performed the entire procedure. SIGNATURE: Anita Olguin MD PATIENT NAME: Mahi Stafford DATE: October 29, 2017 TIME: 3:29 PM PAGER/CONTACT #: [email or web address] PREOP Observed: 10/29/2017 Status: COMPLETED Source: [place] 8:52 AM [facility] REPOSITORY O ID: [id number] Author: Xuan Swann Service: Anesthesiology Author Type: Anesthesiologist Type: Anesthesia PreOp Filed: 10/29/2017 8:54 AM Note Text: ANESTHESIOLOGY DAY OF SURGERY NOTE SERVICE DATE: 10/29/2017 SERVICE TIME: 8:53 AM : 1970 Procedure(s) (LRB): PHACOEMULSIFICATION CATARACT IMPLANT INTRAOCULAR LENS (Right) Surgeon(s): Anita Lujan Estimated body mass index is 45.17 kg/(m2) as calculated from the following: Height as of this encounter: 160 cm (5' 3). Weight as of this encounter: 115.7 kg (255 lb). Most recent hematocrit and potassium results: Hematocrit 39.4 06/16/2016 Potassium 4.2 08/26/2017 ANES DOS/PREOP NOTE: Vitals: 10/29/17 0839 BP: 107/59 Pulse: 73 Resp: 19 Temp: 36.9 ?C (98.4 ?F) SpO2: 97% Weight: 115.7 kg (255 lb) Height: 160 cm (5' 3) ACTIVE PROBLEM LIST Adjustment Disorder With Depressed Mood Anxiety State, Unspecified Hypothyroidism Essential Hypertension, Benign Obesity, Class Iii, Bmi 40-49.9 (Morbid Obesity) (Hcc) Nonspecific abnormal results of liver function study Allergic Rhinitis, Cause Unspecified Other Chronic Nonalcoholic Liver Disease Hyperlipidemia Tobacco Abuse Low Hdl (Under 40) Hypertriglyceridemia Postsurgical Hypothyroidism Incisional Infection Vitamin D Deficiency Elevated Lfts Muscle Spasm Neck Pain Thoracic Back Pain Malignant Neoplasm of Lower-Inner Quadrant of Right Breast of Female, Estrogen Receptor Positive (Hcc) Left Breast Mass Numbness of Arm Plantar Fascial Fibromatosis Posterior Tibial Tendinitis of Left Leg Posterior Subcapsular Polar Senile Cataract PAST MEDICAL HISTORY Diagnosis Date - Anxiety - Bipolar disorder (HCC) - Breast cancer, stage 1, right (HCC) estrogen receptor positive HER2 negative - Depression - Hyperlipemia Hypertriglyceridemia, Low HDL - Hypertension - Hyperthyroidism 11/17/13 - Hypothyroid - Migraine - Multinodular goiter 11/17/13 - Vitamin D deficiency 09/2013 PAST SURGICAL HISTORY Procedure Laterality Date - BREAST BIOPSY Right 03/14/2017 - BREAST BIOPSY Right 04/09/2017 - BREAST BIOPSY Left 04/09/2017 - CATARACT EXTRACTION W/ INTRAOCULAR LENS IMPLANT HX Left 2013 - LAPAROSCOPIC CHOLEYCYSTECTOMY 07/21 Cholecystectomy, lap - LIGATE FALLOPIAN TUBE ESSURE - MASTECTOMY, RADICAL Right 04/30/2017 Dr Jevon Bundy right total mastectomy with axillary blue dye sentinel lymph node biopsy - PAST SURGICAL HISTORY OF 05/1998 PLATE IN LEFT ANKLE - REMOVAL OF TONSILS,<13 Y/O 1983 Tonsillectomy - THYROIDECTOMY 11/17/13 Dr. Hart FAMILY HISTORY Problem Relation Age of Onset - Heart Father - Hypertension Father - Thyroid Father - Diabetes Father - Psychiatry Father - Allergies Father - Arthritis Mother - Thyroid Mother pneumonia 73 - Allergies Mother - Breast Cancer Maternal Grandmother dx early 50's - Diabetes Maternal Grandmother - Coronary Artery Disease Maternal Grandmother - Stroke Maternal Grandmother - Allergies Maternal Grandmother - Cancer Maternal Grandmother Kidney cancer dx 70's - Diabetes Maternal Grandfather - Heart Maternal Grandfather 67 - Hypertension Maternal Grandfather - Coronary Artery Disease Maternal Grandfather - Allergies Maternal Grandfather - Diabetes Paternal Grandfather - Thyroid Paternal Grandfather - Allergies Paternal Grandfather - Diabetes Paternal Grandmother - Heart Paternal Grandmother - Allergies Paternal Grandmother - Stroke Paternal Grandmother - Ovarian cancer Other Mother of maternal grandmother - Cancer Maternal Aunt 71 Bladder or kidney cancer Social History: Social History Substance Use Topics - Smoking status: Former Smoker Packs/day: 0.30 Years: 3.00 Types: Cigarettes Quit date: 10/07/2014 - Smokeless tobacco: Never Used Comment: One pack would last 2 weeks when she smoked - Alcohol use No No current facility-administered medications on file prior to encounter. Current Outpatient Prescriptions on File Prior to Encounter: Ketorolac Tromethamine (ACLUAR LS) 0.4 % drop Use 1 Drop in the right eye four times daily. [id number] 3.5 MG/ML-10,000 UNIT/ML-0.1% EYE DROPS Use 1 Drop in the right eye four times daily. potassium chloride (K-MIGUELITO, KLOR-CON) 20 mEq packet TAKE ONE PACKET BY MOUTH EVERY DAY hydroCHLOROthiazide (HYDRODIURIL, ESIDRIX) 25 mg tablet Take 1 tablet by mouth once daily. lisinopril (ZESTRIL, PRINIVIL) 10 mg tablet Take 1 tablet by mouth once daily. lamoTRIgine (LAMICTAL) 150 mg tablet Take 150 mg by mouth once daily. zolpidem (AMBIEN) 5 mg tablet Take 5 mg by mouth at bedtime as needed. buPROPion XL (WELLBUTRIN XL) 300 mg 24 hr tablet Take 300 mg by mouth once daily. Cholecalciferol, Vitamin D3, (VITAMIN D-3) 2,000 unit cap Take 1 capsule by mouth once daily. FLUoxetine HCl (PROZAC) 40 mg capsule Take 1 capsule by mouth once daily. LORATADINE (CLARITIN ORAL) Take 1 tablet by mouth once daily as needed. HYDROcodone-acetaminophen (NORCO) 5-325 mg per tablet Take 1 tablet by mouth every 6 hours as needed. diphenoxylate-atropine (LOMOTIL) 2.5-0.025 mg per tablet Take 2 tablets by mouth four times daily for 7 days. acetaminophen (TYLENOL EXTRA STRENGTH) 500 mg tablet Take 500 mg by mouth every 6 hours as needed. Current Facility-Administered Medications: 0.9% NaCl 2-10 mL 2-10 mL INTRAVENOUS q 12 H Anita Chawla- Iban 3 mL at 10/29/17 0845 Allergies: ALLERGIES Allergen Reactions - Amitriptyline Other: See Comments Intensely angry - Cats - Dogs - Grass Pollen - Levaquin [Levofloxa* Hives, Swelling - Mold DOS EXAM: Adequate NPO Status: Yes Anesthetic Risks, Benefits, Alternatives, Personnel and Consent Discussed: Yes Patient agrees to proceed: Yes Previous Anesthesia: No history of adverse event Airway Assessment: MP2 , Teeth intact , Short , thick neck Symptoms of Sleep Apnea: LAURA on CPAP Dentition: Teeth intact Additional Physical Exam: Lungs: Patient health status unchanged since recent history and physical. See history and physical for exam findings. Cardiac: Patient health status unchanged since recent history and physical. See history and physical for exam findings. Additional Pertinent Findings: N/A Blood Products: Not anticipated for this procedure Anesthetic Plan: MAC with general as back up Anesthetic Monitoring: Standard ASA Monitors Pain Management Plan: Parenteral or Oral ASA Class: 4 Other Medical Problems: None Chronic Beta Ke medication administered within 24 hours: N/A I have interviewed and examined the patient. I have reviewed the medical record and/or the pre-anesthesia evaluation, pertinent labs, and test results. Significant changes in the patient's condition since the History and Physical, not otherwise documented in primary service progress notes: No This contains updated information obtained within 48 hours of Surgery/Procedure. SIGNATURE: Xuan Swann MD PATIENT NAME: Mahi Stafford DATE: October 29, 2017 TIME: 8:53 AM CSN: [id number] HISTORY PHYSICAL Observed: 10/29/2017 Status: COMPLETED Source: [place] 8:29 AM CLINIC OTHER CAMPUS REPOSITORY O ID: [id number] Author: Anita Lujan Service: Ophthalmology Author Type: Physician Type: HANDP Filed: 10/29/2017 8:29 AM Note Text: UPDATED HISTORY AND PHYSICAL EXAMINATION SERVICE DATE: 10/29/2017 SERVICE TIME: 8:29 AM PHYSICAL EXAM MUST BE COMPLETED ON ADMISSION The History and Physical (completed in the past 30 days) has been reviewed and the patient has been examined. The contents accurately reflect the patient's condition with the following additions or revisions since the HANDP was completed. Examination indicates no changes. This HANDP can be found in the scanned documents dated 10/08/17. SIGNATURE: Anita Olguin MD PATIENT NAME: Mahi Stafford DATE: October 29, 2017 TIME: 8:29 AM PAGER: PROGRESS Observed: 10/27/2017 Status: COMPLETED Source: [place] 5:04 PM [facility] REPOSITORY [facility] ID: [id number] Author: Tomer (Pt) Naty Service: (none) Author Type: Physical Therapist Type: Progress Notes Filed: 10/27/2017 5:08 PM Note Text: Episode Visit Count: 8 Therapist That Will Oversee The Plan Of Care: Tomer Alfonso PT Start of Care Date: 09/28/17 Onset Date: 09/29/15 Patient Identified by Name and Date of : Yes REHABILITATION AND SPORTS THERAPY PHYSICAL THERAPY DISCONTINUANCE OF CARE PLAN OF CARE UPDATE: Assessment: Mahi Stafford is discontinued from Physical Therapy services due to goal achievement and maximal benefit. and Patient/Client declining further intervention.. Patient was seen for 8 visits from Start of Care Date: 09/28/17 to 10/27/2017 and treatment included: Therapeutic exercise, Neuromuscular re-education, Manual therapy, Therapeutic activities, Gait training, Patient/Family/Caregiver Education and Body mechanics training. Pt overall condition is significantly better and because she is confident in her ability to self-manage, she is d/c'd from supervised PT with instructions to continue HEP and call with any future questions or concerns. Updated: 10/27/17 Goals for Episode of Care: created on 09/28/17 through 11/09/17 [place] in home exercise program. - met (3x day most days) Patient will decrease pain to 0/10 at rest and with functional activities to allow patient to improve ambulation and standing tolerance for ADLs. - partially met Patient will increase active ROM of L ankle to WFL, symmetrical and pain-free to allow pt to to achieve neutral postural alignment, improved performance of ADLs and to normalize gait mechanics / gait pattern . - partially met, much better Patient will increase strength of L ankle/LE to WFL and 5/5 to allow for return to prior functional status, normalized gait mechanics and negotiate Stairs. - partially met and much better functionally Perform walking, stairs, yoga and recreation with kids without pain. - partially met, all less painful but not pain-free. Demonstrate improvement on functional score: Patient will increase his/her score on the Lower Extremity Functional Scale by at least 9 points to indicate a Minimal Clinical Important Difference. - met, score improved from 30 to 49 Normal gait. - met Reciprocal stair negotiation. - met SUBJECTIVE: Pt reports that overall she is doing very well and pleasantly surprised by her progress. She reports that pain is significantly less and that she wishes she would have sought treatment much sooner. She reports compliance with HEP. She reports slight pain to start today but after session of therex, pain was abolished. She requested information on how to obtain her own prostretch for home use. She reports confidence in her ability to self manage all of her symptoms in the future with HEP without the need for supervised PT sessions.. Pain Score: 3/10 Pain Location: Ankle - Left Description: Dull Frequency: Intermittent Post Treatment Pain Score: 0/10 Pain Location: Ankle - Left Post Treatment Pain Description: (pain from start of session was abolished after session.) OBJECTIVE MEASURES WITH LEVEL OF FUNCTION: Gait Assessment Gait Observation: normal Stairs: normal reciprocal pattern. LE AROM L Ankle Dorsiflexion: 8 Degrees L Ankle Plantar Flexion: 69 Degrees L Ankle Inversion: 46 L Ankle Eversion: 22 LE Strength L Ankle Dorsiflexion: 4+/5 L Ankle Plantar Flexion: 4+/5 L Ankle Inversion: 4/5 L Ankle Eversion: 4+/5 TREATMENT: Therapeutic Exercise: 1: upright bike seat #4 resistance level 1 x6 minutes 2: long sitting L calf stretch with green strap 3x30 seconds. 3: Entire HEP reviewed and recommendations made regarding each. All of pt questions were answered. 5: alphabet tracing with L ankle A-Z reviewed for HEP 6: AROM for L ankle DF/PF reviewed for HEP 7: PWB BAPs for L LE in parallel bars with hemisphere #5 front to back, side to side, CW and CCW 2x12 each 8: L Prostretch 3x30 seconds 12: *seated L ankle yellow t-band sterngthening for DF, PF, Inv and Ev reviewed for HEP an continuation encouraged. 13: seated AROM of L ankle for DF/PF and Inv/Ev with foot on flat side of half foam roll 2x20 each. Skilled Intervention: Patient was educated in proper exercise technique and purpose for exercises. Skilled judgment was provided in selection of appropriate interventions. Correct performance of therapeutic exercises was facilitated with verbal and visual cuing. Pt was provided information on how to obtain a prostretch for home use. 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] Other Visit Diagnosis:Posterior tibial tendinitis of left leg [M76.822] Allergies As of Date: 10/27/2017 Noted Allergy Reaction AMITRIPTYLINE 11/18/2016 14 - Other: See Comments Comments: Intensely angry CATS 01/05/2006 DOGS 01/05/2006 GRASS POLLEN 01/05/2006 LEVAQUIN (LEVOFLOXACIN) 07/15/2017 4 - Hives 7 - Swelling MOLD 01/05/2006 Date Reviewed: 10/26/2017 Reviewed by: F Dash-Iban - Fully Assessed Prescriptions as of 10/27/2017 Sig: LEVOTHYROXINE 200 MCG TABLET Take 1 tablet by mouth five t* ANASTROZOLE 1 MG TABLET Take 1 tablet by mouth once d* KETOROLAC 0.4 % EYE DROPS Use 1 Drop in the right eye f* [id number] 3* Use 1 Drop in the right eye f* COMPOUNDED PRESCRIPTION #1 Auto titrating PAP device * HYDROCODONE 5 MG-ACETAMINOPHE* Take 1 tablet by mouth every * DIPHENOXYLATE-ATROPINE 2.5 MG* Take 2 tablets by mouth four * POTASSIUM CHLORIDE 20 MEQ ORA* TAKE ONE PACKET BY MOUTH EVER* HYDROCHLOROTHIAZIDE 25 MG TAB* Take 1 tablet by mouth once d* LISINOPRIL 10 MG TABLET Take 1 tablet by mouth once d* LAMOTRIGINE 150 MG TABLET Take 150 mg by mouth once subha* ZOLPIDEM 5 MG TABLET Take 5 mg by mouth at bedtime* ACETAMINOPHEN 500 MG TABLET Take 500 mg by mouth every 6 * BUPROPION XL 300 MG 24 HR TAB Take 300 mg by mouth once subha* CHOLECALCIFEROL (VITAMIN D3) * Take 1 capsule by mouth once * FLUOXETINE 40 MG CAPSULE Take 1 capsule by mouth once * CLARITIN ORAL Take 1 tablet by mouth once d* Progress Notes: Tomer Alfonso PT 10/27/2017 5:08 PM Signed Episode Visit Count: 8 Therapist That Will Oversee The Plan Of Care: Tomer Alfonso PT Start of Care Date: 09/28/17 Onset Date: 09/29/15 Patient Identified by Name and Date of : Yes REHABILITATION AND SPORTS THERAPY PHYSICAL THERAPY DISCONTINUANCE OF CARE PLAN OF CARE UPDATE: Assessment: Mahi Stafford is discontinued from Physical Therapy services due to goal achievement and maximal benefit. and Patient/Client declining further intervention.. Patient was seen for 8 visits from Start of Care Date: 09/28/17 to 10/27/2017 and treatment included: Therapeutic exercise, Neuromuscular re-education, Manual therapy, Therapeutic activities, Gait training, Patient/Family/Caregiver Education and Body mechanics training. Pt overall condition is significantly better and because she is confident in her ability to self-manage, she is d/c'd from supervised PT with instructions to continue HEP and call with any future questions or concerns. Updated: 10/27/17 Goals for Episode of Care: created on 09/28/17 through 11/09/17 [place] in home exercise program. - met (3x day most days) Patient will decrease pain to 0/10 at rest and with functional activities to allow patient to improve ambulation and standing tolerance for ADLs. - partially met Patient will increase active ROM of L ankle to WFL, symmetrical and pain-free to allow pt to to achieve neutral postural alignment, improved performance of ADLs and to normalize gait mechanics / gait pattern . - partially met, much better Patient will increase strength of L ankle/LE to WFL and 5/5 to allow for return to prior functional status, normalized gait mechanics and negotiate Stairs. - partially met and much better functionally Perform walking, stairs, yoga and recreation with kids without pain. - partially met, all less painful but not pain-free. Demonstrate improvement on functional score: Patient will increase his/her score on the Lower Extremity Functional Scale by at least 9 points to indicate a Minimal Clinical Important Difference. - met, score improved from 30 to 49 Normal gait. - met Reciprocal stair negotiation. - met SUBJECTIVE: Pt reports that overall she is doing very well and pleasantly surprised by her progress. She reports that pain is significantly less and that she wishes she would have sought treatment much sooner. She reports compliance with HEP. She reports slight pain to start today but after session of therex, pain was abolished. She requested information on how to obtain her own prostretch for home use. She reports confidence in her ability to self manage all of her symptoms in the future with HEP without the need for supervised PT sessions.. Pain Score: 3/10 Pain Location: Ankle - Left Description: Dull Frequency: Intermittent Post Treatment Pain Score: 0/10 Pain Location: Ankle - Left Post Treatment Pain Description: (pain from start of session was abolished after session.) OBJECTIVE MEASURES WITH LEVEL OF FUNCTION: Gait Assessment Gait Observation: normal Stairs: normal reciprocal pattern. LE AROM L Ankle Dorsiflexion: 8 Degrees L Ankle Plantar Flexion: 69 Degrees L Ankle Inversion: 46 L Ankle Eversion: 22 LE Strength L Ankle Dorsiflexion: 4+/5 L Ankle Plantar Flexion: 4+/5 L Ankle Inversion: 4/5 L Ankle Eversion: 4+/5 TREATMENT: Therapeutic Exercise: 1: upright bike seat #4 resistance level 1 x6 minutes 2: long sitting L calf stretch with green strap 3x30 seconds. 3: Entire HEP reviewed and recommendations made regarding each. All of pt questions were answered. 5: alphabet tracing with L ankle A-Z reviewed for HEP 6: AROM for L ankle DF/PF reviewed for HEP 7: PWB BAPs for L LE in parallel bars with hemisphere #5 front to back, side to side, CW and CCW 2x12 each 8: L Prostretch 3x30 seconds 12: *seated L ankle yellow t-band sterngthening for DF, PF, Inv and Ev reviewed for HEP an continuation encouraged. 13: seated AROM of L ankle for DF/PF and Inv/Ev with foot on flat side of half foam roll 2x20 each. Skilled Intervention: Patient was educated in proper exercise technique and purpose for exercises. Skilled judgment was provided in selection of appropriate interventions. Correct performance of therapeutic exercises was facilitated with verbal and visual cuing. Pt was provided information on how to obtain a prostretch for home use. 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 I have seen and examined Mahi Stafford. I have discussed the case and the management of this patient's care with the Resident/Fellow, if applicable. I also have reviewed and agree with the assessment and plan as stated above and agree with all of its relevant components. Anita Olguin MD PROGRESS Observed: 10/22/2017 Status: COMPLETED Source: [place] 7:50 AM [facility] REPOSITORY [facility] ID: [id number] Author: Tomer (Pt) Naty Service: (none) Author Type: Physical Therapist Type: Progress Notes Filed: 10/22/2017 7:54 AM Note Text: Episode Visit Count: 7 Therapist That Will Oversee The Plan Of Care: Tomer Alfonso PT Start of Care Date: 09/28/17 Onset Date: 09/29/15 Patient Identified by Name and Date of : Yes REHABILITATION AND SPORTS THERAPY PHYSICAL THERAPY TREATMENT NOTE ASSESSMENT: Mahi Stafford demonstrated improvements in pain, walking tolerance, exercise tolerance, strength and ROM. The patient will continue to benefit from continued skilled physical therapy for supervised progression of therex, to facilitate return to prior functional level and d/c to independent HEP and self management. PLAN FOR NEXT VISIT: continue supervised therex progressing to tolerance prn, utilize manual therapy prn. Re-assess for possible d/c 10/27/17. SUBJECTIVE: Pt reports that overall her symptoms are unchanged and this pleases her because she did more walking than normal yesterday and her pain did not increase. She reports that she typically walks 2500 to 3000 steps in a day and yesterday she more than doubled that with 6000 steps. She reports that this increased walking did not increase her pain and she is even pain-free today. Pain Score: 0/10 Pain Location: Ankle - Left Description: (no pain currently) Frequency: Intermittent Post Treatment Pain Score: No Change Pain Location: Ankle - Left Post Treatment Pain Description: (Fatigue but no increase in pain and still 0/10!) OBJECTIVE MEASURES WITH LEVEL OF FUNCTION: Gait is significantly improved overall and exercise tolerance is increased. TREATMENT: Therapeutic Exercise: 1: upright bike seat #4 resistance level 1 x6 minutes 2: long sitting L calf stretch with green strap 3x30 seconds. 5: alphabet tracing with L ankle A-Z x1 6: AROM for L ankle DF/PF and Inv/Ev 2x20 each 7: PWB BAPs for L LE in parallel bars with hemisphere #5 front to back, side to side, CW and CCW 2x12 each 8: L Prostretch 3x30 seconds 9: L forward step ups on dome side of BOSU in parallel bars 2x15 10: L lateral step ups on dome side of BOSU in parallel bars 2x15 11: L forward lunges onto dome side of BOSU 2x10 in parallel bars 12: *seated L ankle yellow t-band sterngthening for DF, PF, Inv and Ev 2x10 each 13: seated AROM of L ankle for DF/PF and Inv/Ev with foot on flat side of half foam roll 2x20 each. Skilled Intervention: Patient was educated in proper exercise technique and purpose for exercises. Reviewed and educated patient on additions/changes for home exercise program as above (*) Skilled judgment was provided in selection of appropriate interventions. Correct performance of therapeutic exercises was facilitated with verbal, visual and tactile cuing. Yellow t-band provided. 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] Other Visit Diagnosis:Posterior tibial tendinitis of left leg [M76.822] Allergies As of Date: 10/22/2017 Noted Allergy Reaction AMITRIPTYLINE 11/18/2016 14 - Other: See Comments Comments: Intensely angry CATS 01/05/2006 DOGS 01/05/2006 GRASS POLLEN 01/05/2006 LEVAQUIN (LEVOFLOXACIN) 07/15/2017 4 - Hives 7 - Swelling MOLD 01/05/2006 Date Reviewed: 10/19/2017 Reviewed by: Sylvia Bettencourt (Actionscript Developer) ZAIN Mason - Fully Assessed Prescriptions as of 10/22/2017 Sig: LEVOTHYROXINE 200 MCG TABLET Take 1 tablet by mouth five t* ANASTROZOLE 1 MG TABLET Take 1 tablet by mouth once d* KETOROLAC 0.4 % EYE DROPS Use 1 Drop in the right eye f* [id number]-[id number] 3* Use 1 Drop in the right eye f* COMPOUNDED PRESCRIPTION #1 Auto titrating PAP device * HYDROCODONE 5 MG-ACETAMINOPHE* Take 1 tablet by mouth every * DIPHENOXYLATE-ATROPINE 2.5 MG* Take 2 tablets by mouth four * POTASSIUM CHLORIDE 20 MEQ ORA* TAKE ONE PACKET BY MOUTH EVER* HYDROCHLOROTHIAZIDE 25 MG TAB* Take 1 tablet by mouth once d* LISINOPRIL 10 MG TABLET Take 1 tablet by mouth once d* LAMOTRIGINE 150 MG TABLET Take 150 mg by mouth once subha* ZOLPIDEM 5 MG TABLET Take 5 mg by mouth at bedtime* ACETAMINOPHEN 500 MG TABLET Take 500 mg by mouth every 6 * BUPROPION XL 300 MG 24 HR TAB Take 300 mg by mouth once subha* CHOLECALCIFEROL (VITAMIN D3) * Take 1 capsule by mouth once * FLUOXETINE 40 MG CAPSULE Take 1 capsule by mouth once * CLARITIN ORAL Take 1 tablet by mouth once d* Progress Notes: Tomer Alfonso PT 10/22/2017 7:54 AM Signed Episode Visit Count: 7 Therapist That Will Oversee The Plan Of Care: Tomer Alfonso PT Start of Care Date: 09/28/17 Onset Date: 09/29/15 Patient Identified by Name and Date of : Yes REHABILITATION AND SPORTS THERAPY PHYSICAL THERAPY TREATMENT NOTE ASSESSMENT: Mahi Stafford demonstrated improvements in pain, walking tolerance, exercise tolerance, strength and ROM. The patient will continue to benefit from continued skilled physical therapy for supervised progression of therex, to facilitate return to prior functional level and d/c to independent HEP and self management. PLAN FOR NEXT VISIT: continue supervised therex progressing to tolerance prn, utilize manual therapy prn. Re-assess for possible d/c 10/27/17. SUBJECTIVE: Pt reports that overall her symptoms are unchanged and this pleases her because she did more walking than normal yesterday and her pain did not increase. She reports that she typically walks 2500 to 3000 steps in a day and yesterday she more than doubled that with 6000 steps. She reports that this increased walking did not increase her pain and she is even pain-free today. Pain Score: 0/10 Pain Location: Ankle - Left Description: (no pain currently) Frequency: Intermittent Post Treatment Pain Score: No Change Pain Location: Ankle - Left Post Treatment Pain Description: (Fatigue but no increase in pain and still 0/10!) OBJECTIVE MEASURES WITH LEVEL OF FUNCTION: Gait is significantly improved overall and exercise tolerance is increased. TREATMENT: Therapeutic Exercise: 1: upright bike seat #4 resistance level 1 x6 minutes 2: long sitting L calf stretch with green strap 3x30 seconds. 5: alphabet tracing with L ankle A-Z x1 6: AROM for L ankle DF/PF and Inv/Ev 2x20 each 7: PWB BAPs for L LE in parallel bars with hemisphere #5 front to back, side to side, CW and CCW 2x12 each 8: L Prostretch 3x30 seconds 9: L forward step ups on dome side of BOSU in parallel bars 2x15 10: L lateral step ups on dome side of BOSU in parallel bars 2x15 11: L forward lunges onto dome side of BOSU 2x10 in parallel bars 12: *seated L ankle yellow t-band sterngthening for DF, PF, Inv and Ev 2x10 each 13: seated AROM of L ankle for DF/PF and Inv/Ev with foot on flat side of half foam roll 2x20 each. Skilled Intervention: Patient was educated in proper exercise technique and purpose for exercises. Reviewed and educated patient on additions/changes for home exercise program as above (*) Skilled judgment was provided in selection of appropriate interventions. Correct performance of therapeutic exercises was facilitated with verbal, visual and tactile cuing. Yellow t-band provided. Billing: [facility]: Therapeutic Exercise ([id number]): 1:1 time: 40 minutes (3 units: 38-52 mins) Total time: 40 minutes Tomer Alfonso PT PROGRESS Observed: 10/19/2017 Status: COMPLETED Source: [place] 3:29 PM [facility] REPOSITORY O ID: [id number] Author: Tomer (Pt) Naty Service: (none) Author Type: Physical Therapist Type: Progress Notes Filed: 10/19/2017 3:48 PM Note Text: Episode Visit Count: 6 Therapist That Will Oversee The Plan Of Care: Tomer Alfonso PT Start of Care Date: 09/28/17 Onset Date: 09/29/15 Patient Identified by Name and Date of : Yes REHABILITATION AND SPORTS THERAPY PHYSICAL THERAPY TREATMENT NOTE ASSESSMENT: Mahi Stafford demonstrated difficulty with prolonged standing and prolonged walking/shopping and improvements in exercise tolerance, pain and stairs. The patient will continue to benefit from continued skilled physical therapy for supervised progression of active therex and manual therapy prn. PLAN FOR NEXT VISIT: continue supervised therex progressing to tolerance prn, utilize manual therapy prn. SUBJECTIVE: Pt reports that overall she is better but compared to last visit, she is the same or slightly better. She reports improved exercise tolerance and improved ability with stairs but prolonged standing and prolonged walking still cause her fear and pain. She reports compliance with HEP 3x day. She reports that walking without shoes at home did cause her pain recently. She attributes improvements to the active therex in PT. She reports being pleasantly surprised by the success so far. Pain Score: 1/10 (less than 2/10) Pain Location: Ankle - Left Description: Dull Frequency: Intermittent Post Treatment Pain Score: No Change Post Treatment Pain Description: (fatigue but no increase in pain) OBJECTIVE MEASURES WITH LEVEL OF FUNCTION: Gait Assessment Gait Observation: improved TREATMENT: Therapeutic Exercise: 1: upright bike seat #4 resistance level 1 x6 minutes 2: long sitting L calf stretch with green strap 3x30 seconds. 5: alphabet tracing with L ankle A-Z x1 6: AROM for L ankle DF/PF and Inv/Ev 2x20 each 7: PWB BAPs for L LE in parallel bars with hemisphere #5 front to back, side to side, CW and CCW 2x10 each 8: L Prostretch 3x30 seconds 9: L forward step ups on dome side of BOSU in parallel bars 2x15 10: L lateral step ups on dome side of BOSU in parallel bars 2x15 11: L forward lunges onto dome side of BOSU 2x10 in parallel bars 12: seated long sitting L ankle t-band sterngthening fro DF, PF, Inv and Ev 1x10 each 13: seated AROM of L ankle for DF/PF and Inv/Ev with foot on flat side of half foam roll 2x20 each. Skilled Intervention: Patient was educated in proper exercise technique and purpose for exercises. Skilled judgment was provided in selection of appropriate interventions. Correct performance of therapeutic exercises was facilitated with verbal, visual and tactile cuing. Billing: [facility]: Therapeutic Exercise ([id number]): 1:1 time: 41 minutes (3 units: 38-52 mins) Total time: 41 minutes Tomer Alfonso PT CNTHERAPY Observed: 10/19/2017 Status: COMPLETED Source: [place] 3:00 PM [facility] REPOSITORY OT/PT/Speech Visit (PTWS) MAHI STAFFORD ([id number]) 1970 F Date Time Provider Department 10/19/17 3:00 PM TOMER ALFONSO (PT) PTWS Date Time Provider Department Center 10/19/2017 3:00 PM [id number], BRENT (PT) PTWS [facility] Reason for Visit: Physical Therapy [503] Primary Visit Diagnosis:Plantar fascial fibromatosis [M72.2] Other Visit Diagnosis:Posterior tibial tendinitis of left leg [M76.822] Allergies As of Date: 10/19/2017 Noted Allergy Reaction AMITRIPTYLINE 11/18/2016 14 - Other: See Comments Comments: Intensely angry CATS 01/05/2006 DOGS 01/05/2006 GRASS POLLEN 01/05/2006 LEVAQUIN (LEVOFLOXACIN) 07/15/2017 4 - Hives 7 - Swelling MOLD 01/05/2006 Date Reviewed: 10/19/2017 Reviewed by: Sylvia Lai) ZAIN Mason - Fully Assessed Prescriptions as of 10/19/2017 Sig: LEVOTHYROXINE 200 MCG TABLET Take 1 tablet by mouth five t* ANASTROZOLE 1 MG TABLET Take 1 tablet by mouth once d* KETOROLAC 0.4 % EYE DROPS Use 1 Drop in the right eye f* [id number] 3* Use 1 Drop in the right eye f* COMPOUNDED PRESCRIPTION #1 Auto titrating PAP device * HYDROCODONE 5 MG-ACETAMINOPHE* Take 1 tablet by mouth every * DIPHENOXYLATE-ATROPINE 2.5 MG* Take 2 tablets by mouth four * POTASSIUM CHLORIDE 20 MEQ ORA* TAKE ONE PACKET BY MOUTH EVER* HYDROCHLOROTHIAZIDE 25 MG TAB* Take 1 tablet by mouth once d* LISINOPRIL 10 MG TABLET Take 1 tablet by mouth once d* LAMOTRIGINE 150 MG TABLET Take 150 mg by mouth once subha* ZOLPIDEM 5 MG TABLET Take 5 mg by mouth at bedtime* ACETAMINOPHEN 500 MG TABLET Take 500 mg by mouth every 6 * BUPROPION XL 300 MG 24 HR TAB Take 300 mg by mouth once subha* CHOLECALCIFEROL (VITAMIN D3) * Take 1 capsule by mouth once * FLUOXETINE 40 MG CAPSULE Take 1 capsule by mouth once * CLARITIN ORAL Take 1 tablet by mouth once d* Progress Notes: Tomer Alfonso PT 10/19/2017 3:48 PM Signed Episode Visit Count: 6 Therapist That Will Oversee The Plan Of Care: Tomer Alfonso PT Start of Care Date: 09/28/17 Onset Date: 09/29/15 Patient Identified by Name and Date of : Yes REHABILITATION AND SPORTS THERAPY PHYSICAL THERAPY TREATMENT NOTE ASSESSMENT: Mahi Stafford demonstrated difficulty with prolonged standing and prolonged walking/shopping and improvements in exercise tolerance, pain and stairs. The patient will continue to benefit from continued skilled physical therapy for supervised progression of active therex and manual therapy prn. PLAN FOR NEXT VISIT: continue supervised therex progressing to tolerance prn, utilize manual therapy prn. SUBJECTIVE: Pt reports that overall she is better but compared to last visit, she is the same or slightly better. She reports improved exercise tolerance and improved ability with stairs but prolonged standing and prolonged walking still cause her fear and pain. She reports compliance with HEP 3x day. She reports that walking without shoes at home did cause her pain recently. She attributes improvements to the active therex in PT. She reports being pleasantly surprised by the success so far. Pain Score: 1/10 (less than 2/10) Pain Location: Ankle - Left Description: Dull Frequency: Intermittent Post Treatment Pain Score: No Change Post Treatment Pain Description: (fatigue but no increase in pain) OBJECTIVE MEASURES WITH LEVEL OF FUNCTION: Gait Assessment Gait Observation: improved TREATMENT: Therapeutic Exercise: 1: upright bike seat #4 resistance level 1 x6 minutes 2: long sitting L calf stretch with green strap 3x30 seconds. 5: alphabet tracing with L ankle A-Z x1 6: AROM for L ankle DF/PF and Inv/Ev 2x20 each 7: PWB BAPs for L LE in parallel bars with hemisphere #5 front to back, side to side, CW and CCW 2x10 each 8: L Prostretch 3x30 seconds 9: L forward step ups on dome side of BOSU in parallel bars 2x15 10: L lateral step ups on dome side of BOSU in parallel bars 2x15 11: L forward lunges onto dome side of BOSU 2x10 in parallel bars 12: seated long sitting L ankle t-band sterngthening fro DF, PF, Inv and Ev 1x10 each 13: seated AROM of L ankle for DF/PF and Inv/Ev with foot on flat side of half foam roll 2x20 each. Skilled Intervention: Patient was educated in proper exercise technique and purpose for exercises. Skilled judgment was provided in selection of appropriate interventions. Correct performance of therapeutic exercises was facilitated with verbal, visual and tactile cuing. Billing: [facility]: Therapeutic Exercise ([id number]): 1:1 time: 41 minutes (3 units: 38-52 mins) Total time: 41 minutes Tomer Alfonso PT PROGRESS Observed: 10/19/2017 Status: COMPLETED Source: [place] 1:26 PM [facility] REPOSITORY HNO ID: [id number] Author: Anita Chawla-Iban Service: (none) Author Type: Physician Type: Progress Notes Filed: 10/19/2017 1:26 PM Note Text: Recommend SA60WF 23.5 diopter Posterior chamber intraocular lens Right eye -ADM CNCO Observed: 10/15/2017 Status: COMPLETED Source: [place] 12:00 AM [facility] REPOSITORY Letter Text [facility] of On[facility] [address] [place] [address] 10/15/2017 RE: Mahi Stafford TO WHOM IT MAY CONCERN: This is to certify that Mahi Stafford has been under Dr. Rogelio Velez care for breast cacner and was unable to work from 07/20/17 through 10/16/17. The patient may return to work on 10/19/17 . Please do not hesitate to contact me with any questions or concerns that may arise. Sincerely yours, Rosemary Early MD PROGRESS Observed: 10/14/2017 Status: COMPLETED Source: [place] 12:14 PM [facility] REPOSITORY HNO ID: [id number] Author: Tomer (Pt) Naty Service: (none) Author Type: Physical Therapist Type: Progress Notes Filed: 10/14/2017 12:45 PM Note Text: Episode Visit Count: 5 Therapist That Will Oversee The Plan Of Care: Tomer Alfonso PT Start of Care Date: 09/28/17 Onset Date: 09/29/15 Patient Identified by Name and Date of : Yes REHABILITATION AND SPORTS THERAPY PHYSICAL THERAPY TREATMENT NOTE ASSESSMENT: Mahi Stafford demonstrated improvements in pain, gait, exercise tolerance and ROM. The patient will continue to benefit from continued skilled physical therapy for pain management, manual therapy prn, gait training prn, supervised progression of stretching and strengthening. PLAN FOR NEXT VISIT: continue supervised therex progressing to tolerance prn, utilize manual therapy prn. SUBJECTIVE: Pt reports that she is feeling better today than last visit and she atrributes the improvements to doing less to aggravate her symptoms. She reports that shopping prior to last visit was the reason for symptom increase. She reports excellent short term success with manual therapy but no senior care benefits. She feels that the manual therapy will be useful on days when her pain is increased but currently her pain is minimal and therefore she does not feel that the manual therapy is necessary. Overall she is reporting continued progressive improvements with decreasing pain. She reports compliance with HEP. Pain Score: 1/10 Pain Location: Ankle - Left Description: (decreased and mild overall) Frequency: Intermittent Post Treatment Pain Score: No Change Post Treatment Pain Description: (tired but not more painful) OBJECTIVE MEASURES WITH LEVEL OF FUNCTION: Gait Assessment Gait Observation: Normal Increased AROM of L ankle grossly. TREATMENT: Therapeutic Exercise: 1: upright bike seat #4 resistance level 1 x5 minutes 2: long sitting L calf stretch with green strap 3x30 seconds. 5: alphabet tracing with L ankle A-Z x1 6: AROM for L ankle DF/PF and Inv/Ev 1x20 each 7: PWB BAPs for L LE in parallel bars with hemisphere #4 front to back, side to side, CW and CCW 2x10 each 8: L Prostretch 3x30 seconds 9: L forward step ups on dome side of BOSU in parallel bars 2x12 10: L lateral step ups on dome side of BOSU in parallel bars 2x12 11: L forward lunges onto dome side of BOSU 2x10 in parallel bars 13: seated AROM of L ankle for DF/PF and Inv/Ev with foot on flat side of half foam roll 2x10 each. Skilled Intervention: Patient was educated in proper exercise technique and purpose for exercises. Skilled judgment was provided in selection of appropriate interventions. Correct performance of therapeutic exercises was facilitated with verbal and visual cuing. Billing: [facility]: Therapeutic Exercise ([id number]): 1:1 time: 40 minutes (3 units: 38-52 mins) Total time: 40 minutes Tomer Alfonso PT CNTHERAPY Observed: 10/14/2017 Status: COMPLETED Source: [place] 12:00 PM [facility] REPOSITORY OT/PT/Speech Visit (PTWS) MAHI STAFFORD ([id number]) 1970 F Date Time Provider Department 10/14/17 12:00 PM TOMER ALFONSOPT) PTWS Date Time Provider Department Center 10/14/2017 12:00 PM [id number], BRENT (PT) PTWS [facility] Reason for Visit: Physical Therapy [503] Primary Visit Diagnosis:Plantar fascial fibromatosis [M72.2] Other Visit Diagnosis:Posterior tibial tendinitis of left leg [M76.822] Allergies As of Date: 10/14/2017 Noted Allergy Reaction AMITRIPTYLINE 11/18/2016 14 - Other: See Comments Comments: Intensely angry CATS 01/05/2006 DOGS 01/05/2006 GRASS POLLEN 01/05/2006 LEVAQUIN (LEVOFLOXACIN) 07/15/2017 4 - Hives 7 - Swelling MOLD 01/05/2006 Date Reviewed: 10/08/2017 Reviewed by: Marian Duron LPN - Fully Assessed Prescriptions as of 10/14/2017 Sig: LEVOTHYROXINE 200 MCG TABLET Take 1 tablet by mouth five t* ANASTROZOLE 1 MG TABLET Take 1 tablet by mouth once d* KETOROLAC 0.4 % EYE DROPS Use 1 Drop in the right eye f* [id number] 3* Use 1 Drop in the right eye f* COMPOUNDED PRESCRIPTION #1 Auto titrating PAP device * HYDROCODONE 5 MG-ACETAMINOPHE* Take 1 tablet by mouth every * DIPHENOXYLATE-ATROPINE 2.5 MG* Take 2 tablets by mouth four * POTASSIUM CHLORIDE 20 MEQ ORA* TAKE ONE PACKET BY MOUTH EVER* HYDROCHLOROTHIAZIDE 25 MG TAB* Take 1 tablet by mouth once d* LISINOPRIL 10 MG TABLET Take 1 tablet by mouth once d* LAMOTRIGINE 150 MG TABLET Take 150 mg by mouth once subha* ZOLPIDEM 5 MG TABLET Take 5 mg by mouth at bedtime* ACETAMINOPHEN 500 MG TABLET Take 500 mg by mouth every 6 * BUPROPION XL 300 MG 24 HR TAB Take 300 mg by mouth once subha* CHOLECALCIFEROL (VITAMIN D3) * Take 1 capsule by mouth once * FLUOXETINE 40 MG CAPSULE Take 1 capsule by mouth once * CLARITIN ORAL Take 1 tablet by mouth once d* Progress Notes: Tomer Alfonso PT 10/14/2017 12:45 PM Signed Episode Visit Count: 5 Therapist That Will Oversee The Plan Of Care: Tomer Alfonso PT Start of Care Date: 09/28/17 Onset Date: 09/29/15 Patient Identified by Name and Date of : Yes REHABILITATION AND SPORTS THERAPY PHYSICAL THERAPY TREATMENT NOTE ASSESSMENT: Mahi Stafford demonstrated improvements in pain, gait, exercise tolerance and ROM. The patient will continue to benefit from continued skilled physical therapy for pain management, manual therapy prn, gait training prn, supervised progression of stretching and strengthening. PLAN FOR NEXT VISIT: continue supervised therex progressing to tolerance prn, utilize manual therapy prn. SUBJECTIVE: Pt reports that she is feeling better today than last visit and she atrributes the improvements to doing less to aggravate her symptoms. She reports that shopping prior to last visit was the reason for symptom increase. She reports excellent short term success with manual therapy but no senior care benefits. She feels that the manual therapy will be useful on days when her pain is increased but currently her pain is minimal and therefore she does not feel that the manual therapy is necessary. Overall she is reporting continued progressive improvements with decreasing pain. She reports compliance with HEP. Pain Score: 07/29 Pain Location: Ankle - Left Description: (decreased and mild overall) Frequency: Intermittent Post Treatment Pain Score: No Change Post Treatment Pain Description: (tired but not more painful) OBJECTIVE MEASURES WITH LEVEL OF FUNCTION: Gait Assessment Gait Observation: Normal Increased AROM of L ankle grossly. TREATMENT: Therapeutic Exercise: 1: upright bike seat #4 resistance level 1 x5 minutes 2: long sitting L calf stretch with green strap 3x30 seconds. 5: alphabet tracing with L ankle A-Z x1 6: AROM for L ankle DF/PF and Inv/Ev 1x20 each 7: PWB BAPs for L LE in parallel bars with hemisphere #4 front to back, side to side, CW and CCW 2x10 each 8: L Prostretch 3x30 seconds 9: L forward step ups on dome side of BOSU in parallel bars 2x12 10: L lateral step ups on dome side of BOSU in parallel bars 2x12 11: L forward lunges onto dome side of BOSU 2x10 in parallel bars 13: seated AROM of L ankle for DF/PF and Inv/Ev with foot on flat side of half foam roll 2x10 each. Skilled Intervention: Patient was educated in proper exercise technique and purpose for exercises. Skilled judgment was provided in selection of appropriate interventions. Correct performance of therapeutic exercises was facilitated with verbal and visual cuing. Billing: [facility]: Therapeutic Exercise ([id number]): 1:1 time: 40 minutes (3 units: 38-52 mins) Total time: 40 minutes Tomer Alfonso PT PROGRESS Observed: 10/12/2017 Status: COMPLETED Source: [place] 9:26 AM [facility] REPOSITORY O ID: [id number] Author: Tomer (Pt) Naty Service: (none) Author Type: Physical Therapist Type: Progress Notes Filed: 10/12/2017 11:15 AM Note Text: Episode Visit Count: 4 Therapist That Will Oversee The Plan Of Care: Tomer Alfonso PT Start of Care Date: 09/28/17 Onset Date: 09/29/15 Patient Identified by Name and Date of : Yes REHABILITATION AND SPORTS THERAPY PHYSICAL THERAPY TREATMENT NOTE ASSESSMENT: Mahi Stafford demonstrated improvements in gait throughout treatment to normal gait. She had slight increase pain from walking a lot yesterday and strengthening on uneven surfaces was decreased slightly today. Patient responded very well to new added IASTM left lower leg and ankle with a reduction of pain noted. Also added tennis ball seated self mobs with rolling ball under ball of left foot with relief noted. The patient will continue to benefit from continued skilled physical therapy for strengthening, proprioception and pain control of left ankle. PLAN FOR NEXT VISIT: Monitor response to IASTM, tennis ball mobs and advance ex per patient tolerance. SUBJECTIVE: Patient reports doing a lot of walking yesterday and the ankle is tender today. Patient reports improved tolerance to shop at [employer] for longer distances. patient reports stretching prior to therapy today. Pain Score: 4/10 Pain Location: Ankle - Left Description: (tender) Frequency: Intermittent Post Treatment Pain Score: 2/10 Post Treatment Pain Description: Burning;Dull OBJECTIVE MEASURES WITH LEVEL OF FUNCTION: Gait Assessment Gait Observation: Normal gait on level surface today. TREATMENT: Therapeutic Exercise: 1: upright bike seat #4 resistance level 1 x5 minutes 5: alphabet tracing with L ankle A-Z x1 and added to HEP with handout 6: AROM for L ankle DF/PF and Inv/Ev 1x20 each and added to HEP with handout 7: PWB BAPs for L LE in parallel bars with hemisphere #3 front to back, side to side, CW and CCW 2x12 each 8: L Prostretch 3x30 seconds 9: L forward step ups on dome side of BOSU in parallel bars 2x12 10: L lateral step ups on dome side of BOSU in parallel bars 2x12 11: L forward lunges onto dome side of BOSU 1x10 in parallel bars 13: seated AROM of L ankle for DF/PF and Inv/Ev with foot on flat side of half foam roll x20 each. Skilled Intervention: Patient was educated in proper exercise technique and purpose for exercises. Reviewed and educated patient on additions/changes for home exercise program and patient instructed to continue with home exercise per her tolerance Correct performance of therapeutic exercises was facilitated with verbal and visual cuing. Manual Therapy: 1: IASTM with patient prone lying left gastroc , achilles and medial ankle with use of scanner and tongue depressor x 10 minutes. 2: * Instruction on use of tennis ball ball of left foot wtih push to patient tolerance. Skilled Intervention: Manual skills to improve joint mobility, ROM, and decrease pain. Utilized anatomy knowledge of the therapist, and assessment of patient's response to intervention. Billing: [facility]: Therapeutic Exercise ([id number]): 1:1 time: 30 minutes (2 units: 23-37 mins) Manual Therapy ([id number]): 1:1 time: 12 minutes (1 unit: 8-22 mins) Total time: 42 minutes JANET Martinez PT CNTHERAPY Observed: 10/12/2017 Status: COMPLETED Source: [place] 8:30 AM [facility] REPOSITORY OT/PT/Speech Visit (PTWS) MAHI STAFFORD ([id number]) 1970 F Date Time Provider Department 10/12/17 8:30 AM CORDELIA SMITH ([facility]) PTWS Date Time Provider Department Center 10/12/2017 8:30 AM [id number], NANCY (CALL CENTER COORDINATOR) PTWS [facility] Reason for Visit: Physical Therapy [503] Primary Visit Diagnosis:Plantar fascial fibromatosis [M72.2] Other Visit Diagnosis:Posterior tibial tendinitis of left leg [M76.822] Allergies As of Date: 10/12/2017 Noted Allergy Reaction AMITRIPTYLINE 11/18/2016 14 - Other: See Comments Comments: Intensely angry CATS 01/05/2006 DOGS 01/05/2006 GRASS POLLEN 01/05/2006 LEVAQUIN (LEVOFLOXACIN) 07/15/2017 4 - Hives 7 - Swelling MOLD 01/05/2006 Date Reviewed: 10/08/2017 Reviewed by: Marian Duron LPN - Fully Assessed Prescriptions as of 10/12/2017 Sig: ANASTROZOLE 1 MG TABLET Take 1 tablet by mouth once d* KETOROLAC 0.4 % EYE DROPS Use 1 Drop in the right eye f* [id number] 3* Use 1 Drop in the right eye f* COMPOUNDED PRESCRIPTION #1 Auto titrating PAP device * HYDROCODONE 5 MG-ACETAMINOPHE* Take 1 tablet by mouth every * DIPHENOXYLATE-ATROPINE 2.5 MG* Take 2 tablets by mouth four * POTASSIUM CHLORIDE 20 MEQ ORA* TAKE ONE PACKET BY MOUTH EVER* HYDROCHLOROTHIAZIDE 25 MG TAB* Take 1 tablet by mouth once d* LEVOTHYROXINE 200 MCG TABLET Take 1 tablet by mouth five t* LISINOPRIL 10 MG TABLET Take 1 tablet by mouth once d* LAMOTRIGINE 150 MG TABLET Take 150 mg by mouth once usbha* ZOLPIDEM 5 MG TABLET Take 5 mg by mouth at bedtime* ACETAMINOPHEN 500 MG TABLET Take 500 mg by mouth every 6 * BUPROPION XL 300 MG 24 HR TAB Take 300 mg by mouth once subha* CHOLECALCIFEROL (VITAMIN D3) * Take 1 capsule by mouth once * FLUOXETINE 40 MG CAPSULE Take 1 capsule by mouth once * CLARITIN ORAL Take 1 tablet by mouth once d* Progress Notes: Tomer Alfonso PT 10/12/2017 11:15 AM Signed Episode Visit Count: 4 Therapist That Will Oversee The Plan Of Care: Tomer Alfonso PT Start of Care Date: 09/28/17 Onset Date: 09/29/15 Patient Identified by Name and Date of : Yes REHABILITATION AND SPORTS THERAPY PHYSICAL THERAPY TREATMENT NOTE ASSESSMENT: Mahi Stafford demonstrated improvements in gait throughout treatment to normal gait. She had slight increase pain from walking a lot yesterday and strengthening on uneven surfaces was decreased slightly today. Patient responded very well to new added IASTM left lower leg and ankle with a reduction of pain noted. Also added tennis ball seated self mobs with rolling ball under ball of left foot with relief noted. The patient will continue to benefit from continued skilled physical therapy for strengthening, proprioception and pain control of left ankle. PLAN FOR NEXT VISIT: Monitor response to IASTM, tennis ball mobs and advance ex per patient tolerance. SUBJECTIVE: Patient reports doing a lot of walking yesterday and the ankle is tender today. Patient reports improved tolerance to shop at [employer] for longer distances. patient reports stretching prior to therapy today. Pain Score: 4/10 Pain Location: Ankle - Left Description: (tender) Frequency: Intermittent Post Treatment Pain Score: 2/10 Post Treatment Pain Description: Burning;Dull OBJECTIVE MEASURES WITH LEVEL OF FUNCTION: Gait Assessment Gait Observation: Normal gait on level surface today. TREATMENT: Therapeutic Exercise: 1: upright bike seat #4 resistance level 1 x5 minutes 5: alphabet tracing with L ankle A-Z x1 and added to HEP with handout 6: AROM for L ankle DF/PF and Inv/Ev 1x20 each and added to HEP with handout 7: PWB BAPs for L LE in parallel bars with hemisphere #3 front to back, side to side, CW and CCW 2x12 each 8: L Prostretch 3x30 seconds 9: L forward step ups on dome side of BOSU in parallel bars 2x12 10: L lateral step ups on dome side of BOSU in parallel bars 2x12 11: L forward lunges onto dome side of BOSU 1x10 in parallel bars 13: seated AROM of L ankle for DF/PF and Inv/Ev with foot on flat side of half foam roll x20 each. Skilled Intervention: Patient was educated in proper exercise technique and purpose for exercises. Reviewed and educated patient on additions/changes for home exercise program and patient instructed to continue with home exercise per her tolerance Correct performance of therapeutic exercises was facilitated with verbal and visual cuing. Manual Therapy: 1: IASTM with patient prone lying left gastroc , achilles and medial ankle with use of scanner and tongue depressor x 10 minutes. 2: * Instruction on use of tennis ball ball of left foot wtih push to patient tolerance. Skilled Intervention: Manual skills to improve joint mobility, ROM, and decrease pain. Utilized anatomy knowledge of the therapist, and assessment of patient's response to intervention. Billing: [facility]: Therapeutic Exercise (20608): 1:1 time: 30 minutes (2 units: 23-37 mins) Manual Therapy (95908): 1:1 time: 12 minutes (1 unit: 8-22 mins) Total time: 42 minutes Cordelia Smith, PTTsering Alfonso PT Previous Version Follow-up and Disposition History Recorded PROGRESS Observed: 10/08/2017 Status: COMPLETED Source: [place] 12:06 PM [facility] [place] REPOSITORY HNO ID: [id number] Author: Lavonne Alba (PaEvelia) Ayden Service: (none) Author Type: Physician Hand Laminator Type: Progress Notes Filed: 10/08/2017 9:52 PM Note Text: Patient presents for consultation at the request of Dr. Omari Lujan for medical preop clearance. My findings and recommendations will be communicated through this medical record. Upcoming surgery for: cataract extraction and lens replacement under MAC. Anesthesia review: Hx of previous anesthesia problems: No history of adverse event Family hx of anesthesia problems: Yes. Mother had problems, not sure but had something to do with a C3 fracture and intubation. Airway Assessment: MP 4; Neck ROM: Full ROM without neurologic symptoms; Airway Evaluation: No significant abnormalities Symptoms of Sleep Apnea: recently diagnosed with severe sleep apnea: pending initiation of CPAP Intubation History: No previous history of difficult intubation Dentition: Teeth intact Pertinent history and review: Current signs of infection: No. Chest pain: No. Cardiac history or testing: none Shortness of breath: No. Pulmonary testing to date: none Known sleep apnea: Yes. Hx of clotting issues: No. Current bleeding or bruising: No. Additional history of potential concern: see active problem list. Patient is on Lupron and Anastroszole since 09/21/2017. Recent elevation transaminases believed to be related. HISTORIES FAMILY HISTORY Problem Relation Age of Onset - Heart Father - Hypertension Father - Thyroid Father - Diabetes Father - Psychiatry Father - Allergies Father - Arthritis Mother - Thyroid Mother pneumonia 73 - Allergies Mother - Breast Cancer Maternal Grandmother dx early 50's - Diabetes Maternal Grandmother - Coronary Artery Disease Maternal Grandmother - Stroke Maternal Grandmother - Allergies Maternal Grandmother - Cancer Maternal Grandmother Kidney cancer dx 70's - Diabetes Maternal Grandfather - Heart Maternal Grandfather 67 - Hypertension Maternal Grandfather - Coronary Artery Disease Maternal Grandfather - Allergies Maternal Grandfather - Diabetes Paternal Grandfather - Thyroid Paternal Grandfather - Allergies Paternal Grandfather - Diabetes Paternal Grandmother - Heart Paternal Grandmother - Allergies Paternal Grandmother - Stroke Paternal Grandmother - Ovarian cancer Other Mother of maternal grandmother - Cancer Maternal Aunt 71 Bladder or kidney cancer PAST MEDICAL HISTORY Diagnosis Date - Anxiety - Bipolar disorder (HCC) - Breast cancer, stage 1, right (HCC) estrogen receptor positive HER2 negative - Depression - Hyperlipemia Hypertriglyceridemia, Low HDL - Hypertension - Hyperthyroidism 11/17/13 - Hypothyroid - Migraine - Multinodular goiter 11/17/13 - Vitamin D deficiency 09/2013 PAST SURGICAL HISTORY Procedure Laterality Date - BREAST BIOPSY Right 03/14/2017 - BREAST BIOPSY Right 04/09/2017 - BREAST BIOPSY Left 04/09/2017 - CATARACT EXTRACTION W/ INTRAOCULAR LENS IMPLANT HX Left 2013 - LAPAROSCOPIC CHOLEYCYSTECTOMY 07/21 Cholecystectomy, lap - LIGATE FALLOPIAN TUBE ESSURE - MASTECTOMY, RADICAL Right 04/30/2017 Dr Jevon Bundy right total mastectomy with axillary blue dye sentinel lymph node biopsy - PAST SURGICAL HISTORY OF 05/1998 PLATE IN LEFT ANKLE - REMOVAL OF TONSILS,<13 Y/O 1982 Tonsillectomy - THYROIDECTOMY 11/17/13 Dr. 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[employer]* Social History Main Topics Smoking status: Former Smoker Packs/day: 0.30 Years: 3.00 Types: Cigarettes Quit date: 10/07/2014 Smokeless status: Never Used Comment: One pack would last 2 weeks when she smoked Alcohol use: No Drug use: No Sexual activity: Yes control/protection: Surgical Comment: ESSURE ACTIVE PROBLEM LIST Posterior Subcapsular Polar Senile Cataract - 10/05/2017 Comment: Added automatically from request for surgery [id number] 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 Numbness bilateral 5th fingers, ulnar aspect of both forearms. Considered side effect of taxotere: henri Carmona Left Breast Mass - 06/01/2017 Comment: 03/30/17 MRI breast: 0.7 cm oval mass in the left breast at 12 o'clock middle depth with a differential diagnosis of a lymph node, indeterminate. ? 04/09/17 Left breast, 12 o'clock, ultrasound-guided core biopsy (B) -Fibroadenoma Malignant Neoplasm of Lower-Inner Quadrant of Right Breast of Female, Estrogen Receptor Positive (Hcc) - 04/20/2017 Vitamin D Deficiency - 12/20/2014 Elevated Lfts - 12/20/2014 Muscle Spasm - 12/20/2014 Neck Pain - 12/20/2014 Thoracic Back Pain - 12/20/2014 Incisional Infection - 12/26/2013 Postsurgical Hypothyroidism - 11/21/2013 Low Hdl (Under 40) - 04/13/2013 Hypertriglyceridemia - 04/13/2013 Hyperlipidemia - 02/09/2013 Tobacco Abuse - 02/09/2013 Other Chronic Nonalcoholic Liver Disease - 12/25/2006 Allergic Rhinitis, Cause Unspecified - 10/20/2006 Adjustment Disorder With Depressed Mood - 01/05/2006 Anxiety State, Unspecified - 01/05/2006 Hypothyroidism - 01/05/2006 Essential Hypertension, Benign - 01/05/2006 Obesity, Unspecified - 01/05/2006 Nonspecific abnormal results of liver function study - 01/05/2006 Comment: 12/21/14 HBVsAb positive, mild elevation ALT only 01/08/15: US liver WNL INFLUENZA(1) due on 03/20/2017 MAMMOGRAM due on 07/16/2017 Component Latest Ref Rng AND Units 08/05/2017 08/13/2017 08/14/2017 08/18/2017 08/26/2017 10/08/2017 Protein, Total 6.3 - 8.0 g/dL 6.9 6.7 Albumin 3.9 - 4.9 g/dL 4.1 4.0 Calcium 8.5 - 10.2 mg/dL 9.0 8.8 Bilirubin, Total 0.2 - 1.3 mg/dL 0.4 0.3 Alkaline Phosphatase 32 - 117 U/L 71 70 AST 13 - 35 U/L 82 (H) 105 (H) Glucose 74 - 99 mg/dL 117 (H) 108 (H) BUN 7 - 21 mg/dL 10 9 Creatinine 0.58 - 0.96 mg/dL 0.88 0.82 Sodium 136 - 144 mmol/L 136 138 Potassium 3.7 - 5.1 mmol/L 4.1 4.2 Chloride 97 - 105 mmol/L 99 99 CO2 22 - 30 mmol/L 25 26 Anion Gap 9 - 18 mmol/L 12 13 ALT 7 - 38 U/L 163 (H) 177 (H) eGFR- >60 >60 eGFR-All Other Races . >60 >60 WBC, [place] 3.70 - 11.00 k/uL 2.08 (L) 6.22 13.16 (H) 5.09 RBC, Bhanu 3.90 - 5.20 m/uL 4.19 3.91 3.98 4.38 Hemoglobin, Bhanu 11.5 - 15.5 g/dL 11.3 (L) 10.5 (L) 10.5 (L) 11.8 Hematocrit, Bhanu 36.0 - 46.0 % 35.0 (L) 32.4 (L) 33.3 (L) 37.9 MCV, [place] 80.0 - 100.0 fL 83.5 82.9 83.7 86.5 MCH, Bhanu 26.0 - 34.0 pg 27.0 26.9 26.4 26.9 MCHC, Bhanu 30.5 - 36.0 g/dL 32.3 32.4 31.5 31.1 RDW, [place] 11.5 - 15.0 % 20.1 (H) 20.3 (H) 21.8 (H) 23.3 (H) Platelet Cnt, [place] 150 - 400 k/uL 240 255 245 273 MPV, Bhanu 9.0 - 12.7 fL 9.7 9.0 8.7 (L) 8.4 (L) Absol Gran Count 1.45 - 7.50 k/uL 0.08 (L) 2.43 10.35 (H) 2.99 Absolute nRBC <0.01 k/uL 0.11 (H) Vitamin D 25 Hydroxy 31.0 - 80.0 ng/mL 39.7 EXAM: BP 130/98 Pulse 100 Temp 36.7 ?C (98 ?F) (Tympanic) Resp 16 Ht 160.2 cm (5' 3.07) Wt 115.7 kg (255 lb) BMI 45.07 kg/m2 General appearance: Overweight adult woman, in no acute distress. Well nourished. Well groomed. Pleasant spirits. Respirations: regular, unlabored Color: pink to lips and nailbeds Skin: warm, dry, no unusual rashes or lesions Head: Normocephalic Eyes: sclerae and conjunctivae without injection or exudate, PERRLA, EOMI, corneal light reflex symmetric bilaterally. Ears: TM's and ear canals are clear bilaterally with normal landmarks, no swelling or deformity external ear Nose/Sinuses: Nose patent. No turbinate swelling. No active exudate. Maxillary and frontal sinuses nontender to percussion. Oropharynx: Lips, mucosa, and tongue free from lesions. Teeth are in good repair. Gums without inflammation. Oropharynx no exudate or injection. No tonsillar hypertrophy. Mallampati 4/4. Neck circumference 17.5in. Neck: Neck supple, no cervical lymphadenopathy; thyroid without mass or tenderness. Chest: normally shaped, equal expansion with breaths. Lungs: Lungs clear to auscultation and percussion. No crackles or wheezes. Heart: RRR without murmur, gallop, or rubs. S1 and S2 normal. Abd soft, nontender, normoactive bowel sounds throughout, no mass, no organomegaly. back FROM, no abnormal curvature. Extremities well formed, FROM and strength, no clubbing cyanosis or edema. Neuro grossly intact. Normal gait and balance. Able to squat without difficulty. DTR's 2+/4 symmetric upper and lower bilaterally. Rhomberg is negative. ASSESSMENT/PLAN: Thank you Dr. Lujan for allowing me to particpate in the care of this patient. 1. Preoperative clearance - ICD9: V72.84, ICD10: Z01.818 Based on this patient's history, functional status she is low perioperative risk for MAC anesthesia. Lavonne Hensley PA-C CNOV Observed: 10/08/2017 Status: COMPLETED Source: [place] 12:00 PM [facility] REPOSITORY [facility] MAHI STAFFORD ([id number]) 1970 F Date Time Provider Department 10/08/17 12:00 PM Lavonne HENSLEY) [facility] During your visit today, we recorded the following information about you: Temperature Pulse Respiration Blood pressure 98 degrees 100/minute 16/minute 130/98 Weight Height 115.7 kg 1.602 m Lavonne Hensley PA-C 10/08/2017 9:52 PM Signed Patient presents for consultation at the request of Dr. Omari Lujan for medical preop clearance. My findings and recommendations will be communicated through this medical record. Upcoming surgery for: cataract extraction and lens replacement under MAC. Anesthesia review: Hx of previous anesthesia problems: No history of adverse event Family hx of anesthesia problems: Yes. Mother had problems, not sure but had something to do with a C3 fracture and intubation. Airway Assessment: MP 4; Neck ROM: Full ROM without neurologic symptoms; Airway Evaluation: No significant abnormalities Symptoms of Sleep Apnea: recently diagnosed with severe sleep apnea: pending initiation of CPAP Intubation History: No previous history of difficult intubation Dentition: Teeth intact Pertinent history and review: Current signs of infection: No. Chest pain: No. Cardiac history or testing: none Shortness of breath: No. Pulmonary testing to date: none Known sleep apnea: Yes. Hx of clotting issues: No. Current bleeding or bruising: No. Additional history of potential concern: see active problem list. Patient is on Lupron and Anastroszole since 09/21/2017. Recent elevation transaminases believed to be related. HISTORIES FAMILY HISTORY Problem Relation Age of Onset - Heart Father - Hypertension Father - Thyroid Father - Diabetes Father - Psychiatry Father - Allergies Father - Arthritis Mother - Thyroid Mother pneumonia 73 - Allergies Mother - Breast Cancer Maternal Grandmother dx early 50's - Diabetes Maternal Grandmother - Coronary Artery Disease Maternal Grandmother - Stroke Maternal Grandmother - Allergies Maternal Grandmother - Cancer Maternal Grandmother Kidney cancer dx 70's - Diabetes Maternal Grandfather - Heart Maternal Grandfather 67 - Hypertension Maternal Grandfather - Coronary Artery Disease Maternal Grandfather - Allergies Maternal Grandfather - Diabetes Paternal Grandfather - Thyroid Paternal Grandfather - Allergies Paternal Grandfather - Diabetes Paternal Grandmother - Heart Paternal Grandmother - Allergies Paternal Grandmother - Stroke Paternal Grandmother - Ovarian cancer Other Mother of maternal grandmother - Cancer Maternal Aunt 71 Bladder or kidney cancer PAST MEDICAL HISTORY Diagnosis Date - Anxiety - Bipolar disorder (HCC) - Breast cancer, stage 1, right (HCC) estrogen receptor positive HER2 negative - Depression - Hyperlipemia Hypertriglyceridemia, Low HDL - Hypertension - Hyperthyroidism 11/17/13 - Hypothyroid - Migraine - Multinodular goiter 11/17/13 - Vitamin D deficiency 09/2013 PAST SURGICAL HISTORY Procedure Laterality Date - BREAST BIOPSY Right 03/14/2017 - BREAST BIOPSY Right 04/09/2017 - BREAST BIOPSY Left 04/09/2017 - CATARACT EXTRACTION W/ INTRAOCULAR LENS IMPLANT HX Left 2013 - LAPAROSCOPIC CHOLEYCYSTECTOMY 07/21 Cholecystectomy, lap - LIGATE FALLOPIAN TUBE ESSURE - MASTECTOMY, RADICAL Right 04/30/2017 Dr Jevon Bundy right total mastectomy with axillary blue dye sentinel lymph node biopsy - PAST SURGICAL HISTORY OF 05/1998 PLATE IN LEFT ANKLE - REMOVAL OF TONSILS,ANDlt;13 Y/O 1982 Tonsillectomy - THYROIDECTOMY 11/17/13 Dr. 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[employer]* Social History Main Topics Smoking status: Former Smoker Packs/day: 0.30 Years: 3.00 Types: Cigarettes Quit date: 10/07/2014 Smokeless status: Never Used Comment: One pack would last 2 weeks when she smoked Alcohol use: No Drug use: No Sexual activity: Yes control/protection: Surgical Comment: CHELAURE ACTIVE PROBLEM LIST Posterior Subcapsular Polar Senile Cataract - 10/05/2017 Comment: Added automatically from request for surgery [id number] 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 Numbness bilateral 5th fingers, ulnar aspect of both forearms. Considered side effect of taxotere: henri Carmona Left Breast Mass - 06/01/2017 Comment: 03/30/17 MRI breast: 0.7 cm oval mass in the left breast at 12 o'clock middle depth with a differential diagnosis of a lymph node, indeterminate. ? 04/09/17 Left breast, 12 o'clock, ultrasound-guided core biopsy (B) -Fibroadenoma Malignant Neoplasm of Lower-Inner Quadrant of Right Breast of Female, Estrogen Receptor Positive (Hcc) - 04/20/2017 Vitamin D Deficiency - 12/20/2014 Elevated Lfts - 12/20/2014 Muscle Spasm - 12/20/2014 Neck Pain - 12/20/2014 Thoracic Back Pain - 12/20/2014 Incisional Infection - 12/26/2013 Postsurgical Hypothyroidism - 11/21/2013 Low Hdl (Under 40) - 04/13/2013 Hypertriglyceridemia - 04/13/2013 Hyperlipidemia - 02/09/2013 Tobacco Abuse - 02/09/2013 Other Chronic Nonalcoholic Liver Disease - 12/25/2006 Allergic Rhinitis, Cause Unspecified - 10/20/2006 Adjustment Disorder With Depressed Mood - 01/05/2006 Anxiety State, Unspecified - 01/05/2006 Hypothyroidism - 01/05/2006 Essential Hypertension, Benign - 01/05/2006 Obesity, Unspecified - 01/05/2006 Nonspecific abnormal results of liver function study - 01/05/2006 Comment: 12/21/14 HBVsAb positive, mild elevation ALT only 01/08/15: US liver WNL INFLUENZA(1) due on 03/20/2017 MAMMOGRAM due on 07/16/2017 Component Latest Ref Rng ANDamp; Units 08/05/2017 08/13/2017 08/14/2017 08/18/2017 08/26/2017 10/08/2017 Protein, Total 6.3 - 8.0 g/dL 6.9 6.7 Albumin 3.9 - 4.9 g/dL 4.1 4.0 Calcium 8.5 - 10.2 mg/dL 9.0 8.8 Bilirubin, Total 0.2 - 1.3 mg/dL 0.4 0.3 Alkaline Phosphatase 32 - 117 U/L 71 70 AST 13 - 35 U/L 82 (H) 105 (H) Glucose 74 - 99 mg/dL 117 (H) 108 (H) BUN 7 - 21 mg/dL 10 9 Creatinine 0.58 - 0.96 mg/dL 0.88 0.82 Sodium 136 - 144 mmol/L 136 138 Potassium 3.7 - 5.1 mmol/L 4.1 4.2 Chloride 97 - 105 mmol/L 99 99 CO2 22 - 30 mmol/L 25 26 Anion Gap 9 - 18 mmol/L 12 13 ALT 7 - 38 U/L 163 (H) 177 (H) eGFR- ANDgt;60 ANDgt;60 eGFR-All Other Races . ANDgt;60 ANDgt;60 WBC, [place] 3.70 - 11.00 k/uL 2.08 (L) 6.22 13.16 (H) 5.09 RBC, [place] 3.90 - 5.20 m/uL 4.19 3.91 3.98 4.38 Hemoglobin, [place] 11.5 - 15.5 g/dL 11.3 (L) 10.5 (L) 10.5 (L) 11.8 Hematocrit, [place] 36.0 - 46.0 % 35.0 (L) 32.4 (L) 33.3 (L) 37.9 MCV, Bhanu 80.0 - 100.0 fL 83.5 82.9 83.7 86.5 MCH, Bhanu 26.0 - 34.0 pg 27.0 26.9 26.4 26.9 MCHC, Bhanu 30.5 - 36.0 g/dL 32.3 32.4 31.5 31.1 RDW, Bhanu 11.5 - 15.0 % 20.1 (H) 20.3 (H) 21.8 (H) 23.3 (H) Platelet Cnt, [place] 150 - 400 k/uL 240 255 245 273 MPV, Bhanu 9.0 - 12.7 fL 9.7 9.0 8.7 (L) 8.4 (L) Absol Gran Count 1.45 - 7.50 k/uL 0.08 (L) 2.43 10.35 (H) 2.99 Absolute nRBC ANDlt;0.01 k/uL 0.11 (H) Vitamin D 25 Hydroxy 31.0 - 80.0 ng/mL 39.7 EXAM: BP 130/98 Pulse 100 Temp 36.7 ?C (98 ?F) (Tympanic) Resp 16 Ht 160.2 cm (5' 3.07ANDquot;) Wt 115.7 kg (255 lb) BMI 45.07 kg/m2 General appearance: Overweight adult woman, in no acute distress. Well nourished. Well groomed. Pleasant spirits. Respirations: regular, unlabored Color: pink to lips and nailbeds Skin: warm, dry, no unusual rashes or lesions Head: Normocephalic Eyes: sclerae and conjunctivae without injection or exudate, PERRLA, EOMI, corneal light reflex symmetric bilaterally. Ears: TM's and ear canals are clear bilaterally with normal landmarks, no swelling or deformity external ear Nose/Sinuses: Nose patent. No turbinate swelling. No active exudate. Maxillary and frontal sinuses nontender to percussion. Oropharynx: Lips, mucosa, and tongue free from lesions. Teeth are in good repair. Gums without inflammation. Oropharynx no exudate or injection. No tonsillar hypertrophy. Mallampati 4/4. Neck circumference 17.5in. Neck: Neck supple, no cervical lymphadenopathy; thyroid without mass or tenderness. Chest: normally shaped, equal expansion with breaths. Lungs: Lungs clear to auscultation and percussion. No crackles or wheezes. Heart: RRR without murmur, gallop, or rubs. S1 and S2 normal. Abd soft, nontender, normoactive bowel sounds throughout, no mass, no organomegaly. back FROM, no abnormal curvature. Extremities well formed, FROM and strength, no clubbing cyanosis or edema. Neuro grossly intact. Normal gait and balance. Able to squat without difficulty. DTR's 2+/4 symmetric upper and lower bilaterally. Rhomberg is negative. ASSESSMENT/PLAN: Thank you Dr. Lujan for allowing me to particpate in the care of this patient. 1. Preoperative clearance - ICD9: V72.84, ICD10: Z01.818 Based on this patient's history, functional status she is low perioperative risk for MAC anesthesia. M Gary Hensley PA-C Referring Provider: SELF [[id number]] Allergies As of Date: 10/08/2017 Noted Allergy Reaction AMITRIPTYLINE 11/18/2016 14 - Other: See Comments Comments: Intensely angry CATS 01/05/2006 DOGS 01/05/2006 GRASS POLLEN 01/05/2006 LEVAQUIN (LEVOFLOXACIN) 07/15/2017 4 - Hives 7 - Swelling MOLD 01/05/2006 Date Reviewed: 10/08/2017 Reviewed by: Marian Duron LPN - Fully Assessed Reason for Visit: Pre-Op Exam [87] Cmt: Cataract surgery of right eye Primary Visit Diagnosis:Preoperative clearance [Z01.818] Prescriptions as of 10/08/2017 Sig: ANASTROZOLE 1 MG TABLET Take 1 tablet by mouth once d* POTASSIUM CHLORIDE 20 MEQ ORA* TAKE ONE PACKET BY MOUTH EVER* HYDROCHLOROTHIAZIDE 25 MG TAB* Take 1 tablet by mouth once d* LEVOTHYROXINE 200 MCG TABLET Take 1 tablet by mouth five t* LISINOPRIL 10 MG TABLET Take 1 tablet by mouth once d* LAMOTRIGINE 150 MG TABLET Take 150 mg by mouth once subha* ZOLPIDEM 5 MG TABLET Take 5 mg by mouth at bedtime* ACETAMINOPHEN 500 MG TABLET Take 500 mg by mouth every 6 * BUPROPION XL 300 MG 24 HR TAB Take 300 mg by mouth once subha* CHOLECALCIFEROL (VITAMIN D3) * Take 1 capsule by mouth once * FLUOXETINE 40 MG CAPSULE Take 1 capsule by mouth once * CLARITIN ORAL Take 1 tablet by mouth once d* KETOROLAC 0.4 % EYE DROPS Use 1 Drop in the right eye f* [id number] 3* Use 1 Drop in the right eye f* COMPOUNDED PRESCRIPTION #1 Auto titrating PAP device * HYDROCODONE 5 MG-ACETAMINOPHE* Take 1 tablet by mouth every * DIPHENOXYLATE-ATROPINE 2.5 MG* Take 2 tablets by mouth four * Problem List As Of Date 10/08/2017 Noted Resolved ADJUSTMENT DISORDER WITH DEPRESSED MOOD [F43.21]INVALID FOR* ANXIETY STATE NOS [F41.1] INVALID FOR* Hypothyroidism [E03.9] INVALID FOR* BENIGN HYPERTENSION [I10] INVALID FOR* OBESITY NOS [E66.9] INVALID FOR* Nonspecific abnormal results of liver function *INVALID FOR* More... ALLERGIC RHINITIS NOS [J30.9] INVALID FOR* CHRONIC LIVER DIS NEC [K76.89] INVALID FOR* Hyperlipidemia [E78.5] INVALID FOR* Tobacco abuse [Z72.0] INVALID FOR* Low HDL (under 40) [E78.6] INVALID FOR* Hypertriglyceridemia [E78.1] INVALID FOR* Postsurgical hypothyroidism [E89.0] INVALID FOR* Incisional infection [T81.4XXA] INVALID FOR* Vitamin D deficiency [E55.9] INVALID FOR* Elevated LFTs [R79.89] INVALID FOR* Muscle spasm [M62.838] INVALID FOR* Neck pain [M54.2] INVALID FOR* Thoracic back pain [M54.6] INVALID FOR* Malignant neoplasm of lower-inner quadrant of r*INVALID FOR* Left breast mass [N63.20] INVALID FOR* More... Numbness of arm [R20.0] INVALID FOR* More... 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 Follow-up and Disposition History Recorded Encounter Status:Closed by Lavonne HENSLEY PA-C on 10/08/17 PROGRESS Observed: 10/08/2017 Status: COMPLETED Source: [place] 11:37 AM [facility] REPOSITORY O ID: [id number] Author: Tomer (Pt) Naty Service: (none) Author Type: Physical Therapist Type: Progress Notes Filed: 10/08/2017 11:39 AM Note Text: Episode Visit Count: 3 Therapist That Will Oversee The Plan Of Care: Tomer Alfonso PT Start of Care Date: 09/28/17 Onset Date: 09/29/15 Patient Identified by Name and Date of : Yes REHABILITATION AND SPORTS THERAPY PHYSICAL THERAPY TREATMENT NOTE ASSESSMENT: Mahi Stafford demonstrated difficulty with certain WBing closed chain stabilization exercises and improvements in pain and exercise tolerance The patient will continue to benefit from continued skilled physical therapy for pain management, supervised therex, gait training and possibly manual therapy. PLAN FOR NEXT VISIT: review HEP, progress HEP to tolerance, continue supervised stretching, strengthening and proprioceptive therex, consider manual therapy and continue gait training prn. SUBJECTIVE: Pt reports improvements overall since starting therapy. She reports compliance with HEP 3x day without any pain or problems. She denies any increased pain or problems following last therapy session. She reports that frequency of pain is the same overall but intensity is less. Pain Score: 2/10 Pain Location: Ankle - Left Description: Aching;Dull Frequency: Intermittent Post Treatment Pain Score: No Change Post Treatment Pain Description: Aching;Dull OBJECTIVE MEASURES WITH LEVEL OF FUNCTION: Gait Assessment Gait Observation: Gait is much improved with improved heel to toe pattern. With pt conscious effort, gait is nearly normal. TREATMENT: Therapeutic Exercise: 1: upright bike seat #4 resistance level 1 x5 minutes 2: long calf stretch for L with green strap reviewed for HEP 3: standing L gastroc stretch reviewed for HEP 4: standing L soleus stretch reviewed for HEP 5: alphabet tracing with L ankle A-Z x1 and added to HEP with handout 6: AROM for L ankle DF/PF and Inv/Ev 2x20 each and added to HEP with handout 7: PWB BAPs for L LE in parallel bars with hemisphere #3 front to back, side to side, CW and CCW 2x10 each 8: L Prostretch 3x30 seconds 9: L forward step ups on dome side of BOSU in parallel bars 2x10 10: L lateral step ups on dome side of BOSU in parallel bars 2x10 11: L forward lunges onto dome side of BOSU 2x10 in parallel bars 12: L lateral lunges onto dome side of BOSU 2x10 in parallel bars. 13: seated AROM of L ankle for DF/PF and Inv/Ev with foot on flat side of half foam roll x20 each. Skilled Intervention: Patient was educated in proper exercise technique and purpose for exercises. Skilled judgment was provided in selection of appropriate interventions. Correct performance of therapeutic exercises was facilitated with verbal and visual cuing. Gait Trainin: normal gait pattern reviewed. Skilled Intervention: Facilitated proper gait cycle with the use of verbal and visual cues for correction of gait deviations identified in the objective section above. Billing: [facility]: Therapeutic Exercise (26337): 1:1 time: 40 minutes (3 units: 38-52 mins) Gait Training (62537): 1:1 time: 5 minutes (no charge) Total time: 45 minutes Tomer Alfonso PT CNTHERAPY Observed: 10/08/2017 Status: COMPLETED Source: [place] 10:45 AM [facility] REPOSITORY OT/PT/Speech Visit (PTWS) MAHI STAFFORD ([id number]) 1970 F Date Time Provider Department 10/08/17 10:45 AM TOMER ALFONSO (PT) PTWS Date Time Provider Department Center 10/08/2017 10:45 AM [id number], BRENT (PT) PTWS [facility], [facility] Reason for Visit: Physical Therapy [503] Primary Visit Diagnosis:Plantar fascial fibromatosis [M72.2] Other Visit Diagnosis:Posterior tibial tendinitis of left leg [M76.822] Allergies As of Date: 10/08/2017 Noted Allergy Reaction AMITRIPTYLINE 11/18/2016 14 - Other: See Comments Comments: Intensely angry CATS 01/05/2006 DOGS 01/05/2006 GRASS POLLEN 01/05/2006 LEVAQUIN (LEVOFLOXACIN) 07/15/2017 4 - Hives 7 - Swelling MOLD 01/05/2006 Date Reviewed: 10/08/2017 Reviewed by: Sylvia Bettencourt (Actionscript Developer) ZAIN Mason - Fully Assessed Prescriptions as of 10/08/2017 Sig: ANASTROZOLE 1 MG TABLET Take 1 tablet by mouth once d* KETOROLAC 0.4 % EYE DROPS Use 1 Drop in the right eye f* [id number] 3* Use 1 Drop in the right eye f* COMPOUNDED PRESCRIPTION #1 Auto titrating PAP device * HYDROCODONE 5 MG-ACETAMINOPHE* Take 1 tablet by mouth every * DIPHENOXYLATE-ATROPINE 2.5 MG* Take 2 tablets by mouth four * POTASSIUM CHLORIDE 20 MEQ ORA* TAKE ONE PACKET BY MOUTH EVER* HYDROCHLOROTHIAZIDE 25 MG TAB* Take 1 tablet by mouth once d* LEVOTHYROXINE 200 MCG TABLET Take 1 tablet by mouth five t* LISINOPRIL 10 MG TABLET Take 1 tablet by mouth once d* LAMOTRIGINE 150 MG TABLET Take 150 mg by mouth once subha* ZOLPIDEM 5 MG TABLET Take 5 mg by mouth at bedtime* ACETAMINOPHEN 500 MG TABLET Take 500 mg by mouth every 6 * BUPROPION XL 300 MG 24 HR TAB Take 300 mg by mouth once subha* CHOLECALCIFEROL (VITAMIN D3) * Take 1 capsule by mouth once * FLUOXETINE 40 MG CAPSULE Take 1 capsule by mouth once * CLARITIN ORAL Take 1 tablet by mouth once d* Progress Notes: Tomer Alfonso PT 10/08/2017 11:39 AM Signed Episode Visit Count: 3 Therapist That Will Oversee The Plan Of Care: Tomer Alfonso PT Start of Care Date: 09/28/17 Onset Date: 09/29/15 Patient Identified by Name and Date of : Yes REHABILITATION AND SPORTS THERAPY PHYSICAL THERAPY TREATMENT NOTE ASSESSMENT: Mahi Banerjee Rivera demonstrated difficulty with certain WBing closed chain stabilization exercises and improvements in pain and exercise tolerance The patient will continue to benefit from continued skilled physical therapy for pain management, supervised therex, gait training and possibly manual therapy. PLAN FOR NEXT VISIT: review HEP, progress HEP to tolerance, continue supervised stretching, strengthening and proprioceptive therex, consider manual therapy and continue gait training prn. SUBJECTIVE: Pt reports improvements overall since starting therapy. She reports compliance with HEP 3x day without any pain or problems. She denies any increased pain or problems following last therapy session. She reports that frequency of pain is the same overall but intensity is less. Pain Score: 2/10 Pain Location: Ankle - Left Description: Aching;Dull Frequency: Intermittent Post Treatment Pain Score: No Change Post Treatment Pain Description: Aching;Dull OBJECTIVE MEASURES WITH LEVEL OF FUNCTION: Gait Assessment Gait Observation: Gait is much improved with improved heel to toe pattern. With pt conscious effort, gait is nearly normal. TREATMENT: Therapeutic Exercise: 1: upright bike seat #4 resistance level 1 x5 minutes 2: long calf stretch for L with green strap reviewed for HEP 3: standing L gastroc stretch reviewed for HEP 4: standing L soleus stretch reviewed for HEP 5: alphabet tracing with L ankle A-Z x1 and added to HEP with handout 6: AROM for L ankle DF/PF and Inv/Ev 2x20 each and added to HEP with handout 7: PWB BAPs for L LE in parallel bars with hemisphere #3 front to back, side to side, CW and CCW 2x10 each 8: L Prostretch 3x30 seconds 9: L forward step ups on dome side of BOSU in parallel bars 2x10 10: L lateral step ups on dome side of BOSU in parallel bars 2x10 11: L forward lunges onto dome side of BOSU 2x10 in parallel bars 12: L lateral lunges onto dome side of BOSU 2x10 in parallel bars. 13: seated AROM of L ankle for DF/PF and Inv/Ev with foot on flat side of half foam roll x20 each. Skilled Intervention: Patient was educated in proper exercise technique and purpose for exercises. Skilled judgment was provided in selection of appropriate interventions. Correct performance of therapeutic exercises was facilitated with verbal and visual cuing. Gait Trainin: normal gait pattern reviewed. Skilled Intervention: Facilitated proper gait cycle with the use of verbal and visual cues for correction of gait deviations identified in the objective section above. Billing: [facility]: Therapeutic Exercise ([id number]): 1:1 time: 40 minutes (3 units: 38-52 mins) Gait Training (67583): 1:1 time: 5 minutes (no charge) Total time: 45 minutes Tomer Alfonso PT VITAMIN D 25 HYDROXY Collected: 10/08/2017 Status: F Source: [place] 9:23 AM [facility] REPOSITORY TYPE CODE TESTS RESULT OUT OF REFERENCE UNITS RANGE LAB VITD 31.0-80.0 ng/mL Vitamin D 25 39.7 Hydroxy Result Comment: Classification of 25 [place] Vitamin D status: Insufficiency/Moderate Deficiency: < or = 30 ng/mL Sufficiency/Optimal Levels: 31 to 80 ng/mL Toxicity: > 100 ng/mL Test performed by chemiluminescent immunoassay. Performed By: #### VITD #### [facility] [address] [place], [place] [address] CNOVSP Observed: 10/08/2017 Status: COMPLETED Source: [place] 8:30 AM [facility] REPOSITORY Visit (SP) Office (RUBIO) RIVERAMAHI ([id number]) 1970 F Date Time Provider Department 10/08/17 8:30 AM ROGELIO VELEZ During your visit today, we recorded the following information about you: Temperature Pulse Blood pressure Weight 97.9 degrees 96/minute 131/79 115.2 kg Rogelio Velez DO 10/08/2017 8:56 AM Addendum Diagnosis: 1) Breast cancer. HPI: Patient is a 46-year-old female who has past medical history significant for hyperlipidemia and hypertension who underwent bilateral mammogram in June 2016. She had a diagnostic mammogram of the right breast with there was a questionable 5 mm area of irregular asymmetry with indistinct margin in the depth inferior region of the right breast only seen on mediolateral oblique views. An ultrasound confirmed this area. Follow-up study was recommended in 6 months. That study was done on along with an ultrasound that demonstrated an irregular lesion in the right breast 3:00 position anterior depth with mixed echogenicity. An ultrasound-guided biopsy was recommended. This biopsy was performed 03/14/2017. The core sample demonstrated invasive ductal carcinoma, nuclear grade 2. Estrogen receptors were greater than 95%, strong and progesterone receptors were 12%, weak. HER-2 was quantified at 0. The patient subsequent underwent an MRI. There was an additional area of concern identified in the right inner breast close to the original biopsied area. An MRI guided biopsy was performed that showed DCIS with intermediate and high nuclear grade with solid and cribriform types associated with microcalcifications. A clip was placed. Biopsy was also performed of a left breast abnormality and this tissue demonstrated fibroadenoma. The patient still had regular menses. Her maternal grandmother evidently had breast cancer diagnosed in her 30s and underwent surgery. She later in her 60s from metastatic renal cell carcinoma. There is no other family history of breast cancer, ovarian cancer or uterine cancer. Her grandmother also had thyroid cancer. Interim history: Underwent right-sided mastectomy and sentinel lymph node biopsy procedure on 04/30/2017. FROZEN SECTION DIAGNOSIS A. Kirby lymph node, biopsy: Fragments of fibrofatty tissue. No lymph node tissue is identified. SJ: 04/30/17 B. Additional right axillary sentinel lymph nodes, biopsy: Two out of two lymph nodes negative for carcinoma. AM: 04/30/17 MICROSCOPIC DIAGNOSIS A. Kirby lymph node, biopsy: Fragments of fibrofatty tissue. No lymph node tissue is identified. B. Additional right axillary sentinel lymph nodes, biopsy: Two out of two lymph nodes, negative for metastatic carcinoma. See comment. C. Right breast, modified radical mastectomy: Invasive ductal carcinoma. Ductal carcinoma in situ. Angiolipoma. Five out of five lymph nodes, negative for metastatic carcinoma. See cancer summary below. INVASIVE BREAST CANCER SUMMARY: (Including specimen B ANDamp; C) Specimen ? total breast (including nipple and skin). Procedure ? total mastectomy (including nipple and skin). Lymph node sampling ? sentinel lymph node and axillary dissection. Specimen integrity ? single intact specimen. Specimen laterality - right Tumor site ? lower central portion of the breast tissue. Tumor size ? 1.2 x 0.7 x 0.5 cm (see comment) Tumor focality ? single focus of invasive carcinoma. Macroscopic and Microscopic extent of tumor: Skin ? invasive carcinoma does not invade into the dermis or epidermis. Nipple ? ductal carcinoma in situ does not involve the nipple epidermis. Skeletal muscle ? no skeletal muscle present Ductal carcinoma in situ (DCIS) ? ductal carcinoma in situ is present. Extensive intraductal component (EIC) ? positive Ductal carcinoma in situ show extensive cancerization of lobules. Estimated size (extent) of DCIS ? ductal carcinoma in situ comprise about 40% of the total tumor volume and it is present adjacent and away from the invasive tumor.. Number of blocks with DCIS - 5 Number of blocks examined ? 10 (consisting of breast tissue) Architectural patterns ? solid and cribriform Nuclear grade ? grade 2-3 (intermediate to high) Necrosis ? present, focal (small foci of single cell necrosis) Lobular carcinoma in situ (LCIS) ? not present Histologic type of invasive carcinoma ? invasive ductal carcinoma (no special type) Histologic Grade: Vita grade: Glandular/tubular differentiation - score 3 Nuclear pleomorphism - score 3 Mitotic count ? score 1 Overall grade - 2 (score of 7) Margins: Margins uninvolved by invasive carcinoma. The tumor is 4 cm away from the closest posterior margin. Treatment effect: Response to presurgical (neoadjuvant) therapy - no known presurgical therapy. Lymph-Vascular invasion ? not identified Dermal lymph-vascular invasion ? not identified Lymph nodes: Number of sentinel lymph nodes examined - 2 Total number of lymph nodes examined (sentinel and nonsentinel) - 7 Number of lymph nodes with macrometastases, micrometastases and isolated tumor cells - 0 Method of evaluation of sentinel lymph nodes - H ANDamp; E, multiple levels and IHC. Distance metastasis ? not applicable Additional pathologic findings ? fibrocystic changes and intraductal hyperplasia without atypia. - Angiolipoma. Ancillary studies - previously performed on section of tumor ([id number] / [id number]). ER ? positive (ANDgt;95%, strong) ME ? positive (12%, weak) Her2 diana ? negative (0) Her2 by dual THERESA ? not performed Microcalcifications ? present in DCIS. Clinical history - Please make reference to previous specimen ([id number]) right breast, core biopsy with diagnosis of invasive ductal carcinoma. Previous therapy: 1) TC x3 cycles. Stopped due to significant side effects. Current therapy: 1) Lupron. Began 09/21/2017. 2) Anastrozole. Presents for ongoing oncologic management. Interim history: Did well with Lupron. No hot flashes or mood changes. No residual neuropathy. PMH, medications and allergies personally reviewed by me today. Any changes documented in appropriate section. ROS: Constitutional: Denies episodes of night sweats. Better energy. Good appetite. Neuro: Denies KIRKPATRICK, vertigo, dizziness and imbalance. HEENT: No recent change in voice or hearing. Resp: Denies cough, wheeze and hemoptysis. Denies shortness of breath at rest. CVS: Denies exertional chest pain, PND, orthopnea and LE edema. GI: See above. No longer having diarrhea. : Denies dysuria or gross hematuria. No symptoms of bladder outlet obstruction. Endo: Denies polyuria and polydipsia. Denies heat and cold intolerance. Musculoskeletal: No joint, bone or muscular pain currently. Derm: Denies rash. Denies jaundice and diffuse pruritis. Heme: Denies unusual bleeding and unexplained bruising. Psych: Normal mood. PHYSICAL EXAM: Vitals: Blood pressure 131/79, pulse 96, temperature 36.6 ?C (97.9 ?F), weight 115.2 kg (254 lb). Well-appearing and in no acute distress. EYES: Sclerae are anicteric bilaterally. ENT: Oral mucosa is unremarkable. NECK: Supple. No enlargement of thyroid. LYMPHATIC: There is no palpable cervical, supraclavicular, axillary or inguinal adenopathy. RESPIRATORY: Inspiratory breath sounds are of normal intensity in all wallace. No rales, wheezes or rhonchi. CARDIOVASCULAR: Rhythm is regular. Normal intensity S1/S2. There is no gallop or murmur. ABDOMEN: The abdomen is nondistended. No organomegaly. No tenderness. Extremities: No swelling or edema. SKIN: Healing desquamation rash of the hands. NEUROLOGIC: tuckpointer II-XII are grossly intact. No focal motor weakness. DTRs are symmetric and normal. MUSCULOSKELETAL: No muscle wasting. ASSESSMENT/PLAN: (C50.311, Z17.0) Malignant neoplasm of lower-inner quadrant of right breast of female, estrogen receptor positive (HCC) (primary encounter diagnosis) Assessment: -pT1c (1.2 cm; grade 2; no ALI) pN0 MX ER/ME positive, HER2 negative invasive ductal carcinoma the right breast. -Genetic testing negative. -Oncotype recurrent score was 26 suggesting 17% average recurrence risk over the next 10 years with the use of tamoxifen alone. -Significant side effects with each cycle of TC. She has opted to stop chemotherapy. -Previously discussed with her the strategy of hormonal therapy. I discussed the [facility] care path and the decision process of tamoxifen versus ovarian suppression/ablation with aromatase inhibitor therapy. Because of the intermediate risk Oncotype score and only having received 75% of the adjuvant chemotherapy dose, I recommended ovarian suppression/ablation with aromatase inhibitor therapy (higher risk stage I disease). -Again discussed the use of ANDquot;adjuvantANDquot; bisphosphonate therapy and recommended Zometa infusion every 6 months for up to 3 years beginning about 6 months after starting ovarian suppression. -She desires prophylactic left mastectomy. Genetic testing was negative, but she is clearly nervous. Suggested she consult a plastic surgeon. -Reviewed KP questions with her. She is coping very well and QOL has clearly improved. Plan: -Continue Lupron 09/16. -Begin anastrozole. -Due for left-sided screening mammogram March 2018. -Check vit D level. DO Sylvia Delgado, ZAIN, PROCUREMENT ENGINEER 10/08/2017 8:42 AM Signed Est pt, F/u 1 month. Not due for lupron until 10/19 mitral regurgitation Referring Provider: ROGELIO VELEZ [[id number]] Allergies As of Date: 10/08/2017 Noted Allergy Reaction AMITRIPTYLINE 11/18/2016 14 - Other: See Comments Comments: Intensely angry CATS 01/05/2006 DOGS 01/05/2006 GRASS POLLEN 01/05/2006 LEVAQUIN (LEVOFLOXACIN) 07/15/2017 4 - Hives 7 - Swelling MOLD 01/05/2006 Date Reviewed: 10/08/2017 Reviewed by: Marian Duron LPN - Fully Assessed Reason for Visit: Established Patient [175] Primary Visit Diagnosis:Malignant neoplasm of lower-inner quadrant of right breast of female, estrogen receptor positive (HCC) [C50.311, Z17.0] Order(s):anastrozole (ARIMIDEX) 1 mg tabletTake 1 tablet by mouth once daily.Disp: 90 tabletRfl: 3 VITAMIN D 25 HYDROXY [SQVITD] Order #: [id number] FUTURE Follow-up and Disposition History Recorded Prescriptions as of 10/08/2017 Sig: COMPOUNDED PRESCRIPTION #1 Auto titrating PAP device * POTASSIUM CHLORIDE 20 MEQ ORA* TAKE ONE PACKET BY MOUTH EVER* HYDROCHLOROTHIAZIDE 25 MG TAB* Take 1 tablet by mouth once d* LEVOTHYROXINE 200 MCG TABLET Take 1 tablet by mouth five t* LISINOPRIL 10 MG TABLET Take 1 tablet by mouth once d* LAMOTRIGINE 150 MG TABLET Take 150 mg by mouth once subha* ZOLPIDEM 5 MG TABLET Take 5 mg by mouth at bedtime* ACETAMINOPHEN 500 MG TABLET Take 500 mg by mouth every 6 * BUPROPION XL 300 MG 24 HR TAB Take 300 mg by mouth once subha* CHOLECALCIFEROL (VITAMIN D3) * Take 1 capsule by mouth once * FLUOXETINE 40 MG CAPSULE Take 1 capsule by mouth once * CLARITIN ORAL Take 1 tablet by mouth once d* ANASTROZOLE 1 MG TABLET Take 1 tablet by mouth once d* KETOROLAC 0.4 % EYE DROPS Use 1 Drop in the right eye f* [id number] 3* Use 1 Drop in the right eye f* HYDROCODONE 5 MG-ACETAMINOPHE* Take 1 tablet by mouth every * DIPHENOXYLATE-ATROPINE 2.5 MG* Take 2 tablets by mouth four * Medication notes this encounter KETOROLAC 0.4 % EYE DROPS >> Sylvia Mason LPN, PROCUREMENT ENGINEER 10/08/2017 8:33 AM >> KRYSTINGLORIAMELVINSYLVIA Malinda Oct 08, 2017 8:33 AM Haven't started yet [id number] 3.5 MG/ML-10,000 UNIT/ML-0.1% EYE DROPS >> Sylvia Rut Mason LPN, LPN 10/08/2017 8:34 AM >> SYLVIA MASON Malinda Oct 08, 2017 8:34 AM Hasn't started yet Problem List As Of Date 10/08/2017 Noted Resolved ADJUSTMENT DISORDER WITH DEPRESSED MOOD [F43.21]INVALID FOR* ANXIETY STATE NOS [F41.1] INVALID FOR* Hypothyroidism [E03.9] INVALID FOR* BENIGN HYPERTENSION [I10] INVALID FOR* OBESITY NOS [E66.9] INVALID FOR* Nonspecific abnormal results of liver function *INVALID FOR* More... ALLERGIC RHINITIS NOS [J30.9] INVALID FOR* CHRONIC LIVER DIS NEC [K76.89] INVALID FOR* Hyperlipidemia [E78.5] INVALID FOR* Tobacco abuse [Z72.0] INVALID FOR* Low HDL (under 40) [E78.6] INVALID FOR* Hypertriglyceridemia [E78.1] INVALID FOR* Postsurgical hypothyroidism [E89.0] INVALID FOR* Incisional infection [T81.4XXA] INVALID FOR* Vitamin D deficiency [E55.9] INVALID FOR* Elevated LFTs [R79.89] INVALID FOR* Muscle spasm [M62.838] INVALID FOR* Neck pain [M54.2] INVALID FOR* Thoracic back pain [M54.6] INVALID FOR* Malignant neoplasm of lower-inner quadrant of r*INVALID FOR* Left breast mass [N63.20] INVALID FOR* More... Numbness of arm [R20.0] INVALID FOR* More... 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 Visit Notes: >> Sylvia Rut Mason LPN [facility] Oct 08, 2017 8:34 AM Status: Signed Est pt, F/u 1 month. Not due for lupron until 10/19 mitral regurgitation Encounter Status:Closed by ROGELIO VELEZ DO on 10/08/17 PROGRESS Observed: 10/08/2017 Status: COMPLETED Source: [place] 6:37 AM [facility] REPOSITORY O ID: [id number] Author: Rogelio Velez Service: (none) Author Type: Physician Type: Progress Notes Filed: 10/08/2017 8:56 AM Note Text: Diagnosis: 1) Breast cancer. HPI: Patient is a 46-year-old female who has past medical history significant for hyperlipidemia and hypertension who underwent bilateral mammogram in June 2016. She had a diagnostic mammogram of the right breast with there was a questionable 5 mm area of irregular asymmetry with indistinct margin in the depth inferior region of the right breast only seen on mediolateral oblique views. An ultrasound confirmed this area. Follow-up study was recommended in 6 months. That study was done on along with an ultrasound that demonstrated an irregular lesion in the right breast 3:00 position anterior depth with mixed echogenicity. An ultrasound-guided biopsy was recommended. This biopsy was performed 03/14/2017. The core sample demonstrated invasive ductal carcinoma, nuclear grade 2. Estrogen receptors were greater than 95%, strong and progesterone receptors were 12%, weak. HER- 2 was quantified at 0. The patient subsequent underwent an MRI. There was an additional area of concern identified in the right inner breast close to the original biopsied area. An MRI guided biopsy was performed that showed DCIS with intermediate and high nuclear grade with solid and cribriform types associated with microcalcifications. A clip was placed. Biopsy was also performed of a left breast abnormality and this tissue demonstrated fibroadenoma. The patient still had regular menses. Her maternal grandmother evidently had breast cancer diagnosed in her 30s and underwent surgery. She later in her 60s from metastatic renal cell carcinoma. There is no other family history of breast cancer, ovarian cancer or uterine cancer. Her grandmother also had thyroid cancer. Interim history: Underwent right-sided mastectomy and sentinel lymph node biopsy procedure on 04/30/2017. FROZEN SECTION DIAGNOSIS A. Kirby lymph node, biopsy: Fragments of fibrofatty tissue. No lymph node tissue is identified. SJ:shanae 04/30/17 B. Additional right axillary sentinel lymph nodes, biopsy: Two out of two lymph nodes negative for carcinoma. AM:shanae 04/30/17 MICROSCOPIC DIAGNOSIS A. Kirby lymph node, biopsy: Fragments of fibrofatty tissue. No lymph node tissue is identified. B. Additional right axillary sentinel lymph nodes, biopsy: Two out of two lymph nodes, negative for metastatic carcinoma. See comment. C. Right breast, modified radical mastectomy: Invasive ductal carcinoma. Ductal carcinoma in situ. Angiolipoma. Five out of five lymph nodes, negative for metastatic carcinoma. See cancer summary below. INVASIVE BREAST CANCER SUMMARY: (Including specimen B AND C) Specimen ? total breast (including nipple and skin). Procedure ? total mastectomy (including nipple and skin). Lymph node sampling ? sentinel lymph node and axillary dissection. Specimen integrity ? single intact specimen. Specimen laterality - right Tumor site ? lower central portion of the breast tissue. Tumor size ? 1.2 x 0.7 x 0.5 cm (see comment) Tumor focality ? single focus of invasive carcinoma. Macroscopic and Microscopic extent of tumor: Skin ? invasive carcinoma does not invade into the dermis or epidermis. Nipple ? ductal carcinoma in situ does not involve the nipple epidermis. Skeletal muscle ? no skeletal muscle present Ductal carcinoma in situ (DCIS) ? ductal carcinoma in situ is present. Extensive intraductal component (EIC) ? positive Ductal carcinoma in situ show extensive cancerization of lobules. Estimated size (extent) of DCIS ? ductal carcinoma in situ comprise about 40% of the total tumor volume and it is present adjacent and away from the invasive tumor.. Number of blocks with DCIS - 5 Number of blocks examined ? 10 (consisting of breast tissue) Architectural patterns ? solid and cribriform Nuclear grade ? grade 2-3 (intermediate to high) Necrosis ? present, focal (small foci of single cell necrosis) Lobular carcinoma in situ (LCIS) ? not present Histologic type of invasive carcinoma ? invasive ductal carcinoma (no special type) Histologic Grade: [place] grade: Glandular/tubular differentiation - score 3 Nuclear pleomorphism - score 3 Mitotic count ? score 1 Overall grade - 2 (score of 7) Margins: Margins uninvolved by invasive carcinoma. The tumor is 4 cm away from the closest posterior margin. Treatment effect: Response to presurgical (neoadjuvant) therapy - no known presurgical therapy. Lymph-Vascular invasion ? not identified Dermal lymph-vascular invasion ? not identified Lymph nodes: Number of sentinel lymph nodes examined - 2 Total number of lymph nodes examined (sentinel and nonsentinel) - 7 Number of lymph nodes with macrometastases, micrometastases and isolated tumor cells - 0 Method of evaluation of sentinel lymph nodes - H AND E, multiple levels and IHC. Distance metastasis ? not applicable Additional pathologic findings ? fibrocystic changes and intraductal hyperplasia without atypia. - Angiolipoma. Ancillary studies - previously performed on section of tumor ([id number] / [id number]). ER ? positive (>95%, strong) ME ? positive (12%, weak) Her2 diana ? negative (0) Her2 by dual THERESA ? not performed Microcalcifications ? present in DCIS. Clinical history - Please make reference to previous specimen ([id number]) right breast, core biopsy with diagnosis of invasive ductal carcinoma. Previous therapy: 1) TC x3 cycles. Stopped due to significant side effects. Current therapy: 1) Lupron. Began 09/21/2017. 2) Anastrozole. Presents for ongoing oncologic management. Interim history: Did well with Lupron. No hot flashes or mood changes. No residual neuropathy. PMH, medications and allergies personally reviewed by me today. Any changes documented in appropriate section. ROS: Constitutional: Denies episodes of night sweats. Better energy. Good appetite. Neuro: Denies KIRKPATRICK, vertigo, dizziness and imbalance. HEENT: No recent change in voice or hearing. Resp: Denies cough, wheeze and hemoptysis. Denies shortness of breath at rest. CVS: Denies exertional chest pain, PND, orthopnea and LE edema. GI: See above. No longer having diarrhea. : Denies dysuria or gross hematuria. No symptoms of bladder outlet obstruction. Endo: Denies polyuria and polydipsia. Denies heat and cold intolerance. Musculoskeletal: No joint, bone or muscular pain currently. Derm: Denies rash. Denies jaundice and diffuse pruritis. Heme: Denies unusual bleeding and unexplained bruising. Psych: Normal mood. PHYSICAL EXAM: Vitals: Blood pressure 131/79, pulse 96, temperature 36.6 ?C (97.9 ?F), weight 115.2 kg (254 lb). Well-appearing and in no acute distress. EYES: Sclerae are anicteric bilaterally. ENT: Oral mucosa is unremarkable. NECK: Supple. No enlargement of thyroid. LYMPHATIC: There is no palpable cervical, supraclavicular, axillary or inguinal adenopathy. RESPIRATORY: Inspiratory breath sounds are of normal intensity in all wallace. No rales, wheezes or rhonchi. CARDIOVASCULAR: Rhythm is regular. Normal intensity S1/S2. There is no gallop or murmur. ABDOMEN: The abdomen is nondistended. No organomegaly. No tenderness. Extremities: No swelling or edema. SKIN: Healing desquamation rash of the hands. NEUROLOGIC: tuckpointer II-XII are grossly intact. No focal motor weakness. DTRs are symmetric and normal. MUSCULOSKELETAL: No muscle wasting. ASSESSMENT/PLAN: (C50.311, Z17.0) Malignant neoplasm of lower-inner quadrant of right breast of female, estrogen receptor positive (HCC) (primary encounter diagnosis) Assessment: -pT1c (1.2 cm; grade 2; no ALI) pN0 MX ER/ME positive, HER2 negative invasive ductal carcinoma the right breast. -Genetic testing negative. -Oncotype recurrent score was 26 suggesting 17% average recurrence risk over the next 10 years with the use of tamoxifen alone. -Significant side effects with each cycle of TC. She has opted to stop chemotherapy. -Previously discussed with her the strategy of hormonal therapy. I discussed the F care path and the decision process of tamoxifen versus ovarian suppression/ablation with aromatase inhibitor therapy. Because of the intermediate risk Oncotype score and only having received 75% of the adjuvant chemotherapy dose, I recommended ovarian suppression/ablation with aromatase inhibitor therapy (higher risk stage I disease). -Again discussed the use of adjuvant bisphosphonate therapy and recommended Zometa infusion every 6 months for up to 3 years beginning about 6 months after starting ovarian suppression. -She desires prophylactic left mastectomy. Genetic testing was negative, but she is clearly nervous. Suggested she consult a plastic surgeon. -Reviewed KP questions with her. She is coping very well and QOL has clearly improved. Plan: -Continue Lupron 09/16. -Begin anastrozole. -Due for left-sided screening mammogram March 2018. -Check vit D level. Rogelio Velez DO PROGRESS Observed: 10/06/2017 Status: COMPLETED Source: [place] 11:40 AM [facility] REPOSITORY O ID: [id number] Author: Tomer (Dany) Naty Service: (none) Author Type: Physical Therapist Type: Progress Notes Filed: 10/06/2017 11:47 AM Note Text: Episode Visit Count: 2 Therapist That Will Oversee The Plan Of Care: Tomer Alfonso PT Start of Care Date: 09/28/17 Onset Date: 09/29/15 Patient Identified by Name and Date of : Yes REHABILITATION AND SPORTS THERAPY PHYSICAL THERAPY TREATMENT NOTE ASSESSMENT: Mahi Stafford demonstrated difficulty with walking and stairs and improvements in pain, heel to toe gait pattern and walking tolerance. The patient will continue to benefit from continued skilled physical therapy for stretching, strengthening, gait training, proprioception exercise, manual therapy and pain management prn. PLAN FOR NEXT VISIT: review HEP, progress HEP to tolerance, continue supervised stretching, strengthening and proprioceptive therex, consider manual therapy and continue gait training prn. SUBJECTIVE: Pt reports a slight improvement with decreased pain, especially plantar surface of L heel. She reports that the majority of her symptoms currently are located at medial aspect of L ankle. She reports compliance with HEP 3x day without questions. She reports obtaining new shoes near the same time that she started therapy and she is not sure whether to attribute the improvement to the shoes or PT. Pain Score: 4/10 Pain Location: Ankle - Left Description: Dull;Aching Frequency: Intermittent Post Treatment Pain Score: 5/10 Post Treatment Pain Description: Burning (slight increase in pain ) OBJECTIVE MEASURES WITH LEVEL OF FUNCTION: Gait Assessment Gait Observation: Gait is much improved with better heel to toe pattern and increased step lengths. Step lengths are still slightly smaller than average secondary to pain but improved. TREATMENT: Therapeutic Exercise: 1: upright bike seat #4 resistance level 1 x5 minutes 2: long calf stretch for L with green strap 3x30 seconds 3: standing L gastroc stretch 3x30 seconds 4: standing L soleus stretch 3x30 seconds 5: *alphabet tracing with L ankle A-Z x1 and added to HEP with handout 6: *AROM for L ankle DF/PF and Inv/Ev 2x20 each and added to HEP with handout 7: PWB BAPs for L LE in parallel bars with hemisphere #2 front to back, side to side, CW and CCW 2x10 each 8: L Prostretch 3x30 seconds 9: L forward step ups on dome side of BOSU in parallel bars 2x10 10: L lateral step ups on dome side of BOSU in parallel bars 2x10 Skilled Intervention: Patient was educated in proper exercise technique and purpose for exercises. Reviewed and educated patient on additions/changes for home exercise program as above (*) Skilled judgment was provided in selection of appropriate interventions. Provided written instruction for home exercise program to facilitate proper performance and compliance. Correct performance of therapeutic exercises was facilitated with verbal and visual cuing. Billing: [facility]: Therapeutic Exercise ([id number]): 1:1 time: 45 minutes (3 units: 38-52 mins) Total time: 45 minutes Tomer Alfonso PT CNTHERAPY Observed: 10/06/2017 Status: COMPLETED Source: [place] 10:45 AM [facility] REPOSITORY OT/PT/Speech Visit (PTWS) MAHI STAFFORD ([id number]) 1970 F Date Time Provider Department 10/06/17 10:45 AM TOMER ALFONSO (PT) PTWS Date Time Provider Department Center 10/06/2017 10:45 AM [id number], BRENT (PT) PTWS [facility] Reason for Visit: Physical Therapy [503] Primary Visit Diagnosis:Plantar fascial fibromatosis [M72.2] Other Visit Diagnosis:Posterior tibial tendinitis of left leg [M76.822] Allergies As of Date: 10/06/2017 Noted Allergy Reaction AMITRIPTYLINE 11/18/2016 14 - Other: See Comments Comments: Intensely angry CATS 01/05/2006 DOGS 01/05/2006 GRASS POLLEN 01/05/2006 LEVAQUIN (LEVOFLOXACIN) 07/15/2017 4 - Hives 7 - Swelling MOLD 01/05/2006 Date Reviewed: 10/05/2017 Reviewed by: Anita Chawla-Iban - Fully Assessed Prescriptions as of 10/06/2017 Sig: KETOROLAC 0.4 % EYE DROPS Use 1 Drop in the right eye f* [id number] 3* Use 1 Drop in the right eye f* COMPOUNDED PRESCRIPTION #1 Auto titrating PAP device * HYDROCODONE 5 MG-ACETAMINOPHE* Take 1 tablet by mouth every * DIPHENOXYLATE-ATROPINE 2.5 MG* Take 2 tablets by mouth four * POTASSIUM CHLORIDE 20 MEQ ORA* TAKE ONE PACKET BY MOUTH EVER* HYDROCHLOROTHIAZIDE 25 MG TAB* Take 1 tablet by mouth once d* LEVOTHYROXINE 200 MCG TABLET Take 1 tablet by mouth five t* LISINOPRIL 10 MG TABLET Take 1 tablet by mouth once d* LAMOTRIGINE 150 MG TABLET Take 150 mg by mouth once subha* ZOLPIDEM 5 MG TABLET Take 5 mg by mouth at bedtime* ACETAMINOPHEN 500 MG TABLET Take 500 mg by mouth every 6 * BUPROPION XL 300 MG 24 HR TAB Take 300 mg by mouth once subha* CHOLECALCIFEROL (VITAMIN D3) * Take 1 capsule by mouth once * FLUOXETINE 40 MG CAPSULE Take 1 capsule by mouth once * CLARITIN ORAL Take 1 tablet by mouth once d* Progress Notes: Tomer Alfonso PT 10/06/2017 11:47 AM Signed Episode Visit Count: 2 Therapist That Will Oversee The Plan Of Care: Tomer Alfonso PT Start of Care Date: 09/28/17 Onset Date: 09/29/15 Patient Identified by Name and Date of : Yes REHABILITATION AND SPORTS THERAPY PHYSICAL THERAPY TREATMENT NOTE ASSESSMENT: Mahi Banerjee Rivera demonstrated difficulty with walking and stairs and improvements in pain, heel to toe gait pattern and walking tolerance. The patient will continue to benefit from continued skilled physical therapy for stretching, strengthening, gait training, proprioception exercise, manual therapy and pain management prn. PLAN FOR NEXT VISIT: review HEP, progress HEP to tolerance, continue supervised stretching, strengthening and proprioceptive therex, consider manual therapy and continue gait training prn. SUBJECTIVE: Pt reports a slight improvement with decreased pain, especially plantar surface of L heel. She reports that the majority of her symptoms currently are located at medial aspect of L ankle. She reports compliance with HEP 3x day without questions. She reports obtaining new shoes near the same time that she started therapy and she is not sure whether to attribute the improvement to the shoes or PT. Pain Score: 4/10 Pain Location: Ankle - Left Description: Dull;Aching Frequency: Intermittent Post Treatment Pain Score: 5/10 Post Treatment Pain Description: Burning (slight increase in pain ) OBJECTIVE MEASURES WITH LEVEL OF FUNCTION: Gait Assessment Gait Observation: Gait is much improved with better heel to toe pattern and increased step lengths. Step lengths are still slightly smaller than average secondary to pain but improved. TREATMENT: Therapeutic Exercise: 1: upright bike seat #4 resistance level 1 x5 minutes 2: long calf stretch for L with green strap 3x30 seconds 3: standing L gastroc stretch 3x30 seconds 4: standing L soleus stretch 3x30 seconds 5: *alphabet tracing with L ankle A-Z x1 and added to HEP with handout 6: *AROM for L ankle DF/PF and Inv/Ev 2x20 each and added to HEP with handout 7: PWB BAPs for L LE in parallel bars with hemisphere #2 front to back, side to side, CW and CCW 2x10 each 8: L Prostretch 3x30 seconds 9: L forward step ups on dome side of BOSU in parallel bars 2x10 10: L lateral step ups on dome side of BOSU in parallel bars 2x10 Skilled Intervention: Patient was educated in proper exercise technique and purpose for exercises. Reviewed and educated patient on additions/changes for home exercise program as above (*) Skilled judgment was provided in selection of appropriate interventions. Provided written instruction for home exercise program to facilitate proper performance and compliance. Correct performance of therapeutic exercises was facilitated with verbal and visual cuing. Billing: [facility]: Therapeutic Exercise ([id number]): 1:1 time: 45 minutes (3 units: 38-52 mins) Total time: 45 minutes Tomer Alfonso PT CNCO Observed: 10/06/2017 Status: COMPLETED Source: [place] 12:00 AM [facility] REPOSITORY Letter Text [place] office: [address], [place] office: [address], [address], [place], Cataract Surgery Appointment Sheet It is extremely important to keep all of your appointments. (times are subject to change) PLEASE NOTE ? You must be seen for a medical assessment between 09/30/2017 and 10/23/2017. You can call your PCP for this appointment, or we can schedule it at [facility]. SURGERY MAY BE CANCELLED IF YOU DO NOT HAVE THIS EXAM. Copay due (if any) 10/12/2017 at: 2:30 pm in the [place] office Do not wear contact lenses for 2 weeks prior to this appointment. [facility], [address], [address] [place] [employer] needed---, 10/29/2017 at: 9:00 am/arrive at 7:30 am [place] [employer] needed-- 10/30/2017 at 2:15 pm in the [place] office 11/20/2017 at 2:00 pm in the [place] office with Dr. Cobb If you need to reschedule any of the appointments above, please call the Business Process Lead at . Please direct all other calls to the social secretary at , Option 1. For more information about cataracts, go to [email or web address] or call PROGRESS Observed: 10/05/2017 Status: COMPLETED Source: [place] 2:57 PM [facility] REPOSITORY O ID: [id number] Author: Anita Lujan Service: (none) Author Type: Physician Type: Progress Notes Filed: 10/05/2017 3:02 PM Note Text: (H25.041) Posterior subcapsular polar age-related cataract of right eye (primary encounter diagnosis) (Z96.1) Pseudophakia of left eye (E89.0) Postoperative hypothyroidism (C50.311, Z17.0) Malignant neoplasm of lower-inner quadrant of right breast of female, estrogen receptor positive (HCC) Left eye plate haptic style pseudophakia centered ( by outside signalling and communications engineer) Cataract Presurgical Documentation Cataract: Right eye (OD) Patient reported symptoms: Associated symptoms Positive for: Blurred Vision, decreased vision, difficulty with driving, difficulty with watching television, tearing (right eye) Negative for: Flashes, floaters Current Visual Acuity: Right Eye Distance CC 20/50 Left Eye Distance CC 20/20-1 Best Corrected Vision Right Eye 20/50 Best Corrected Vision Left Eye 20/20-1 Glare Testing: Right Eye Off 20/50 Right Eye Low 20/50 Right Eye Medium 20/150 Right Eye High 20/250 Visual Function: Mahi Stafford states that the decline in vision from the cataract impedes the ability to drive and to read as well as other activities of daily living. Mahi Stafford has confirmed that she is no longer able to function adequately on a day-to-day basis because of her current visual condition. Further, it is my medical opinion that the cataract is the primary cause, or at least a significantly contributory cause of her visual dysfunction. With uncomplicated cataract surgery and lens implantation, it is my expectation that her visual function and quality of life will improve, significantly. The risks, benefits, alternatives, personnel and complications of cataract surgery with lens implantation were discussed with Mahi Stafford in detail. she appeared to understand and asked that I proceed with plans for surgery. rec Cataract extraction/ [id number] Right eye I have confirmed and edited as necessary the relevant ophthalmic history, ROS, and the neuro exam findings as obtained by others. I have seen and examined Mahi Stafford. I have discussed the case and the management of this patient's care with the Resident/Fellow, if applicable. I also have reviewed and agree with the assessment and plan as stated above and agree with all of its relevant components. Anita Olguin MD HOSP Observed: 10/05/2017 Status: COMPLETED Source: [place] 12:00 AM [facility] REPOSITORY Patient:Mahi Stafford MRN: <[id number]> Height:5' 3.071(1.602 m) Weight:256 lb (116.121 kg) Outpatient Medications as of 10/29/17: levothyroxine (SYNTHROID) 200 mcg tablet anastrozole (ARIMIDEX) 1 mg tablet Ketorolac Tromethamine (ACLUAR LS) 0.4 % drop [id number] 3.5 MG/ML-10,000 UNIT/ML-0.1% EYE DROPS COMPOUNDED PRESCRIPTION HYDROcodone-acetaminophen (NORCO) 5-325 mg per tablet diphenoxylate-atropine (LOMOTIL) 2.5-0.025 mg per tablet potassium chloride (K-MIGUELITO, KLOR-CON) 20 mEq packet hydroCHLOROthiazide (HYDRODIURIL, ESIDRIX) 25 mg tablet lisinopril (ZESTRIL, PRINIVIL) 10 mg tablet lamoTRIgine (LAMICTAL) 150 mg tablet zolpidem (AMBIEN) 5 mg tablet acetaminophen (TYLENOL EXTRA STRENGTH) 500 mg tablet buPROPion XL (WELLBUTRIN XL) 300 mg 24 hr tablet Cholecalciferol, Vitamin D3, (VITAMIN D-3) 2,000 unit cap FLUoxetine HCl (PROZAC) 40 mg capsule LORATADINE (CLARITIN ORAL) Admission/Clinic Administered Medications as of 10/29/17: 0.9% NaCl 2-10 mL Problem List: Adjustment disorder with depressed mood [F43.21] Anxiety state, unspecified [F41.1] Hypothyroidism [E03.9] Essential hypertension, benign [I10] Obesity, Class III, BMI 40-49.9 (morbid obesity) (HCC) [E66.01] Nonspecific abnormal results of liver function study [R94.5] Allergic rhinitis, cause unspecified [J30.9] Other chronic nonalcoholic liver disease [K76.89] Hyperlipidemia [E78.5] Tobacco abuse [Z72.0] Low HDL (under 40) [E78.6] Hypertriglyceridemia [E78.1] Postsurgical hypothyroidism [E89.0] Incisional infection [T81.4XXA] Vitamin D deficiency [E55.9] Elevated LFTs [R79.89] Muscle spasm [M62.838] Neck pain [M54.2] Thoracic back pain [M54.6] Malignant neoplasm of lower-inner quadrant of right breast of female, estrogen receptor positive (HCC) [C50.311, Z17.0] Left breast mass [N63.20] Numbness of arm [R20.0] Plantar fascial fibromatosis [M72.2] Posterior tibial tendinitis of left leg [M76.822] Posterior subcapsular polar senile cataract [H25.049] Allergies: Amitriptyline Cats Dogs Grass Pollen Levaquin [Levofloxacin] Mold Date Verified: 10/29/17 Lab Values No results within the last 30 days for the following basenames: K,HCT Progress Notes (PT [facility], [facility]): Tomer Alfonso PT 10/27/2017 5:08 PM Signed Episode Visit Count: 8 Therapist That Will Oversee The Plan Of Care: Tomer Alfonso PT Start of Care Date: 09/28/17 Onset Date: 09/29/15 Patient Identified by Name and Date of : Yes REHABILITATION AND SPORTS THERAPY PHYSICAL THERAPY DISCONTINUANCE OF CARE PLAN OF CARE UPDATE: Assessment: Mahi Stafford is discontinued from Physical Therapy services due to goal achievement and maximal benefit. and Patient/Client declining further intervention.. Patient was seen for 8 visits from Start of Care Date: 09/28/17 to 10/27/2017 and treatment included: Therapeutic exercise, Neuromuscular re-education, Manual therapy, Therapeutic activities, Gait training, Patient/Family/Caregiver Education and Body mechanics training. Pt overall condition is significantly better and because she is confident in her ability to self-manage, she is d/c'd from supervised PT with instructions to continue HEP and call with any future questions or concerns. Updated: 10/27/17 Goals for Episode of Care: created on 09/28/17 through 11/09/17 [place] in home exercise program. - met (3x day most days) Patient will decrease pain to 0/10 at rest and with functional activities to allow patient to improve ambulation and standing tolerance for ADLs. - partially met Patient will increase active ROM of L ankle to WFL, symmetrical and pain-free to allow pt to to achieve neutral postural alignment, improved performance of ADLs and to normalize gait mechanics / gait pattern . - partially met, much better Patient will increase strength of L ankle/LE to WFL and 5/5 to allow for return to prior functional status, normalized gait mechanics and negotiate Stairs. - partially met and much better functionally Perform walking, stairs, yoga and recreation with kids without pain. - partially met, all less painful but not pain-free. Demonstrate improvement on functional score: Patient will increase his/her score on the Lower Extremity Functional Scale by at least 9 points to indicate a Minimal Clinical Important Difference. - met, score improved from 30 to 49 Normal gait. - met Reciprocal stair negotiation. - met SUBJECTIVE: Pt reports that overall she is doing very well and pleasantly surprised by her progress. She reports that pain is significantly less and that she wishes she would have sought treatment much sooner. She reports compliance with HEP. She reports slight pain to start today but after session of therex, pain was abolished. She requested information on how to obtain her own prostretch for home use. She reports confidence in her ability to self manage all of her symptoms in the future with HEP without the need for supervised PT sessions.. Pain Score: 3/10 Pain Location: Ankle - Left Description: Dull Frequency: Intermittent Post Treatment Pain Score: 0/10 Pain Location: Ankle - Left Post Treatment Pain Description: (pain from start of session was abolished after session.) OBJECTIVE MEASURES WITH LEVEL OF FUNCTION: Gait Assessment Gait Observation: normal Stairs: normal reciprocal pattern. LE AROM L Ankle Dorsiflexion: 8 Degrees L Ankle Plantar Flexion: 69 Degrees L Ankle Inversion: 46 L Ankle Eversion: 22 LE Strength L Ankle Dorsiflexion: 4+/5 L Ankle Plantar Flexion: 4+/5 L Ankle Inversion: 4/5 L Ankle Eversion: 4+/5 TREATMENT: Therapeutic Exercise: 1: upright bike seat #4 resistance level 1 x6 minutes 2: long sitting L calf stretch with green strap 3x30 seconds. 3: Entire HEP reviewed and recommendations made regarding each. All of pt questions were answered. 5: alphabet tracing with L ankle A-Z reviewed for HEP 6: AROM for L ankle DF/PF reviewed for HEP 7: PWB BAPs for L LE in parallel bars with hemisphere #5 front to back, side to side, CW and CCW 2x12 each 8: L Prostretch 3x30 seconds 12: *seated L ankle yellow t-band sterngthening for DF, PF, Inv and Ev reviewed for HEP an continuation encouraged. 13: seated AROM of L ankle for DF/PF and Inv/Ev with foot on flat side of half foam roll 2x20 each. Skilled Intervention: Patient was educated in proper exercise technique and purpose for exercises. Skilled judgment was provided in selection of appropriate interventions. Correct performance of therapeutic exercises was facilitated with verbal and visual cuing. Pt was provided information on how to obtain a prostretch for home use. Billing: [facility]: Therapeutic Exercise (10490): 1:1 time: 40 minutes (3 units: 38-52 mins) Total time: 40 minutes Tomer Alfonso, PT Progress Notes ([facility]): Holly Castro, RN, RN 10/26/2017 12:30 PM Signed Patient called this nurse today with c/o mood disturbance. Patient stated, my emotions are between angry and crying and I feel like I am going to hurt someone. Patient stated she noticed the angry feeling on Thursday and thought she was having a bad day and it has escalated since. Thursday I was crying all day. Patient stated she feels like she is having a manic episode. Patient has an appointment with her Psychiatrist tomorrow. Patient declined talking to SW at this time. Patient stated she is okay because she knows this is a drug interaction causing this. Patient is questioning if it is the Arimidex or Lupron. Patient instructed to hold Arimidex until this nurse speaks to Dr. Velez. Patient stated she is safe at her home and does not have thoughts of harming anyone or herself. Patient informed this nurse will call back with further instructions/information. Rogelio Velez DO 10/26/2017 12:34 PM Signed I will think this is a direct side effect of anastrozole, but the goal of Lupron is to get her into menopause and then the anastrozole further decreases estrogen. So I think the mood swing/mood disturbance is secondary to decreasing estrogen level and menopause type symptoms. I recommend she change therapy to tamoxifen. Keep appointment with psychiatrist tomorrow. Stop anastrozole permanently. I will Rx tamoxifen when I see her for OV 11/06. DO Holly Delgado, RN, RN 10/26/2017 12:53 PM Signed Patient informed of Dr. Velez's response, patient stated understanding. PROGRESS Observed: 09/28/2017 Status: COMPLETED Source: [place] 7:51 PM [facility] [place] REPOSITORY [facility] ID: [id number] Author: Tomer Alfonso Service: (none) Author Type: Physical Therapist Type: Progress Notes Filed: 09/28/2017 8:00 PM Note Text: Episode Visit Count: 1 Therapist That Will Oversee The Plan Of Care: Tomer Alfonso PT Start of Care Date: 09/28/17 Onset Date: 09/29/15 Patient Identified by Name and Date of : Yes REHABILITATION AND SPORTS THERAPY PHYSICAL THERAPY EVALUATION PLAN OF CARE: Assessment: Mahi Stafford presents with the diagnosis of plantar fasciitis and posterior tibial tendon dysfunction. She presents with impairments of pain, limited AROM, gait deviations and resulting functional difficulties. She may benefit from skilled therapy services to improve pain, gait, ROM, strength, proprioception and facilitate a return to prior functional level. Prognosis: Excellent Excellent due to: current objective clinical presentation;within-session changes at evaluation;good support system/ coping skills Goals for Episode of Care: created on 09/28/17 through 11/09/17 [place] in home exercise program. Patient will decrease pain to 0/10 at rest and with functional activities to allow patient to improve ambulation and standing tolerance for ADLs. Patient will increase active ROM of L ankle to WFL, symmetrical and pain-free to allow pt to to achieve neutral postural alignment, improved performance of ADLs and to normalize gait mechanics / gait pattern . Patient will increase strength of L ankle/LE to WFL and 5/5 to allow for return to prior functional status, normalized gait mechanics and negotiate stairs. Perform walking, stairs, yoga and recreation with kids without pain. Demonstrate improvement on functional score: Patient will increase his/her score on the Lower Extremity Functional Scale by at least 9 points to indicate a Minimal Clinical Important Difference. Normal gait. Reciprocal stair negotiation. Planned Interventions, Frequency, and Duration: Current Frequency: 2x/week Duration: 6 weeks Total Number of Visits Planned: 12 Patient to be see for Planned Treatment Interventions: Therapeutic exercise;Neuromuscular re-education;Therapeutic activities;Gait Training;Manual therapy;Body Mechanics Training;Patient/Family/Caregiver Education;Modalities;Functional training;Orthosis / DME (Be sure to check on contraindications for modalities) Modalities: (prn) PLAN FOR NEXT VISIT: review HEP, progress HEP to tolerance, begin supervised stretching, strengthening and proprioceptive therex, consider manual therapy and continue gait training prn. Patient demonstrates good understanding of plan of care and treatment. The above goals and plan of care were discussed and agreed upon by patient/family. SUBJECTIVE: Mahi Stafford is a 46 year old female seen today for intermittent pain in L foot and ankle pain that is located at plantar surface under met heads and also at medial aspect of left ankle. 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 Home Environment Patient Lives With: Significant Other;Family Assistance Available: PRN Entry To Home: Stairs;Without Rail Number Of Stairs Into Home: 2 Number Of Stairs To Bed/Bath: 0 Pain Score: 4/10 (4/10 currently, 9/10 at worst) Pain Location: Foot - Left;Ankle - Left Description: Sharp;Dull;Aching Frequency: Intermittent Post Treatment Pain Score: 2/10 Pain Location: Foot - Left;Ankle - Left Post Treatment Pain Description: (pain decreased from 4/10 at start to 2/10 at end.) OBJECTIVE MEASURES WITH LEVEL OF FUNCTION: Gait Assessment Gait Observation: pt has very small step lengths, absent heel strike and absent push off secondary to pain. She is able to improve with practice and lots of verbal cues. This will take more review and practice. LE AROM R Ankle Dorsiflexion: 15 Degrees R Ankle Plantar Flexion: 63 Degrees R Ankle Inversion: 47 R Ankle Eversion: 22 L Ankle Dorsiflexion: (lacks 8 degrees from neutral) L Ankle Plantar Flexion: 62 Degrees L Ankle Inversion: 30 L Ankle Eversion: 18 LE Strength R Ankle Dorsiflexion: 5/5 R Ankle Plantar Flexion: 5/5 R Ankle Inversion: 5/5 R Ankle Eversion: 5/5 L Ankle Dorsiflexion: 4/5 L Ankle Plantar Flexion: 4+/5 L Ankle Inversion: 3/5 L Ankle Eversion: 4+/5 Education: Education Learning Preferences: Demonstration;Explanation;Performance;Printed Materials Barriers: None Learning/educational needs: Home exercise program;Plan of Care;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 She was encouraged to back off or stop any exercise that causes increased pain. Skilled Intervention: Patient was educated in proper exercise technique and purpose for exercises. Reviewed and educated patient on additions/changes for home exercise program as above (*) Skilled judgment was provided in selection of appropriate interventions. Provided written instruction for home exercise program to facilitate proper performance and compliance. Correct performance of therapeutic exercises was facilitated with verbal and visual cuing. Gait Trainin: Pt was educated on gait deviations identified in objective section and most importantly how to correct. These corrections were instructed and demonstrated. Pt practiced while therapist provided verbal cues. Specifically she was instructed to increase step length, improve heel strike and increase push off through a heel to toe pattern. She was again urged to use pain as her guide. Skilled Intervention: Facilitated proper gait cycle with the use of verbal and visual cues for correction of gait deviations identified in the objective section above. Billing: [facility]: Evaluation - Moderate Complexity (29420) Therapeutic Exercise (82448): 1:1 time: 15 minutes (1 unit: 8-22 mins) Gait Training (95422): 1:1 time: 15 minutes (1 unit: 8-22 mins) Total time: 55 minutes Tomer Alfonos PT CNTHERAPY Observed: 09/28/2017 Status: COMPLETED Source: [place] 7:45 AM [facility] REPOSITORY OT/PT/Speech Visit (PTWS) MHAI STAFFORD ([id number]) 1970 F Date Time Provider Department 09/28/17 7:45 AM TOMRE ALFONSOPT) PTWS Date Time Provider Department Center 09/28/2017 7:45 AM [id number], BRENT (PT) PTWS [facility], [facility] Reason for Visit: PT Eval [747] Patient Education [91] Primary Visit Diagnosis:Posterior tibial tendinitis of left leg [M76.822] Other Visit Diagnosis:Plantar fascial fibromatosis [M72.2] Allergies As of Date: 09/28/2017 Noted Allergy Reaction AMITRIPTYLINE 11/18/2016 14 - Other: See Comments Comments: Intensely angry CATS 01/05/2006 DOGS 01/05/2006 GRASS POLLEN 01/05/2006 LEVAQUIN (LEVOFLOXACIN) 07/15/2017 4 - Hives 7 - Swelling MOLD 01/05/2006 Date Reviewed: 09/22/2017 Reviewed by: Neelam Kincaid Ma - Fully Assessed Prescriptions as of 09/28/2017 Sig: HYDROCODONE 5 MG-ACETAMINOPHE* Take 1 tablet by mouth every * DIPHENOXYLATE-ATROPINE 2.5 MG* Take 2 tablets by mouth four * POTASSIUM CHLORIDE 20 MEQ ORA* TAKE ONE PACKET BY MOUTH EVER* HYDROCHLOROTHIAZIDE 25 MG TAB* Take 1 tablet by mouth once d* LEVOTHYROXINE 200 MCG TABLET Take 1 tablet by mouth five t* LISINOPRIL 10 MG TABLET Take 1 tablet by mouth once d* LAMOTRIGINE 150 MG TABLET Take 150 mg by mouth once subha* ZOLPIDEM 5 MG TABLET Take 5 mg by mouth at bedtime* ACETAMINOPHEN 500 MG TABLET Take 500 mg by mouth every 6 * BUPROPION XL 300 MG 24 HR TAB Take 300 mg by mouth once subha* CHOLECALCIFEROL (VITAMIN D3) * Take 1 capsule by mouth once * FLUOXETINE 40 MG CAPSULE Take 1 capsule by mouth once * CLARITIN ORAL Take 1 tablet by mouth once d* Progress Notes: Tomer Alfonso PT 09/28/2017 8:00 PM Signed Episode Visit Count: 1 Therapist That Will Oversee The Plan Of Care: Tomer Alfonso PT Start of Care Date: 09/28/17 Onset Date: 09/29/15 Patient Identified by Name and Date of : Yes REHABILITATION AND SPORTS THERAPY PHYSICAL THERAPY EVALUATION PLAN OF CARE: Assessment: Mahi Stafford presents with the diagnosis of plantar fasciitis and posterior tibial tendon dysfunction. She presents with impairments of pain, limited AROM, gait deviations and resulting functional difficulties. She may benefit from skilled therapy services to improve pain, gait, ROM, strength, proprioception and facilitate a return to prior functional level. Prognosis: Excellent Excellent due to: current objective clinical presentation;within- session changes at evaluation;good support system/ coping skills Goals for Episode of Care: created on 09/28/17 through 11/09/17 [place] in home exercise program. Patient will decrease pain to 0/10 at rest and with functional activities to allow patient to improve ambulation and standing tolerance for ADLs. Patient will increase active ROM of L ankle to WFL, symmetrical and pain-free to allow pt to to achieve neutral postural alignment, improved performance of ADLs and to normalize gait mechanics / gait pattern . Patient will increase strength of L ankle/LE to WFL and 5/5 to allow for return to prior functional status, normalized gait mechanics and negotiate stairs. Perform walking, stairs, yoga and recreation with kids without pain. Demonstrate improvement on functional score: Patient will increase his/her score on the Lower Extremity Functional Scale by at least 9 points to indicate a Minimal Clinical Important Difference. Normal gait. Reciprocal stair negotiation. Planned Interventions, Frequency, and Duration: Current Frequency: 2x/week Duration: 6 weeks Total Number of Visits Planned: 12 Patient to be see for Planned Treatment Interventions: Therapeutic exercise;Neuromuscular re-education;Therapeutic activities;Gait Training;Manual therapy;Body Mechanics Training;Patient/Family/Caregiver Education;Modalities;Functional training;Orthosis / DME (Be sure to check on contraindications for modalities) Modalities: (prn) PLAN FOR NEXT VISIT: review HEP, progress HEP to tolerance, begin supervised stretching, strengthening and proprioceptive therex, consider manual therapy and continue gait training prn. Patient demonstrates good understanding of plan of care and treatment. The above goals and plan of care were discussed and agreed upon by patient/family. SUBJECTIVE: Mahi Stafford is a 46 year old female seen today for intermittent pain in L foot and ankle pain that is located at plantar surface under met heads and also at medial aspect of left ankle. 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 Home Environment Patient Lives With: Significant Other;Family Assistance Available: PRN Entry To Home: Stairs;Without Rail Number Of Stairs Into Home: 2 Number Of Stairs To Bed/Bath: 0 Pain Score: 4/10 (4/10 currently, 9/10 at worst) Pain Location: Foot - Left;Ankle - Left Description: Sharp;Dull;Aching Frequency: Intermittent Post Treatment Pain Score: 2/10 Pain Location: Foot - Left;Ankle - Left Post Treatment Pain Description: (pain decreased from 4/10 at start to 2/10 at end.) OBJECTIVE MEASURES WITH LEVEL OF FUNCTION: Gait Assessment Gait Observation: pt has very small step lengths, absent heel strike and absent push off secondary to pain. She is able to improve with practice and lots of verbal cues. This will take more review and practice. LE AROM R Ankle Dorsiflexion: 15 Degrees R Ankle Plantar Flexion: 63 Degrees R Ankle Inversion: 47 R Ankle Eversion: 22 L Ankle Dorsiflexion: (lacks 8 degrees from neutral) L Ankle Plantar Flexion: 62 Degrees L Ankle Inversion: 30 L Ankle Eversion: 18 LE Strength R Ankle Dorsiflexion: 5/5 R Ankle Plantar Flexion: 5/5 R Ankle Inversion: 5/5 R Ankle Eversion: 5/5 L Ankle Dorsiflexion: 4/5 L Ankle Plantar Flexion: 4+/5 L Ankle Inversion: 3/5 L Ankle Eversion: 4+/5 Education: Education Learning Preferences: Demonstration;Explanation;Performance;Printed Materials Barriers: None Learning/educational needs: Home exercise program;Plan of Care;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 She was encouraged to back off or stop any exercise that causes increased pain. Skilled Intervention: Patient was educated in proper exercise technique and purpose for exercises. Reviewed and educated patient on additions/changes for home exercise program as above (*) Skilled judgment was provided in selection of appropriate interventions. Provided written instruction for home exercise program to facilitate proper performance and compliance. Correct performance of therapeutic exercises was facilitated with verbal and visual cuing. Gait Trainin: Pt was educated on gait deviations identified in objective section and most importantly how to correct. These corrections were instructed and demonstrated. Pt practiced while therapist provided verbal cues. Specifically she was instructed to increase step length, improve heel strike and increase push off through a heel to toe pattern. She was again urged to use pain as her guide. Skilled Intervention: Facilitated proper gait cycle with the use of verbal and visual cues for correction of gait deviations identified in the objective section above. Billing: [facility]: Evaluation - Moderate Complexity (53648) Therapeutic Exercise (12685): 1:1 time: 15 minutes (1 unit: 8-22 mins) Gait Training (02606): 1:1 time: 15 minutes (1 unit: 8-22 mins) Total time: 55 minutes Tomer Alfonso PT PROGRESS Observed: 09/26/2017 Status: COMPLETED Source: [place] 4:18 AM [facility] REPOSITORY [facility] ID: [id number] Author: Trinidad Vidal Service: (none) Author Type: (none) Type: Progress Notes Filed: 09/26/2017 4:23 AM Note Text: Sleep Study Check-In Documentation Date: September 26, 2017 Name: Mahi M Rivera Patient was accompanied by Spouse. Location: [place] Latex allergy: No Tape allergy: Yes Current medications were reviewed with the patient:Yes Sleep aid taken by patient for the sleep study: Yes Name of sleep aid: Zolpidem Tartrate Procedure was explained to the patient and all questions were answered. YES PAP treatment discussed and shown to patient: Yes If PAP used enter mask info: Mask Name DAVID Make [employer] Mask Type NASAL Mask Size SMALL Chin Sharp Used No Knowledge Program (KP): KP was not completed in [facility] by patient and accepted Study type: Split Study-Polysomnogram with CPAP titration Adverse Event: No (If yes create a new abstract) SERS Event: No Comments: Patient was advised to follow up with their ordering provider regarding test results Trinidad Vidal CNOV Observed: 09/22/2017 Status: COMPLETED Source: [place] 7:55 AM [facility] REPOSITORY Office Visit (PODIWS) MAHI STAFFORD ([id number]) 1970 F Date Time Provider Department 09/22/17 7:55 AM BETITO MEDINA PODIWS During your visit today, we recorded the following information about you: Betito Medina DPM 09/22/2017 8:16 AM Signed Initial Podiatric Office Visit: Chief Complaint: This 46 year old female who presents with chief complaint:left ankle pain HPI Patient presents to clinic for evaluation of left foot and ankle pain. Patient states that she has had pain for the past year but she has noticed worsening over the past 6 months. She states she has pain primarily to the medial aspect of left ankle and plantar aspect of left heel. She states there is more pain whenever she is walking long distances or standing on her feet for considerable duration. Of note, she does have fibula fracture from 1997 and she originally thought the pain was related to hardware but she has seen another specialist who feels otherwise that the plate is not causing her pain. Patient has tried afo which does help with her ankle pain but does not help with her heel. She has tried joaquín hose which does not help. She has tried alternating ice/heat which does help. She has also treated by staying off her foot. She is off work currently for breast cancer. She has just completed chemotherapy for breast cancer. 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 Patient states the pain varies from 3-9/10 and varies with activity. PAIN EVALUATION 09/22/2017 Pain Score: 3 Pain Location: Ankle-Left Description: Burning;Pressure Duration Amount of Time: 2 Duration Units: Years Frequency: Intermittent Intervention: Relaxation Hemoglobin A1C (%) Date Value 04/23/2015 5.6 09/14/2012 5.7 HBA1C, Bhanu (%) Date Value 08/09/2009 5.8 PCP: Lavonne Hensley PA-C PAST MEDICAL HISTORY Diagnosis Date - Anxiety - Bipolar disorder (HCC) - Breast cancer, stage 1, right (HCC) estrogen receptor positive HER2 negative - Depression - Hyperlipemia Hypertriglyceridemia, Low HDL - Hypertension - Hyperthyroidism 11/17/13 - Hypothyroid - Migraine - Multinodular goiter 11/17/13 - Vitamin D deficiency 09/2013 Current Outpatient Prescriptions: Amoxicillin 500 mg tablet Take 1 tablet by mouth twice daily for 7 days. potassium chloride (K-MIGUELITO, KLOR-CON) 20 mEq packet TAKE ONE PACKET BY MOUTH EVERY DAY hydroCHLOROthiazide (HYDRODIURIL, ESIDRIX) 25 mg tablet Take 1 tablet by mouth once daily. levothyroxine (SYNTHROID) 200 mcg tablet Take 1 tablet by mouth five times a week. lisinopril (ZESTRIL, PRINIVIL) 10 mg tablet Take 1 tablet by mouth once daily. lamoTRIgine (LAMICTAL) 150 mg tablet Take 150 mg by mouth once daily. zolpidem (AMBIEN) 5 mg tablet Take 5 mg by mouth at bedtime as needed. acetaminophen (TYLENOL EXTRA STRENGTH) 500 mg tablet Take 500 mg by mouth every 6 hours as needed. buPROPion XL (WELLBUTRIN XL) 300 mg 24 hr tablet Take 300 mg by mouth once daily. Cholecalciferol, Vitamin D3, (VITAMIN D-3) 2,000 unit cap Take 1 capsule by mouth once daily. FLUoxetine HCl (PROZAC) 40 mg capsule Take 1 capsule by mouth once daily. LORATADINE (CLARITIN ORAL) Take 1 tablet by mouth once daily as needed. HYDROcodone-acetaminophen (NORCO) 5-325 mg per tablet Take 1 tablet by mouth every 6 hours as needed. diphenoxylate-atropine (LOMOTIL) 2.5-0.025 mg per tablet Take 2 tablets by mouth four times daily for 7 days. No current facility-administered medications for this visit. ALLERGIES Allergen Reactions - Amitriptyline Other: See Comments Intensely angry - Cats - Dogs - Grass Pollen - Levaquin [Levofloxa* Hives, Swelling - Mold PAST SURGICAL HISTORY Procedure Laterality Date - BREAST BIOPSY Right 03/14/2017 - BREAST BIOPSY Right 04/09/2017 - BREAST BIOPSY Left 04/09/2017 - LAPAROSCOPIC CHOLEYCYSTECTOMY 07/21 Cholecystectomy, lap - LIGATE FALLOPIAN TUBE ESSURE - MASTECTOMY, RADICAL Right 04/30/2017 Dr Jevon Bundy right total mastectomy with axillary blue dye sentinel lymph node biopsy - PAST SURGICAL HISTORY OF 05/1998 PLATE IN LEFT ANKLE - REMOVAL OF TONSILS,ANDlt;13 Y/O 1982 Tonsillectomy - THYROIDECTOMY 11/17/13 Dr. Hart FAMILY HISTORY Problem Relation Age of Onset - Heart Father - Hypertension Father - Thyroid Father - Diabetes Father - Psychiatry Father - Allergies Father - Arthritis Mother - Thyroid Mother pneumonia 73 - Allergies Mother - Breast Cancer Maternal Grandmother dx early 50's - Diabetes Maternal Grandmother - Coronary Artery Disease Maternal Grandmother - Stroke Maternal Grandmother - Allergies Maternal Grandmother - Cancer Maternal Grandmother Kidney cancer dx 70's - Diabetes Maternal Grandfather - Heart Maternal Grandfather 67 - Hypertension Maternal Grandfather - Coronary Artery Disease Maternal Grandfather - Allergies Maternal Grandfather - Diabetes Paternal Grandfather - Thyroid Paternal Grandfather - Allergies Paternal Grandfather - Diabetes Paternal Grandmother - Heart Paternal Grandmother - Allergies Paternal Grandmother - Stroke Paternal Grandmother - Ovarian cancer Other Mother of maternal grandmother - Cancer Maternal Aunt 71 Bladder or kidney cancer Social History Marital status: Spouse name: Harry Years of education: 18 Number of children: 4 Occupational History Occupation Employer [employer] Social History Main Topics Smoking status: Former Smoker Packs/day: 0.30 Years: 3.00 Types: Cigarettes Quit date: 10/07/2014 Smokeless status: Never Used Comment: One pack would last 2 weeks when she smoked Alcohol use: No Drug use: No Sexual activity: Yes control/protection: Surgical Comment: ESSURE REVIEW OF SYSTEMS GENERAL: Negative for Malaise, significant weight loss, fever RESPIRATORY: Negative for cough, wheezing and shortness of breath CARDIOVASCULAR: Negative for chest pain, leg swelling and palpitations GI: Negative for abdominal discomfort, blood in stools or black stools and change in bowel habits : Negative for dysuria, frequency and incontinence MUSCULOSKELETAL: Negative for joint pain or swelling, back pain, and muscle pain. SKIN: Negative for lesions, rash, and itching. HEMATOLOGY/LYMPHOLOGY Negative for prolonged bleeding, bruising easily, and swollen nodes. ENDOCRINE: Negative for cold or heat intolerance, polyuria, polydipsia and goiter. NEURO: negative Physical Exam: Constitutional: Pt is a well developed 46 year old female who is alert, oriented and cooperative Eyes: Following during examination. No redness or drainage. Respiratory: RR normal and nonlabored. Even breathing. No evidence of distress or shortness of breath. Psychology: Patient is engaged during conversation. Normal affect and mood. Does not appear depressed or anxious during encounter. Vascular: Dorsalis pedis and posterior tibial pulses palpable as b/l Capillary Fill time ANDlt; 5 seconds to digits 1-5 b/l Skin temperature warm to warm proximal to distal b/l Hair growth present to digits Neurological: intact light touch/epicritic sensation b/l intact protective sensation no significant neurological deficits Dermatological: Nails 1-5 b/l appear normal. Webspaces clean and dry 1-4 b/l. Skin appears well hydrated and supple. good color, texture, turgor. No open lesions present. No callosities present. Musculoskeletal/Orthopaedic: Patient has pain to palpation of left medial ankle along posterior tibial tendon and plantar aspect of left heel Foot type is pronated structurally AJ ROM is full with knee extended and flexed 1st MPJ is full when loaded and no pain or crepitus are noted with ROM. MTJ, STJ are full and free of pain and crepitus. +5/5 muscle strength dorsiflexion, plantarflexion, inversion, eversion b/l Patient able to perform double heel rise. Has issues performing single heel rise left Radiographs: 3 views foot and ankle reviewed. There is mild flattening of left foot. There is plate along left fibula. There is remote avulsion fracture of left tibia. ASSESSMENT: (M76.822) Posterior tibial tendonitis, left (primary encounter diagnosis) (M72.2) Plantar fasciitis of left foot PLAN: 1. History and physical examination performed. 2. XR reviewed with patient and interpreted today 3. Discussed patient pain of left heel and left ankle. Suspect her ankle pain is related to posterior tibial tendon dysfunction and left heel pain is that of plantar fasciitis. 4. For the posterior tibial tendon dysfunction, she states the pain is tolerable and she does not feel that a boot is necessary. This was offered and she declined. Recommend referral to physical therapy. She will continue with afo. May be candidate for custom orthotics. 5. For the plantar fasciitis, discussed stretching, icing x 10 min bid, use of nsaids, custom orthotics, referral to therapy. If pain does not improve, steroid injection may be an option. 6. F/u in 5 weeks ANA MARIA Tsai Graham Ma 09/22/2017 8:10 AM Signed What is Plantar Fasciitis? Plantar fasciitis is the most common cause of heel pain. The pain is caused by inflammation of the plantar fascia. If you strain your plantar fascia, it becomes weak, swollen and irritated (inflamed). The resulting pain may be isolated in the heel or may appear at different points on the bottom of the foot, from time to time; it may occur in one foot or both. Some think that plantar fasciitis pain is caused by irritation of nerves from tissue swelling or inflammation, but it is debatable. Plantar fasciitis is common in middle-aged people; it also occurs in younger people who are on their feet a lot, such as athletes or soldiers. The plantar fascia is a strong band of connective tissue that extends from the base of the toes, along the bottom of the foot, to the bottom of the heel (calcaneous bone); it acts like a bowstring to maintain the arch of the foot. What are heel spurs? The inflammatory reaction of the heel bone may produce spike- like projections of new bone, called heel spurs. The spurs sometimes show on X-rays. They neither cause the initial pain nor do they cause the initial problem. However, later, having to walk on spurs may cause sharp pain. What causes plantar fasciitis? Plantar fasciitis is caused by straining the ligament that supports your arch. Repeated strain can cause tiny tears in the ligament. These lead to pain and swelling. During walking, the plantar fascia experiences tension up to twice the body weight with each step. While this is normal, those who spend much time on their feet, such as nurses, avionics repair technician/waiters, and mail carriers, often experience plantar fasciitis. Athletes involved in tennis or other racquet sports, race walking, jogging or running also show a higher incidence of plantar fasciitis than do those participating in other activities. Thus, it's clear that plantar fasciitis is predominantly an overuse injury. In fact, any activity that results in prolonged tension and stress on the plantar fascia may cause plantar fasciitis. It is possible that changes in footwear may play a role in causing plantar fasciitis, no matter what activity is occurring. Those who are overweight are prone to plantar fasciitis. This is true even for sedentary people who get little physical activity. Abnormalities of the foot and ankle joints may predispose some individuals to development of plantar fasciitis (specifically, over pronation of the subtalar joint). Contributing Factors * Flat feet * Toe running, hill running * Sudden weight increase * High-arched, rigid feet * Soft terrain, e.g. running on sand * Obesity * Pronated feet (rolled inward) * Sudden increase in activity * Family tendency * Poor shoe support * Worn out or poorly fitted shoes * Increasing age * Walking, standing or running for long periods of time, especially on hard surfaces. How is the Injury Treated? Rest Your Feet: Limit, or if possible, stop activities that are causing your heel pain. Try to avoid running or walking on hard surfaces, such as concrete. Use pain as your guide. If your foot is too painful, rest it. Ice: Ice the sore area for 30 to 60 minutes, several times a day, to reduce inflammation and relieve pain. Apply a plastic bag of crushed ice (or a bag of frozen peas) over a towel. Ice the sore area for 15 minutes after activity/exercise. Application of heat is not generally recommended, as heat expands the bone and connective tissue, perhaps exerting greater pressure on nerves and thereby increasing pain. If heat is used, follow it with ice. Medication: If your condition developed recently, anti-inflammatory/analgesic medication, combined with heel pads (see below) may be all that is necessary to relieve pain and to reduce inflammation. If no pain relief has occurred after 2-3 weeks, however, your doctor may inject either cortisone or local anesthetic directly into the tender area. Exercises: Do simple exercises, such as calf stretches and towel stretches (see below) several times a day, especially when you first get up in the morning. These can help your ligament become more flexible and strengthen the muscles that support your arch. Shoes: Poorly fitting shoes can cause plantar fasciitis. The best type of shoe to wear is a good walking or running shoe with good shock absorption and excellent arch support. You should choose the one that fits the best. Machias with your athletic shoes to find a pair that is comfortable and causes fewer symptoms. Put your shoes on as soon as you get out of bed; going barefoot or wearing slippers may make your pain worse. Good brands include (but are not limited to): New Balance, Asics, Saucony, SAS and Merrel?s. Taping: Your doctor may tape your foot to maintain the arch. This takes some of the tension off the plantar fascia. Weight Loss: If your weight is putting extra stress on your feet, your doctor may encourage you to try a weight-loss program. Orthotics: An orthotic insole is a molded piece of rubber, plastic, or other material that you insert into your shoe. It corrects the alignment of your foot and cushions your foot from excessive pounding. These may be prescription or non-prescription. Prescription orthotics are custom-fitted and may fit better and control pain better, but are very expensive. Night Splints: A night splint holds the foot with the toes pointed up and the ankle at a 90-degree angle. This position applies a constant, gentle stretch to the plantar fascia. Corticosteroid Shots: Steroids may be injected into the tender area to reduce inflammation. REHAB Exercises to stretch the plantar fascia, the calf muscles, and the Achilles tendon. Tightness of the muscles of the calves may contribute to plantar fasciitis, so stretching the calf muscles is important to rehabilitation, as is stretching of the plantar fascia itself. Plantar fascial stretches Assisted Dorsiflexion/Plantar Fascia Stretch: Sit on the floor or ground, barefoot, with both legs outstretched. Use a towel or elastic band and wrap it around the ball (and not the toes) of the affected foot. Use the towel or elastic band to provide resistance to upward movement of the forefoot. Pull foot upward (toward your body) with the help of the elastic band or towel, and then return to the starting position. Ten repetitions are recommended. Perform the sequence at least three times a day. Alternate Plantar Fascia Stretch: Sit upright in a chair, barefoot. Place the ankle of the affected foot on your opposite knee. Using the same hand as the affected foot, reach across and grab the toes. Flex the ankle toward and pull the toes toward the rivas. To test the stretch, place the thumb of your hand on the bottom of the foot. You should be able to feel the cord- like plantar fascia, running the length of the foot. Hold the stretch for a count of 10, then relax. Repeat 10 times. Do the sequence at least three times a day. Achilles/Calf Stretches Strengthening the muscles of the calves may contribute to successful rehabilitation of plantar fasciitis, as well as prevent reoccurrence. The exercises below will help strengthen the calf muscles. Calf and Achilles Tendon Stretch (Gastrocnemius Stretch): Face a wall, standing an arm's length away. Place one foot back. Place both hands on the wall. Bend the elbows and knee of your forward leg, keeping the heel of the backward foot on the floor and keeping your body straight (aligned), until your forehead nearly touches the wall, or until significant stretch is felt in the muscles of the calf of the backward leg. Hold this position for 10 to 15 seconds. Extend elbows (straighten your arms and stand upright again) and maintain this position for 10 seconds. Repeat this cycle 15 to 20 times. Switch legs and repeat the exercise. Please schedule appointment with Physical Therapy Referring Provider: SELF [[id number]] Allergies As of Date: 09/22/2017 Noted Allergy Reaction AMITRIPTYLINE 11/18/2016 14 - Other: See Comments Comments: Intensely angry CATS 01/05/2006 DOGS 01/05/2006 GRASS POLLEN 01/05/2006 LEVAQUIN (LEVOFLOXACIN) 07/15/2017 4 - Hives 7 - Swelling MOLD 01/05/2006 Date Reviewed: 09/22/2017 Reviewed by: Neelam Kincaid Ma - Fully Assessed Reason for Visit: Ankle Pain [1036] Primary Visit Diagnosis:Posterior tibial tendonitis, left [M76.822] Other Visit Diagnosis:Plantar fasciitis of left foot [M72.2] Order(s):CONSULT TO PHYSICAL THERAPY [9044] Order #: [id number]: 1 CONSULT TO ORTHOTIC/PROSTHETIC [714349] Order #: [id number]: 1 Prescriptions as of 09/22/2017 Sig: AMOXICILLIN 500 MG TABLET Take 1 tablet by mouth twice * POTASSIUM CHLORIDE 20 MEQ ORA* TAKE ONE PACKET BY MOUTH EVER* HYDROCHLOROTHIAZIDE 25 MG TAB* Take 1 tablet by mouth once d* LEVOTHYROXINE 200 MCG TABLET Take 1 tablet by mouth five t* LISINOPRIL 10 MG TABLET Take 1 tablet by mouth once d* LAMOTRIGINE 150 MG TABLET Take 150 mg by mouth once subha* ZOLPIDEM 5 MG TABLET Take 5 mg by mouth at bedtime* ACETAMINOPHEN 500 MG TABLET Take 500 mg by mouth every 6 * BUPROPION XL 300 MG 24 HR TAB Take 300 mg by mouth once subha* CHOLECALCIFEROL (VITAMIN D3) * Take 1 capsule by mouth once * FLUOXETINE 40 MG CAPSULE Take 1 capsule by mouth once * CLARITIN ORAL Take 1 tablet by mouth once d* HYDROCODONE 5 MG-ACETAMINOPHE* Take 1 tablet by mouth every * DIPHENOXYLATE-ATROPINE 2.5 MG* Take 2 tablets by mouth four * Medication notes this encounter FLUOXETINE 40 MG CAPSULE >> Neelam Kincaid Ma 09/22/2017 7:47 AM >> NEELAM KINCAID MA Sep 22, 2017 7:47 AM Patient taking as directed. HYDROCODONE 5 MG-ACETAMINOPHEN 325 MG TABLET >> Neelam Kincaid Ma 09/22/2017 7:47 AM >> NEELAM KINCAID MA Sep 22, 2017 7:47 AM Not using. Please d/c DIPHENOXYLATE-ATROPINE 2.5 MG-0.025 MG TABLET >> Neelam Kincaid Ma 09/22/2017 7:47 AM >> NEELAM KINCAID MA Sep 22, 2017 7:47 AM Not using. Please d/c Problem List As Of Date 09/22/2017 Noted Resolved ADJUSTMENT DISORDER WITH DEPRESSED MOOD [F43.21]INVALID FOR* ANXIETY STATE NOS [F41.1] INVALID FOR* Hypothyroidism [E03.9] INVALID FOR* BENIGN HYPERTENSION [I10] INVALID FOR* OBESITY NOS [E66.9] INVALID FOR* Nonspecific abnormal results of liver function *INVALID FOR* More... ALLERGIC RHINITIS NOS [J30.9] INVALID FOR* CHRONIC LIVER DIS NEC [K76.89] INVALID FOR* Hyperlipidemia [E78.5] INVALID FOR* Tobacco abuse [Z72.0] INVALID FOR* Low HDL (under 40) [E78.6] INVALID FOR* Hypertriglyceridemia [E78.1] INVALID FOR* Postsurgical hypothyroidism [E89.0] INVALID FOR* Incisional infection [T81.4XXA] INVALID FOR* Vitamin D deficiency [E55.9] INVALID FOR* Elevated LFTs [R79.89] INVALID FOR* Muscle spasm [M62.838] INVALID FOR* Neck pain [M54.2] INVALID FOR* Thoracic back pain [M54.6] INVALID FOR* Malignant neoplasm of lower-inner quadrant of r*INVALID FOR* Left breast mass [N63.20] INVALID FOR* More... Numbness of arm [R20.0] INVALID FOR* More... Other instructions from your clinician: What is Plantar Fasciitis? Plantar fasciitis is the most common cause of heel pain. The pain is caused by inflammation of the plantar fascia. If you strain your plantar fascia, it becomes weak, swollen and irritated (inflamed). The resulting pain may be isolated in the heel or may appear at different points on the bottom of the foot, from time to time; it may occur in one foot or both. Some think that plantar fasciitis pain is caused by irritation of nerves from tissue swelling or inflammation, but it is debatable. Plantar fasciitis is common in middle-aged people; it also occurs in younger people who are on their feet a lot, such as athletes or soldiers. The plantar fascia is a strong band of connective tissue that extends from the base of the toes, along the bottom of the foot, to the bottom of the heel (calcaneous bone); it acts like a bowstring to maintain the arch of the foot. What are heel spurs? The inflammatory reaction of the heel bone may produce spike-like projections of new bone, called heel spurs. The spurs sometimes show on X-rays. They neither cause the initial pain nor do they cause the initial problem. However, later, having to walk on spurs may cause sharp pain. What causes plantar fasciitis? Plantar fasciitis is caused by straining the ligament that supports your arch. Repeated strain can cause tiny tears in the ligament. These lead to pain and swelling. During walking, the plantar fascia experiences tension up to twice the body weight with each step. While this is normal, those who spend much time on their feet, such as nurses, avionics repair technician/waiters, and mail carriers, often experience plantar fasciitis. Athletes involved in tennis or other racquet sports, race walking, jogging or running also show a higher incidence of plantar fasciitis than do those participating in other activities. Thus, it's clear that plantar fasciitis is predominantly an overuse injury. In fact, any activity that results in prolonged tension and stress on the plantar fascia may cause plantar fasciitis. It is possible that changes in footwear may play a role in causing plantar fasciitis, no matter what activity is occurring. Those who are overweight are prone to plantar fasciitis. This is true even for sedentary people who get little physical activity. Abnormalities of the foot and ankle joints may predispose some individuals to development of plantar fasciitis (specifically, over pronation of the subtalar joint). Contributing Factors * Flat feet * Toe running, hill running * Sudden weight increase * High-arched, rigid feet * Soft terrain, e.g. running on sand * Obesity * Pronated feet (rolled inward) * Sudden increase in activity * Family tendency * Poor shoe support * Worn out or poorly fitted shoes * Increasing age * Walking, standing or running for long periods of time, especially on hard surfaces. How is the Injury Treated? Rest Your Feet: Limit, or if possible, stop activities that are causing your heel pain. Try to avoid running or walking on hard surfaces, such as concrete. Use pain as your guide. If your foot is too painful, rest it. Ice: Ice the sore area for 30 to 60 minutes, several times a day, to reduce inflammation and relieve pain. Apply a plastic bag of crushed ice (or a bag of frozen peas) over a towel. Ice the sore area for 15 minutes after activity/exercise. Application of heat is not generally recommended, as heat expands the bone and connective tissue, perhaps exerting greater pressure on nerves and thereby increasing pain. If heat is used, follow it with ice. Medication: If your condition developed recently, anti-inflammatory/analgesic medication, combined with heel pads (see below) may be all that is necessary to relieve pain and to reduce inflammation. If no pain relief has occurred after 2-3 weeks, however, your doctor may inject either cortisone or local anesthetic directly into the tender area. Exercises: Do simple exercises, such as calf stretches and towel stretches (see below) several times a day, especially when you first get up in the morning. These can help your ligament become more flexible and strengthen the muscles that support your arch. Shoes: Poorly fitting shoes can cause plantar fasciitis. The best type of shoe to wear is a good walking or running shoe with good shock absorption and excellent arch support. You should choose the one that fits the best. Machias with your athletic shoes to find a pair that is comfortable and causes fewer symptoms. Put your shoes on as soon as you get out of bed; going barefoot or wearing slippers may make your pain worse. Good brands include (but are not limited to): New Balance, Asics, Saucony, SAS and Merrel?s. Taping: Your doctor may tape your foot to maintain the arch. This takes some of the tension off the plantar fascia. Weight Loss: If your weight is putting extra stress on your feet, your doctor may encourage you to try a weight-loss program. Orthotics: An orthotic insole is a molded piece of rubber, plastic, or other material that you insert into your shoe. It corrects the alignment of your foot and cushions your foot from excessive pounding. These may be prescription or non-prescription. Prescription orthotics are custom-fitted and may fit better and control pain better, but are very expensive. Night Splints: A night splint holds the foot with the toes pointed up and the ankle at a 90-degree angle. This position applies a constant, gentle stretch to the plantar fascia. Corticosteroid Shots: Steroids may be injected into the tender area to reduce inflammation. REHAB Exercises to stretch the plantar fascia, the calf muscles, and the Achilles tendon. Tightness of the muscles of the calves may contribute to plantar fasciitis, so stretching the calf muscles is important to rehabilitation, as is stretching of the plantar fascia itself. Plantar fascial stretches Assisted Dorsiflexion/Plantar Fascia Stretch: Sit on the floor or ground, barefoot, with both legs outstretched. Use a towel or elastic band and wrap it around the ball (and not the toes) of the affected foot. Use the towel or elastic band to provide resistance to upward movement of the forefoot. Pull foot upward (toward your body) with the help of the elastic band or towel, and then return to the starting position. Ten repetitions are recommended. Perform the sequence at least three times a day. Alternate Plantar Fascia Stretch: Sit upright in a chair, barefoot. Place the ankle of the affected foot on your opposite knee. Using the same hand as the affected foot, reach across and grab the toes. Flex the ankle toward and pull the toes toward the rivas. To test the stretch, place the thumb of your hand on the bottom of the foot. You should be able to feel the cord-like plantar fascia, running the length of the foot. Hold the stretch for a count of 10, then relax. Repeat 10 times. Do the sequence at least three times a day. Achilles/Calf Stretches Strengthening the muscles of the calves may contribute to successful rehabilitation of plantar fasciitis, as well as prevent reoccurrence. The exercises below will help strengthen the calf muscles. Calf and Achilles Tendon Stretch (Gastrocnemius Stretch): Face a wall, standing an arm's length away. Place one foot back. Place both hands on the wall. Bend the elbows and knee of your forward leg, keeping the heel of the backward foot on the floor and keeping your body straight (aligned), until your forehead nearly touches the wall, or until significant stretch is felt in the muscles of the calf of the backward leg. Hold this position for 10 to 15 seconds. Extend elbows (straighten your arms and stand upright again) and maintain this position for 10 seconds. Repeat this cycle 15 to 20 times. Switch legs and repeat the exercise. Please schedule appointment with Physical Therapy Disposition: Return in about 6 days (around 09/28/2017) for physical therapy follow up. Follow-up and Disposition History Recorded Encounter Status:Closed by BETITO MEDINA DPM on 09/22/17 PROGRESS Observed: 09/22/2017 Status: COMPLETED Source: [place] 7:53 AM [facility] [place] [facility] HNO ID: [id number] Author: Betito Medina Service: (none) Author Type: Physician Type: Progress Notes Filed: 09/22/2017 8:16 AM Note Text: Initial Podiatric Office Visit: Chief Complaint: This 46 year old female who presents with chief complaint:left ankle pain HPI Patient presents to clinic for evaluation of left foot and ankle pain. Patient states that she has had pain for the past year but she has noticed worsening over the past 6 months. She states she has pain primarily to the medial aspect of left ankle and plantar aspect of left heel. She states there is more pain whenever she is walking long distances or standing on her feet for considerable duration. Of note, she does have fibula fracture from 1997 and she originally thought the pain was related to hardware but she has seen another specialist who feels otherwise that the plate is not causing her pain. Patient has tried afo which does help with her ankle pain but does not help with her heel. She has tried joaquín hose which does not help. She has tried alternating ice/heat which does help. She has also treated by staying off her foot. She is off work currently for breast cancer. She has just completed chemotherapy for breast cancer. 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 Patient states the pain varies from 3-9/10 and varies with activity. PAIN EVALUATION 09/22/2017 Pain Score: 3 Pain Location: Ankle-Left Description: Burning;Pressure Duration Amount of Time: 2 Duration Units: Years Frequency: Intermittent Intervention: Relaxation Hemoglobin A1C (%) Date Value 04/23/2015 5.6 09/14/2012 5.7 HBA1C, Bhanu (%) Date Value 08/09/2009 5.8 PCP: Lavonne Hensley PA-C PAST MEDICAL HISTORY Diagnosis Date - Anxiety - Bipolar disorder (HCC) - Breast cancer, stage 1, right (HCC) estrogen receptor positive HER2 negative - Depression - Hyperlipemia Hypertriglyceridemia, Low HDL - Hypertension - Hyperthyroidism 11/17/13 - Hypothyroid - Migraine - Multinodular goiter 11/17/13 - Vitamin D deficiency 09/2013 Current Outpatient Prescriptions: Amoxicillin 500 mg tablet Take 1 tablet by mouth twice daily for 7 days. potassium chloride (K-MIGUELITO, KLOR-CON) 20 mEq packet TAKE ONE PACKET BY MOUTH EVERY DAY hydroCHLOROthiazide (HYDRODIURIL, ESIDRIX) 25 mg tablet Take 1 tablet by mouth once daily. levothyroxine (SYNTHROID) 200 mcg tablet Take 1 tablet by mouth five times a week. lisinopril (ZESTRIL, PRINIVIL) 10 mg tablet Take 1 tablet by mouth once daily. lamoTRIgine (LAMICTAL) 150 mg tablet Take 150 mg by mouth once daily. zolpidem (AMBIEN) 5 mg tablet Take 5 mg by mouth at bedtime as needed. acetaminophen (TYLENOL EXTRA STRENGTH) 500 mg tablet Take 500 mg by mouth every 6 hours as needed. buPROPion XL (WELLBUTRIN XL) 300 mg 24 hr tablet Take 300 mg by mouth once daily. Cholecalciferol, Vitamin D3, (VITAMIN D-3) 2,000 unit cap Take 1 capsule by mouth once daily. FLUoxetine HCl (PROZAC) 40 mg capsule Take 1 capsule by mouth once daily. LORATADINE (CLARITIN ORAL) Take 1 tablet by mouth once daily as needed. HYDROcodone-acetaminophen (NORCO) 5-325 mg per tablet Take 1 tablet by mouth every 6 hours as needed. diphenoxylate-atropine (LOMOTIL) 2.5-0.025 mg per tablet Take 2 tablets by mouth four times daily for 7 days. No current facility-administered medications for this visit. ALLERGIES Allergen Reactions - Amitriptyline Other: See Comments Intensely angry - Cats - Dogs - Grass Pollen - Levaquin [Levofloxa* Hives, Swelling - Mold PAST SURGICAL HISTORY Procedure Laterality Date - BREAST BIOPSY Right 03/14/2017 - BREAST BIOPSY Right 04/09/2017 - BREAST BIOPSY Left 04/09/2017 - LAPAROSCOPIC CHOLEYCYSTECTOMY 07/21 Cholecystectomy, lap - LIGATE FALLOPIAN TUBE ESSURE - MASTECTOMY, RADICAL Right 04/30/2017 Dr Jevon Bundy right total mastectomy with axillary blue dye sentinel lymph node biopsy - PAST SURGICAL HISTORY OF 05/1998 PLATE IN LEFT ANKLE - REMOVAL OF TONSILS,<13 Y/O 1982 Tonsillectomy - THYROIDECTOMY 11/17/13 Dr. Hart FAMILY HISTORY Problem Relation Age of Onset - Heart Father - Hypertension Father - Thyroid Father - Diabetes Father - Psychiatry Father - Allergies Father - Arthritis Mother - Thyroid Mother pneumonia 73 - Allergies Mother - Breast Cancer Maternal Grandmother dx early 50's - Diabetes Maternal Grandmother - Coronary Artery Disease Maternal Grandmother - Stroke Maternal Grandmother - Allergies Maternal Grandmother - Cancer Maternal Grandmother Kidney cancer dx 70's - Diabetes Maternal Grandfather - Heart Maternal Grandfather 67 - Hypertension Maternal Grandfather - Coronary Artery Disease Maternal Grandfather - Allergies Maternal Grandfather - Diabetes Paternal Grandfather - Thyroid Paternal Grandfather - Allergies Paternal Grandfather - Diabetes Paternal Grandmother - Heart Paternal Grandmother - Allergies Paternal Grandmother - Stroke Paternal Grandmother - Ovarian cancer Other Mother of maternal grandmother - Cancer Maternal Aunt 71 Bladder or kidney cancer Social History Marital status: Spouse name: Harry Years of education: 18 Number of children: 4 Occupational History Occupation Employer [employer]* Social History Main Topics Smoking status: Former Smoker Packs/day: 0.30 Years: 3.00 Types: Cigarettes Quit date: 10/07/2014 Smokeless status: Never Used Comment: One pack would last 2 weeks when she smoked Alcohol use: No Drug use: No Sexual activity: Yes control/protection: Surgical Comment: ESSURE REVIEW OF SYSTEMS GENERAL: Negative for Malaise, significant weight loss, fever RESPIRATORY: Negative for cough, wheezing and shortness of breath CARDIOVASCULAR: Negative for chest pain, leg swelling and palpitations GI: Negative for abdominal discomfort, blood in stools or black stools and change in bowel habits : Negative for dysuria, frequency and incontinence MUSCULOSKELETAL: Negative for joint pain or swelling, back pain, and muscle pain. SKIN: Negative for lesions, rash, and itching. HEMATOLOGY/LYMPHOLOGY Negative for prolonged bleeding, bruising easily, and swollen nodes. ENDOCRINE: Negative for cold or heat intolerance, polyuria, polydipsia and goiter. NEURO: negative Physical Exam: Constitutional: Pt is a well developed 46 year old female who is alert, oriented and cooperative Eyes: Following during examination. No redness or drainage. Respiratory: RR normal and nonlabored. Even breathing. No evidence of distress or shortness of breath. Psychology: Patient is engaged during conversation. Normal affect and mood. Does not appear depressed or anxious during encounter. Vascular: Dorsalis pedis and posterior tibial pulses palpable as b/l Capillary Fill time < 5 seconds to digits 1-5 b/l Skin temperature warm to warm proximal to distal b/l Hair growth present to digits Neurological: intact light touch/epicritic sensation b/l intact protective sensation no significant neurological deficits Dermatological: Nails 1-5 b/l appear normal. Webspaces clean and dry 1-4 b/l. Skin appears well hydrated and supple. good color, texture, turgor. No open lesions present. No callosities present. Musculoskeletal/Orthopaedic: Patient has pain to palpation of left medial ankle along posterior tibial tendon and plantar aspect of left heel Foot type is pronated structurally AJ ROM is full with knee extended and flexed 1st MPJ is full when loaded and no pain or crepitus are noted with ROM. MTJ, STJ are full and free of pain and crepitus. +5/5 muscle strength dorsiflexion, plantarflexion, inversion, eversion b/l Patient able to perform double heel rise. Has issues performing single heel rise left Radiographs: 3 views foot and ankle reviewed. There is mild flattening of left foot. There is plate along left fibula. There is remote avulsion fracture of left tibia. ASSESSMENT: (M76.822) Posterior tibial tendonitis, left (primary encounter diagnosis) (M72.2) Plantar fasciitis of left foot PLAN: 1. History and physical examination performed. 2. XR reviewed with patient and interpreted today 3. Discussed patient pain of left heel and left ankle. Suspect her ankle pain is related to posterior tibial tendon dysfunction and left heel pain is that of plantar fasciitis. 4. For the posterior tibial tendon dysfunction, she states the pain is tolerable and she does not feel that a boot is necessary. This was offered and she declined. Recommend referral to physical therapy. She will continue with afo. May be candidate for custom orthotics. 5. For the plantar fasciitis, discussed stretching, icing x 10 min bid, use of nsaids, custom orthotics, referral to therapy. If pain does not improve, steroid injection may be an option. 6. 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 PATIENT GENDER DATA: Female. status: : No status: NO. PATIENT RELEVANT IMPLANT DATA REVIEWED: Not Applicable RADIOLOGY DEPARTMENT: General X-ray: Exam(s) Completed: Lower Extremity X-Ray(s): Ankle, Left and Wt. Bearing and Foot, Left and Wt. Bearing: PERIPHERAL IV DATA: Not applicable SIGNED BY: RT Lynnette September 21, 2017 5:23 PM XR FOOT 3V AP/LAT/OBL Observed: 09/21/2017 Status: F Source: [facility] 5:22 PM [facility] [place] REPOSITORY * * *Final Report* * * DATE OF EXAM: Sep 21 2017 5:22PM WOX [id number] - XR FOOT 3V AP/LAT/OBL LT / PROCEDURE REASON: Pain in left ankle and joints of left foot * * * * Physician Interpretation * * * * LEFT Ankle and foot HISTORY: 46 years old Clinical information: Pain in left ankle and joints of left foot TECHNIQUE: Images: XR ANKLE 3V AP/LAT/OBL LT, XR FOOT 3V AP/LAT/OBL LT Comparison: 03/19/2017. RESULT: Findings: Ankle: Lateral plate and screws are again noted in the distal fibula. There is mild narrowing of the medial lateral compartments of the ankle. Moderate size posterior heel spur. Mild Narrowing of the intertarsal joint spaces noted. No fractures or dislocations are seen. Foot: No fractures or dislocations are seen. IMPRESSION: Postsurgical changes noted. No acute pathology is identified. Cvicu Nurse: LASHANDA Transcribe Date/Time: Sep 22 2017 8:08A Dictated by : DEVANTE KENNEY DO This examination was interpreted and the report reviewed and electronically signed by: DEVANTE KENNEY DO on Sep 22 2017 8:10AM EST [id number] XR ANKLE 3V AP/LAT/OBL Observed: 09/21/2017 Status: F Source: [facility] 5:22 PM [facility] REPOSITORY * * *Final Report* * * DATE OF EXAM: Sep 21 2017 5:22PM WOX [id number] - XR ANKLE 3V AP/LAT/OBL LT / PROCEDURE REASON: Pain in left ankle and joints of left foot * * * * Physician Interpretation * * * * LEFT Ankle and foot HISTORY: 46 years old Clinical information: Pain in left ankle and joints of left foot TECHNIQUE: Images: XR ANKLE 3V AP/LAT/OBL LT, XR FOOT 3V AP/LAT/OBL LT Comparison: 03/19/2017. RESULT: Findings: Ankle: Lateral plate and screws are again noted in the distal fibula. There is mild narrowing of the medial lateral compartments of the ankle. Moderate size posterior heel spur. Mild Narrowing of the intertarsal joint spaces noted. No fractures or dislocations are seen. Foot: No fractures or dislocations are seen. IMPRESSION: Postsurgical changes noted. No acute pathology is identified. Cvicu Nurse: LAYLAGT Channel Transcribe Date/Time: Sep 22 2017 8:08A Dictated by : DEVANTE KENNEY DO This examination was interpreted and the report reviewed and electronically signed by: DEVANTE KENNEY DO on Sep 22 2017 8:10AM EST [id number] PROGRESS Observed: 09/21/2017 Status: COMPLETED Source: [place] 11:15 AM [facility] [place] REPOSITORY HNO ID: [id number] Author: Melissa Vargas) [place] Service: (none) Author Type: Nurse Practitioner Type: Progress Notes Filed: 09/21/2017 12:03 PM Note Text: Mahi Stafford is a 46 year old who presents for her annual gynecologic exam with complaints, urinary incontince. Has 4 children age 23/20/16/8- the 2 youngest have special needs. 16- Asperger. has magallanes disease. Menses: no menses since Jun 17 2017. Contraception: tubal ligation HPV vaccine: No Last Pap: 2016 normal HPV: negative History of abnormal pap: Yes Last mammogram: 2017 Prior history of abnormal mammogram currently undergoing breast cancer treatment. Sexually active: No Hot flashes: Yes Night sweats: No Obstetric History T4 L4 SAB0 TAB0 Ectopic0 Multiple0 Live Births0 PAST MEDICAL HISTORY Diagnosis Date - Anxiety - Bipolar disorder (HCC) - Breast cancer, stage 1, right (HCC) estrogen receptor positive MELODY negative - Depression - Hyperlipemia Hypertriglyceridemia, Low HDL - Hypertension - Hyperthyroidism 11/17/13 - Hypothyroid - Migraine - Multinodular goiter 11/17/13 - Vitamin D deficiency 09/2013 PAST SURGICAL HISTORY Procedure Laterality Date - BREAST BIOPSY Right 03/14/2017 - BREAST BIOPSY Right 04/09/2017 - BREAST BIOPSY Left 04/09/2017 - LAPAROSCOPIC CHOLEYCYSTECTOMY 07/21 Cholecystectomy, lap - LIGATE FALLOPIAN TUBE ESSURE - MASTECTOMY, RADICAL Right 04/30/2017 Dr Jevon Bundy right total mastectomy with axillary blue dye sentinel lymph node biopsy - PAST SURGICAL HISTORY OF 05/1998 PLATE IN LEFT ANKLE - REMOVAL OF TONSILS,<13 Y/O 1982 Tonsillectomy - THYROIDECTOMY 11/17/13 Dr. Hart FAMILY HISTORY Problem Relation Age of Onset - Heart Father - Hypertension Father - Thyroid Father - Diabetes Father - Psychiatry Father - Allergies Father - Arthritis Mother - Thyroid Mother pneumonia 73 - Allergies Mother - Breast Cancer Maternal Grandmother dx early 50's - Diabetes Maternal Grandmother - Coronary Artery Disease Maternal Grandmother - Stroke Maternal Grandmother - Allergies Maternal Grandmother - Cancer Maternal Grandmother Kidney cancer dx 70's - Diabetes Maternal Grandfather - Heart Maternal Grandfather 67 - Hypertension Maternal Grandfather - Coronary Artery Disease Maternal Grandfather - Allergies Maternal Grandfather - Diabetes Paternal Grandfather - Thyroid Paternal Grandfather - Allergies Paternal Grandfather - Diabetes Paternal Grandmother - Heart Paternal Grandmother - Allergies Paternal Grandmother - Stroke Paternal Grandmother - Ovarian cancer Other Mother of maternal grandmother - Cancer Maternal Aunt 71 Bladder or kidney cancer SOCIAL HISTORY Social History Substance Use Topics - Smoking status: Former Smoker Packs/day: 0.30 Years: 3.00 Types: Cigarettes Quit date: 10/07/2014 - Smokeless tobacco: Never Used Comment: One pack would last 2 weeks when she smoked - Alcohol use No REVIEW OF SYSTEMS Abdomen: No abdominal pain, nausea, vomiting, diarrhea, or constipation. No bloating, early satiety, indigestion, or increased flatulence. Bladder: No dysuria, gross hematuria, urinary frequency. someurinary urgency ance incontinence. Breast: No breast lumps, nipple d/c, overlying skin changes, redness or skin retraction. Right breast mastectomy Allergies and current medication updated:Yes EXAM: Ht 5' 3 (1.60m) Wt 255 lb 9.6 oz (115.9kg) BMI 45.29 kg/(m2). GENERAL: pleasant, female in no apparent distress HEENT: Normocephalic, atraumatic, mucus membranes moist and no lesions NECK: Supple, full range of motion, no adenopathy and thyroid normal DERMATOLOGY: Normal, without lesions, non-icteric and non-hirsute BREAST: Left breast soft, non-tender, no dominant mass, normal nipple-areolar complex, no lymphadenopathy, no nipple discharge. Right breast mastectomy no other abnormality noted CHEST: Normal inspiratory effort ABDOMEN: soft, non-tender and no masses PELVIC: external genitalia normal, normal Bartholin's glands, urethra, [place]'s glands, no vulvar lesions, no cervical lesions, good vaginal support, physiologic discharge present, normal appearing perineal body and perianal region, well estrogenized BIMANUAL: uterus normal size, shape and consistency, no adnexal masses, non-tender and no cervical motion tenderness RECTOVAGINAL: deferred. NEURO: alert and oriented x3,exam grossly non-focal EXTREMITIES: normal ASSESSMENT/PLAN: 1) Health maintenance: Pap/HPV up to date. Mammogram up to date . Nutrition, exercise and routine health maintenance exams reviewed. Calcium/Vitamin D supplementation information provided. 2) Contraception: tubal ligation. Contraceptive options reviewed and information provided. 3) STD screening: Declined STD check. 4) Follow up one year or sooner as needed MELISSA SILVA CNP CNOV Observed: 09/21/2017 Status: COMPLETED Source: [place] 11:00 AM [facility] REPOSITORY Office Visit (WOOB) MAHI STAFFORD ([id number]) 1970 F Date Time Provider Department 09/21/17 11:00 AM MELISSA SILVA (DAVID) WOOB During your visit today, we recorded the following information about you: Blood pressure Weight Height 120/64 115.9 kg 1.6 m MELISSA SILVA CNP 09/21/2017 12:03 PM Signed Mahi Munroejohnathon is a 46 year old who presents for her annual gynecologic exam with complaints, urinary incontince. Has 4 children age 23/20/16/8- the 2 youngest have special needs. 16- Asperger. has magallanes disease. Menses: no menses since Jun 17 2017. Contraception: tubal ligation HPV vaccine: No Last Pap: 2017 normal HPV: negative History of abnormal pap: Yes Last mammogram: 2017 Prior history of abnormal mammogram currently undergoing breast cancer treatment. Sexually active: No Hot flashes: Yes Night sweats: No Obstetric History T4 L4 SAB0 TAB0 Ectopic0 Multiple0 Live Births0 PAST MEDICAL HISTORY Diagnosis Date - Anxiety - Bipolar disorder (HCC) - Breast cancer, stage 1, right (HCC) estrogen receptor positive MELODY negative - Depression - Hyperlipemia Hypertriglyceridemia, Low HDL - Hypertension - Hyperthyroidism 11/17/13 - Hypothyroid - Migraine - Multinodular goiter 11/17/13 - Vitamin D deficiency 09/2013 PAST SURGICAL HISTORY Procedure Laterality Date - BREAST BIOPSY Right 03/14/2017 - BREAST BIOPSY Right 04/09/2017 - BREAST BIOPSY Left 04/09/2017 - LAPAROSCOPIC CHOLEYCYSTECTOMY 07/21 Cholecystectomy, lap - LIGATE FALLOPIAN TUBE ESSURE - MASTECTOMY, RADICAL Right 04/30/2017 Dr Jevon Bundy right total mastectomy with axillary blue dye sentinel lymph node biopsy - PAST SURGICAL HISTORY OF 05/1998 PLATE IN LEFT ANKLE - REMOVAL OF TONSILS,ANDlt;13 Y/O 1982 Tonsillectomy - THYROIDECTOMY 11/17/13 Dr. Hart FAMILY HISTORY Problem Relation Age of Onset - Heart Father - Hypertension Father - Thyroid Father - Diabetes Father - Psychiatry Father - Allergies Father - Arthritis Mother - Thyroid Mother pneumonia 73 - Allergies Mother - Breast Cancer Maternal Grandmother dx early 50's - Diabetes Maternal Grandmother - Coronary Artery Disease Maternal Grandmother - Stroke Maternal Grandmother - Allergies Maternal Grandmother - Cancer Maternal Grandmother Kidney cancer dx 70's - Diabetes Maternal Grandfather - Heart Maternal Grandfather 67 - Hypertension Maternal Grandfather - Coronary Artery Disease Maternal Grandfather - Allergies Maternal Grandfather - Diabetes Paternal Grandfather - Thyroid Paternal Grandfather - Allergies Paternal Grandfather - Diabetes Paternal Grandmother - Heart Paternal Grandmother - Allergies Paternal Grandmother - Stroke Paternal Grandmother - Ovarian cancer Other Mother of maternal grandmother - Cancer Maternal Aunt 71 Bladder or kidney cancer SOCIAL HISTORY Social History Substance Use Topics - Smoking status: Former Smoker Packs/day: 0.30 Years: 3.00 Types: Cigarettes Quit date: 10/07/2014 - Smokeless tobacco: Never Used Comment: One pack would last 2 weeks when she smoked - Alcohol use No REVIEW OF SYSTEMS Abdomen: No abdominal pain, nausea, vomiting, diarrhea, or constipation. No bloating, early satiety, indigestion, or increased flatulence. Bladder: No dysuria, gross hematuria, urinary frequency. someurinary urgency ance incontinence. Breast: No breast lumps, nipple d/c, overlying skin changes, redness or skin retraction. Right breast mastectomy Allergies and current medication updated:Yes EXAM: Ht 5' 3ANDquot; (1.60m) Wt 255 lb 9.6 oz (115.9kg) BMI 45.29 kg/(m2). GENERAL: pleasant, female in no apparent distress HEENT: Normocephalic, atraumatic, mucus membranes moist and no lesions NECK: Supple, full range of motion, no adenopathy and thyroid normal DERMATOLOGY: Normal, without lesions, non-icteric and non-hirsute BREAST: Left breast soft, non-tender, no dominant mass, normal nipple-areolar complex, no lymphadenopathy, no nipple discharge. Right breast mastectomy no other abnormality noted CHEST: Normal inspiratory effort ABDOMEN: soft, non-tender and no masses PELVIC: external genitalia normal, normal Bartholin's glands, urethra, [place]'s glands, no vulvar lesions, no cervical lesions, good vaginal support, physiologic discharge present, normal appearing perineal body and perianal region, well estrogenized BIMANUAL: uterus normal size, shape and consistency, no adnexal masses, non-tender and no cervical motion tenderness RECTOVAGINAL: deferred. NEURO: alert and oriented x3,exam grossly non-focal EXTREMITIES: normal ASSESSMENT/PLAN: 1) Health maintenance: Pap/HPV up to date. Mammogram up to date . Nutrition, exercise and routine health maintenance exams reviewed. Calcium/Vitamin D supplementation information provided. 2) Contraception: tubal ligation. Contraceptive options reviewed and information provided. 3) STD screening: Declined STD check. 4) Follow up one year or sooner as needed MELISSA SILVA CNP Referring Provider: MELISSA SILVA (FILLING MIXER) [[id number]] Allergies As of Date: 09/21/2017 Noted Allergy Reaction AMITRIPTYLINE 11/18/2016 14 - Other: See Comments Comments: Intensely angry CATS 01/05/2006 DOGS 01/05/2006 GRASS POLLEN 01/05/2006 LEVAQUIN (LEVOFLOXACIN) 07/15/2017 4 - Hives 7 - Swelling MOLD 01/05/2006 Date Reviewed: 09/21/2017 Reviewed by: Melissa Vargas) Ricardo - Fully Assessed Reason for Visit: Yearly Exam [187] Primary Visit Diagnosis:Encounter for gynecological examination (general) (routine) without abnormal findings [Z01.419] Prescriptions as of 09/21/2017 Sig: AMOXICILLIN 500 MG TABLET Take 1 tablet by mouth twice * HYDROCODONE 5 MG-ACETAMINOPHE* Take 1 tablet by mouth every * DIPHENOXYLATE-ATROPINE 2.5 MG* Take 2 tablets by mouth four * POTASSIUM CHLORIDE 20 MEQ ORA* TAKE ONE PACKET BY MOUTH EVER* HYDROCHLOROTHIAZIDE 25 MG TAB* Take 1 tablet by mouth once d* LEVOTHYROXINE 200 MCG TABLET Take 1 tablet by mouth five t* LISINOPRIL 10 MG TABLET Take 1 tablet by mouth once d* LAMOTRIGINE 150 MG TABLET Take 150 mg by mouth once subha* ZOLPIDEM 5 MG TABLET Take 5 mg by mouth at bedtime* ACETAMINOPHEN 500 MG TABLET Take 500 mg by mouth every 6 * BUPROPION XL 300 MG 24 HR TAB Take 300 mg by mouth once subha* CHOLECALCIFEROL (VITAMIN D3) * Take 1 capsule by mouth once * FLUOXETINE 40 MG CAPSULE Take 1 capsule by mouth once * CLARITIN ORAL Take 1 tablet by mouth once d* Medication notes this encounter DIPHENOXYLATE-ATROPINE 2.5 MG-0.025 MG TABLET >> Martha Sidhu LPN 09/21/2017 11:12 AM >> MARTHA SIDHU LPN ThuSep 21, 2017 11:12 AM No longer using Problem List As Of Date 09/21/2017 Noted Resolved ADJUSTMENT DISORDER WITH DEPRESSED MOOD [F43.21]INVALID FOR* ANXIETY STATE NOS [F41.1] INVALID FOR* Hypothyroidism [E03.9] INVALID FOR* BENIGN HYPERTENSION [I10] INVALID FOR* OBESITY NOS [E66.9] INVALID FOR* Nonspecific abnormal results of liver function *INVALID FOR* More... ALLERGIC RHINITIS NOS [J30.9] INVALID FOR* CHRONIC LIVER DIS NEC [K76.89] INVALID FOR* Hyperlipidemia [E78.5] INVALID FOR* Tobacco abuse [Z72.0] INVALID FOR* Low HDL (under 40) [E78.6] INVALID FOR* Hypertriglyceridemia [E78.1] INVALID FOR* Postsurgical hypothyroidism [E89.0] INVALID FOR* Incisional infection [T81.4XXA] INVALID FOR* Vitamin D deficiency [E55.9] INVALID FOR* Elevated LFTs [R79.89] INVALID FOR* Muscle spasm [M62.838] INVALID FOR* Neck pain [M54.2] INVALID FOR* Thoracic back pain [M54.6] INVALID FOR* Malignant neoplasm of lower-inner quadrant of r*INVALID FOR* Left breast mass [N63.20] INVALID FOR* More... Numbness of arm [R20.0] INVALID FOR* More... Disposition: Return in 1 year (on 09/21/2018) for Annual Exam. Follow-up and Disposition History Recorded Encounter Status:Closed by MELISSA SILVA on 09/21/17 CNCNPATED Observed: 09/21/2017 Status: COMPLETED Source: [place] 12:00 AM [facility] REPOSITORY Education (RUBIO) MAHI STAFFORD ([id number]) 1970 F Date Time Provider Department 09/21/17 HOLLY CASTRORNEugenie BERGERON Reason for Visit: First Time Treatment Education [6218] Visit Notes: >> Holly (Rn) MUNA Castro ThuSep 21, 2017 10:53 AM Status: Signed ONCOLOGY PATIENT EDUCATION NOTE TOPIC: Hormone therapy, Medications: Lupron READINESS TO LEARN: COGNITIVE ABILITY: Alert and oriented MOTIVATION TO LEARN: Interested FAMILY SUPPORT: Unable to assess - Family not present INSTRUCTION PROVIDED TO: Patient INSTRUCTION PROVIDED BY: Nurse Coordinator PATIENT LEARNS BEST BY: Unable to Assess FACTORS AFFECTING LEARNING: None PHYSICAL LIMITATIONS AFFECTING LEARNING: None LEARNING RESPONSE DIAGNOSIS: Breast Cancer METHOD OF INSTRUCTION: Individual instruction Written instruction - handouts Verbal instruction PATIENT/FAMILY RESPONSE: Verbalizes understanding of: CHEMOTHERAPY-Regimen, toxicity and side effects FOLLOW UP PLAN: Patient instructed to call with any further issues Recommend - Recommend continued instruction and follow up as directed Follow up phone call. Contact information given. SUPPLEMENTAL MATERIAL: Written material was provided at this visit with the following information: - Side effect management information was provided/discussed including but not limited to: hot flashes, menopause, loss of libido YES - Important phone numbers and contacts during and after hours. YES - Symptoms that require immediate assistance. YES - Preventing infection. YES - Treatment schedule and confirmation of appointment times. NA - Available support groups. YES - The importance of contraception during the course of chemotherapy YES - [facility] handouts provided. Time Spent: 15 minutes REFERRAL (RECOMMENDATION): N/A Holly Castro RN During your visit today, we recorded the following information about you: Allergies As of Date: 09/21/2017 Noted Allergy Reaction AMITRIPTYLINE 11/18/2016 14 - Other: See Comments Comments: Intensely angry CATS 01/05/2006 DOGS 01/05/2006 GRASS POLLEN 01/05/2006 LEVAQUIN (LEVOFLOXACIN) 07/15/2017 4 - Hives 7 - Swelling MOLD 01/05/2006 Date Reviewed: 09/21/2017 Reviewed by: Sylvia Bettencourt (Zain) ZAIN Mason - Fully Assessed Prescriptions as of 09/21/2017 Sig: AMOXICILLIN 500 MG TABLET Take 1 tablet by mouth twice * HYDROCODONE 5 MG-ACETAMINOPHE* Take 1 tablet by mouth every * DIPHENOXYLATE-ATROPINE 2.5 MG* Take 2 tablets by mouth four * POTASSIUM CHLORIDE 20 MEQ ORA* TAKE ONE PACKET BY MOUTH EVER* HYDROCHLOROTHIAZIDE 25 MG TAB* Take 1 tablet by mouth once d* LEVOTHYROXINE 200 MCG TABLET Take 1 tablet by mouth five t* LISINOPRIL 10 MG TABLET Take 1 tablet by mouth once d* LAMOTRIGINE 150 MG TABLET Take 150 mg by mouth once subha* ZOLPIDEM 5 MG TABLET Take 5 mg by mouth at bedtime* ACETAMINOPHEN 500 MG TABLET Take 500 mg by mouth every 6 * BUPROPION XL 300 MG 24 HR TAB Take 300 mg by mouth once subha* CHOLECALCIFEROL (VITAMIN D3) * Take 1 capsule by mouth once * FLUOXETINE 40 MG CAPSULE Take 1 capsule by mouth once * CLARITIN ORAL Take 1 tablet by mouth once d* Encounter Status:Closed by HOLLY CASTRO on 09/21/17 PROGRESS Observed: 09/17/2017 Status: COMPLETED Source: [place] 3:25 PM [facility] REPOSITORY O ID: [id number] Author: Lavonne Alba (Sandhya) Ayden Service: (none) Author Type: Physician Hand Laminator Type: Progress Notes Filed: 09/17/2017 7:28 PM Note Text: 46 year old female with c/o cough and weakness. She said it all started Thursday with congestion and low grade fever. Thursday she noticed that she was becoming more weak and was having body aches throughout the day, which has progressed all through this week. She has taken Nyquil to help her sleep for the last two days and Tylenol/Ibuprofen for the body aches providing some relief. She says the body aches are the worst today and rates her pain as 5/10. Last week her son was diagnosed with pneumonia and she recently finished chemotherapy 7 weeks ago. She does admit to some nausea but no vomiting, she thinks might be related to the previous chemotherapy. She has also been more depressed since finishing her chemotherapy and isn't improving. She denies CP, SOB, abdominal, dysuria, constipation, diarrhea. HISTORIES FAMILY HISTORY Problem Relation Age of Onset - Heart Father - Hypertension Father - Thyroid Father - Diabetes Father - Psychiatry Father - Allergies Father - Arthritis Mother - Thyroid Mother pneumonia 73 - Allergies Mother - Breast Cancer Maternal Grandmother dx early 50's - Diabetes Maternal Grandmother - Coronary Artery Disease Maternal Grandmother - Stroke Maternal Grandmother - Allergies Maternal Grandmother - Cancer Maternal Grandmother Kidney cancer dx 70's - Diabetes Maternal Grandfather - Heart Maternal Grandfather 67 - Hypertension Maternal Grandfather - Coronary Artery Disease Maternal Grandfather - Allergies Maternal Grandfather - Diabetes Paternal Grandfather - Thyroid Paternal Grandfather - Allergies Paternal Grandfather - Diabetes Paternal Grandmother - Heart Paternal Grandmother - Allergies Paternal Grandmother - Stroke Paternal Grandmother - Ovarian cancer Other Mother of maternal grandmother - Cancer Maternal Aunt 71 Bladder or kidney cancer PAST MEDICAL HISTORY Diagnosis Date - Anxiety - Bipolar disorder (HCC) - Depression - Hyperlipemia Hypertriglyceridemia, Low HDL - Hypertension - Hyperthyroidism 11/17/13 - Hypothyroid - Migraine - Multinodular goiter 11/17/13 - Vitamin D deficiency 09/2013 PAST SURGICAL HISTORY Procedure Laterality Date - BREAST BIOPSY Right 03/14/2017 - BREAST BIOPSY Right 04/09/2017 - BREAST BIOPSY Left 04/09/2017 - LAPAROSCOPIC CHOLEYCYSTECTOMY 07/21 Cholecystectomy, lap - LIGATE FALLOPIAN TUBE ESSURE - MASTECTOMY, RADICAL Right 04/30/2017 Dr Jevon Bundy right total mastectomy with axillary blue dye sentinel lymph node biopsy - PAST SURGICAL HISTORY OF 05/1998 PLATE IN LEFT ANKLE - REMOVAL OF TONSILS,<13 Y/O 1982 Tonsillectomy - THYROIDECTOMY 11/17/13 Dr. 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[employer]* [employer]* Social History Main Topics Smoking status: Former Smoker Packs/day: 0.30 Years: 3.00 Types: Cigarettes Quit date: 10/07/2014 Smokeless status: Never Used Comment: One pack would last 2 weeks when she smoked Alcohol use: No Drug use: No Sexual activity: Yes control/protection: Surgical Comment: ESSURE ACTIVE PROBLEM LIST Adjustment Disorder With Depressed Mood Anxiety State, Unspecified Hypothyroidism Essential Hypertension, Benign Obesity, Unspecified Nonspecific abnormal results of liver function study Allergic Rhinitis, Cause Unspecified Other Chronic Nonalcoholic Liver Disease Hyperlipidemia Tobacco Abuse Low Hdl (Under 40) Hypertriglyceridemia Postsurgical Hypothyroidism Incisional Infection Vitamin D Deficiency Elevated Lfts Muscle Spasm Neck Pain Thoracic Back Pain Malignant Neoplasm of Lower-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 Disp: Rfl: potassium chloride (K-MIGUELITO, KLOR-CON) 20 mEq packet TAKE ONE PACKET BY MOUTH EVERY DAY Disp: 90 Packet Rfl: 1 hydroCHLOROthiazide (HYDRODIURIL, ESIDRIX) 25 mg tablet Take 1 tablet by mouth once daily. Disp: 90 tablet Rfl: 1 levothyroxine (SYNTHROID) 200 mcg tablet Take 1 tablet by mouth five times a week. Disp: 60 tablet Rfl: 1 lisinopril (ZESTRIL, PRINIVIL) 10 mg tablet Take 1 tablet by mouth once daily. Disp: 90 tablet Rfl: 1 lamoTRIgine (LAMICTAL) 150 mg tablet Take 150 mg by mouth once daily. Disp: Rfl: zolpidem (AMBIEN) 5 mg tablet Take 5 mg by mouth at bedtime as needed. Disp: Rfl: acetaminophen (TYLENOL EXTRA STRENGTH) 500 mg tablet Take 500 mg by mouth every 6 hours as needed. Disp: Rfl: buPROPion XL (WELLBUTRIN XL) 300 mg 24 hr tablet Take 300 mg by mouth once daily. Disp: Rfl: Cholecalciferol, Vitamin D3, (VITAMIN D-3) 2,000 unit cap Take 1 capsule by mouth once daily. Disp: Rfl: FLUoxetine HCl (PROZAC) 40 mg capsule Take 1 capsule by mouth once daily. Disp: Rfl: 0 LORATADINE (CLARITIN ORAL) Take 1 tablet by mouth once daily as needed. Disp: Rfl: diphenoxylate-atropine (LOMOTIL) 2.5-0.025 mg per tablet Take 2 tablets by mouth four times daily for 7 days. Disp: 90 tablet Rfl: 0 No current facility-administered medications for this visit. INFLUENZA(1) due on 03/20/2017 MAMMOGRAM due on 07/16/2017 EXAM: BP 114/88 Pulse 80 Temp 37.3 ?C (99.1 ?F) (Tympanic) Resp 16 Wt 117 kg (258 lb) BMI 45.7 kg/m2 Pleasant middle aged woman in no acute distress. Alert and oriented all spheres. Normal affect and cognition. Speech normal. No deficits to learning or comprehension. Skin warm, dry, pink to lips and nailbeds. Normal turgor. HEENT: PERRLA, TM's clear bilaterally no bulging or erythema, no lymphadenopathy, no frontal sinus tenderness, + maxillary tenderness. Right tonsillar pillar is bright red, slightly swollen without exudate Respirations: CTA bilaterally, regular and unlabored. Cardiovascular: RRR no murmurs gallops or rubs. Extrem: no clubbing, cyanosis, edema. Extremities are warm and pink with prompt capillary refill. ASSESSMENT/PLAN: 1. Acute pharyngitis, unspecified etiology - ICD9: 462, ICD10: J02.9 (primary diagnosis) - antibiotic as written and Amoxicillin for 7 days. - Discussed supportive care treatment with fluids, rest and analgesia. 2. Acute upper respiratory infection - ICD9: 465.9, ICD10: J06.9 - Discussed viral etiology and rationale for treatment. - Symptomatic treatment with prn analgesia - Supportive care with fluids and rest Follow-up as needed. Patient (guardian) expressed understanding of instructions and agrees with plan. SANDHYA Gudino Observed: 09/17/2017 Status: COMPLETED Source: [place] 3:00 PM [facility] REPOSITORY [facility] MINOOMAHI Olmedo ([id number]) 1970 F Date Time Provider Department 09/17/17 3:00 PM Lavonne HENSLEY) KATHERINE During your visit today, we recorded the following information about you: Temperature Pulse Respiration Blood pressure 99.1 degrees 80/minute 16/minute 114/88 Weight 117 kg M Gary Hensley PA-C 09/17/2017 7:28 PM Signed 46 year old female with c/o cough and weakness. She said it all started Thursday with congestion and low grade fever. Thursday she noticed that she was becoming more weak and was having body aches throughout the day, which has progressed all through this week. She has taken Nyquil to help her sleep for the last two days and Tylenol/Ibuprofen for the body aches providing some relief. She says the body aches are the worst today and rates her pain as 5/10. Last week her son was diagnosed with pneumonia and she recently finished chemotherapy 7 weeks ago. She does admit to some nausea but no vomiting, she thinks might be related to the previous chemotherapy. She has also been more depressed since finishing her chemotherapy and isn't improving. She denies CP, SOB, abdominal, dysuria, constipation, diarrhea. HISTORIES FAMILY HISTORY Problem Relation Age of Onset - Heart Father - Hypertension Father - Thyroid Father - Diabetes Father - Psychiatry Father - Allergies Father - Arthritis Mother - Thyroid Mother pneumonia 73 - Allergies Mother - Breast Cancer Maternal Grandmother dx early 50's - Diabetes Maternal Grandmother - Coronary Artery Disease Maternal Grandmother - Stroke Maternal Grandmother - Allergies Maternal Grandmother - Cancer Maternal Grandmother Kidney cancer dx 70's - Diabetes Maternal Grandfather - Heart Maternal Grandfather 67 - Hypertension Maternal Grandfather - Coronary Artery Disease Maternal Grandfather - Allergies Maternal Grandfather - Diabetes Paternal Grandfather - Thyroid Paternal Grandfather - Allergies Paternal Grandfather - Diabetes Paternal Grandmother - Heart Paternal Grandmother - Allergies Paternal Grandmother - Stroke Paternal Grandmother - Ovarian cancer Other Mother of maternal grandmother - Cancer Maternal Aunt 71 Bladder or kidney cancer PAST MEDICAL HISTORY Diagnosis Date - Anxiety - Bipolar disorder (HCC) - Depression - Hyperlipemia Hypertriglyceridemia, Low HDL - Hypertension - Hyperthyroidism 11/17/13 - Hypothyroid - Migraine - Multinodular goiter 11/17/13 - Vitamin D deficiency 09/2013 PAST SURGICAL HISTORY Procedure Laterality Date - BREAST BIOPSY Right 03/14/2017 - BREAST BIOPSY Right 04/09/2017 - BREAST BIOPSY Left 04/09/2017 - LAPAROSCOPIC CHOLEYCYSTECTOMY 07/21 Cholecystectomy, lap - LIGATE FALLOPIAN TUBE ESSURE - MASTECTOMY, RADICAL Right 04/30/2017 Dr Jevon Bundy right total mastectomy with axillary blue dye sentinel lymph node biopsy - PAST SURGICAL HISTORY OF 05/1998 PLATE IN LEFT ANKLE - REMOVAL OF TONSILS,ANDlt;13 Y/O 1982 Tonsillectomy - THYROIDECTOMY 11/17/13 Dr. 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* [employer]* Social History Main Topics Smoking status: Former Smoker Packs/day: 0.30 Years: 3.00 Types: Cigarettes Quit date: 10/07/2014 Smokeless status: Never Used Comment: One pack would last 2 weeks when she smoked Alcohol use: No Drug use: No Sexual activity: Yes control/protection: Surgical Comment: ESSURE ACTIVE PROBLEM LIST Adjustment Disorder With Depressed Mood Anxiety State, Unspecified Hypothyroidism Essential Hypertension, Benign Obesity, Unspecified Nonspecific abnormal results of liver function study Allergic Rhinitis, Cause Unspecified Other Chronic Nonalcoholic Liver Disease Hyperlipidemia Tobacco Abuse Low Hdl (Under 40) Hypertriglyceridemia Postsurgical Hypothyroidism Incisional Infection Vitamin D Deficiency Elevated Lfts Muscle Spasm Neck Pain Thoracic Back Pain Malignant Neoplasm of Lower-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 Disp: Rfl: potassium chloride (K-MIGUELITO, KLOR-CON) 20 mEq packet TAKE ONE PACKET BY MOUTH EVERY DAY Disp: 90 Packet Rfl: 1 hydroCHLOROthiazide (HYDRODIURIL, ESIDRIX) 25 mg tablet Take 1 tablet by mouth once daily. Disp: 90 tablet Rfl: 1 levothyroxine (SYNTHROID) 200 mcg tablet Take 1 tablet by mouth five times a week. Disp: 60 tablet Rfl: 1 lisinopril (ZESTRIL, PRINIVIL) 10 mg tablet Take 1 tablet by mouth once daily. Disp: 90 tablet Rfl: 1 lamoTRIgine (LAMICTAL) 150 mg tablet Take 150 mg by mouth once daily. Disp: Rfl: zolpidem (AMBIEN) 5 mg tablet Take 5 mg by mouth at bedtime as needed. Disp: Rfl: acetaminophen (TYLENOL EXTRA STRENGTH) 500 mg tablet Take 500 mg by mouth every 6 hours as needed. Disp: Rfl: buPROPion XL (WELLBUTRIN XL) 300 mg 24 hr tablet Take 300 mg by mouth once daily. Disp: Rfl: Cholecalciferol, Vitamin D3, (VITAMIN D-3) 2,000 unit cap Take 1 capsule by mouth once daily. Disp: Rfl: FLUoxetine HCl (PROZAC) 40 mg capsule Take 1 capsule by mouth once daily. Disp: Rfl: 0 LORATADINE (CLARITIN ORAL) Take 1 tablet by mouth once daily as needed. Disp: Rfl: diphenoxylate-atropine (LOMOTIL) 2.5-0.025 mg per tablet Take 2 tablets by mouth four times daily for 7 days. Disp: 90 tablet Rfl: 0 No current facility-administered medications for this visit. INFLUENZA(1) due on 03/20/2017 MAMMOGRAM due on 07/16/2017 EXAM: BP 114/88 Pulse 80 Temp 37.3 ?C (99.1 ?F) (Tympanic) Resp 16 Wt 117 kg (258 lb) BMI 45.7 kg/m2 Pleasant middle aged woman in no acute distress. Alert and oriented all spheres. Normal affect and cognition. Speech normal. No deficits to learning or comprehension. Skin warm, dry, pink to lips and nailbeds. Normal turgor. HEENT: PERRLA, TM's clear bilaterally no bulging or erythema, no lymphadenopathy, no frontal sinus tenderness, + maxillary tenderness. Right tonsillar pillar is bright red, slightly swollen without exudate Respirations: CTA bilaterally, regular and unlabored. Cardiovascular: RRR no murmurs gallops or rubs. Extrem: no clubbing, cyanosis, edema. Extremities are warm and pink with prompt capillary refill. ASSESSMENT/PLAN: 1. Acute pharyngitis, unspecified etiology - ICD9: 462, ICD10: J02.9 (primary diagnosis) - antibiotic as written and Amoxicillin for 7 days. - Discussed supportive care treatment with fluids, rest and analgesia. 2. Acute upper respiratory infection - ICD9: 465.9, ICD10: J06.9 - Discussed viral etiology and rationale for treatment. - Symptomatic treatment with prn analgesia - Supportive care with fluids and rest Follow-up as needed. Patient (guardian) expressed understanding of instructions and agrees with plan. SANDHYA Gudino PA-C 09/17/2017 3:59 PM Signed Your rapid strep test was negative. A second swab has been sent for confirmation by DNA probe. Results will be back in 2 days. It is unlikely that it will be positive, but if it is, you will be notified and antibiotics will be prescribed. If you haven't heard from us, you may call in 3 days for results. Most sore throats will resolve without the use of antibiotics. Cold viruses are the most common causes of sore throat. They are transmitted through direct contact and airborne droplets from other infected people through coughing or sneezing. Usually the throat pain will resolve over 4-5 days, but may occur with or be followed by other symptoms, such as runny nose, stuffiness, head congestion, chest congestion , and cough. Be aware that most sore throats are caused by viruses, not strep. The Centers for Disease Control and Prevention (CDC) recommends AGAINST treating sore throats with antibiotics unless the strep test is positive. Strep cannot be diagnosed by symptoms or a physical exam alone. The level of throat pain doesn't correlate with whether or not the infection is bacterial or viral. Some of the worst sore throats may come from viruses. For example, Damaris Cameron which causes mononucleosis may produce painful, inflamed tonsils which exude pus. Coxsacchie virus causes ulcerations in the back of the throat which can cause an extremely painful swallow. These virus do not respond to antibiotics. Strep. throat is caused by a bacterial infection with Streptococcus Pyogenes. We test and treat for Strep. because of the rare occurrence of Rheumatic Fever which can follow untreated infection. This is an autoimmune response in which a particular strain of this bacteria carries a protein that is similar to that in heart and kidney tissue. The immune system then gets trigger to attack the heart and kidney. Other bacteria and viruses which cause sore throats do not need to be treated with antibiotics. Your body will fight them off and develop immunity which will prevent it from occurring again. Your body would also fight off Strep. and get better too, but because risk of developing rheumatic fever, we treat it differently. Sore throats may also come from other sources such as environmental allergies, postnasal drainage from changes in temperature or humidity, dryness from mouth breathing during sleep, reflux of stomach acids, or even vocal overuse. For sore throat treatment, run a cool mist humidifier in the sleeping area to keep mucus membranes moist. Drink plenty of fluids, especially water, juices, and non-caffeinated beverages, (caffeine acts as a diuretic and may worsen dryness). Warm salt water gargles may be soothing (rinse and spit). Chlorseptic spray, lozenges, or regular use of Tylenol, Advil, or other OTC pain remedies may help. Get plenty of rest. Force fluids daily with water and juices. Nasal saline spray may help to keep nose open and moist: 2- 3 squirts each side every few hours. This also help to rinse out virus and bacteria causing infection. Cool mist humidifier in room during sleep. May use OTC Tylenol or Ibuprofen as direct for discomfort. Decongestants such as plain Sudafed or with expectorant such as Mucinex D may help with nasal stuffiness or facial and sinus pressure. Generics are fine. These are over the counter but require an adult signature. Oxymetolazine nasal decongestants (Afrin, Dristan, Demetris's) may also help (in place of oral decongestants) but should not be used longer than 48-72 hours due to potential rebound congestion. OTC antihistamines such Benadryl (make cause drowsiness) or Zyrtec/ Clariten/ Rosemary (non-drowsy) may help watery nasal drainage though they are generally not recommended because they dry mucus and make it sticky. The flow of mucus is important to help your body rid the virus. If cough keeps you awake at night, try OTC remedies first, such as Nyquil, Delsym, Demetris's 44 or Mucinex DM. If this doesn't help you sleep, call the office for a prescription. Be careful if you are combining cough and cold medications that you aren't doubling the medicines. If you aren't sure: ask the pharmacist for help. Cough or sneeze into your sleeve to prevent spread of infected secretions. Wash your hands frequently. Try not to cough or sneeze on surfaces others might touch. If symptoms fail to improve in 5-7 days, fever ANDgt; 100.5F, general worsening, or other concerning symptoms, return to [facility] or M Gary Hensley PA-C. Amoxicillin as directed per prescription. Finish all doses. If you should breakout in a rash, stop the medicine and call the office. Any antibiotic has the potential to cause diarrhea due to alteration in the normal bacterial oly of the gut. This can be reduced by eating yogurt with active cultures daily while on the medication. If diarrhea becomes severe (watery, large volumes or more than 3-4/day) call the office. Women may experience yeast vaginitis due to alteration in the vaginal oly. Symptoms include vaginal itching, irritation, and often a clumpy white discharge. If this occurs, there are several effective over the counter remedies available, including one-dose treatments. If these are unsuccessful, call the office. Antibiotics may interfer with control. If you are on oral contraceptives, use another form of protection (condoms, foams, jellies, diaphragm) throught the end of whatever pill pack you are on in 10 days. Referring Provider: SELF [200] Allergies As of Date: 09/17/2017 Noted Allergy Reaction AMITRIPTYLINE 11/18/2016 14 - Other: See Comments Comments: Intensely angry CATS 01/05/2006 DOGS 01/05/2006 GRASS POLLEN 01/05/2006 LEVAQUIN (LEVOFLOXACIN) 07/15/2017 4 - Hives 7 - Swelling MOLD 01/05/2006 Date Reviewed: 09/17/2017 Reviewed by: Marian Duron LPN - Fully Assessed Reason for Visit: Sore Throat [200] Cmt: started about 1 week ago body aches [Other] Cmt: with fatigue Cough [28] Fever [47] Cmt: 100 Primary Visit Diagnosis:Acute pharyngitis, unspecified etiology [J02.9] Other Visit Diagnosis:Acute upper respiratory infection [J06.9] Order(s):Amoxicillin 500 mg tabletTake 1 tablet by mouth twice daily for 7 days.Disp: 14 tabletRfl: 0 Prescriptions as of 09/17/2017 Sig: HYDROCODONE 5 MG-ACETAMINOPHE* Take 1 tablet by mouth every * POTASSIUM CHLORIDE 20 MEQ ORA* TAKE ONE PACKET BY MOUTH EVER* HYDROCHLOROTHIAZIDE 25 MG TAB* Take 1 tablet by mouth once d* LEVOTHYROXINE 200 MCG TABLET Take 1 tablet by mouth five t* LISINOPRIL 10 MG TABLET Take 1 tablet by mouth once d* LAMOTRIGINE 150 MG TABLET Take 150 mg by mouth once subha* ZOLPIDEM 5 MG TABLET Take 5 mg by mouth at bedtime* ACETAMINOPHEN 500 MG TABLET Take 500 mg by mouth every 6 * BUPROPION XL 300 MG 24 HR TAB Take 300 mg by mouth once subha* CHOLECALCIFEROL (VITAMIN D3) * Take 1 capsule by mouth once * FLUOXETINE 40 MG CAPSULE Take 1 capsule by mouth once * CLARITIN ORAL Take 1 tablet by mouth once d* AMOXICILLIN 500 MG TABLET Take 1 tablet by mouth twice * DIPHENOXYLATE-ATROPINE 2.5 MG* Take 2 tablets by mouth four * Problem List As Of Date 09/17/2017 Noted Resolved ADJUSTMENT DISORDER WITH DEPRESSED MOOD [F43.21]INVALID FOR* ANXIETY STATE NOS [F41.1] INVALID FOR* Hypothyroidism [E03.9] INVALID FOR* BENIGN HYPERTENSION [I10] INVALID FOR* OBESITY NOS [E66.9] INVALID FOR* Nonspecific abnormal results of liver function *INVALID FOR* More... ALLERGIC RHINITIS NOS [J30.9] INVALID FOR* CHRONIC LIVER DIS NEC [K76.89] INVALID FOR* Hyperlipidemia [E78.5] INVALID FOR* Tobacco abuse [Z72.0] INVALID FOR* Low HDL (under 40) [E78.6] INVALID FOR* Hypertriglyceridemia [E78.1] INVALID FOR* Postsurgical hypothyroidism [E89.0] INVALID FOR* Incisional infection [T81.4XXA] INVALID FOR* Vitamin D deficiency [E55.9] INVALID FOR* Elevated LFTs [R79.89] INVALID FOR* Muscle spasm [M62.838] INVALID FOR* Neck pain [M54.2] INVALID FOR* Thoracic back pain [M54.6] INVALID FOR* Malignant neoplasm of lower-inner quadrant of r*INVALID FOR* Left breast mass [N63.20] INVALID FOR* More... Numbness of arm [R20.0] INVALID FOR* More... Other instructions from your clinician: Your rapid strep test was negative. A second swab has been sent for confirmation by DNA probe. Results will be back in 2 days. It is unlikely that it will be positive, but if it is, you will be notified and antibiotics will be prescribed. If you haven't heard from us, you may call in 3 days for results. Most sore throats will resolve without the use of antibiotics. Cold viruses are the most common causes of sore throat. They are transmitted through direct contact and airborne droplets from other infected people through coughing or sneezing. Usually the throat pain will resolve over 4-5 days, but may occur with or be followed by other symptoms, such as runny nose, stuffiness, head congestion, chest congestion , and cough. Be aware that most sore throats are caused by viruses, not strep. The Centers for Disease Control and Prevention (CDC) recommends AGAINST treating sore throats with antibiotics unless the strep test is positive. Strep cannot be diagnosed by symptoms or a physical exam alone. The level of throat pain doesn't correlate with whether or not the infection is bacterial or viral. Some of the worst sore throats may come from viruses. For example, Damaris Cameron which causes mononucleosis may produce painful, inflamed tonsils which exude pus. Coxsacchie virus causes ulcerations in the back of the throat which can cause an extremely painful swallow. These virus do not respond to antibiotics. Strep. throat is caused by a bacterial infection with Streptococcus Pyogenes. We test and treat for Strep. because of the rare occurrence of Rheumatic Fever which can follow untreated infection. This is an autoimmune response in which a particular strain of this bacteria carries a protein that is similar to that in heart and kidney tissue. The immune system then gets trigger to attack the heart and kidney. Other bacteria and viruses which cause sore throats do not need to be treated with antibiotics. Your body will fight them off and develop immunity which will prevent it from occurring again. Your body would also fight off Strep. and get better too, but because risk of developing rheumatic fever, we treat it differently. Sore throats may also come from other sources such as environmental allergies, postnasal drainage from changes in temperature or humidity, dryness from mouth breathing during sleep, reflux of stomach acids, or even vocal overuse. For sore throat treatment, run a cool mist humidifier in the sleeping area to keep mucus membranes moist. Drink plenty of fluids, especially water, juices, and non-caffeinated beverages, (caffeine acts as a diuretic and may worsen dryness). Warm salt water gargles may be soothing (rinse and spit). Chlorseptic spray, lozenges, or regular use of Tylenol, Advil, or other OTC pain remedies may help. Get plenty of rest. Force fluids daily with water and juices. Nasal saline spray may help to keep nose open and moist: 2-3 squirts each side every few hours. This also help to rinse out virus and bacteria causing infection. Cool mist humidifier in room during sleep. May use OTC Tylenol or Ibuprofen as direct for discomfort. Decongestants such as plain Sudafed or with expectorant such as Mucinex D may help with nasal stuffiness or facial and sinus pressure. Generics are fine. These are over the counter but require an adult signature. Oxymetolazine nasal decongestants (Afrin, Dristan, Demetris's) may also help (in place of oral decongestants) but should not be used longer than 48-72 hours due to potential rebound congestion. OTC antihistamines such Benadryl (make cause drowsiness) or Zyrtec/ Clariten/ Rosemary (non-drowsy) may help watery nasal drainage though they are generally not recommended because they dry mucus and make it sticky. The flow of mucus is important to help your body rid the virus. If cough keeps you awake at night, try OTC remedies first, such as Nyquil, Delsym, Demetris's 44 or Mucinex DM. If this doesn't help you sleep, call the office for a prescription. Be careful if you are combining cough and cold medications that you aren't doubling the medicines. If you aren't sure: ask the pharmacist for help. Cough or sneeze into your sleeve to prevent spread of infected secretions. Wash your hands frequently. Try not to cough or sneeze on surfaces others might touch. If symptoms fail to improve in 5-7 days, fever > 100.5F, general worsening, or other concerning symptoms, return to [facility] or M Gary Hensley PA-C. Amoxicillin as directed per prescription. Finish all doses. If you should breakout in a rash, stop the medicine and call the office. Any antibiotic has the potential to cause diarrhea due to alteration in the normal bacterial oly of the gut. This can be reduced by eating yogurt with active cultures daily while on the medication. If diarrhea becomes severe (watery, large volumes or more than 3-4/day) call the office. Women may experience yeast vaginitis due to alteration in the vaginal oly. Symptoms include vaginal itching, irritation, and often a clumpy white discharge. If this occurs, there are several effective over the counter remedies available, including one-dose treatments. If these are unsuccessful, call the office. Antibiotics may interfer with control. If you are on oral contraceptives, use another form of protection (condoms, foams, jellies, diaphragm) throught the end of whatever pill pack you are on in 10 days. Prescriptions ordered this encounter Disp Refills Start End AMOXICILLIN 500 MG TABLET 14 t* 0 09/17/2017 09/24/2017 Route: ORAL Sig: Take 1 tablet by mouth twice daily for 7 days. Medications Discontinued During This Encounter Azelastine HCl (OPTIVAR) 0.05 % opht* 1 [place]* 1 07/30/2017 09/17/2017 Route: BOTH EYES Sig: Use 1 Drop in both eyes twice daily. 6-8 HOURS APART Disc: Reason for discontinue is not on file. ciprofloxacin HCl (CILOXAN) 0.3 % op* 1 Bradford* 2 08/17/2017 09/17/2017 Route: LEFT EYE Sig: Use 1 Drop in the left eye four times daily. Disc: Reason for discontinue is not on file. zglbxzgtshHGVJH-fqluue-jpubrpcej (BM* 300 * 0 07/01/2017 09/17/2017 Route: ORAL Sig: Take 10 mL by mouth every 4 hours as needed. Disc: Reason for discontinue is not on file. nystatin (MYCOSTATIN) 100,000 unit/m* 180 * 5 07/01/2017 09/17/2017 Route: ORAL Sig: Take 5 mL by mouth four times daily. Disc: Reason for discontinue is not on file. OLANZapine (ZYPREXA) 10 mg tablet 6 ta* 0 08/13/2017 09/17/2017 Route: ORAL Sig: Take 1 tablet by mouth daily at bedtime. Disc: Reason for discontinue is not on file. omeprazole (PRILOSEC) 20 mg capsule 30 c* 1 07/02/2017 09/17/2017 Route: ORAL Sig: Take 1 capsule by mouth once daily. Disc: Reason for discontinue is not on file. ondansetron (ZOFRAN) 8 mg tablet 30 t* 2 08/12/2017 09/17/2017 Route: ORAL Sig: Take 1 tablet by mouth every 8 hours as needed for Nausea/Vomiting. Disc: Reason for discontinue is not on file. Encounter Status:Closed by Lavonne HENSLEY PA-C on 09/17/17 PROGRESS Observed: 09/08/2017 Status: COMPLETED Source: [place] 4:25 PM [facility] REPOSITORY HNO ID: [id number] Author: Constantino Bruno Service: (none) Author Type: (none) Type: Progress Notes Filed: 09/26/2017 4:23 AM Note Text: September 08, 2017 The electronic medical record was reviewed to determine if the proposed sleep study conforms to the [facility] Practice Parameters for the Indications for Polysomnography and Related Procedures, or if the sleep study is indicated for other reasons. Indications for study: LAURA suspected without comorbid medical or sleep disorders Sleep study to be performed: Polysomnogram Special instructions: Add EtCO2 or Transcutaneous CO2 if available Constantino Bruno RPSGT,RST,BA I have read the above protocol, edited as needed, and agree to the plan as outlined. Liam Xiao M.D. PROGRESS Observed: 09/04/2017 Status: COMPLETED Source: [place] 2:15 PM [facility] REPOSITORY HNO ID: [id number] Author: Julio Hardy Psr Service: (none) Author Type: (none) Type: Progress Notes Filed: 09/26/2017 4:23 AM Note Text: September 04, 2017 An order has been received for Polysomnogram (PSG) from SANDHYA Perez [facility] Staff. Visit prep complete. Comments :No The sleep study is scheduled for 09/25. Insurance: Payor: [place] [employer] / Plan: [place] [employer] / Product Type: Medicaid / Julio Hardy Psr CNOVSP Observed: 08/26/2017 Status: COMPLETED Source: [place] 8:50 AM [facility] REPOSITORY Visit (SP) Office ([place]) MAHI STAFFORD ([id number]) 1970 F Date Time Provider Department 08/26/17 8:50 AM ROGELIO VELEZ During your visit today, we recorded the following information about you: Temperature Pulse Blood pressure Weight 97.7 degrees 98/minute 133/77 117.9 kg Sylvia Mason LPN, LPN 08/26/2017 8:57 AM Signed Est . Pt, discuss recent lab results ZAIN Dunn DO 08/26/2017 9:15 AM Signed Diagnosis: 1) Breast cancer. HPI: Patient is a 46-year-old female who has past medical history significant for hyperlipidemia and hypertension who underwent bilateral mammogram in June 2016. She had a diagnostic mammogram of the right breast with there was a questionable 5 mm area of irregular asymmetry with indistinct margin in the depth inferior region of the right breast only seen on mediolateral oblique views. An ultrasound confirmed this area. Follow-up study was recommended in 6 months. That study was done on along with an ultrasound that demonstrated an irregular lesion in the right breast 3:00 position anterior depth with mixed echogenicity. An ultrasound-guided biopsy was recommended. This biopsy was performed 03/14/2017. The core sample demonstrated invasive ductal carcinoma, nuclear grade 2. Estrogen receptors were greater than 95%, strong and progesterone receptors were 12%, weak. HER-2 was quantified at 0. The patient subsequent underwent an MRI. There was an additional area of concern identified in the right inner breast close to the original biopsied area. An MRI guided biopsy was performed that showed DCIS with intermediate and high nuclear grade with solid and cribriform types associated with microcalcifications. A clip was placed. Biopsy was also performed of a left breast abnormality and this tissue demonstrated fibroadenoma. The patient still had regular menses. Her maternal grandmother evidently had breast cancer diagnosed in her 30s and underwent surgery. She later in her 60s from metastatic renal cell carcinoma. There is no other family history of breast cancer, ovarian cancer or uterine cancer. Her grandmother also had thyroid cancer. Presents for ongoing oncologic management. Interim history: Underwent right-sided mastectomy and sentinel lymph node biopsy procedure on 04/30/2017. FROZEN SECTION DIAGNOSIS A. Kirby lymph node, biopsy: Fragments of fibrofatty tissue. No lymph node tissue is identified. SJ: 04/30/17 B. Additional right axillary sentinel lymph nodes, biopsy: Two out of two lymph nodes negative for carcinoma. AM: 04/30/17 MICROSCOPIC DIAGNOSIS A. Kirby lymph node, biopsy: Fragments of fibrofatty tissue. No lymph node tissue is identified. B. Additional right axillary sentinel lymph nodes, biopsy: Two out of two lymph nodes, negative for metastatic carcinoma. See comment. C. Right breast, modified radical mastectomy: Invasive ductal carcinoma. Ductal carcinoma in situ. Angiolipoma. Five out of five lymph nodes, negative for metastatic carcinoma. See cancer summary below. INVASIVE BREAST CANCER SUMMARY: (Including specimen B ANDamp; C) Specimen ? total breast (including nipple and skin). Procedure ? total mastectomy (including nipple and skin). Lymph node sampling ? sentinel lymph node and axillary dissection. Specimen integrity ? single intact specimen. Specimen laterality - right Tumor site ? lower central portion of the breast tissue. Tumor size ? 1.2 x 0.7 x 0.5 cm (see comment) Tumor focality ? single focus of invasive carcinoma. Macroscopic and Microscopic extent of tumor: Skin ? invasive carcinoma does not invade into the dermis or epidermis. Nipple ? ductal carcinoma in situ does not involve the nipple epidermis. Skeletal muscle ? no skeletal muscle present Ductal carcinoma in situ (DCIS) ? ductal carcinoma in situ is present. Extensive intraductal component (EIC) ? positive Ductal carcinoma in situ show extensive cancerization of lobules. Estimated size (extent) of DCIS ? ductal carcinoma in situ comprise about 40% of the total tumor volume and it is present adjacent and away from the invasive tumor.. Number of blocks with DCIS - 5 Number of blocks examined ? 10 (consisting of breast tissue) Architectural patterns ? solid and cribriform Nuclear grade ? grade 2-3 (intermediate to high) Necrosis ? present, focal (small foci of single cell necrosis) Lobular carcinoma in situ (LCIS) ? not present Histologic type of invasive carcinoma ? invasive ductal carcinoma (no special type) Histologic Grade: [place] grade: Glandular/tubular differentiation - score 3 Nuclear pleomorphism - score 3 Mitotic count ? score 1 Overall grade - 2 (score of 7) Margins: Margins uninvolved by invasive carcinoma. The tumor is 4 cm away from the closest posterior margin. Treatment effect: Response to presurgical (neoadjuvant) therapy - no known presurgical therapy. Lymph-Vascular invasion ? not identified Dermal lymph-vascular invasion ? not identified Lymph nodes: Number of sentinel lymph nodes examined - 2 Total number of lymph nodes examined (sentinel and nonsentinel) - 7 Number of lymph nodes with macrometastases, micrometastases and isolated tumor cells - 0 Method of evaluation of sentinel lymph nodes - H ANDamp; E, multiple levels and IHC. Distance metastasis ? not applicable Additional pathologic findings ? fibrocystic changes and intraductal hyperplasia without atypia. - Angiolipoma. Ancillary studies - previously performed on section of tumor ([id number] / [id number]). ER ? positive (ANDgt;95%, strong) ME ? positive (12%, weak) Her2 diana ? negative (0) Her2 by dual THERESA ? not performed Microcalcifications ? present in DCIS. Clinical history - Please make reference to previous specimen ([id number]) right breast, core biopsy with diagnosis of invasive ductal carcinoma. Presents for ongoing oncologic management. Interim history: She had worsening side effects with the third cycle of TC. She had a lot of conjunctival irritation which is persistent but improving. She also had mucositis as well as significant nausea. She has decided to stop chemotherapy. She has mild numbness in the fingertips but no other symptoms of neuropathy. PMH, medications and allergies personally reviewed by me today. Any changes documented in appropriate section. ROS: Constitutional: Denies episodes of night sweats. Neuro: Denies KIRKPATRICK, vertigo, dizziness and imbalance. HEENT: No recent change in voice or hearing. Resp: Denies cough, wheeze and hemoptysis. Denies shortness of breath at rest. Denies LUX. CVS: Denies exertional chest pain, PND, orthopnea and LE edema. GI: See above. No longer having diarrhea. : Denies dysuria or gross hematuria. No symptoms of bladder outlet obstruction. Endo: Denies hot flashes. Denies polyuria and polydipsia. Denies heat and cold intolerance. Musculoskeletal: No joint, bone or muscular pain currently. Derm: Denies rash. Denies jaundice and diffuse pruritis. Heme: Denies unusual bleeding and unexplained bruising. Psych: Normal mood. PHYSICAL EXAM: Vitals: Blood pressure 133/77, pulse 98, temperature 36.5 ?C (97.7 ?F), weight 117.9 kg (260 lb). Well-appearing and in no acute distress. EYES: Sclerae are anicteric bilaterally. ENT: Oral mucosa is unremarkable. Mild mucositis left side of tongue NECK: Supple. No enlargement of thyroid. LYMPHATIC: There is no palpable cervical, supraclavicular, axillary or inguinal adenopathy. RESPIRATORY: Inspiratory breath sounds are of normal intensity in all wallace. No rales, wheezes or rhonchi. CARDIOVASCULAR: Rhythm is regular. Normal intensity S1/S2. There is no gallop or murmur. ABDOMEN: The abdomen is nondistended. No organomegaly. No tenderness. Extremities: No swelling or edema. SKIN: Healing desquamation rash of the hands. NEUROLOGIC: tuckpointer II-XII are grossly intact. No focal motor weakness. DTRs are symmetric and normal. MUSCULOSKELETAL: No muscle wasting. ASSESSMENT/PLAN: (C50.311, Z17.0) Malignant neoplasm of lower-inner quadrant of right breast of female, estrogen receptor positive (HCC) (primary encounter diagnosis) Assessment: -pT1c (1.2 cm; grade 2; no ALI) pN0 MX ER/ME positive, HER2 negative invasive ductal carcinoma the right breast. -Genetic testing negative. -Oncotype recurrent score was 26 suggesting 17% average recurrence risk over the next 10 years with the use of tamoxifen alone. -Significant side effects with each cycle of TC. She has opted to stop chemotherapy. -I discussed with her the strategy of hormonal therapy. I discussed the [facility] care path and the decision process of tamoxifen versus ovarian suppression/ablation with aromatase inhibitor therapy. Because of the intermediate risk Oncotype score and only having received 75% of the adjuvant chemotherapy dose, I recommended ovarian suppression/ablation with aromatase inhibitor therapy (higher risk stage I disease). I recommended specifically she be given several more weeks of recovery from the most recent cycle of chemotherapy and then beginning monthly Lupron injections. AI therapy will be added at the time of the second injection. If she tolerates postmenopausal symptoms well, then bilateral oophorectomy would be an option. I also discussed the use of ANDquot;adjuvantANDquot; bisphosphonate therapy and recommended Zometa infusion every 6 months for up to 3 years beginning about 6 months after starting ovarian suppression. Plan: -Begin Lupron 09/16. -Begin anastrozole ~1 month after Lupron. -Dental check up/cleaning after next OV. -Due for left-sided screening mammogram in March. Total bvii-pm-jykj time was ANDgt;25 minutes with greater than 20 minutes spent discussing the issues outlined above and/or coordinating care. Rogelio Velez DO Referring Provider: ROGELIO VELEZ [[id number]] Allergies As of Date: 08/26/2017 Noted Allergy Reaction AMITRIPTYLINE 11/18/2016 14 - Other: See Comments Comments: Intensely angry CATS 01/05/2006 DOGS 01/05/2006 GRASS POLLEN 01/05/2006 LEVAQUIN (LEVOFLOXACIN) 07/15/2017 4 - Hives 7 - Swelling MOLD 01/05/2006 Date Reviewed: 08/26/2017 Reviewed by: Rogelio Velez - Fully Assessed Reason for Visit: Established Patient [[id number]] Primary Visit Diagnosis:Malignant neoplasm of lower-inner quadrant of right breast of female, estrogen receptor positive (HCC) [C50.311, Z17.0] Follow-up and Disposition History Recorded Prescriptions as of 08/26/2017 Sig: HYDROCODONE 5 MG-ACETAMINOPHE* Take 1 tablet by mouth every * CIPROFLOXACIN 0.3 % EYE DROPS Use 1 Drop in the left eye fo* OLANZAPINE 10 MG TABLET Take 1 tablet by mouth daily * ONDANSETRON HCL 8 MG TABLET Take 1 tablet by mouth every * AZELASTINE 0.05 % EYE DROPS Use 1 Drop in both eyes twice* DIPHENOXYLATE-ATROPINE 2.5 MG* Take 2 tablets by mouth four * OMEPRAZOLE 20 MG CAPSULE,ART* Take 1 capsule by mouth once * NYSTATIN 100,000 UNIT/ML ORAL* Take 5 mL by mouth four times* [id number]* Take 10 mL by mouth every 4 h* POTASSIUM CHLORIDE 20 MEQ ORA* TAKE ONE PACKET BY MOUTH EVER* HYDROCHLOROTHIAZIDE 25 MG TAB* Take 1 tablet by mouth once d* LEVOTHYROXINE 200 MCG TABLET Take 1 tablet by mouth five t* LISINOPRIL 10 MG TABLET Take 1 tablet by mouth once d* LAMOTRIGINE 150 MG TABLET Take 150 mg by mouth once usbha* ZOLPIDEM 5 MG TABLET Take 5 mg by mouth at bedtime* ACETAMINOPHEN 500 MG TABLET Take 500 mg by mouth every 6 * BUPROPION XL 300 MG 24 HR TAB Take 300 mg by mouth once subha* CHOLECALCIFEROL (VITAMIN D3) * Take 1 capsule by mouth once * FLUOXETINE 40 MG CAPSULE Take 1 capsule by mouth once * CLARITIN ORAL Take 1 tablet by mouth once d* Problem List As Of Date 08/26/2017 Noted Resolved ADJUSTMENT DISORDER WITH DEPRESSED MOOD [F43.21]INVALID FOR* ANXIETY STATE NOS [F41.1] INVALID FOR* Hypothyroidism [E03.9] INVALID FOR* BENIGN HYPERTENSION [I10] INVALID FOR* OBESITY NOS [E66.9] INVALID FOR* Nonspecific abnormal results of liver function *INVALID FOR* More... ALLERGIC RHINITIS NOS [J30.9] INVALID FOR* CHRONIC LIVER DIS NEC [K76.89] INVALID FOR* Hyperlipidemia [E78.5] INVALID FOR* Tobacco abuse [Z72.0] INVALID FOR* Low HDL (under 40) [E78.6] INVALID FOR* Hypertriglyceridemia [E78.1] INVALID FOR* Postsurgical hypothyroidism [E89.0] INVALID FOR* Incisional infection [T81.4XXA] INVALID FOR* Vitamin D deficiency [E55.9] INVALID FOR* Elevated LFTs [R79.89] INVALID FOR* Muscle spasm [M62.838] INVALID FOR* Neck pain [M54.2] INVALID FOR* Thoracic back pain [M54.6] INVALID FOR* Malignant neoplasm of lower-inner quadrant of r*INVALID FOR* Left breast mass [N63.20] INVALID FOR* More... Numbness of arm [R20.0] INVALID FOR* More... Visit Notes: >> Sylvia Mason LPN ThuAug 26, 2017 8:39 AM Status: Signed Est . Pt, discuss recent lab results Sylvia Mason LPN Encounter Status:Closed by ROGELIO VELEZ DO on 08/26/17 PROGRESS Observed: 08/26/2017 Status: COMPLETED Source: [place] 8:40 AM [facility] REPOSITORY O ID: [id number] Author: Rogelio Velez Service: (none) Author Type: Physician Type: Progress Notes Filed: 08/26/2017 9:15 AM Note Text: Diagnosis: 1) Breast cancer. HPI: Patient is a 46-year-old female who has past medical history significant for hyperlipidemia and hypertension who underwent bilateral mammogram in June 2016. She had a diagnostic mammogram of the right breast with there was a questionable 5 mm area of irregular asymmetry with indistinct margin in the depth inferior region of the right breast only seen on mediolateral oblique views. An ultrasound confirmed this area. Follow-up study was recommended in 6 months. That study was done on along with an ultrasound that demonstrated an irregular lesion in the right breast 3:00 position anterior depth with mixed echogenicity. An ultrasound-guided biopsy was recommended. This biopsy was performed 03/14/2017. The core sample demonstrated invasive ductal carcinoma, nuclear grade 2. Estrogen receptors were greater than 95%, strong and progesterone receptors were 12%, weak. HER- 2 was quantified at 0. The patient subsequent underwent an MRI. There was an additional area of concern identified in the right inner breast close to the original biopsied area. An MRI guided biopsy was performed that showed DCIS with intermediate and high nuclear grade with solid and cribriform types associated with microcalcifications. A clip was placed. Biopsy was also performed of a left breast abnormality and this tissue demonstrated fibroadenoma. The patient still had regular menses. Her maternal grandmother evidently had breast cancer diagnosed in her 30s and underwent surgery. She later in her 60s from metastatic renal cell carcinoma. There is no other family history of breast cancer, ovarian cancer or uterine cancer. Her grandmother also had thyroid cancer. Presents for ongoing oncologic management. Interim history: Underwent right-sided mastectomy and sentinel lymph node biopsy procedure on 04/30/2017. FROZEN SECTION DIAGNOSIS A. Kirby lymph node, biopsy: Fragments of fibrofatty tissue. No lymph node tissue is identified. SJ:shanae 04/30/17 B. Additional right axillary sentinel lymph nodes, biopsy: Two out of two lymph nodes negative for carcinoma. AM:shanae 04/30/17 MICROSCOPIC DIAGNOSIS A. Kirby lymph node, biopsy: Fragments of fibrofatty tissue. No lymph node tissue is identified. B. Additional right axillary sentinel lymph nodes, biopsy: Two out of two lymph nodes, negative for metastatic carcinoma. See comment. C. Right breast, modified radical mastectomy: Invasive ductal carcinoma. Ductal carcinoma in situ. Angiolipoma. Five out of five lymph nodes, negative for metastatic carcinoma. See cancer summary below. INVASIVE BREAST CANCER SUMMARY: (Including specimen B AND C) Specimen ? total breast (including nipple and skin). Procedure ? total mastectomy (including nipple and skin). Lymph node sampling ? sentinel lymph node and axillary dissection. Specimen integrity ? single intact specimen. Specimen laterality - right Tumor site ? lower central portion of the breast tissue. Tumor size ? 1.2 x 0.7 x 0.5 cm (see comment) Tumor focality ? single focus of invasive carcinoma. Macroscopic and Microscopic extent of tumor: Skin ? invasive carcinoma does not invade into the dermis or epidermis. Nipple ? ductal carcinoma in situ does not involve the nipple epidermis. Skeletal muscle ? no skeletal muscle present Ductal carcinoma in situ (DCIS) ? ductal carcinoma in situ is present. Extensive intraductal component (EIC) ? positive Ductal carcinoma in situ show extensive cancerization of lobules. Estimated size (extent) of DCIS ? ductal carcinoma in situ comprise about 40% of the total tumor volume and it is present adjacent and away from the invasive tumor.. Number of blocks with DCIS - 5 Number of blocks examined ? 10 (consisting of breast tissue) Architectural patterns ? solid and cribriform Nuclear grade ? grade 2-3 (intermediate to high) Necrosis ? present, focal (small foci of single cell necrosis) Lobular carcinoma in situ (LCIS) ? not present Histologic type of invasive carcinoma ? invasive ductal carcinoma (no special type) Histologic Grade: Vita grade: Glandular/tubular differentiation - score 3 Nuclear pleomorphism - score 3 Mitotic count ? score 1 Overall grade - 2 (score of 7) Margins: Margins uninvolved by invasive carcinoma. The tumor is 4 cm away from the closest posterior margin. Treatment effect: Response to presurgical (neoadjuvant) therapy - no known presurgical therapy. Lymph-Vascular invasion ? not identified Dermal lymph-vascular invasion ? not identified Lymph nodes: Number of sentinel lymph nodes examined - 2 Total number of lymph nodes examined (sentinel and nonsentinel) - 7 Number of lymph nodes with macrometastases, micrometastases and isolated tumor cells - 0 Method of evaluation of sentinel lymph nodes - H AND E, multiple levels and IHC. Distance metastasis ? not applicable Additional pathologic findings ? fibrocystic changes and intraductal hyperplasia without atypia. - Angiolipoma. Ancillary studies - previously performed on section of tumor ([id number] / [id number]). ER ? positive (>95%, strong) ME ? positive (12%, weak) Her2 diana ? negative (0) Her2 by dual THERESA ? not performed Microcalcifications ? present in DCIS. Clinical history - Please make reference to previous specimen ([id number]) right breast, core biopsy with diagnosis of invasive ductal carcinoma. Presents for ongoing oncologic management. Interim history: She had worsening side effects with the third cycle of TC. She had a lot of conjunctival irritation which is persistent but improving. She also had mucositis as well as significant nausea. She has decided to stop chemotherapy. She has mild numbness in the fingertips but no other symptoms of neuropathy. PMH, medications and allergies personally reviewed by me today. Any changes documented in appropriate section. ROS: Constitutional: Denies episodes of night sweats. Neuro: Denies KIRKPATRICK, vertigo, dizziness and imbalance. HEENT: No recent change in voice or hearing. Resp: Denies cough, wheeze and hemoptysis. Denies shortness of breath at rest. Denies LUX. CVS: Denies exertional chest pain, PND, orthopnea and LE edema. GI: See above. No longer having diarrhea. : Denies dysuria or gross hematuria. No symptoms of bladder outlet obstruction. Endo: Denies hot flashes. Denies polyuria and polydipsia. Denies heat and cold intolerance. Musculoskeletal: No joint, bone or muscular pain currently. Derm: Denies rash. Denies jaundice and diffuse pruritis. Heme: Denies unusual bleeding and unexplained bruising. Psych: Normal mood. PHYSICAL EXAM: Vitals: Blood pressure 133/77, pulse 98, temperature 36.5 ?C (97.7 ?F), weight 117.9 kg (260 lb). Well-appearing and in no acute distress. EYES: Sclerae are anicteric bilaterally. ENT: Oral mucosa is unremarkable. Mild mucositis left side of tongue NECK: Supple. No enlargement of thyroid. LYMPHATIC: There is no palpable cervical, supraclavicular, axillary or inguinal adenopathy. RESPIRATORY: Inspiratory breath sounds are of normal intensity in all wallace. No rales, wheezes or rhonchi. CARDIOVASCULAR: Rhythm is regular. Normal intensity S1/S2. There is no gallop or murmur. ABDOMEN: The abdomen is nondistended. No organomegaly. No tenderness. Extremities: No swelling or edema. SKIN: Healing desquamation rash of the hands. NEUROLOGIC: tuckpointer II-XII are grossly intact. No focal motor weakness. DTRs are symmetric and normal. MUSCULOSKELETAL: No muscle wasting. ASSESSMENT/PLAN: (C50.311, Z17.0) Malignant neoplasm of lower-inner quadrant of right breast of female, estrogen receptor positive (HCC) (primary encounter diagnosis) Assessment: -pT1c (1.2 cm; grade 2; no ALI) pN0 MX ER/ME positive, HER2 negative invasive ductal carcinoma the right breast. -Genetic testing negative. -Oncotype recurrent score was 26 suggesting 17% average recurrence risk over the next 10 years with the use of tamoxifen alone. -Significant side effects with each cycle of TC. She has opted to stop chemotherapy. -I discussed with her the strategy of hormonal therapy. I discussed the [facility] care path and the decision process of tamoxifen versus ovarian suppression/ablation with aromatase inhibitor therapy. Because of the intermediate risk Oncotype score and only having received 75% of the adjuvant chemotherapy dose, I recommended ovarian suppression/ablation with aromatase inhibitor therapy (higher risk stage I disease). I recommended specifically she be given several more weeks of recovery from the most recent cycle of chemotherapy and then beginning monthly Lupron injections. AI therapy will be added at the time of the second injection. If she tolerates postmenopausal symptoms well, then bilateral oophorectomy would be an option. I also discussed the use of adjuvant bisphosphonate therapy and recommended Zometa infusion every 6 months for up to 3 years beginning about 6 months after starting ovarian suppression. Plan: -Begin Lupron 09/16. -Begin anastrozole ~1 month after Lupron. -Dental check up/cleaning after next OV. -Due for left-sided screening mammogram in March. Total iase-jo-uool time was >25 minutes with greater than 20 minutes spent discussing the issues outlined above and/or coordinating care. DO BHANU Delgado ABS GR + CBC Collected: 08/26/2017 Status: F Source: [place] 8:00 AM [facility] REPOSITORY TYPE CODE TESTS RESULT OUT OF REFERENCE UNITS RANGE LAB WWBC 3.70-11.00 k/uL [place] WBC 5.09 LAB WRBC 3.90-5.20 m/uL [place] RBC 4.38 LAB WHGB 11.5-15.5 g/dL [place] Hemoglobin 11.8 LAB WHCT 36.0-46.0 % Bhanu Hematocrit 37.9 LAB WMCV 80.0-100.0 fL Bhanu MCV 86.5 LAB WMCH 26.0-34.0 pg [place] MCH 26.9 LAB WMCHC 30.5-36.0 g/dL [place] MCHC 31.1 LAB WRDW 11.5-15.0 % Bhanu High RDW 23.3 LAB WPLT 150-400 k/uL Bhanu Platelet Cnt 273 LAB WMPV 9.0-12.7 fL Low Bhanu MPV 8.4 Result Comment: Test performed at: [facility], [address] [place] [address]. LAB ABGRAN 1.45-7.50 k/uL Absol Gran 2.99 Count COMP METABOLIC PANEL Collected: 08/26/2017 Status: F Source: [place] 8:00 AM [facility] REPOSITORY TYPE CODE TESTS RESULT OUT OF REFERENCE UNITS RANGE LAB TP 6.3-8.0 g/dL Protein, Total 6.7 LAB ALB 3.9-4.9 g/dL Albumin 4.0 LAB CA 8.5-10.2 mg/dL Calcium, Total 8.8 LAB TBIL 0.2-1.3 mg/dL Bilirubin, Total 0.3 LAB ALKP 32-117 U/L Alkaline Phosphatase 70 LAB AST 13-35 U/L AST High 105 LAB GLU 74-99 mg/dL Glucose High 108 Result Comment: The [place] [employer] (ADA) provides guidance for cutoff values for fasting glucose and random glucose. The ADA defines fasting as no caloric intake for at least 8 hours. Fas ting plasma glucose results between 100 to 125 mg/dL indicate increased risk for diabetes (prediabetes). Fasting plasma glucose results greater than or equal to 126 mg/dL meet the criteria for diagnosis of diabetes. In the absence of unequivocal hyperglycemia, results should be confirmed by repeat testing. In a patient with classic symptoms of hyperglycemia or hyperglycemic crisis, random plasma glucose results greater than or equal to 200 mg/dL meet the criteria for diagnosis of diabetes. Reference: Standards of Medical Care in Diabetes 2016, [place] [employer]. Diabetes Care. 2016.39(Suppl 1). LAB BUN 7-21 mg/dL BUN 9 LAB CRET 0.58-0.96 mg/dL Creatinine 0.82 LAB NA 136-144 mmol/L Sodium 138 LAB K 3.7-5.1 mmol/L Potassium 4.2 LAB CL 97-105 mmol/L Chloride 99 LAB CO2 22-30 mmol/L CO2 26 LAB AGAP 9-18 mmol/L Anion Gap 13 LAB ALT 7-38 U/L ALT High 177 LAB GFRAA eGFR- Amer. >60 LAB GFRNAA . eGFR-All Other Races >60 Result Comment: eGFR (Estimated GFR) Units of measure: mL/min/1.73 meters squared eGFR is derived from the reexpressed MDRD Study equation using the following parameters: serum creatinine, age, gender and race. The creatinine assay has been calibrated to be traceable to IDMS. An eGFR <60 mL/min/1.73m2 for >3 months is consistent with chronic kidney disease. Refer to KDOQI guidelines for clinical interpretation. In patients with unstable renal function, e.g. those with acute kidney injury, the eGFR may not accurately reflect actual GFR. Performed By: #### CMP #### [facility] [address] [place], [place] [address] CNOVSP Observed: 08/18/2017 Status: COMPLETED Source: [place] 2:00 PM [facility] REPOSITORY Visit (SP) Office ([place]) MAHI STAFFORD ([id number]) 1970 F Date Time Provider Department 08/18/17 2:00 PM DOREEN RAMIREZ) [place] During your visit today, we recorded the following information about you: Temperature Pulse Blood pressure Weight 98.5 degrees 115/minute 109/70 117.9 kg Doreen Ramirez CNP 08/19/2017 8:17 AM Signed Chief Complaint Patient presents with: Established Patient HPI: Mahi Stafford is a 46 year old female who presents here today for follow up ED visit on Thursday for red burning rash to arms. Per Dr. Velez's previous note: H/o hyperlipidemia?and hypertension?who underwent bilateral mammogram in June 2016. She had a diagnostic mammogram of the right breast with there was a questionable 5 mm area of irregular asymmetry with indistinct margin in the depth inferior region of the right breast only seen on mediolateral oblique views. An ultrasound confirmed this area. Follow-up study was recommended in 6 months. That study was done on along with an ultrasound that demonstrated an irregular lesion in the right breast 3:00 position anterior depth with mixed echogenicity. An ultrasound-guided biopsy was recommended. ?? This biopsy was performed 03/14/2017. The core sample demonstrated invasive ductal carcinoma, nuclear grade 2. Estrogen receptors were greater than 95%, strong and progesterone receptors were 12%, weak. HER-2 was quantified at 0. ?? The patient subsequent underwent an MRI. There was an additional area of concern identified in the right inner breast close to the original biopsied area. An MRI guided biopsy was performed that showed DCIS with intermediate and high nuclear grade with solid and cribriform types associated with microcalcifications. A clip was placed. Biopsy was also performed of a left breast abnormality and this tissue demonstrated fibroadenoma. ?? The patient still had regular menses. Her maternal grandmother evidently had breast cancer diagnosed in her 30s and underwent surgery. She later in her 60s from metastatic renal cell carcinoma. There is no other family history of breast cancer, ovarian cancer or uterine cancer. Her grandmother also had thyroid cancer. ? Current treatment:TC First cycle 06/25/17. ? She continues to use cipro eye drops. Tomorrow will be her last day of bactrim. ?? Appetite:good ANDquot;things still don't taste goodANDquot; drinking fluids ?Energy level:poor-ANDquot;it's getting better than last week.ANDquot; Denies fevers. Mouth:denies sores Resp:occ. cough, denies sob at rest, +lux Cardiac:denies chest pain/palpitations GI:denies abd pain, n/v, moving bowels regularly :denies dysuria/hematuria Extrem:denies pain Neuro:neuropathy to fingers and toes-improving as days go by from treatment-usually resolves by the next treatment Skin:red rash-to hands and forearms-skin beginning to peel Heme:denies bleeding The ROS is otherwise negative. Past medical history, appointments, medications, allergies reviewed. No changes. EXAM: BP 109/70 Pulse 115 Temp 36.9 ?C (98.5 ?F) (Oral) Wt 117.9 kg (260 lb) SpO2 97% BMI 46.06 kg/m2 APPEARANCE Well appearing, alert, in no acute distress, well- hydrated, well nourished. L EYE no erythema to area below eye, looks much better than last week HEART RRR with normal S1 and S2, no murmurs LUNG clear to auscultation EXTREMITIES No edema NEURO Awake, alert and oriented x 3, Normal gait and No involuntary motions. SKIN resolving red rash to hands and forearms, some skin peeling, no drainage/tenderness or surrounding erythema LABS: Component Latest Ref Rng ANDamp; Units 08/05/2017 08/13/2017 08/14/2017 08/18/2017 WBC, Bhanu 3.70 - 11.00 k/uL 6.07 2.08 (L) 6.22 13.16 (H) RBC, [place] 3.90 - 5.20 m/uL 4.47 4.19 3.91 3.98 Hemoglobin, [place] 11.5 - 15.5 g/dL 12.1 11.3 (L) 10.5 (L) 10.5 (L) Hematocrit, Bhanu 36.0 - 46.0 % 37.7 35.0 (L) 32.4 (L) 33.3 (L) MCV, Bhanu 80.0 - 100.0 fL 84.3 83.5 82.9 83.7 MCH, [place] 26.0 - 34.0 pg 27.1 27.0 26.9 26.4 MCHC, Bhanu 30.5 - 36.0 g/dL 32.1 32.3 32.4 31.5 RDW, [place] 11.5 - 15.0 % 19.5 (H) 20.1 (H) 20.3 (H) 21.8 (H) Platelet Cnt, [place] 150 - 400 k/uL 259 240 255 245 MPV, [place] 9.0 - 12.7 fL 8.8 (L) 9.7 9.0 8.7 (L) Absol Gran Count 1.45 - 7.50 k/uL 3.55 0.08 (L) 2.43 10.35 (H) Absolute nRBC ANDlt;0.01 k/uL 0.11 (H) ASSESSMENT/PLAN: 1. Malignant neoplasm of lower-inner quadrant of right breast of female, estrogen receptor positive (HCC) - ICD9: 174.3, V86.0, ICD10: C50.311, Z17.0 (primary diagnosis) pT1c (1.2 cm; grade 2; no ALI) pN0 MX ER/ME positive, HER2 negative invasive ductal carcinoma the right breast. Oncotype recurrent score was 26 suggesting 17% average recurrence risk over the next 10 years with the use of tamoxifen alone. 2. Drug rash - ICD9: 693.0, ICD10: L27.0 - Reviewed labs with pt. - Rash resolving to hands/forearms. - Due to multiple side effects will cancel cycle #[address] Velez. - Follow up as scheduled with Dr. Velez on Aug.26. - Pt. aware to call office with any questions/concerns. The patient indicates understanding of these issues and agrees with the plan. Discussed case with Dr. Velez who agrees with treatment plan. Doreen Ramirez CNP Referring Provider: ROGELIO VELEZ [[id number]] Allergies As of Date: 08/18/2017 Noted Allergy Reaction AMITRIPTYLINE 11/18/2016 14 - Other: See Comments Comments: Intensely angry CATS 01/05/2006 DOGS 01/05/2006 GRASS POLLEN 01/05/2006 LEVAQUIN (LEVOFLOXACIN) 07/15/2017 4 - Hives 7 - Swelling MOLD 01/05/2006 Date Reviewed: 08/18/2017 Reviewed by: Doreen (Digital Watch Assembler) James - Fully Assessed Reason for Visit: Established Patient [[id number]] Primary Visit Diagnosis:Malignant neoplasm of lower-inner quadrant of right breast of female, estrogen receptor positive (HCC) [C50.311, Z17.0] Other Visit Diagnosis:Drug rash [L27.0] Order(s):BHANU ABS GRAN CT + CBC [SQWAGCBC] Order #: [id number] FUTURE Follow-up and Disposition History Recorded Prescriptions as of 08/18/2017 Sig: HYDROCODONE 5 MG-ACETAMINOPHE* Take 1 tablet by mouth every * CIPROFLOXACIN 0.3 % EYE DROPS Use 1 Drop in the left eye fo* SULFAMETHOXAZOLE 800 MG-TRIME* Take 1 tablet by mouth twice * OLANZAPINE 10 MG TABLET Take 1 tablet by mouth daily * ONDANSETRON HCL 8 MG TABLET Take 1 tablet by mouth every * DEXAMETHASONE 4 MG TABLET Take 1 tablet twice the day p* AZELASTINE 0.05 % EYE DROPS Use 1 Drop in both eyes twice* DIPHENOXYLATE-ATROPINE 2.5 MG* Take 2 tablets by mouth four * OMEPRAZOLE 20 MG CAPSULE,ART* Take 1 capsule by mouth once * NYSTATIN 100,000 UNIT/ML ORAL* Take 5 mL by mouth four times* GFNGWJGIFEMMPKT-WMTCMYD-PHRHE* Take 10 mL by mouth every 4 h* POTASSIUM CHLORIDE 20 MEQ ORA* TAKE ONE PACKET BY MOUTH EVER* HYDROCHLOROTHIAZIDE 25 MG TAB* Take 1 tablet by mouth once d* LEVOTHYROXINE 200 MCG TABLET Take 1 tablet by mouth five t* LISINOPRIL 10 MG TABLET Take 1 tablet by mouth once d* LAMOTRIGINE 150 MG TABLET Take 150 mg by mouth once subha* ZOLPIDEM 5 MG TABLET Take 5 mg by mouth at bedtime* ACETAMINOPHEN 500 MG TABLET Take 500 mg by mouth every 6 * BUPROPION XL 300 MG 24 HR TAB Take 300 mg by mouth once subha* CHOLECALCIFEROL (VITAMIN D3) * Take 1 capsule by mouth once * FLUOXETINE 40 MG CAPSULE Take 1 capsule by mouth once * CLARITIN ORAL Take 1 tablet by mouth once d* Medication notes this encounter AZELASTINE 0.05 % EYE DROPS >> Sydney Dove MA 08/18/2017 1:37 PM >> SYDNEY DOVE MA Aug 18, 2017 1:37 PM as necessary DIPHENOXYLATE-ATROPINE 2.5 MG-0.025 MG TABLET >> Sydney Dove MA 08/18/2017 1:37 PM >> SYDNEY DOVE MA Aug 18, 2017 1:37 PM as necessary AMOXICILLIN 875 MG-POTASSIUM CLAVULANATE 125 MG TABLET >> Sydney Dove MA 08/18/2017 1:36 PM >> JESI ORTIZSYDNEY Aug 18, 2017 1:36 PM Completed Problem List As Of Date 08/18/2017 Noted Resolved ADJUSTMENT DISORDER WITH DEPRESSED MOOD [F43.21]INVALID FOR* ANXIETY STATE NOS [F41.1] INVALID FOR* Hypothyroidism [E03.9] INVALID FOR* BENIGN HYPERTENSION [I10] INVALID FOR* OBESITY NOS [E66.9] INVALID FOR* Nonspecific abnormal results of liver function *INVALID FOR* More... ALLERGIC RHINITIS NOS [J30.9] INVALID FOR* CHRONIC LIVER DIS NEC [K76.89] INVALID FOR* Hyperlipidemia [E78.5] INVALID FOR* Tobacco abuse [Z72.0] INVALID FOR* Low HDL (under 40) [E78.6] INVALID FOR* Hypertriglyceridemia [E78.1] INVALID FOR* Postsurgical hypothyroidism [E89.0] INVALID FOR* Incisional infection [T81.4XXA] INVALID FOR* Vitamin D deficiency [E55.9] INVALID FOR* Elevated LFTs [R79.89] INVALID FOR* Muscle spasm [M62.838] INVALID FOR* Neck pain [M54.2] INVALID FOR* Thoracic back pain [M54.6] INVALID FOR* Malignant neoplasm of lower-inner quadrant of r*INVALID FOR* Left breast mass [N63.20] INVALID FOR* More... Numbness of arm [R20.0] INVALID FOR* More... Encounter Status:Closed by DOREEN RAMIREZ CNP on 08/19/17 BHANU ABS GR + CBC Collected: 08/18/2017 Status: F Source: [place] 1:31 PM [facility] REPOS[facility]ORY TYPE CODE TESTS RESULT OUT OF REFERENCE UNITS RANGE LAB WWBC 3.70-11.00 k/uL [place] High WBC 13.16 LAB WRBC 3.90-5.20 m/uL [place] RBC 3.98 LAB WHGB 11.5-15.5 g/dL Low [place] Hemoglobin 10.5 LAB WHCT 36.0-46.0 % Low [place] Hematocrit 33.3 LAB WMCV 80.0-100.0 fL [place] MCV 83.7 LAB WMCH 26.0-34.0 pg Bhanu MCH 26.4 LAB WMCHC 30.5-36.0 g/dL [place] MCHC 31.5 LAB WRDW 11.5-15.0 % [place] High RDW 21.8 LAB WPLT 150-400 k/uL Bhanu Platelet Cnt 245 LAB WMPV 9.0-12.7 fL Low Bhanu MPV 8.7 Result Comment: Test performed at: [facility] [place], [address] [place] [address]. LAB ABGRAN 1.45-7.50 k/uL High Absol 10.35 Gran Count PROGRESS Observed: 08/18/2017 Status: COMPLETED Source: [place] 1:19 PM [facility] REPOSITORY HNO ID: [id number] Author: Doreen Ramirez Service: (none) Author Type: Nurse Practitioner Type: Progress Notes Filed: 08/19/2017 8:17 AM Note Text: Chief Complaint Patient presents with: Established Patient HPI: Mahi Stafford is a 46 year old female who presents here today for follow up ED visit on Thursday for red burning rash to arms. Per Dr. Velez's previous note: H/o hyperlipidemia?and hypertension?who underwent bilateral mammogram in June 2016. She had a diagnostic mammogram of the right breast with there was a questionable 5 mm area of irregular asymmetry with indistinct margin in the depth inferior region of the right breast only seen on mediolateral oblique views. An ultrasound confirmed this area. Follow-up study was recommended in 6 months. That study was done on along with an ultrasound that demonstrated an irregular lesion in the right breast 3:00 position anterior depth with mixed echogenicity. An ultrasound-guided biopsy was recommended. ?? This biopsy was performed 03/14/2017. The core sample demonstrated invasive ductal carcinoma, nuclear grade 2. Estrogen receptors were greater than 95%, strong and progesterone receptors were 12%, weak. HER- 2 was quantified at 0. ?? The patient subsequent underwent an MRI. There was an additional area of concern identified in the right inner breast close to the original biopsied area. An MRI guided biopsy was performed that showed DCIS with intermediate and high nuclear grade with solid and cribriform types associated with microcalcifications. A clip was placed. Biopsy was also performed of a left breast abnormality and this tissue demonstrated fibroadenoma. ?? The patient still had regular menses. Her maternal grandmother evidently had breast cancer diagnosed in her 30s and underwent surgery. She later in her 60s from metastatic renal cell carcinoma. There is no other family history of breast cancer, ovarian cancer or uterine cancer. Her grandmother also had thyroid cancer. ? Current treatment:TC First cycle 06/25/17. ? She continues to use cipro eye drops. Tomorrow will be her last day of bactrim. ?? Appetite:good things still don't taste good drinking fluids ?Energy level:poor-it's getting better than last week. Denies fevers. Mouth:denies sores Resp:occ. cough, denies sob at rest, +lux Cardiac:denies chest pain/palpitations GI:denies abd pain, n/v, moving bowels regularly :denies dysuria/hematuria Extrem:denies pain Neuro:neuropathy to fingers and toes-improving as days go by from treatment-usually resolves by the next treatment Skin:red rash-to hands and forearms-skin beginning to peel Heme:denies bleeding The ROS is otherwise negative. Past medical history, appointments, medications, allergies reviewed. No changes. EXAM: BP 109/70 Pulse 115 Temp 36.9 ?C (98.5 ?F) (Oral) Wt 117.9 kg (260 lb) SpO2 97% BMI 46.06 kg/m2 APPEARANCE Well appearing, alert, in no acute distress, well-hydrated, well nourished. L EYE no erythema to area below eye, looks much better than last week HEART RRR with normal S1 and S2, no murmurs LUNG clear to auscultation EXTREMITIES No edema NEURO Awake, alert and oriented x 3, Normal gait and No involuntary motions. SKIN resolving red rash to hands and forearms, some skin peeling, no drainage/tenderness or surrounding erythema LABS: Component Latest Ref Rng AND Units 08/05/2017 08/13/2017 08/14/2017 08/18/2017 WBC, [place] 3.70 - 11.00 k/uL 6.07 2.08 (L) 6.22 13.16 (H) RBC, [place] 3.90 - 5.20 m/uL 4.47 4.19 3.91 3.98 Hemoglobin, Bhanu 11.5 - 15.5 g/dL 12.1 11.3 (L) 10.5 (L) 10.5 (L) Hematocrit, Bhan[place] 36.0 - 46.0 % 37.7 35.0 (L) 32.4 (L) 33.3 (L) MCV, [place] 80.0 - 100.0 fL 84.3 83.5 82.9 83.7 MCH, [place] 26.0 - 34.0 pg 27.1 27.0 26.9 26.4 MCHC, Bhanu 30.5 - 36.0 g/dL 32.1 32.3 32.4 31.5 RDW, Bhan[place] 11.5 - 15.0 % 19.5 (H) 20.1 (H) 20.3 (H) 21.8 (H) Platelet Cnt, Bhanu 150 - 400 k/uL 259 240 255 245 MPV, [place] 9.0 - 12.7 fL 8.8 (L) 9.7 9.0 8.7 (L) Absol Gran Count 1.45 - 7.50 k/uL 3.55 0.08 (L) 2.43 10.35 (H) Absolute nRBC <0.01 k/uL 0.11 (H) ASSESSMENT/PLAN: 1. Malignant neoplasm of lower-inner quadrant of right breast of female, estrogen receptor positive (HCC) - ICD9: 174.3, V86.0, ICD10: C50.311, Z17.0 (primary diagnosis) pT1c (1.2 cm; grade 2; no ALI) pN0 MX ER/ME positive, HER2 negative invasive ductal carcinoma the right breast. Oncotype recurrent score was 26 suggesting 17% average recurrence risk over the next 10 years with the use of tamoxifen alone. 2. Drug rash - ICD9: 693.0, ICD10: L27.0 - Reviewed labs with pt. - Rash resolving to hands/forearms. - Due to multiple side effects will cancel cycle #[address] Velez. - Follow up as scheduled with Dr. Velez on Aug.26. - Pt. aware to call office with any questions/concerns. The patient indicates understanding of these issues and agrees with the plan. Discussed case with Dr. Velez who agrees with treatment plan. Doreen Ramirez, [facility] EMERGENCY DEPARTMENT Observed: 08/15/2017 Status: F Source: BHANU SUMMARY 4:53 PM [facility] [place] [facility] Medical Records Department [address] [place] [address] Emergency Department Summary 08/15/17 1527 MR#: [id number] Acct: [id number] Name: MAHI STAFFORD Rep #: [id number] : 1970 46 From: Marilyn Miramontes MD PCP: Lavonne Hensley Status: DEP ER - ER Visit Summary Date of Service: 08/15/17 Chief Complaint: Paresthesias of bilateral arms History of Present Illness: The patient is a 46 F currently on chemotherapy for breast cancer who presents for 2 hours of paresthesias in the bilateral fifth fingers in the ulnar side of the forearm up to the elbow. Patient states she has developed a rash on her arms and in her left eye that were determined to be due to her chemotherapy. She is currently on Bactrim and Cipro eyedrops for the same. Her eyes improved but the rash has become darker. Now she is having shooting paresthesias in the pinky is up to the elbow. She denies any neck pain, headache, back pain, weakness, or lower extremity symptoms. She also noted swelling in her bilateral hands and had to take off her wedding ring. She has shortness of breath secondary to pulmonary effusions that have already been worked up at the [facility]. She was checked for PE and CT scan was negative. Physical Examination: Vital signs: afebrile, hemodynamically stable, no hypoxia on room air General: well nourished, well developed, in no distress Skin: warm, dry, no pallor, erythematous patches on the bilateral arms below the elbows, no specific dermatomal distribution, blanching, left eye is mildly erythematous with exudate. No swelling. Mild rash along the base of the neck. HEENT: normocephalic and atraumatic; PERRL, EOMI, moist mucous membranes. Neck is supple, no midline tenderness deformities or step-offs, full range of motion Cardiovascular: Tachycardic rate and rhythm without murmurs, edema to bilateral hands, 2+ pulses all distal extremities Respiratory: No increased work of breathing, lungs are clear to auscultation bilaterally, no rales, rhonchi or wheezing Abdominal: Abdomen is soft, nontender with normoactive bowel sounds, no guarding or rebound, no masses MSK: Moves all extremities, no deformities, normal strength Neuro: Awake and alert, oriented 4. No facial droop, sensation and motor function intact and symmetric Test Results: no tests performed or indicated Emergency Department Course and Treatment: Discussed patient with Dr. Oh, who stated this is very likely a side effect of the Taxotere and is nothing to worry about. Patient was reassured. She was given norco for pain in the ED and also a rx for pain especially at night and to help her sleep with the shooting paresthesias. She is to follow-up with Dr. Velez if she has any further complaints. She was discharged home. Treatment Plan: [] Disposition: [] Impression: Side effect of chemotherapy, bilateral fifth finger and forearm paresthesias This note was generated with [employer] software. It may contain incorrect words, spelling, and punctuation that were not noted in review of the chart prior to signing ED Disposition - Plan for ED Patient: Chief Complaint: Numb/Ting Prescriptions: Hydrocodone Bitart/Apap 5-325 [Wooton 5/325] 1 tab PO Q6H PRN PRN 5 Days #20 tab PRN Reason: Pain Referrals: Rogelio Velez DO [STAFF PHYSICIAN] - Lavonne Hensley PA [Primary Care Provider] - Additional Instructions: Please follow-up with Dr. Velez if you continue to have worsening of your numbness and tingling in your hands as well as your rash. If you have any further concerns, please come back to the emergency department immediately for another evaluation. You may use the Wooton for pain and to help you sleep. What to do if you have Problems For any increased pain, shortness of breath, bleeding, nausea or vomiting, chest pain, or any unexpected problems, contact your Primary Care Provider. Call [facility] ([phone]) or report to the closest Emergency Room. Call 911 if necessary. 08/15/17 2264 <Electronically signed by Marilyn Miramontes MD> Date Marilyn Miramontes MD Cosigner Signature (If Indicated): Date CC: Lavonne Hensley DISCHARGE INSTRUCTION Observed: 08/15/2017 Status: F Source: BHANU 4:53 PM [facility] [place] [facility] Medical Records Department [address] [place] [address] Discharge Instruction 08/15/17 1553 MR#: [id number] Acct: [id number] Name: MAHI STAFFORD Rep #: [id number] : 1970 46 From: Marilyn Miramontes MD PCP: Lavonne Hensley Status: DEP ER ED Disposition - Plan for ED Patient: Chief Complaint: Numb/Ting Instructions: ED Neuropathy Peripheral Prescriptions: Hydrocodone Bitart/Apap 5-325 [Wooton 5/325] 1 tab PO Q6H PRN PRN 5 Days #20 tab PRN Reason: Pain Referrals: Lavonne Hensley PA [Primary Care Provider] - Rogelio Velez DO [STAFF PHYSICIAN] - Additional Instructions: Please follow-up with Dr. Velez if you continue to have worsening of your numbness and tingling in your hands as well as your rash. If you have any further concerns, please come back to the emergency department immediately for another evaluation. You may use the Wooton for pain and to help you sleep. What to do if you have Problems For any increased pain, shortness of breath, bleeding, nausea or vomiting, chest pain, or any unexpected problems, contact your Primary Care Provider. Call [facility] ([phone]) or report to the closest Emergency Room. Call 911 if necessary. 08/15/17 6153 <Electronically signed by Marilyn Miramontes MD> Date Marilyn Miramontes MD Cosigner Signature (If Indicated): Date CC: Lavonne Hensley ALLERGIES ALLERGIES DATE TYPE / NAME / CODE REACTION SEVERITY SOURCE CODE 07/08/2018 Drug amitriptyline/F0060 HYPER AND REALLY Unknown [place] Allergy/41 02491(RXNORM) ANGRY Community 6998320([facility] OMED CT) Repository 07/08/2018 Drug anastrozole/Y305465 Other Unknown [place] Allergy/41 094(RXNORM) Community 3946208([facility] CT) Repository 07/08/2018 Drug levofloxacin/L26986 hives, throat SV [place] Allergy/41 6299(RXNORM) swelling Community 6506961([facility] OMED CT) Repository 11/04/2017 DRUG ANASTROZOLE INTOLERANCE [place] [address] Clinic Main 5982545([facility] OME CT) Repository 07/15/2017 DRUG LEVOFLOXACIN HIVES [address] Other 9966674([facility] CT) Repository 11/18/2016 DRUG AMITRIPTYLINE OTHER: SEE C [place] [address] Clinic Other 0091672([facility] OMED CT) Repository 01/05/2006 Animal/420 CATS [place] 466784([facility] Other MED CT) [place] Repository 01/05/2006 Animal/420 DOGS [place] 969031([facility] Other MED CT) [place] Repository 01/05/2006 DRUG GRASS POLLEN [address] Other 0576065([facility] OMED CT) Repository 01/05/2006 DRUG MOLD [address] Other 5493178([facility] OMED CT) Repository ENCOUNTERS ENCOUNTERS ADMIT/DISCHARGE ACCOUNT ADMITTING ENCOUNTER LOCATION SOURCE NUMBER CLASS 07/21/2018/07/21/19 [id number] Ambulatory BMSBuilding:B [place] 19 [place] Repository 07/08/2018/07/08/20 [id number] Ambulatory BMSBuilding:B [place] 18 [place].[facility] Repository 07/07/2018 [id number] [facility] Hospital ing:US Repository 07/01/2018/07/01/20 [id number] Ambulatory BMSBuilding:B [place] 18 [place].[facility] Repository 06/03/2018/06/03/20 [id number] Ambulatory BMSBuilding:B [place] 18 [place].[facility] Repository 05/18/2018/05/18/20 [id number] Ambulatory BMSBuilding:B [place] 18 [place] Repository 05/13/2018 [id number] [facility] Hospital ing:US Repository 05/12/2018/05/12/20 [id number] Ambulatory BMSBuilding:B [place] 18 [place] Repository 05/06/2018 [id number] [facility] Hospital ing:[facility]SPEC Repository 05/06/2018/05/06/20 [id number] Ambulatory BMSBuilding:B [place] 18 [place] Repository 05/04/2018/05/04/20 [id number] Ambulatory [address] Repository 04/20/2018/04/21/20 [id number] Ambulatory [address] Repository 04/15/2018/04/15/20 [id number] Ambulatory BMSBuilding:B [place] 18 [place] Repository 04/12/2018 [id number] [facility] Hospital ing:US Repository 04/02/2018/04/05/20 [id number] Ambulatory [address] Repository 04/01/2018/04/01/20 [id number] Ambulatory BMSBuilding:B [place] 18 [place] Repository 03/26/2018/03/29/20 [id number] Ambulatory [address] Repository 03/17/2018/03/17/20 [id number] Ambulatory BMSBuilding:B B[place] 18 [place].[facility] Repository 03/10/2018/03/10/20 [id number] Ambulatory BMSBuilding:B [place] 18 [place] Repository 03/03/2018/03/04/20 [id number] Gautam Carrasco Ambulatory [address] Hospital ing:MV3Irae: Repository EZ720Bsy: 1 03/03/2018/03/04/20 [id number] Ambulatory BMSBuilding:W [place] 18 [facility] Repository 02/25/2018/02/26/20 [id number] Ambulatory [address] Repository 02/17/2018/02/18/20 [id number] Ambulatory BMSBuilding:Miki [place] 18 [place] [facility] Hospital Repository 02/01/2018/02/02/20 [id number] Ambulatory [address] Repository 01/29/2018/02/02/20 [id number] Ambulatory [address] Repository 01/25/2018/01/26/20 [id number] Ambulatory [address] Repository 01/14/2018/01/15/20 [id number] Ambulatory [address] ing:SDCRoom: Repository AC01 01/14/2018 [id number] Ambulatory BMSBuilding:W Bhanu [facility] Repository 01/11/2018/01/12/20 [id number] Ambulatory [address] Repository 01/07/2018/01/08/20 [id number] Ambulatory [address] Repository 01/05/2018/01/07/20 [id number] Ambulatory [address] Repository 01/04/2018 [id number] Ambulatory [facility] ing:OPBI Repository 01/04/2018/01/06/20 [id number] Ambulatory [address] Repository 01/04/2018/01/06/20 [id number] Ambulatory [address] Repository 12/17/2017/12/18/19 [id number] Ambulatory BMSBuilding:Miki [place] 18 [place] [facility] Hospital Repository 12/16/2017/12/18/19 [id number] Ambulatory [address] Repository 11/23/2017/11/27/19 [id number] Ambulatory [address] Repository 11/20/2017/11/24/19 [id number] Ambulatory [address] Repository 11/16/2017/11/18/19 [id number] Ambulatory [address] Repository 11/16/2017/11/18/19 [id number] Ambulatory [address] Repository 11/04/2017/11/10/19 [id number] Ambulatory [address] Repository 10/30/2017/11/03/19 [id number] Ambulatory [address] Repository 10/29/2017/10/30/19 [id number] DASH-IBAN, Ambulatory [address] Other [place] Repository 10/27/2017/10/29/19 [id number] Ambulatory [place] 18 [facility] Main [place] Repository 10/26/2017/10/27/19 [id number] Ambulatory [place] 18 [facility] Main [place] Repository 10/22/2017/10/24/19 [id number] Ambulatory [place] 18 [facility] Main [place] Repository 10/20/2017 [id number] Ambulatory [facility] Repository 10/19/2017/10/21/19 [id number] Ambulatory [place] 18 [facility] Main [place] Repository 10/19/2017/10/21/19 [id number] Ambulatory [place] 18 [facility] Main [place] Repository 10/14/2017/10/16/19 [id number] Ambulatory [address] Main [place] Repository 10/12/2017/10/13/19 [id number] Ambulatory [address] Main [place] Repository 10/12/2017/10/14/19 [id number] Ambulatory [address] Main [place] Repository 10/08/2017/10/10/19 [id number] Ambulatory [place] 18 [facility] Main [place] Repository 10/08/2017/10/10/19 [id number] Ambulatory [place] 18 [facility] Main [place] Repository 10/08/2017/10/09/19 [id number] Ambulatory [place] 18 [facility] Main [place] Repository 10/08/2017/10/10/19 [id number] Ambulatory [address] Main [place] Repository 10/06/2017/10/08/19 [id number] Ambulatory [place] 18 [facility] Main [place] Repository 10/05/2017/10/07/19 [id number] Ambulatory [place] 18 [facility] Main [place] Repository 09/28/2017/10/02/19 [id number] Ambulatory [place] 18 [facility] Main [place] Repository 09/25/2017/10/06/19 [id number] Ambulatory [place] 18 [facility] Other [place] Repository 09/22/2017/09/30/19 [id number] Ambulatory [place] 18 [facility] Main [place] Repository 09/21/2017/09/22/19 [id number] Ambulatory [place] 18 [facility] Main [place] Repository 09/21/2017/09/24/19 [id number] Ambulatory [place] 18 [facility] Main [place] Repository 09/21/2017/09/23/19 [id number] Ambulatory [address] Repository 09/17/2017/09/19/19 [id number] Ambulatory [address] Repository 08/26/2017/08/27/19 [id number] Ambulatory [address] Repository 08/26/2017/08/27/19 [id number] Ambulatory [address] Repository 08/18/2017/08/18/19 [id number] Ambulatory [address] Repository 08/18/2017/08/19/19 [id number] Ambulatory [address] Repository 08/15/2017/08/15/19 [id number] Emergency [place] [address] [place] [address] ing:ED Repository PAYERS PAYERS ENCOUNTER GUARANTOR PAYER SUBSCRIBER SOURCE 07/21/2018 TARI Moreira Primary MAHI [place] [id number] Insurance:PABLO HENNESSYNDOB: [facility] [id number] PLAN[place] Number: Repository 82328Cqq: 330 [id number] [phone] () Date:5808-06-22RZ [address] [place] [address] 70648AT: 07/21/2018 Secondary NOT GIVENUNK B[place] Insurance:SELF PAY [facility] Number: Effective Repository Date:2018-07-19 07/08/2018 TARI Moreira Primary MAHI [place] [id number] Insurance:PABLO HENNESSYNDOB: [facility] [id number] Healthic Number: Repository 19867Dml: 330 [id number] [phone] () Date:9210-96-71CK [address] [place] [address] 63832DG: 07/08/2018 Secondary NOT GIVENUNK [place] Insurance:SELF PAY [facility] Number: Effective Repository Date:2018-07-08 07/07/2018 TARI Moreira Primary MAHI [id number] Insurance:DANILOE MINOONDOB: [facility] [id number] PLANPolicy Number: Repository 59081Clz: 330 [id number] [phone] (HP) Date:1970ID [address] [place] [address] 41364NK: 07/07/2018 Secondary NOT GIVENUNK [place] Insurance:SELF PAY [facility] Number: Effective Repository Date:2018-07-01 07/01/2018 TARI D Primary MAHI [place] [id number] Insurance:BUCKEYE OSMANDDERTONDOB: [address] PLANPolicy Number: Repository 04281Fqf: 330 [id number] [phone] (HP) Date:8687-96-43KN [address] [place] [address] 99670OS: 07/01/2018 Secondary NOT GIVENUNK [place] Insurance:SELF PAY [facility] Number: Effective Repository Date:2018-07-01 06/03/2018 TAIR D Primary MAHI M Bhanu [id number] Insurance:BUCKEYE OSMANDDERTONDOB: [address] Number: Repository 31616Xka: 330 [id number] [phone] (HP) Date:7745-30-69BX [address] [place] [address] 94752KI: 06/03/2018 Secondary NOT GIVENUNK [place] Insurance:SELF PAY [facility] Number: Effective Repository Date:2018-06-01 05/18/2018 TARI D Primary MAHI M Bhanu [id number] Insurance:BUCKEYE CHADDERTONDOB: [address] Number: Repository 23097Gzx: 330 [id number] [phone] (HP) Date:3441-04-71UV [address] [place] [address] 11924AZ: 05/18/2018 Secondary NOT GIVENUNK Bhanu Insurance:SELF PAY [facility] Number: Effective Repository Date:2018-05-18 05/13/2018 TARI Harish Primary MAHI Drum[id number] Insurance:BUCKEYE OSMANDDERTONDOB: [facility] [id number] Alabama Medical CenterPolic Number: Repository [id number]: 330 [id number] [phone] () Date:7593-29-94TQ [address] [place] [address] 03910ZU: 05/13/2018 Secondary NOT GIVENUNK [place] Insurance:SELF PAY [facility] Number: Effective Repository Date:2018-05-07 05/12/2018 TARI Moreira Primary MAHI [place] [id number] Insurance:BUCKEYE OSMANDDERTONDOB: [facility] [id number] Health [facility] Number: Repository [id number]: 330 [id number] [phone] () Date:4715-87-05ED [address] [place] [address] [place] [address]HH: 05/12/2018 Secondary NOT GIVENUNK Bhanu Insurance:SELF PAY [facility] Number: Effective Repository Date:2018-05-12 05/06/2018 TARI Moreira Primary MAHI [place] [id number] Insurance:BUCKEYE CHADDERTONDOB: [facility] [id number] Health [facility]arr[facility] Number: Repository 10485Lmj: 330 [id number] [phone] () Date:7069-77-62PO [address] [place] [address] [place] 00503TT: 05/06/2018 Secondary NOT GIVENUNK [place] Insurance:SELF PAY [facility] Number: Effective Repository Date:2018-05-06 05/06/2018 TARI D Primary MAHI Galdamezoster [id number] Insurance:BUCKEYE CHADDERTONDOB: [facility] [id number] [place], [place] PLANPolicy Number: Repository 57056Eaj: 330 [id number] [phone] (HP) Date:9170-78-81MQ [address] [place] [address] [place] 14774LP: 05/06/2018 Secondary NOT GIVENUNK Bhanu Insurance:SELF PAY [facility] Number: Effective Repository Date:2018-04-30 04/15/2018 TARI Moreira Primary MAHI [id number] Insurance:PABLO HENNESSYNDOB: [address]Policy Number: Repository [id number]: 330 [id number] [phone] (HP) Date:5028-35-35ZD [address] [place] [address] 45132UB: 04/15/2018 Secondary NOT GIVENUNK [place] Insurance:SELF PAY [facility] Number: Effective Repository Date:2018-04-15 04/12/2018 TARI Moreira Primary MAHI [place] [id number] Insurance:PABLO HENNESSYNDOB: [address] Number: Repository 61679Zmy: 330 [id number] [phone] (HP) Date:2324-97-53OG [address] [place] [address] 66885RM: 04/12/2018 Secondary NOT GIVENUNK Bhanu Insurance:SELF PAY [facility] Number: Effective Repository Date:2018-04-06 04/01/2018 TARI Moreira Primary MAHI [id number] Insurance:PABLO JAMESONOB: [address] Number: Repository [address]13Sgb: 330 [id number] [phone] (HP) Date:3762-66-13IA [address] [place], [place] [address] [address]YQ: 04/01/2018 Secondary NOT GIVENUNK Bhanu Insurance:SELF PAY [facility] Number: Effective Repository Date:2018-04-01 03/17/2018 TARI Moreira Primary MAHI [id number] Insurance:BUCKEYE LUDWIGERTONDOB: [facility] [id number] [place], [place] PLANPolicy Number: Repository 43666Nrq: 330 [id number] [phone] (HP) Date:1251-29-77OB [address] [place] [address] 15321HT: 03/17/2018 Secondary NOT GIVENUNK [place] Insurance:SELF PAY [facility] Number: Effective Repository Date:2018-03-17 03/10/2018 TARI Moreira Primary MAHI [id number] Insurance:BUCKEYE LUDWIGERTONDOB: [facility] [id number] Healthic Number: Repository 64130Fmb: 330 [id number] [phone] () Date:2061-60-45UO [address] [place] [address] 63661GB: 03/10/2018 Secondary NOT GIVENUNK [place] Insurance:SELF PAY [facility] Number: Effective Repository Date:2018-03-10 03/03/2018 TARI Moreira Primary MAHI [id number] Insurance:BUCKEYE LUDWIGERTONDOB: [facility] [id number] Alabama Medical CenterPolic Number: Repository 70695Brl: 330 [id number] [phone] (HP) Date:7425-31-32VQ [address] [place], [place] [address] [address]XG: 03/03/2018 Secondary NOT GIVENUNK Bhanu Insurance:SELF PAY [facility] Number: Effective Repository Date:2017-12-23 03/03/2018 TARI Moreira Primary MAHI [id number] Insurance:BUCKEYE LUDWIGERTONDOB: [facility] [id number] [place], [place] PLANPolicy Number: Repository [address]Vys: 330 [id number] [phone] (HP) Date:4663-41-95BP [address] [place] [address] 67382QG: 03/03/2018 Secondary NOT GIVENUNK Bhanu Insurance:SELF PAY [facility] Number: Effective Repository Date:2018-03-02 02/17/2018 TARI Moreira Primary MAHI [id number] Insurance:BUCKEYE LUDWIGERTONDOB: [address]05-19[facility] CenterPolicy Number: Repository 34666Doh: 330 [id number] [phone] () Date:4574-99-12QY [address] [place] [address] 86360UR: 02/17/2018 Secondary NOT GIVENUNK Bhanu Insurance:SELF PAY [facility] Number: Effective Repository Date:2018-02-15 01/14/2018 TARI Moreira Primary MAHI [id number] Insurance:BUCKEYE LUDWIGERTONDOB: [address]05-19[facility] CenterPolicy Number: Repository 39211Gsr: 330 [id number] [phone] (HP) Date:6676-63-00ME [address] [place] [address] 75477QN: 01/14/2018 Secondary NOT GIVENUNK [place] Insurance:SELF PAY [facility] Number: Effective Repository Date:2017-11-25 01/14/2018 TARI Moreira Primary MAHI [id number] Insurance:BUCKEYE LUDWIGERTONDOB: [address] PLANPolicy Number: Repository 53889Ohs: 330 [id number] [phone] (HP) Date:8251-70-85FN [address] [place] [address] 12201SM: 01/14/2018 Secondary NOT GIVENUNK [place] Insurance:SELF PAY [facility] Number: Effective Repository Date:2018-01-14 01/04/2018 TARI Moreira Primary MAHI [place] [id number] Insurance:BUCKEYE LUDWIGERTONDOB: [facility] [id number] [place], [place] PLANPolicy Number: Repository 69728Slm: 330 [id number] [phone] (HP) Date:4679-26-78OS [address] [place] [address] 16636OV: 01/04/2018 Secondary NOT GIVENUNK [place] Insurance:SELF PAY [facility] Number: Effective Repository Date:2017-12-17 12/17/2017 TARI Moreira Primary MAHI [place] [id number] Insurance:BUCKEYE LUDWIGERTONDOB: [facility] [id number] [place], [place] PLANPolicy Number: Repository 07488Zbl: 330 [id number] [phone] (HP) Date:5286-28-96WH [address] [place] [address] 82539GK: 12/17/2017 Secondary NOT GIVENUNK Bhanu Insurance:SELF PAY [facility] Number: Effective Repository Date:2017-12-11 10/20/2017 Tari D Primary MAHIBECCA [place] [id number] Insurance:BUCKEYE LUDWIGERTONDOB: [facility] [id number]ANPolicy Number: Repository 65586Jnm: 330 [id number] [phone] (HP) Date:5886-30-27FK [address] [place] [address] 51585CC: 10/20/2017 Secondary NOT GIVENUNK [place] Insurance:SELF PAY [facility] Number: Effective Repository Date:2017-10-20 08/15/2017 Tari Moreira Primary MAHIBECCA [place] [id number] Insurance:PABLO JAMESONOB: [facility] [id number] Health [facility] Number: Repository 30370Xyq: (366) [id number] [phone] () Date:[id number], [place] [address]XZ: 08/15/2017 Secondary NOT GIVENELISE Bhanu Insurance:SELF PAY [facility] Number: Effective Repository Date:2017-08-15
== END ==
PROVIDERS: Family Provider Physician Assistant; PCP Physician Assistant; Referring Provider Surgery; Visit Provider Surgery
DX: N64.89 Other specified disorders of breast (principal)
CPT/HCPCS: 76642

== ENCOUNTER 2018-10-14 11:30 | Outpatient (RCR) | payer MEDICAID, SELFPAY | END 2018-10-14 23:59 | disposition home or self-care (01) | LOC: NS 11:30 | PROVIDERS: Family Provider Physician Assistant; PCP Physician Assistant; Visit Provider Physician Assistant | DX: E66.9 Obesity, unspecified (principal); E78.5 Hyperlipidemia, unspecified; E78.1 Pure hyperglyceridemia; Z71.3 Dietary counseling and surveillance | CPT/HCPCS: 97802; 97803 ==

== ENCOUNTER 2020-05-07 17:53 | Emergency (ER) | payer MEDICAID, SELFPAY ==
[2020-05-07 17:54] VITALS: BP 130/93; PULSE 104; RESP 18; TEMP 35.9; O2SAT 96; BMI 47.2
[2020-05-07 17:58] VITALS: BP 130/93; PULSE 99; RESP 18; TEMP 35.9; O2SAT 96
[2020-05-07 18:34] VITALS: O2SAT 96
--- NOTE | 2020-05-07 18:34 | EKG12_ITS ---
Test Reason : Blood Pressure : / mmHG Vent. Rate : 098 BPM Atrial Rate : 098 BPM P-R Int : 138 ms QRS Dur : 090 ms QT Int : 368 ms P-R-T Axes : 000 148 159 degrees QTc Int : 469 ms Suspect arm lead reversal, interpretation assumes no reversal Normal sinus rhythm Lateral infarct , age undetermined Recommend Repeat EKG Abnormal ECG Confirmed by SONAL GUTIERREZ, NATALI ([id number]), website/blog editor ANGIE MUÑOZ ([id number]) on 05/08/2020 9:07:00 AM Referred By: CHARAN Confirmed By:NATALI PRUITT MD
--- NOTE | 2020-05-07 18:35 | ED.VIS.GEN ---
History of Present Illness Chief Complaint: Chest Other Informant: Patient Onset: Days Context: Gradual Onset Narrative: Presents with URI symptoms with cough and chest congestion for the last 5 or 6 days. She was seen at urgent care last Thursday for right ear pain. She was started on amoxicillin for right ear infection. She states her ear feels better but symptoms in her chest have continued. Since last evening she had a heaviness in her chest. She called [facility] today to get an appointment but they told her because of the chest pain she need to go the emergency room. She reports a temperature of 99 when she was at the doctor's office last week, otherwise does not know of any fever. 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 (4) Breast cancer, right Status: Chronic Past Medical History - Allergies and Home Meds Allergies/Adverse Reactions: Allergies levofloxacin [From Levaquin] Allergy (Severe, Verified 07/08/18 10:04) hives, throat swelling amitriptyline Adverse Reaction (Verified 07/08/18 10:04) HYPER AND REALLY ANGRY anastrozole Adverse Reaction (Verified 07/08/18 10:04) Other headaches, mood changes Primary Care Physician: Lavonne Hensley, PA [Primary Care Provider] - Prior records reviewed: Yes Lives: With Family Smoking Status: Former smoker Review of Systems General: Denies: Chills, Fever Eyes: Denies: Visual changes - bilaterally ENT: Reports: Right ear pain - Now resolved Cardiovascular: Reports: Chest pain - Heaviness and congestion Respiratory: Reports: Dyspnea, Cough Gastrointestinal: Reports: Nausea, Vomiting, Diarrhea. Denies: Abdominal pain Musculoskeletal: Reports: Myalgias. Denies: Extremity Pain Skin: Denies: Rash Neurological: Denies: Headache Hematologic: Denies: Easy bruising, Easy bleeding Allergy: Denies: Uticaria Physical Exam Vital Signs/Narrative: Vital Signs Temp Pulse Resp BP Pulse Ox 05/07/20 17:58 96.7 F L 99 18 130/93 H 96 05/07/20 17:54 96.7 F L 104 H 18 130/93 H 96 Inital Vital Signs reviewed: Yes General: Well nourished, Well developed Head: Normocephalic ENT: Moist mucous membranes, TM's clear Neck: Supple Cardiovascular: Regular rate, Regular rhythm Respiratory: No distress, CTA bilaterally, Chest nontender Abdomen: Soft, Nontender, Normal bowel sounds Extremities: Nontender Skin: Normal color Neurological: Alert, Oriented x3 Psychological: Normal affect Diagnostic/Tx/Re-eval Impressions Chest X-Ray 05/07/20 19:25 IMPRESSION: Normal x-ray examination of the chest. Electronically Signed: Sahil Quiñonez MD at 20:19 EDT , Service support , 05/07/20 19:25 Chest 1 View (Portable) [RAD] Stat Laboratory Results 05/07/20 05/07/20 19:21 19:21 WBC 6.9 RBC 4.97 Hgb 15.6 H Hct 46.9 MCV 94.4 MCH 31.4 MCHC 33.3 RDW Std Deviation 45.2 H RDW Coeff of [place] 13.1 Plt Count 254 MPV 9.2 Immature Gran % (Auto) 1.600 H Neut % (Auto) 57.7 Lymph % (Auto) 31.3 [place] % (Auto) 8.4 Eos % (Auto) 0.1 Baso % (Auto) 0.9 Absolute Neuts (auto) 4.0 Absolute Lymphs (auto) 2.16 Nucleated RBC % 0 Sodium 140 Potassium 3.5 Chloride 103 Carbon Dioxide 29.0 Anion Gap 8 BUN 11 Creatinine 0.88 Estim Creat Clear Calc 61.83 Est GFR (MDRD) Af Amer 88 Est GFR (MDRD) Non-Af 73 BUN/Creatinine Ratio 12.5 Glucose 113 H Calcium 9.5 Troponin I < 0.015 - EKG Initial EKG Interpretation: Sinus Rhythm - Sinus at 98 with no acute ischemia. - Medical Decision Making Test results discussed with the patient at bedside. Viral respiratory panel was sent and will take several more hours for results. Covid test to send out will be back in 3 to 5 days. Patient is already on Augmentin. I advised her that I believe her symptoms are all viral in nature and that is why she has not improving with Augmentin. Patient will continue supportive care at home. ED Disposition - Plan for ED Patient: Disposition: Home or Assisted Living Diagnosis: Viral syndrome Instructions: ED Viral Syndrome Referrals: Hensley,M Gary PA, PA [Primary Care Provider] - 1 Week if not improving
--- NOTE | 2020-05-07 19:25 | RAD_ITS ---
STUDY: X-RAY CHEST REASON FOR EXAM: Female, 49 years old. COUGH, BODY ACHES, FEVER TECHNIQUE: Frontal and lateral views of the chest. COMPARISON: 07/21/2017. FINDINGS: The lungs are clear and expanded. There is no demonstrated pleural abnormality. Normal size heart. Normal mediastinum and erica. Normal visualized pulmonary arteries. Normal visualized aortic arch and descending thoracic aorta. Normal visualized thoracic spine. Normal visualized ribs, clavicles, and shoulders. There is no demonstrated abnormality of the visualized soft tissue structures of the upper abdomen. RAD/Chest 1 View (Portable) IMPRESSION: Normal x-ray examination of the chest. Electronically Signed: Sahil Quiñonez MD at 20:19 EDT , Service support ,
[2020-05-07 19:31] LABS: Absolute Lymphocyte Count 2.16 X10^3/uL (0.83-4.51); Basophil# 0.06 X10^3/uL; Basophil% 0.9 % (0-1); Eosinophil# 0.01 X10^3/uL; Eosinophils% 0.1 % (0-5); Hematocrit 46.9 % (37-47); Hemoglobin 15.6 g/dL (12.0-15.0); Lymphocyte # 2.16 X10^3/ul (4.0); Lymphocyte % 31.3 % (19-41); Mean Corp Hgb Conc 33.3 g/dL (32-36); Mean Corpuscular Hgb 31.4 pg (27.0-32.0); Mean Corpuscular Volume 94.4 fL (81-99); Mean Platelet Vol. 9.2 fl (6.2-12.0); Monocyte# 0.58 X10^3/uL; Monocyte% 8.4 % (0-10); NRBC Flagged by Analyzer 0 % (0-5); Neutrophil # 3.98 X10^3/uL (2.7-7.7); Neutrophil % 57.7 % (47-70); Platelet Count 254 K/mm3 (150-450); RBC Distribution Width CV 13.1 % (11.6-14.6); RBC Distribution Width SD 45.2 fl (35.1-43.9); Red Blood Count 4.97 M/mm3 (4.2-5.4); White Blood Count 6.9 K/mm3 (4.4-11.0)
[2020-05-07 20:03] LABS: Anion Gap 8 (5-15); BUN 11 mg/dL (7-18); BUN/Creat Ratio 12.5 RATIO (10-20); Calcium,Total 9.5 mg/dL (8.5-10.1); Chloride 103 mmol/L (98-107); Creatinine, Serum 0.88 mg/dL (0.55-1.02); EST Glomerular Filtration Rate 73 mL/min (>60); Est Glom Filt Rate - Afr Amer 88 mL/min (>60); Estimated Creatinine Clearance 61.83 ml/min; Glucose 113 mg/dL (74-106); Potassium 3.5 mmol/L (3.5-5.1); Sodium Level 140 mmol/L (136-145)
[2020-05-07 20:35] VITALS: BP 133/83; PULSE 81; RESP 16; O2SAT 98
--- NOTE | 2020-05-07 20:36 | ED.RN ---
THIS NURSE REVIEWED D/C INSTRUCTIONS WITH PT. PT VERBALIZED UNDERSTANDING OF INSTRUCTIONS. IV D/C. IV CATHETER INTACT. PT TOLERATED WELL.
== END 2020-05-07 20:37 | disposition home or self-care (01) ==
PROVIDERS: Emergency Provider Emergency Medicine; PCP Physician Assistant
DX: B34.9 Viral infection, unspecified (principal); I10 Essential (primary) hypertension; E78.00 Pure hypercholesterolemia, unspecified; Z90.13 Acquired absence of bilateral breasts and nipples; Z85.3 Personal history of malignant neoplasm of breast
CPT/HCPCS: 71045; 80048; 84484; 85025; 87633; 87635; 93005; 99285; A4216; U0003

== ENCOUNTER 2022-08-09 11:06 | Emergency (ER) | payer MEDICAID, SELFPAY ==
[2022-08-09 11:07] VITALS: BP 165/101; PULSE 100; RESP 18; TEMP 36.2; O2SAT 97; BMI 43.9
--- NOTE | 2022-08-09 11:22 | EX.ED.DYSGE1 ---
HPI History of Present Illness Chief Complaint: Dizziness Informant: patient Onset/Context/Timing Onset: Today Context: Sudden Onset Timing: Continuous Quality: Aching, lightheaded Location: Occipital head Worsened by: Nothing Relieved by: Time Narrative Narrative: Patient presents with near syncopal episode that recurred today. Patient states it began rather suddenly. Patient states she felt lightheaded. Patient states she bent over and developed an occipital headache. Patient states she fell forward but did not actually pass out. Patient states her vision got real dark. Patient states she was still able to hear things around her. Patient denies any chest pain or shortness of breath. Patient denies any palpitations. Patient states her symptoms are improving. Patient states nothing makes her symptoms worse. [facility] Medical History (Updated 08/09/22 @ 14:[address] Joselito Mei, ) Anemia Anxiety Back pain Back problem Breast cancer Breast lump in female Cataracts, bilateral Depression Frequent headaches Gallstones High cholesterol Hypertension Liver disease Neuropathy Pneumonia Seasonal allergies Thyroid disease Vision problems Vitamin deficiency Home Medications cholecalciferol (vitamin D3) 50 mcg (2,000 unit) tablet 2,000 unit PO DAILY 11/10/13 [History Last Taken 04/29/17 08:00 1] hydrochlorothiazide 12.5 mg capsule 25 mg PO DAILY bp 11/10/13 [History Last Taken 04/29/17 0500] acetaminophen 500 mg tablet 500 - 1,000 mg PO Q6H PRN PRN Pain 04/22/17 [History Last Taken Unknown] levothyroxine 100 mcg tablet 200 mcg PO DAILY thyroid 06/20/17 [History Last Taken 03/02/18 05:00] lisinopril 10 mg tablet 10 mg PO DAILY bp 06/20/17 [History Last Taken 03/02/18 05:00] bupropion HCl 150 mg 24 hr tablet, extended release (Wellbutrin XL) 150 mg PO QAM 04/15/18 [History Last Taken Unknown] fluoxetine 40 mg capsule (Prozac) 40 mg PO DAILY 04/15/18 [History Last Taken Unknown] lamotrigine 150 mg tablet 300 mg PO DAILY mood 05/06/18 [History Last Taken Unknown] amoxicillin 875 mg tablet 875 mg PO BID 05/07/20 [History Last Taken Unknown] Allergy/AdvReac Type Severity Reaction Status Date / [facility] Allergy Severe hives, Verified 08/09/22 11:11 throat swelling amitriptyline AdvReac HYPER AND Verified 08/09/22 11:11 REALLY ANGRY anastrozole AdvReac Other Verified 08/09/22 11:11 Family History Father Asthma Heart disease Hypertension High cholesterol ulcers Diabetes Grandmother Breast cancer Grandfather CVA (cerebral vascular accident) Surgical History S/P breast biopsy, right S/P cholecystectomy S/P mastectomy S/P tonsillectomy and adenoidectomy S/P total thyroidectomy Status post surgical manipulation of ankle joint Social History Smoking Status: Former smoker second hand exposure: No alcohol intake: never substance use type: does not use what type of physical activity do you participate in: none seatbelt use: always additional social history: DOES NOT USE ASPIRIN USES IBUPROFEN ROS ROS ED Constitutional Constitutional ED: Denies chills or fever(s) Eyes Eyes: Denies blurry vision or change in vision ENT ENT ED: Denies rhinorrhea or sore throat Cardiovascular Cardiovascular: Denies chest pain or palpitations Respiratory/Chest Respiratory/Chest: Denies cough or dyspnea Gastrointestinal Gastrointestinal: Reports nausea; Denies vomiting Genitourinary Genitourinary ED: Denies dysuria or hematuria Musculoskeletal Musculoskeletal: Reports neck pain; Denies back pain Integumentary Denies abscess or rash Neurologic Neurologic: Reports headache(s); Denies weakness Allergic/Immunologic Allergic/Immunologic ED: Denies mouth swelling or urticaria EXAM Physical Exam Const Vital Signs: 08/09/22 11:07 08/09/22 11:27 08/09/22 12:06 Temperature 97.1 F L Temperature Source Temporal Pulse Rate 100 Pulse Rate [Lying] 84 Pulse Rate [Sitting (for 1 minute prior to obtaining)] 98 Pulse Rate [Standing (for 1 minute prior to obtaining)] 82 Respiratory Rate 18 Respiratory Pattern Normal Blood Pressure 165/101 H Blood Pressure [Lying] 110/78 Blood Pressure [Sitting (for 1 minute prior to obtaining)] 122/89 H Blood Pressure [Standing (for 1 minute prior to obtaining)] 144/100 H Blood Pressure Mean 122 Blood Pressure Mean [Lying] 88 Blood Pressure Mean [Sitting (for 1 minute prior to obtaining)] 100 Blood Pressure Mean [Standing (for 1 minute prior to obtaining)] 114 Pulse Ox 97 Oxygen Delivery Method Room Air 08/09/22 13:15 Temperature Temperature Source Pulse Rate 75 Pulse Rate [Lying] Pulse Rate [Sitting (for 1 minute prior to obtaining)] Pulse Rate [Standing (for 1 minute prior to obtaining)] Respiratory Rate 16 Respiratory Pattern Blood Pressure Blood Pressure [Lying] Blood Pressure [Sitting (for 1 minute prior to obtaining)] Blood Pressure [Standing (for 1 minute prior to obtaining)] Blood Pressure Mean Blood Pressure Mean [Lying] Blood Pressure Mean [Sitting (for 1 minute prior to obtaining)] Blood Pressure Mean [Standing (for 1 minute prior to obtaining)] Pulse Ox 100 Oxygen Delivery Method Room Air Positive well nourished and well developed General Appearance ED: well developed HEENT Reports moist mucous membranes Neck supple and no JVD Resp normal respiratory effort and clear to auscultation bilaterally Cardio regular rate, regular rhythm and no murmurs GI normal to inspection, nondistended, normoactive bowel sounds and non-tender Palpation: soft Extremity normal to inspection General Extremety ED: Negative for edema or tenderness General Extremity: Negative for edema Neuro oriented x3, CN's II-XII intact bilaterally and no sensory deficits noted Sensorium / Orientation: alert Motor Exam: strength 5/5 throughout Psych mental status grossly normal Skin no rashes or lesions noted MDM MDM MDM Narrative Medical decision making narrative: Differential diagnosis includes subarachnoid hemorrhage, pulmonary embolism, cardiac ischemia, cardiac dysrhythmia, vasovagal syncope, and hypertensive urgency. We will obtain CT scan of the brain to check for subarachnoid hemorrhage or intracranial abnormality. We will obtain a CTA of the chest to check for pulmonary embolism given her history of breast cancer. We will obtain an EKG to check for cardiac dysrhythmia and cardiac ischemia. We will obtain CBC to check for leukocytosis and anemia. We will obtain the basic metabolic profile to check for electrolyte abnormality and renal function. We will obtain a troponin to check for cardiac ischemia. Lab Data Lab results narrative: CBC was reviewed. Hemoglobin was 15.5. The remainder was within normal limits. Basic metabolic profile was reviewed and was within normal limits. High-sensitivity troponin was reviewed and was normal. Labs: Laboratory Results - last 24 hr 08/09/22 08/09/22 11:50 11:50 WBC 7.2 RBC 4.97 Hgb 15.5 H Hct 45.9 MCV 92.4 MCH 31.2 MCHC 33.8 RDW Std Deviation 44.5 H RDW Coeff of [place] 13.0 Plt Count 237 MPV 9.2 Immature Gran % (Auto) 0.700 Neut % (Auto) 59.3 Lymph % (Auto) 31.9 [place] % (Auto) 7.2 Eos % (Auto) 0.1 Baso % (Auto) 0.8 Absolute Neuts (auto) 4.3 Absolute Lymphs (auto) 2.29 Nucleated RBC % 0 Sodium 141 Potassium 3.6 Chloride 105 Carbon Dioxide 30.0 Anion Gap 6 BUN 15 Creatinine 0.91 Estim Creat Clear Calc 58.50 Est GFR (MDRD) Af Amer 84 Est GFR (MDRD) Non-Af 69 BUN/Creatinine Ratio 16.5 Glucose 105 Calcium 9.4 Troponin I High Sens 4 Radiography Diagnostic Testing: Clinical Impression(s) from Imaging Studies Brain CT 08/09/22 11:30 IMPRESSION: Normal unenhanced CT scan of the brain. Electronically Signed: Silvio Whiteside MD at 13:36 EST , Chest CTA 08/09/22 11:34 IMPRESSION: 1. No demonstrated pulmonary embolism or arterial dissection. 2. No consolidation or infiltrates are active pulmonary edema is present. No pleural effusion is seen. Electronically Signed: Silvio Whiteside MD at 13:47 EST , CT scan of the brain was obtained. On my independent interpretation, there is no acute intracranial abnormality. This was also interpreted by the radiologist who agrees. CTA of the chest was obtained. On my independent interpretation, there is no evidence of pulmonary embolism or aortic dissection. There is no pneumothorax. Radiologist also interpreted the CT scan and agrees. He also noted there is no consolidation or infiltrate. There is no pleural effusion. EKG Initial EKG: Attestation: I personally reviewed and interpreted this EKG as follows: Interpretation: Sinus Rhythm (91) and No Acute Injury Pattern Comments: EKG was obtained. On my interpretation, it showed a normal sinus rhythm with a rate of 91. [place] interval, QRS interval, and QTc intervals were all normal. [place] was normal. There are no acute ST or T wave changes. Prior EKG tracings: available for review Prior: Unchanged (05/07/2020) Treatment and Re-Evaluation Narrative: Patient is feeling better on reevaluation. Orthostatic vital signs were reviewed and were negative. Patient was advised of her findings. Patient was instructed to follow-up with her primary care physician in 5 to 7 days for reevaluation and possible further testing for syncope. Patient understood and was agreeable with the plan. All questions were answered. Discharge Plan Triage Chief Complaint: Dizziness ED Provider: Joselito Mei Dx/Rx/DC Orders Clinical Impression: Near syncope, Hypertension Instructions: ED Near-Fainting, Uncertain Cause Prescriptions: No Action bupropion HCl [Wellbutrin XL] 150 mg tablet extended release 24 hr 150 mg PO QAM fluoxetine [Prozac] 40 mg capsule 40 mg PO DAILY hydrochlorothiazide 12.5 MG capsule 25 mg PO DAILY cholecalciferol (vitamin D3) 2,000 UNIT tablet 2,000 unit PO DAILY lisinopril 10 MG tablet 10 mg PO DAILY Label Comments: Take 1 tablet by mouth once daily. acetaminophen 500 MG tablet 500 - 1,000 mg PO Q6H PRN PRN (Reason: Pain) levothyroxine 100 MCG tablet 200 mcg PO DAILY lamotrigine 150 mg tablet 300 mg PO DAILY amoxicillin 875 MG tablet 875 mg PO BID Primary Care Provider: Lavonne Hensley Referrals: Lavonne Hensley PA [Primary Care Provider] - 5-7 Days Disposition Disposition: Home, Self Care
--- NOTE | 2022-08-09 11:30 | CT_ITS ---
STUDY: CT BRAIN WITHOUT CONTRAST REASON FOR EXAM: Female, 51 years old. Headache RADIATION DOSAGE (If Supplied By Facility): CTDIvol = ( 44.99 ) mGy, DLP = ( 745.49 ) mGycm TECHNIQUE: Transaxial CT imaging of the brain was performed without administration of intravenous contrast material. Individualized dose optimization techniques were used for this CT. COMPARISON: None. FINDINGS: Normal soft tissue structures. Normal calvarium. Normal size ventricles and extra-axial spaces for the patient''s age. Normal white matter tracts of the cerebral hemispheres. Normal basal ganglia and thalami. Normal brainstem. Normal cerebellum. No visualized dense artery sign or sulcal effacement or parenchymal edema. There is no intracranial hemorrhage. There are no findings of an acute ischemic infarction. Normal visualized paranasal sinuses. CT/Brain/Head without Contrast IMPRESSION: Normal unenhanced CT scan of the brain. Electronically Signed: Silvio Whiteside MD at 13:36 EST ,
--- NOTE | 2022-08-09 11:33 | EKG12_ITS ---
Test Reason : DIZZY Blood Pressure : / mmHG Vent. Rate : 091 BPM Atrial Rate : 091 BPM P-R Int : 152 ms QRS Dur : 090 ms QT Int : 372 ms P-R-T Axes : 038 028 032 degrees QTc Int : 457 ms Normal sinus rhythm Normal ECG Confirmed by NOE GUTIERREZ, MIRIAN ([id number]), film editor supervisor ANGIE MUÑOZ ([id number]) on 08/11/2022 10:45:03 AM Referred By: BRITTNEE Confirmed By:MIRIAN LIU MD
--- NOTE | 2022-08-09 11:34 | CT_ITS ---
STUDY: CTA CHEST REASON FOR EXAM: Female, 51 years old. PE suspected NEAR SYNCOPE EPISODE HX-BREAST CA,THYROIDECTOMY,HTN RADIATION DOSAGE (If Supplied By Facility): CTDIvol = ( 12.66 ) mGy, DLP = ( 1166.22 ) mGycm TECHNIQUE: The examination was performed with the intravenous administration of IV 75mL [id number]-370. Post-processing of the angiographic images was performed, with multiplanar reformation and 3D reconstruction. Individualized dose optimization techniques were used for this CT. COMPARISON: Chest x-ray dated May 07, 2020 FINDINGS: Normal enhancement of the main pulmonary artery and right and left pulmonary arteries. There is limited enhancement of the bilateral peripheral pulmonary arteries. There is no demonstrated pulmonary embolism. There is atherosclerotic calcification of the aortic arch with tortuosity. There is no demonstrated aortic dissection. Normal heart and pericardium. Normal mediastinum. Normal hilar regions. Normal visualized trachea and bronchi. The lungs are well expanded. Normal pulmonary parenchyma. No consolidation or infiltrates are active pulmonary edema is present. No pleural effusion is seen. Normal pleura. Normal chest wall structures. There are degenerative changes of thoracic spine. Unremarkable visualized upper abdomen. Mild enlarged fatty liver. Splenic granuloma. CT/CTA Chest W/WO Contrast IMPRESSION: 1. No demonstrated pulmonary embolism or arterial dissection. 2. No consolidation or infiltrates are active pulmonary edema is present. No pleural effusion is seen. Electronically Signed: Silvio Whiteside MD at 13:47 EST ,
[2022-08-09 11:58] LABS: Absolute Lymphocyte Count 2.29 X10^3/uL (0.83-4.51); Absolute Neutrophil Count 4.3 X10^3/uL (2.0-7.7); Basophil# 0.06 X10^3/uL; Basophil% 0.8 % (0-1); Eosinophil# 0.01 X10^3/uL; Eosinophils% 0.1 % (0-5); Hematocrit 45.9 % (37-47); Hemoglobin 15.5 g/dL (12.0-15.0); Lymphocyte # 2.29 X10^3/ul (0.83-4.51); Lymphocyte % 31.9 % (19-41); Mean Corp Hgb Conc 33.8 g/dL (32-36); Mean Corpuscular Hgb 31.2 pg (27.0-32.0); Mean Corpuscular Volume 92.4 fL (81-99); Mean Platelet Vol. 9.2 fl (6.2-12.0); Monocyte# 0.52 X10^3/uL; Monocyte% 7.2 % (0-10); NRBC Flagged by Analyzer 0 % (0-5); Neutrophil # 4.25 X10^3/uL (2.7-7.7); Neutrophil % 59.3 % (47-70); Platelet Count 237 K/mm3 (150-450); RBC Distribution Width SD 44.5 fl (35.1-43.9); Red Blood Count 4.97 M/mm3 (4.2-5.4); White Blood Count 7.2 K/mm3 (4.4-11.0)
[2022-08-09] MEDS: 0.9% Normal Saline 1,000 ML 1000 ML IV (12:01)
[2022-08-09 12:06] VITALS: BP 110/78; BP 122/89; BP 144/100; PULSE 82; PULSE 84; PULSE 98
[2022-08-09 12:15] LABS: Anion Gap 6 (5-15); BUN 15 mg/dL (7-18); BUN/Creat Ratio 16.5 RATIO (10-20); Calcium,Total 9.4 mg/dL (8.5-10.1); Chloride 105 mmol/L (98-107); Creatinine, Serum 0.91 mg/dL (0.55-1.02); EST Glomerular Filtration Rate 69 mL/min (>60); Est Glom Filt Rate - Afr Amer 84 mL/min (>60); Glucose 105 mg/dL (74-106); Potassium 3.6 mmol/L (3.5-5.1); Sodium Level 141 mmol/L (136-145); Troponin-I HS 4 pg/mL (3.0-54.0)
[2022-08-09 13:15] VITALS: PULSE 75; RESP 16; O2SAT 100
== END 2022-08-09 15:23 | disposition home or self-care (01) ==
PROVIDERS: Emergency Provider Emergency Medicine; PCP Physician Assistant; Visit Provider Emergency Medicine
DX: R55 Syncope and collapse (principal); R42 Dizziness and giddiness; E78.00 Pure hypercholesterolemia, unspecified; Z87.891 Personal history of nicotine dependence; I10 Essential (primary) hypertension; Z85.3 Personal history of malignant neoplasm of breast
CPT/HCPCS: 70450; 71275; 80048; 84484; 85025; 93005; 96360; 99285; J7030; Q9967; A4216